=== PATIENT | female | born 1970 | race Caucasian/White ===

== ENCOUNTER 2022-07-20 11:27 | Day surgery (SDC) | payer MEDICAID, SELFPAY ==
[2022-07-14 12:39] VITALS: BMI 20.9
--- NOTE | 2022-07-17 09:08 | MHC.SHP ---
Pre-Procedural Eval Section A Date of Service: 07/17/22 The patient is an INPATIENT: No Changes since office visit: No Cold of Flu in the past 2 weeks, No New Medical Problems, No Changes in Medication and No Patient answered all questions The History & Physical has been completed within 30 days and I have reviewed it.: Yes Section B Chief Complaint: Age-related nuclear cataract, left eye Allergies: Allergies Allergy/AdvReac Type Severity Reaction Status Date / Time No Known Allergies Allergy Verified 07/14/22 12:38 Plan Diagnosis/Plan: Unchanged I have reviewed the history and physical and performed a pertinent physical examination on my patient. No changes have occurred unless specified. Time Spent With Patient Time: Total time managing care of this patient today ____ minutes.
--- NOTE | 2022-07-17 10:45 | HO.ANESPROP2 ---
Documented by User: Karen Guerrero NP 07/17/22 10:45 HPI - Anesthesia Eval Consult details Narrative: 51yo F for Left Cataract Extraction IOL Insertion PCP cleared No previous cataract on record PMFSH Past Medical History Medical History Cataract Cervical cancer Chronic renal insufficiency Depression Diabetes Diabetic retinopathy Gitelman syndrome Hepatitis C History of MRSA infection HIV (human immunodeficiency virus infection) HTN (hypertension) Uses roller walker Vision decreased Surgical History Surgical History History of ERCP Hx of cholecystectomy Hx of colonoscopy Hx of hysterectomy Social History Social History (Updated 07/14/22 @ 12:46 by Kiesha Grande, RYLEE) Are you a primary home care physical therapist to a significant other at home: No Do you presently have visiting nurse or other home services: No (supportive ex- there everyday ) Patient Tobacco Use Status: Never used Tobacco Use of substances other than those prescribed or required for medical reasons: No Are you DNR?: No Advance Directives: No Advance Directives Information Provided: Yes Advance Directives on File: No Meds Allergies Allergy/AdvReac Type Severity Reaction Status Date / Time No Known Allergies Allergy Verified 07/20/22 12:24 Home Medications Medication Instructions Recorded Confirmed Last Taken Type aspirin 81 mg tablet,delayed 81 mg PO DAILY 02/25/22 07/14/22 Unknown History release bictegravir 30 mg-emtricitabine 1 tab PO DAILY 02/25/22 07/14/22 Unknown History 120 mg-tenofovir alafenam 15 mg tablet (Biktarvy) cholecalciferol (vitamin D3) 25 25 mcg PO DAILY 02/25/22 07/14/22 Unknown History mcg (1,000 unit) capsule (Vitamin D3) dulaglutide 0.75 mg/0.5 mL 0.75 mg subcut QWEEK 02/25/22 07/14/22 Unknown History subcutaneous pen injector (Trulicity) gabapentin 300 mg capsule 300 mg PO BEDTIME 02/25/22 07/14/22 Unknown History insulin glargine 100 unit/mL 40 unit subcut QPM 02/25/22 07/14/22 Unknown History subcutaneous solution insulin lispro 100 unit/mL 5 - 15 unit subcut TIDAC 02/25/22 02/25/22 Unknown History subcutaneous pen (Humalog KwikPen (U-100) Insulin) metoprolol tartrate 25 mg tablet 25 mg PO DAILY 02/25/22 07/14/22 07/20/22 10:00 History famotidine 10 mg tablet 10 mg PO BID 07/14/22 07/14/22 Unknown History Exam Exam Date and Time: July 17, 2022 1045 Height,Weight and Vital Signs: Height 5 ft Weight 48.534 kg Assessment and Plan Assessment Anesthesia Assessment: Chart Reviewed Documented by User: Tristan Kc MD 07/20/22 13:52 HPI - Anesthesia Eval Consult details Narrative: 51yo F for Left Cataract Extraction IOL Insertion h/o Hep C s/p treatment as per patient . HIV, patient is on antiretroviral , stable as per patient , saw the physician couple of months ago . PCP cleared No previous cataract on record PMFSH Past Medical History Medical History Cataract Cervical cancer Chronic renal insufficiency Depression Diabetes Diabetic retinopathy Gitelman syndrome Hepatitis C History of MRSA infection HIV (human immunodeficiency virus infection) HTN (hypertension) Uses roller walker Vision decreased Functional capacity: uses cane/walker Family History Family history of problems with anesthesia: No Surgical History Surgical History History of ERCP Hx of cholecystectomy Hx of colonoscopy Hx of hysterectomy History of Problems with Anesthesia: No Social History Social History (Updated 07/14/22 @ 12:46 by Kiesha Grande RN) Are you a primary home care physical therapist to a significant other at home: No Do you presently have visiting nurse or other home services: No (supportive ex- there everyday ) Patient Tobacco Use Status: Never used Tobacco Use of substances other than those prescribed or required for medical reasons: No Are you DNR?: No Advance Directives: No Advance Directives Information Provided: Yes Advance Directives on File: No Meds Allergies Allergy/AdvReac Type Severity Reaction Status Date / Time No Known Allergies Allergy Verified 07/20/22 12:24 Home Medications Medication Instructions Recorded Confirmed Last Taken Type aspirin 81 mg tablet,delayed 81 mg PO DAILY 02/25/22 07/14/22 Unknown History release bictegravir 30 mg-emtricitabine 1 tab PO DAILY 02/25/22 07/14/22 Unknown History 120 mg-tenofovir alafenam 15 mg tablet (Biktarvy) cholecalciferol (vitamin D3) 25 25 mcg PO DAILY 02/25/22 07/14/22 Unknown History mcg (1,000 unit) capsule (Vitamin D3) dulaglutide 0.75 mg/0.5 mL 0.75 mg subcut QWEEK 02/25/22 07/14/22 Unknown History subcutaneous pen injector (Trulicity) gabapentin 300 mg capsule 300 mg PO BEDTIME 02/25/22 07/14/22 Unknown History insulin glargine 100 unit/mL 40 unit subcut QPM 02/25/22 07/14/22 Unknown History subcutaneous solution insulin lispro 100 unit/mL 5 - 15 unit subcut TIDAC 02/25/22 02/25/22 Unknown History subcutaneous pen (Humalog KwikPen (U-100) Insulin) metoprolol tartrate 25 mg tablet 25 mg PO DAILY 02/25/22 07/14/22 07/20/22 10:00 History famotidine 10 mg tablet 10 mg PO BID 07/14/22 07/14/22 Unknown History Exam Airway Mallampati Class: III TM Dist: >3cm Neck ROM: Full Loose/Missing/Broken Teeth: Yes (Poor dentition ) Heart: S1,S2 Lungs: b/l breath sounds Assessment and Plan Assessment Anesthesia Assessment: Anesthesia Plan Discussed Final Anesthetic Review Family History of Problems with Anesthesia: No History of Problems with Anesthesia: No NPO: Yes ASA Class: III Final Preanesthetic Review: Meds/Allgs Chart Reviewed, Consent Obtained/Reviewed and Anes Risks/Benef Reviewed Patient Risk: Intermediate Procedure Risk: Intermediate Anesthetic Plan Anesthetic Plan: MAC: Disposition: Standard PACU
[2022-07-20 11:56] LABS: Glucose, Whole Blood 279 mg/dL (60-115)
[2022-07-20] MEDS: Tetracaine HCl/PF 0.5% Oph Sol 4 ML DROPS 1 DROP EYE-LEFT (11:59)
[2022-07-20] MEDS: Cyclopentolate 1 % Ophth Sol 2 ML DRPBTL 1 DROP EYE-LEFT ×3 (12:02→12:16)
[2022-07-20] MEDS: Tropicamide 1 % Ophth Sol 3 ML BTL 1 DROP EYE-LEFT ×3 (12:05→12:17)
[2022-07-20] MEDS: Ketorolac Tromethamine 0.5% Op 5 ML DROPS 1 DROP EYE-LEFT ×3 (12:07→12:19)
[2022-07-20] MEDS: Phenylephrine HCL 2.5% Oph SoL 2 ML BOTTLE 1 DROP EYE-LEFT ×3 (12:09→12:21)
[2022-07-20 12:11] VITALS: BP 113/68; PULSE 96; RESP 16; TEMP 36.3; O2SAT 99
[2022-07-20] MEDS: Lactated Ringers 500 ML 50 ML IV (12:22)
--- NOTE | 2022-07-20 12:56 | HO.PNOPHT ---
Ophthalmology Procedure Procedure Date of Service: 07/20/22 Ophthalmology Viscoelastic: Healon Duet Dual Pack Pro Ophthalmology Lenses: TECKATHY [id number] (23.5) Procedure Notes: PREOPERATIVE DIAGNOSIS: Decreased visual acuity left eye secondary to cataract POSTOPERATIVE DIAGNOSIS: Same PROCEDURE: Left cataract extraction with intraocular lens insertion; Visionblue SURGEON: Bartolome Bliss M.D. ANESTHESIA: Topical/MAC ESTIMATED BLOOD LOSS: None COMPLICATIONS: None After obtaining informed consent, the patient was brought to the operation room suite and placed in the supine position. After adequate sedation per anesthesia, topical drops of Tetracaine were given to the left eye. The eye was then prepped and draped in the usual sterile fashion. The operating room microscope was then positioned over the operative eye and a lid speculum placed. A paracentesis was created.An air bubble was placed in the anterior chamber followed by Visionblue. Viscoelastic was then instilled into the anterior chamber. A three plane incision was then created temporally, utilizing a 2.85 mm keratome. Capsulotomy forceps were then utilized to create a circular tear capsulotomy. Hydrodissection and hydrodelineation were carried out until adequate mobilization of the nucleus occurred. Phacoemulsification was then utilized to remove the dense central nucleus followed by removal of the cortical material utilizing the automated aspiration irrigation unit. Viscoat elastic was instilled into the posterior capsular bag followed by placement of a posterior chamber intraocular lens without difficulty. The residual Viscoat elastic was then removed utilizing the automated IA machine. The wound was check and found to be watertight. The patient tolerated the procedure well and the lid speculum was removed. Intracameral injection of Vigamox 0.1 mL followed by a subtenon injection of Kenalog-40 0.2 mL were administered. The patient will be seen in the a.m.
[2022-07-20 13:24] VITALS: BP 136/84; PULSE 96; RESP 20; TEMP 36.6; O2SAT 99
== END 2022-07-20 13:48 | disposition home or self-care (01) ==
PROVIDERS: PCP Internal Medicine; Visit Provider Ophthalmology
PROC: (CPT 66985; principal; 2022-07-20 13:20)
DX: H25.12 Age-related nuclear cataract, left eye (principal); H54.7 Unspecified visual loss; E11.319 Type 2 diabetes mellitus with unspecified diabetic retinopathy without macular edema; E11.22 Type 2 diabetes mellitus with diabetic chronic kidney disease; I12.9 Hypertensive chronic kidney disease with stage 1 through stage 4 chronic kidney disease, or unspecified chronic kidney disease; N18.9 Chronic kidney disease, unspecified; B20 Human immunodeficiency virus [HIV] disease; B19.21 Unspecified viral hepatitis C with hepatic coma; Z79.4 Long term (current) use of insulin; Z79.899 Other long term (current) drug therapy; Z79.82 Long term (current) use of aspirin; Z86.14 Personal history of Methicillin resistant Staphylococcus aureus infection
CPT/HCPCS: 66984; 82947; J2250; J3010; J3301; V2632

== ENCOUNTER 2022-08-10 10:21 | Day surgery (SDC) | payer OTHER, SELFPAY ==
[2022-07-14 12:43] VITALS: BMI 20.9
--- NOTE | 2022-08-07 10:27 | MHC.SHP ---
Pre-Procedural Eval Section A Date of Service: 08/07/22 The patient is an INPATIENT: No Changes since office visit: No Cold of Flu in the past 2 weeks, No New Medical Problems, No Changes in Medication and No Patient answered all questions The History & Physical has been completed within 30 days and I have reviewed it.: Yes Section B Chief Complaint: Age-related nuclear cataract, right eye Allergies: Allergies Allergy/AdvReac Type Severity Reaction Status Date / Time No Known Allergies Allergy Verified 07/20/22 12:24 Plan Diagnosis/Plan: Unchanged I have reviewed the history and physical and performed a pertinent physical examination on my patient. No changes have occurred unless specified. Time Spent With Patient Time: Total time managing care of this patient today ____ minutes.
--- OUTSIDE RECORDS SUMMARY | 2022-08-10 10:22 | XMS_ITS | Continuity of Care Document ---
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 Name Role Phone Isra ELIZABETH, Toyin Primary Care Physician Encounter [facility] Date(s): 02/07/21 - 06/07/21 [facility] [address] [place] [id number] Attending Physician: Abdoul Solitario MD Admitting Physician: Abdoul Solitario MD Referring Physician: Toyin Dhaliwal MD Allergies, Adverse Reactions, Alerts No Known Allergies Immunizations Given and Recorded Vaccine Date Status Refusal Reason influenza virus vaccine, inactivated 03/05/21 Give n influenza virus vaccine, inactivated 1 02/12/20 Gi damien influenza virus vaccine, inactivated 2 03/23/19 Gi damien influenza virus vaccine, inactivated 3 03/10/16 Gi damien influenza virus vaccine, inactivated 4 02/13/15 Gi damien influenza virus vaccine, inactivated 5 03/02/14 Gi damien influenza virus vaccine, inactivated 03/15/13 Give n influenza virus vaccine, inactivated 6 02/14/08 Gi damien SARS-CoV-2 (COVID-19) mRNA BNT-162b2 vac 7 11/08/20 Given SARS-CoV-2 (COVID-19) mRNA BNT-162b2 vac 10/16/20 Recorded tetanus/diphtheria/pertussis, acel(Tdap) 8 07/06/19 Given Hepatitis A-Hepatitis B Vaccine 9 09/24/16 Given pneumococcal 23-valent vaccine 09/24/16 Given Twinrix (oldterm) 10 10/17/15 Given pneumococcal 13-valent vaccine 04/06/13 Given Tet/Diphth/Acel, Pertussis (oldterm) 11 02/14/08 G iven Pneumococcal Vaccine (oldterm) 12 6/30/08 Given Not Given Vaccine Date Status Refusal Reason influenza virus vaccine, inactivated 06/25/19 Not Given Patient Refuses influenza virus vaccine, inactivated 04/09/17 Not Given Patient Refuses pneumococcal 23-valent vaccine 06/25/19 Not Given Patient Refuses 1Early/Late Reason: Med Not Available 2Result Comment: FORMER[facility] NAMED [facility]#[id number] 3Admin Note: Influenza vaccine 4Admin Note: Influenza vaccine 5Admin Note: Influenza vaccine 6Admin Note: VIS GIVEN 7Result Comment: SEE COVID TEAM PROGRESS NOTE 8Result Comment: FORMERLY NAMED [facility]# [id number] 9Admin Note: Twinrix # 2 10Admin Note: Twinrix # 1 11Admin Note: VIS GIVEN 12Result Comment: Lot: [id number] Exp: Nov 08 Pt given vaccine info sheet before vaccine administered Medications Biktarvy oral tablet 1 tablet, By Mouth, Daily, # 30 tablet, 0 Refills, Maintenance, 11/26/20 16:19:00 EDT, Tablet, [facility], Partial fill upon patient request if the prescription is for a schedule II opioid drug., 1 tablet By Mouth Daily, 153, cm, 2... Start Date: 11/26/20 Status: Ordered Blood Pressure Monitor See Instructions, # 1 each, Maintenance, measure bp daily, 03/06/21 10:41:00 EDT, Supply, 150, cm, 03/06/21 7:45:00 EDT, Height, 45.4, kg, 03/04/21 20:30:00 EDT, Dry Weight Start Date: 03/06/21 Status: Ordered Freestyle Lite Lancets See Instructions, # 100 each, Maintenance, Use to check blood sugars BID Type 2 DM ICD 10: E11.9, 03/17/21 13:23:00 EST, Supply, 150, cm, 03/17/21 13:11:00 EST, Height, 45.4, kg, 03/04/21 20:30:00 EDT, Dry Weight Start Date: 03/17/21 Status: Ordered Freestyle Lite Monitor See Instructions, # 1 each, Maintenance, Use to check blood sugars BID Type 2 DM ICD 10: E11.9, 03/17/21 13:23:00 EST, Supply, 150, cm, 03/17/21 13:11:00 EST, Height, 45.4, kg, 03/04/21 20:30:00 EDT,Dry Weight Start Date: 03/17/21 Status: Ordered Freestyle Lite Monitor See Instructions, # 1 each, Refills 0, Tot. Refills 0, Maintenance, use as directed for Type 2 Diabetes Mellitus, 03/06/21 10:42:00 EDT, Supply, 150, cm, 03/06/21 7:45:00 EDT, Height, 45.4, kg, 03/04/21 20:30:00 EDT, Dry Weight Start Date: 03/06/21 Stop Date: 04/05/21 Status: Ordered Freestyle Lite Test Strips See Instructions, # 100 each, Maintenance, Use to check blood sugars BID Type 2 DM ICD 10: E11.9, 03/17/21 13:23:00 EST, Supply, 150, cm, 03/17/21 13:11:00 EST, Height, 45.4, kg, 03/04/21 20:30:00 EDT, Dry Weight Start Date: 03/17/21 Status: Ordered gabapentin 300 mg oral capsule 1, capsule, By Mouth, Daily at bedtime, # 90 capsule, Refills 3, Tot. Refills 3, Maintenance, 11/29/20 12:03:00 EDT, Route to Pharmacy Electronically, [facility] #[id number], 153, cm, 11/26/20 13:06:00 EDT, Height, 46, kg, 11/24/20 3:02:00 EDT, D... Start Date: 11/29/20 Status: Ordered Glucose Gel, Insta Glucose 40% See Instructions, # 2 each, Refills 5, Tot. Refills 5, Maintenance, use as directed for Type 1 Diabetes Mellitus, 03/27/21 12:30:00 EST, Supply, 153, cm, 03/27/21 7:40:00 EST, Height, 45.5, kg, 03/22/21 16:06:00 EST, Dry Weight Start Date: 03/27/21 Stop Date: 09/23/21 Status: Ordered Humalog Kwik Pen 100 units/mL subcutaneous injection 2 - 10 units, Subcutaneous Injection, 3 times a day before meals, # 15 mL, 11 Refills, Maintenance,05/26/21 12:48:00 EST, Injection, [facility] #[id number], Partial fill upon patient request ifthe prescription is for a schedule II opioid drug.,... Start Date: 05/26/21 Stop Date: 05/21/22 Status: Ordered insulin glargine 100 u/ml subcutaneous solution = 32 units, Subcutaneous Injection, Daily at bedtime, # 12 mL, 0 Refills, Maintenance, 03/27/21 12:27:00 EST, Injection, [facility] #[id number], Partial fill upon patient request if the prescription is for a schedule II opioid drug., 153, cm, ... Start Date: 03/27/21 Status: Ordered Magnesium Oxide By Mouth, 2 times a day, 0 Refills, Maintenance, 03/04/21 19:51:00 EDT, Partial fill upon patient request if the prescription is for a schedule II opioid drug. Start Date: 03/04/21 Status: Ordered Trulicity Pen 0.75 mg/0.5 mL subcutaneous solution 0.5 mL = 0.75 mg, Subcutaneous Injection, Every week, call office in one month so i can increase your dose. rotate injection sites, # 2 mL, 3 Refills, Maintenance, 11/14/20 10:44:00 EDT, Solution, [facility] #[id number], Partial fill upon patient... 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) 1 Active Depression(Confirmed) Active Diabetes mellitus type 2(Confirmed) Active DKA (diabetic ketoacidoses)(Confirmed) Active DKA (diabetic ketoacidoses)(Confirmed) Active Diabetic retinopathy, [place], 03/23/19(Confirmed) Active Rash(Confirmed) Active 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 History of cervical cancer(Confirmed) Active HIV (human immunodeficiency virus infection)(Confirmed) Active Hypermetropia of both eyes(Confirmed) Active Hypomagnesemia(Confirmed) Active Hyponatremia(Confirmed) Active Hypophosphatemia(Confirmed) Active Hysterectomy(Confirmed) Active KEVIN (acute kidney injury)(Confirmed) Active Hypotension(Confirmed) Active Metabolic acidosis, increase d anion gap(Confirmed) Active Pinguecula of both eyes(Confirmed) Active Sepsis(Confirmed) Active Sepsis(Confirmed) Active Sick euthyroidism(Confirmed) Active Tachycardia(Confirmed) Active Presence of indwelling Mcdonald catheter(Confirmed) Active UTI (urinary tract infection)(Confirmed) Active UTI (urinary tract infection)(Confirmed) Active HCV (hepatitis C virus)(Confirmed) Active 1primary tumor PT1b, regional nodes pN0 Social History Social History Type Response Smoking Status Never (less than 100 in lifetime) entered on: 06/06/21 Sex
--- OUTSIDE RECORDS SUMMARY | 2022-08-10 10:22 | XMS_ITS | Continuity of Care Document ---
Author Name Unknown Organization [facility] ter Address [address] [place] [id number]- Care Team Providers Care Healthcare Consultant Name Role Phone Bala Cortez MD Primary Care Physician [phone] Encounter [facility] Date(s): 10/28/19 - 11/03/[address] [address]- [facility] Encounter Diagnosis Fever(Final) - 10/29/19 Discharge Disposition: A-D/C Home [facility] Admitting Physician: Bassam Ellis DO Referring Physician: Not on Staff, Referring MD Allergies, Adverse Reactions, Alerts No Known Medication Allergies Substance Reaction Severity Status NKA Active Immunizations Given and Recorded Vaccine Date Status Refusal Reason tetanus/diphtheria/pertussis, acel(Tdap) 1 07/06/19 Given influenza virus vaccine, inactivated 2 03/23/19 Gi damien influenza virus vaccine, inactivated 3 03/10/16 Gi damien influenza virus vaccine, inactivated 4 02/13/15 Gi damien influenza virus vaccine, inactivated 5 03/02/14 Gi damien influenza virus vaccine, inactivated 03/15/13 Give n influenza virus vaccine, inactivated 6 02/14/08 Gi damien Hepatitis A-Hepatitis B Vaccine 7 09/24/16 Given pneumococcal 23-valent vaccine 09/24/16 Given Twinrix (oldterm) 8 10/17/15 Given pneumococcal 13-valent vaccine 04/06/13 Given Tet/Diphth/Acel, Pertussis (oldterm) 9 02/14/08 Gi damien Pneumococcal Vaccine (oldterm) 10 10/31/07 Given Not Given Vaccine Date Status Refusal Reason influenza virus vaccine, inactivated 06/25/19 Not Given Patient Refuses influenza virus vaccine, inactivated 12/8/17 Not Given Patient Refuses pneumococcal 23-valent vaccine 06/25/19 Not Given Patient Refuses 1Result Comment: [facility]# [id number] 2Result Comment: [facility]#[id number] 3Admin Note: Influenza vaccine 4Admin Note: Influenza vaccine 5Admin Note: Influenza vaccine 6Admin Note: VIS GIVEN 7Admin Note: Twinrix # 2 8Admin Note: Twinrix # 1 9Admin Note: VIS GIVEN 10Result Comment: Lot: [id number] Exp: Nov 08 Pt given vaccine info sheet before vaccine administered Medications Alcohol Pads See Instructions, # 200 each, Refills 5, Tot. Refills 5, Maintenance, use as directed for Type 2 Diabetes Mellitus 7 times daily, 07/07/19 10:28:00 EST, Compound, 152, cm, 07/06/19 11:06:00 EST, Height, 43.1, kg, 07/06/19 11:06:00 EST, Dry Weight Start Date: 07/07/19 Stop Date: 01/03/20 Status: Ordered aMILoride 5 mg oral tablet 1 tablet = 5 mg, By Mouth, Daily, # 30 tablet, 0 Refills, Maintenance, 07/06/19 11:28:00 EST, Tablet, [facility] #[id number], 152, cm, 07/06/19 11:06:00 EST, Height, 43.1, kg, 07/06/19 11:06:00 EST, Dry Weight Start Date: 07/06/19 Status: Ordered Biktarvy oral tablet 1 tablet, By Mouth, Daily, # 30 tablet, 0 Refills, Maintenance, 06/15/19 12:30:00 EST, Tablet Start Date: 06/15/19 Status: Ordered Excedrin 1 tablet, By Mouth, 2 times a day, 0 Refills, Maintenance, 01/24/19 12:47:48 EDT Start Date: 01/24/19 Status: Ordered Freestyle Lite Lancets See Instructions, # 200 each, Refills 5, Tot. Refills 5, Maintenance, use TID before meals for Type2 Diabetes Mellitus, 07/06/19 11:31:00 EST, Compound, 152, cm, 07/06/19 11:06:00 EST, Height, 43.1,kg, 07/06/19 11:06:00 EST, Dry Weight Start Date: 07/06/19 Stop Date: 01/02/20 Status: Ordered Freestyle Lite Test Strips See Instructions, # 200 each, Refills 5, Tot. Refills 5, Maintenance, use TID before meals for Type2 Diabetes Mellitus, 07/06/19 11:31:00 EST, Compound, 152, cm, 07/06/19 11:06:00 EST, Height, 43.1,kg, 07/06/19 11:06:00 EST, Dry Weight Start Date: 07/06/19 Stop Date: 01/02/20 Status: Ordered gabapentin 300 mg oral capsule 300 mg, 1, capsule, By Mouth, Daily at bedtime, # 30 capsule, Refills 0, Tot. Refills 0, Maintenance, 10/19/19 15:33:00 EDT, Route to Pharmacy Electronically, [facility] #[id number], 152, cm, 07/06/19 11:06:00 EST, Height, 43.1, kg, 07/06/19 11:0... Start Date: 10/19/19 Status: Ordered Humalog Kwik Pen 100 units/mL subcutaneous injection See Instructions, 100-149 4 units 150 199 6 units 200 249 8 units 250 -299 10 units 300-349 12 units 350-399 14 units with meals as needed, # 1 each, 1 Refills, Maintenance, 06/26/19 13:52:00 EST, Solution, [facility] #[id number], 153,... Start Date: 06/26/19 Status: Ordered Lantus Solostar Pen 100 units/mL subcutaneous solution = 45 units, Subcutaneous Injection, Daily at bedtime, # 1 each, 0 Refills, Maintenance, 06/26/19 13:40:00 EST, Solution, [facility] #[id number], 153, cm, 06/26/19 7:18:00 EST, Height, 41.1, kg, 01/24/19 18:27:00 EDT, Dry Weight Start Date: 06/26/19 Status: Ordered Levaquin 750 mg oral tablet 1 tablet = 750 mg, By Mouth, Every 24 hours, for 7 days, # 7 tablet, 0 Refills, Acute 11/10/19 14:26:00 EDT, 11/03/19 14:26:00 EDT, Tablet, [facility], 152.4, cm, 11/03/19 11:28:00 EDT,Height, 45.5, kg, 10/29/19 6:43:00 EDT, Dry Weight Start Date: 11/03/19 Stop Date: 11/10/19 Status: Ordered magnesium oxide 400 mg oral tablet 1 tablet = 400 mg, By Mouth, 3 times a day, # 100 tablet, 3 Refills, Acute 07/05/20 11:27:00 EST, 07/06/19 11:26:00 EST, Tablet, [facility] #[id number], 152, cm, 07/06/19 11:06:00 EST, Height, 43.1, kg, 07/06/19 11:06:00 EST, Dry Weight Start Date: 07/06/19 Stop Date: 07/05/20 Status: Ordered multivitamin Therapeutic Multiple Vitamins oral tablet 1 tablet, By Mouth, Daily, # 30 tablet, 0 Refills, Maintenance, 06/26/19 13:45:00 EST, Tablet, [facility] #[id number], 1 tablet By Mouth Daily,x30 days, 153, cm, 06/26/19 7:18:00 EST, Height, 41.1, kg, 01/24/19 18:27:00 EDT, Dry Weight Start Date: 06/26/19 Stop Date: 07/26/19 Status: Ordered Pen [place], 29 G x 12.7 mm BD Ultra Fine See Instructions, # 100 each, Refills 5, Tot. Refills 5, Maintenance, use as directed for Type 1 Diabetes Mellitus, 06/26/19 13:47:00 EST, Compound, 153, cm, 06/26/19 7:18:00 EST, Height, 41.1, kg, 01/24/19 18:27:00 EDT, Dry Weight Start Date: 06/26/19 Stop Date: 12/23/19 Status: Ordered Pen [place], 31 G x 5 mm BD Ultra Fine III See Instructions, # 100 each, Refills 5, Tot. Refills 5, Maintenance, use as directed for Type 2 Diabetes Mellitus 4 times daily, 07/07/19 10:26:00 EST, Compound, 152, cm, 07/06/19 11:06:00 EST, Height, 43.1, kg, 07/06/19 11:06:00 EST, Dry Weight Start Date: 07/07/19 Stop Date: 01/03/20 Status: Ordered Pen [place], 31 G x 5 mm BD Ultra Fine III See Instructions, # 100 each, Refills 5, Tot. Refills 5, Maintenance, use as directed for Type 2 4 times a day Diabetes Mellitus, 06/17/19 10:52:00 EST, Compound, 152, cm, 06/17/19 7:41:00 EST, Height, 41.3, kg, 06/15/19 17:42:00 EST, Dry Weight Start Date: 06/17/19 Stop Date: 12/14/19 Status: Ordered potassium chloride 10 mEq oral tablet, extended release 1 tablet = 10 mEq, By Mouth, 2 times a day, # 28 tablet, 0 Refills, Maintenance, 01/27/19 11:49:34 EDT, ER Tablet Start Date: 01/27/19 Stop Date: 02/10/19 Status: Ordered Problem List Condition Effective Dates Status Health Status Inform ant Pyelonephritis, acute(Confirmed) Active Astigmatism, bilateral(Confirmed) Active MRSA bacteremia(Confirmed) Active Cholelithiasis(Confirmed) Active ALEE III - Cervical intraepit helial neoplasia grade III with severe dysplasia(Confirmed) 1 Active Depression(Confirmed) Active Diabetes mellitus type 2(Confirmed) Active DKA (diabetic ketoacidoses)(Confirmed) Active Diabetic retinopathy, [place], 03/23/19(Confirmed) Active 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 History of cervical cancer(Confirmed) Active HIV (human immunodeficiency virus infection)(Confirmed) Active Hypermetropia of both eyes(Confirmed) Active Hypomagnesemia(Confirmed) Active Hyponatremia(Confirmed) Active Hypophosphatemia(Confirmed) Active Hysterectomy(Confirmed) Active KEVIN (acute kidney injury)(Confirmed) Active Hypotension(Confirmed) Active Pinguecula of both eyes(Confirmed) Active Sepsis(Confirmed) Active Sick euthyroidism(Confirmed) Active Tachycardia(Confirmed) Active Presence of indwelling [place] catheter(Confirmed) Active HCV (hepatitis C virus)(Confirmed) Active 1primary tumor PT1b, regional nodes pN0 Results Orders for Microbiology Reports Name Date Blood Culture 10/28/19 Blood Culture #2 10/28/19 Microbiology Reports TEST:Blood Culture, Second Order STATUS:Auth (Verified) BODY SITE: SOURCE:Blood COLLECTED DATE/TIME:10/28/19 6:40 PM Blood Culture, Second Order SPECIMEN DESCRIPTION : BLOOD NONE GIVEN SPECIAL REQUESTS : CRITICAL VALUE CALLED AND VERIFIED BY READBACK FOR: [place] [address] ON 10/29/19 AT 093 TECH 152. CULTURE : ENTEROBACTER CLOACAE REPORT STATUS : FINAL 10/31/2019 ORGANISM ENTEROBACTER CLOACAE METHOD MIN. INHIB. CONC. (MCG/ML) AMPICILLIN RESISTANT AMPICILLIN/SULBACTAM INTERMEDIATE AMOXICILLIN/CLAVULAN RESISTANT CEFAZOLIN RESISTANT CEFEPIME SUSCEPTIBLE CEFTRIAXONE SUSCEPTIBLE CIPROFLOXACIN SUSCEPTIBLE ERTAPENEM SUSCEPTIBLE GENTAMICIN SUSCEPTIBLE LEVOFLOXACIN SUSCEPTIBLE MEROPENEM SUSCEPTIBLE PIPERACILLIN/TAZOBAC SUSCEPTIBLE TRIMETH/SULFAMETHOX SUSCEPTIBLE TETRACYCLINE SUSCEPTIBLE TEST:Blood Culture STATUS:Auth (Verified) BODY SITE: SOURCE:Blood COLLECTED DATE/TIME:10/28/19 6:18 PM Blood Culture SPECIMEN DESCRIPTION : BLOOD RT HND SPECIAL REQUESTS : CRITICAL VALUE CALLED AND VERIFIED BY READBACK FOR: [place] [address] ON D3 AT 0935 ON 10/29/19 TECH 152. CULTURE : ENTEROBACTER CLOACAE FOR SUSCEPTIBILITY RESULT REFER TO BLOOD CULTURE Enterobacter cloacae complex was identified by multi-plex PCR REPORT STATUS : FINAL 10/31/2019 Radiology Reports * Exam Date Time Procedure Performing Provider Status 10/28/19 7:01 PM Chest Portable Stephanie Sharpe; Auth (Verified) Notes: (Chest Portable) Reason For Exam: Shortness of Breath RESULT: Chest Portable Chest Portable Reason: Shortness of Breath; Clinical Question(s): Pneumonia COMPARISON: 05/16/2019. FINDINGS: LINES AND TUBES: None. LUNGS AND PLEURA: Clear lungs. Normal pulmonary vascularity. No pleural effusion. No pneumothorax. HEART, MEDIASTINUM AND ZBIGNIEW: Heart is normal in size. Normal mediastinal and hilar contour. BONES AND SOFT TISSUES: No acute abnormality. IMPRESSION: No acute abnormality. WSN: [id number] Ordering Physician: Liang Ledezma Dictated By: Noah Ayala MD Dictated Date/Time: 10/28/19 7:38 pm Reviewed By: Noah Ayala MD Signed By: Noah Ayala MD Signed Date/Time: 10/28/19 7:38 pm Transcribed By: TANYA Transcribed Date/Time: 10/28/19 7:34 pm Vital Signs Most recent to oldest [Reference Range]: 1 2 3 Height 152.4 cm (11/03/19 11:28 AM) 152.4 cm (11/03/19 8:51 AM) 152.4 cm (11/03/19 3:48 AM) Weight 45.5 kg (10/28/19 10:19 PM) Oxygen Saturation [94-100 %] 100 % (11/03/19 11:28 AM) 99 % (11/03/19 8:51 AM) 100 % (11/03/19 3:48 AM) Pulse Rate [55-90 bpm] 98 bpm *H* (11/03/19 11:28 AM) 92 bpm *H* (11/03/19 8:51 AM) 84 bpm (11/03/19 3:48 AM) Body Mass Index [18.5-24.99] 19.59 (10/28/19 10:19 PM) Blood Pressure [90-138/55-84 mm Hg] 111/58mm Hg (11/03/19 11:28 AM) 95/68mm Hg (11/03/19 8:51 AM) 105/68mm Hg (11/03/19 3:48 AM) Respiratory Rate [16-30 br/min] 16 br/min (11/03/19 11:28 AM) 16 br/min (11/03/19 8:51 AM) 16 br/min (11/03/19 3:48 AM) Temperature [96.8-100.4 DegF] 98.3 DegF (11/03/19 11:28 AM) 98.0 DegF (11/03/19 8:51 AM) 98.0 DegF (11/03/19 3:48 AM) Mode of Delivery (Oxygen) Room air (11/03/19 11:28 AM) Room air (11/03/19 8:51 AM) Room air (11/03/19 3:48 AM) Blood pressure sites Arm, left (11/03/19 11:28 AM) Arm, left (11/03/19 8:51 AM) Arm, left (11/03/19 3:48 AM) Temperature Route Oral (11/03/19 11:28 AM) Oral (11/03/19 8:51 AM) Oral (11/03/19 3:48 AM) Dry Weight 45.5 kg (10/28/19 10:19 PM) Weight Obtained Via Patient/family state d (10/28/19 10:19 PM) Dry Weight Obtained Via Patient/family s tated (10/28/19 10:19 PM) Social History Social History Type Response Smoking Status Never smoker entered on: 01/26/14 Sex
--- OUTSIDE RECORDS SUMMARY | 2022-08-10 10:22 | XMS_ITS | Continuity of Care Document ---
Author Name Unknown Organization [facility] ter Address [address] [place] [address]- Care Team Providers Care Electrician Maintenance Name Role Phone Isra ELIZABETH, [facility] Primary Care Physician [phone] Encounter [facility] Date(s): 03/03/21 - 03/06/[address] [id number] Discharge Disposition: A-D/C Home Attending Physician: Rekha White DO Admitting Physician: Sabino Marquez MD Referring Physician: Not on Staff, Referring MD [...] 02/14/08 G iven Pneumococcal Vaccine (oldterm) 12 10/31/07 Given Not Given Vaccine Date Status Refusal Reason influenza virus vaccine, inactivated 06/25/19 Not Given Patient Refuses influenza virus vaccine, inactivated 04/09/17 Not Given Patient Refuses pneumococcal 23-valent vaccine 06/25/19 Not Given Patient Refuses 1Early/Late Reason: Med Not Available 2Result Comment: [facility]#[id number] 3Admin Note: Influenza vaccine 4Admin Note: Influenza vaccine 5Admin Note: Influenza vaccine 6Admin Note: VIS GIVEN 7Result Comment: SEE COVID TEAM PROGRESS NOTE 8Result Comment: [facility]# [id number] 9Admin Note: Twinrix # 2 10Admin Note: Twinrix # 1 11Admin Note: VIS GIVEN 12Result Comment: Lot: [id number] Exp: Nov 08 Pt given vaccine info sheet before vaccine administered Medications Biktarvy oral tablet 1 tablet, By Mouth, Daily, # 30 tablet, 0 Refills, Maintenance, 11/26/20 16:19:00 EDT, Tablet, [facility], Partial fill upon patient [...] Start Date: 03/06/21 Status: Ordered Freestyle Lite Monitor See Instructions, # 1 each, Refills 0, Tot. Refills 0, Maintenance, use as directed for Type 2 Diabetes Mellitus, 03/06/21 10:42:00 EDT, Supply, 150, cm, 03/06/21 7:45:00 EDT, Height, 45.4, kg, 03/04/21 20:30:00 EDT, Dry Weight Start Date: 03/06/21 Stop Date: 04/05/21 Status: Ordered gabapentin 300 mg oral capsule 1, capsule, By Mouth, Daily at bedtime, # 90 capsule, Refills 3, Tot. Refills 3, Maintenance, 11/29/20 12:03:00 EDT, Route to Pharmacy Electronically, [facility] #[id number], 153, cm, 11/26/20 13:06:00 EDT, Height, 46, kg, 11/24/20 3:02:00 EDT, DPriya.. Start Date: 11/29/20 Status: Ordered Humalog Kwik Pen 100 units/mL subcutaneous injection 2 - 10 units, Subcutaneous Injection, 3 times a day before meals, # 15 mL, 0 Refills, Maintenance, 01/20/21 15:21:00 EDT, Injection, [facility] #[id number], Partial fill upon patient request if the prescription is for a schedule II opioid drug.,... Start Date: 01/20/21 Stop Date: 02/19/21 Status: Ordered HydroCORTisone 1% Topical 1 applicator, Topically, 3 times a day, 0 Refills, Maintenance, Cream Start Date: 03/06/21 Status: Ordered Lantus Solostar Pen 100 units/mL subcutaneous solution = 35 units, Subcutaneous Injection, Daily in AM, for 30 days, # 10 mL, 3 Refills, Physician Stop 03/26/21 16:19:00 EST, 11/26/20 16:19:00 EDT, [facility], 153, cm, 11/26/20 13:06:00 EDT, Height, 46, kg, 11/24/20 3:02:00 EDT, Dry Weight Start Date: 11/26/20 Stop Date: 03/26/21 Status: Ordered Magnesium Oxide By Mouth, 2 [...] 3 Refills, Maintenance, 11/14/20 10:44:00 EDT, Solution, [facility] #[id number], Partial fill upon patient... Start Date: 11/14/20 [...] Active DKA (diabetic ketoacidoses)(Confirmed) Active Diabetic retinopathy, [place], 03/23/19(Confirmed) Active Rash(Confirmed) Active Gitelman syndrome(Confirmed) Active [...] Results Orders for Microbiology Reports Name Date Urine Culture (URINE CULTURE) 03/04/21 Microbiology Reports TEST:Urine Culture STATUS:Auth (Verified) BODY SITE: SOURCE:URINE COLLECTED DATE/TIME:03/04/21 11:37 AM Urine Culture SPECIMEN DESCRIPTION : URINE CLEAN CATCH/MIDSTREAM SPECIAL REQUESTS : NONE Reflexed from [id number] CULTURE : Mixed bacterial alma, indicative of urogenital contamination. REPORT STATUS : FINAL 03/05/2021 Radiology Reports * Exam Date Time Procedure Performing Provider Status 03/04/21 4:01 PM Chest 2 Views Frontal and Lat Kali Cardenas; Auth (Verified) Notes: (Chest 2 Views Frontal and Lat) Reason For Exam: Cough RESULT: Chest 2 Views Frontal and Lat Chest 2 Views Frontal and Lat Hx of Present Illness: Dizziness, lightheadedness. I feel like I'm going to faint. ; Reason: Cough; Clinical Question(s): CHF COMPARISON: 11/21/2020 FINDINGS: LINES AND TUBES: None. LUNGS AND PLEURA: Clear lungs. Normal pulmonary vascularity. No pleural effusion. No pneumothorax. HEART, MEDIASTINUM AND ZBIGNIEW: Heart is normal in size. Normal upper mediastinal and hilar contour. BONES AND SOFT TISSUES: No acute abnormality. IMPRESSION: Negative. Stable exam. WSN: [id number] Ordering Physician: Anamaria Cloud Dictated By: Noah Murrieta MD Dictated Date/Time: 03/04/21 4:06 pm Reviewed By: Noah Murrieta MD Signed By: Noah Murrieta MD Signed Date/Time: 03/04/21 4:06 pm Transcribed By: TANYA Transcribed Date/Time: 03/04/21 4:05 pm Vital Signs Most recent to oldest [Reference Range]: 1 2 3 Height 150 cm (03/06/21 12:05 PM) 150 cm (03/06/21 7:45 AM) 150 cm (03/06/21 4:53 AM) Weight 45.4 kg (03/04/21 7:52 PM) 45.4 kg (03/04/21 2:08 PM) 45.4 kg (03/04/21 11:45 AM) Oxygen Saturation [94-100 %] 100 % (03/06/21 12:05 PM) 100 % (03/06/21 7:45 AM) 100 % (03/06/21 4:53 AM) Pulse Rate [55-90 bpm] 85 bpm (03/06/21 12:05 PM) 92 bpm *H* (03/06/21 7:45 AM) 93 bpm *H* (03/06/21 4:53 AM) Body Mass Index [18.5-24.99] 20.18 (03/04/21 7:52 PM) 20.18 (03/04/21 2:08 PM) Blood Pressure [90-138/55-84 mm Hg] 149/80mm Hg *H* (03/06/21 12:05 PM) 135/77mm Hg (03/06/21 7:45 AM) 124/73mm Hg (03/06/21 4:53 AM) Respiratory Rate [16-30 br/min] 18 br/min (03/06/21 12:05 PM) 16 br/min (03/06/21 7:51 AM) 18 br/min (03/06/21 7:45 AM) Temperature [96.8-100.4 DegF] 98.3 DegF (03/06/21 12:05 PM) 98.4 DegF (03/06/21 7:45 AM) 98.6 DegF (03/06/21 4:53 AM) Mode of Delivery (Oxygen) Room air (03/06/21 12:05 PM) Room air (03/06/21 7:45 AM) Room air (03/06/21 4:53 AM) Blood pressure sites Arm, left (03/06/21 12:05 PM) Arm, left (03/06/21 7:45 AM) Arm, left (03/06/21 4:53 AM) Temperature Route Oral (03/06/21 12:05 PM) Oral (03/06/21 7:45 AM) Oral (03/06/21 4:53 AM) Dry Weight 45.4 kg (03/04/21 7:52 PM) 45.4 kg (03/04/21 2:08 PM) 45.4 kg (03/04/21 11:45 AM) Social History Social History Type Response Smoking Status Never smoker entered on: 01/26/14 Sex
--- OUTSIDE RECORDS SUMMARY | 2022-08-10 10:23 | XMS_ITS | Continuity of Care Document ---
Author Name Unknown Organization [facility] Address [address] [place] [address]- Care Team Providers Care Corporate Analyst Name Role Phone Isra ELIZABETH, Toyin Primary Care Physician [phone] Encounter [facility] Date(s): 05/05/22 - 06/04/22 [facility] [address] [place], [place] [address] Allergies, Adverse Reactions, Alerts No Known Allergies [...] 1Early/Late Reason: Med Not Available 2Result Comment: [facility]#[id number] 3Admin Note: Influenza vaccine 4Admin Note: Influenza vaccine 5Admin Note: Influenza vaccine 6Admin Note: VIS GIVEN 7Result Comment: SEE COVID TEAM PROGRESS NOTE 8Result Comment: [facility]# [id number] 9Admin Note: Twinrix # 2 10Admin Note: Twinrix # 1 11Admin Note: VIS GIVEN 12Result Comment: Lot: [id number] Exp: Nov 08 Pt given vaccine info sheet before vaccine administered Medications aspirin 81 mg oral tablet, chewable 81 mg, 1, tablet, By Mouth, Daily, # 30 tablet, Refills 11, Tot. Refills 11, Maintenance, 06/13/21 15:29:00 EST, Route to Pharmacy Electronically, [facility] #[id number], Partial fill upon patient request if the prescription is for a schedule II... Start Date: 06/13/21 Status: Ordered Biktarvy oral tablet 1 tablet, By Mouth, Daily, # 30 tablet, 0 Refills, Maintenance, 11/26/20 16:19:00 EDT, Tablet, [facility], Partial fill upon patient request if the prescription is for a schedule II opioid drug., 1 tablet By Mouth Daily, 153, cm, ... Start Date: 11/26/20 Status: Ordered Blood Pressure Monitor See Instructions, # 1 each, Maintenance, measure bp daily, 03/06/21 10:41:00 EDT, Supply, 150, cm, 03/06/21 7:45:00 EDT, Height, 45.4, kg, 03/04/21 20:30:00 EDT, Dry Weight Start Date: 03/06/21 Status: Ordered Freestyle Lite Lancets See Instructions, # 100 each, Maintenance, Use to check blood sugars BID Type 2 DM ICD 10: E11.9, 06/13/21 15:27:00 EST, Supply, 152, cm, 06/09/21 14:52:00 EST, Height, 42.8, kg, 06/07/21 16:40:00 EST, Dry Weight Start Date: 06/13/21 Status: Ordered Freestyle Lite Monitor See Instructions, # 1 each, Maintenance, Use to check blood sugars BID Type 2 DM ICD 10: E11.9, 06/13/21 15:26:00 EST, Supply, 152, cm, 06/09/21 14:52:00 EST, Height, 42.8, kg, 06/07/21 16:40:00 EST,Dry Weight Start Date: 06/13/21 Status: Ordered Freestyle Lite Monitor See Instructions, [...] BID Type 2 DM ICD 10: E11.9, 06/13/21 15:27:00 EST, Supply, 152, cm, 06/09/21 14:52:00 EST, Height, 42.8, kg, 06/07/21 16:40:00 EST, Dry Weight Start Date: 06/13/21 Status: Ordered gabapentin 300 mg oral capsule 1, capsule, By Mouth, Daily at bedtime, # 90 capsule, Refills 3, Tot. Refills 3, Maintenance, 11/29/20 12:03:00 EDT, Route to Pharmacy Electronically, [facility] #[id number], 153, cm, 11/26/20 13:06:00 EDT, Height, 46, kg, 11/24/20 3:02:00 EDT, D... Start Date: 11/29/20 Status: Ordered Glucose Gel, Insta Glucose 40% See Instructions, # 2 each, Refills 5, Tot. Refills 5, Maintenance, use as directed for Type 1 Diabetes Mellitus, 06/13/21 15:27:00 EST, Supply, 152, cm, 06/09/21 14:52:00 EST, Height, 42.8, kg, 06/07/21 16:40:00 EST, Dry Weight Start Date: 06/13/21 Stop Date: 12/10/21 Status: Ordered Humalog Kwik Pen 100 units/mL subcutaneous injection 5-15units, Subcutaneous Injection, 3 times a day before meals, # 15 mL, 1 Refills, Maintenance, 06/09/21 10:48:00 EST, Injection, [facility] #[id number], Partial fill upon patient request if theprescription is for a schedule II opioid drug., 152... Start Date: 06/09/21 Stop Date: 08/08/21 Status: Ordered hydrOXYzine hydrochloride 10 mg oral tablet 2 tablet = 20 mg, By Mouth, 4 times a day, PRN for anxiety, # 80 tablet, 0 Refills, Maintenance, 10/17/21 12:42:00 EDT, Tablet, [facility] #[id number], Partial fill upon patient request if the prescription is for a schedule II opioid drug., 153,... Start Date: 10/17/21 Status: Ordered insulin glargine 100 u/ml subcutaneous solution 40, Subcutaneous Injection, Daily at bedtime, # 10 mL, 1 Refills, Maintenance, 08/07/21 13:44:00 EDT, Injection, [facility] #[id number], Partial fill upon patient request if the prescription is for a schedule II opioid drug., 152, shantell, 06/20/21 10... Start Date: 08/07/21 Status: Ordered Magnesium Oxide By Mouth, 2 times a day, 0 Refills, Maintenance, 03/04/21 19:51:00 EDT, Partial fill upon patient request if the prescription is for a schedule II opioid drug. Start Date: 03/04/21 Status: Ordered magnesium oxide 400 mg oral tablet 1 tablet = 400 mg, By Mouth, Daily, # 30 tablet, 0 Refills, Acute 10/17/22 12:44:00 EDT, 10/17/21 12:44:00 EDT, [facility] #[id number], Partial fill upon patient request if the prescription is for a schedule II opioid drug., 153, cm, 10/08/21 9:2... Start Date: 10/17/21 Stop Date: 10/17/22 Status: Ordered metoprolol 25 mg oral tablet 25 mg, 1, tablet, By Mouth, Daily, # 90 tablet, Refills 1, Tot. Refills 1, Maintenance, 06/04/22 13:12:00 EST, Route to Pharmacy Electronically, [facility] #[id number], Partial fill upon patientrequest if the prescription is for a schedule II op... Start Date: 06/04/22 Status: Ordered Pen [place], 31 G x 5 mm BD Ultra Fine III See Instructions, # 100 each, Maintenance, Use to administer trulicity and insulin, 10/17/21 12:51:00 EDT, Supply, 153, cm, 10/08/21 9:25:00 EDT, Height, 45, kg, 10/06/21 14:00:00 EDT, Dry Weight Start Date: 10/17/21 Status: Ordered Rollator Walker Rollator Walker, See Instructions, # 1 each, Refills 0, Tot. Refills 0, Maintenance, to be used while ambulating HT:152cm WT:44.0kg DX:R26.81, 07/01/21 14:16:00 EST, Supply Start Date: 07/01/21 Status: Ordered Trulicity Pen 0.75 mg/0.5 mL subcutaneous solution 0.5 mL = 0.75 mg, Subcutaneous Injection, Every week, call office in one month so i can increase your dose. rotate injection sites, # 2 mL, 3 Refills, Maintenance, 10/17/21 12:48:00 EDT, Solution, [facility] #[id number], Partial fill upon patient... Start Date: 10/17/21 Status: Ordered Vitamin D3 1000 intl units oral capsule 1 capsule = 25 mcg, By Mouth, Daily, # 100 capsule, 3 Refills, Maintenance, 06/20/21 11:15:00 EST, Capsule, [facility] #[id number], Partial fill upon patient request if the prescription is for aschedule II opioid drug., 152, cm, 06/20/21 10:38:0... Start Date: 06/20/21 Status: Ordered Problem List Condition Confirmation Course Effective Dates Status H ealth Status Informant Pyelonephritis, acute Confirmed Active Astigmatism, bilateral Confirmed Active MRSA bacteremia Confirmed Active Bladder outlet obstruction Confirmed Active Cholelithiasis Confirmed Active CKD (chronic kidney disease) Confirmed Active ALEE III - Cervical intraepithelial neoplasia grade III with severe dysplasia 1 Confirmed Active Depression Confirmed Active Diabetes mellitus type 2 Confirmed Active DKA (diabetic ketoacidoses) Confirmed Active DKA (diabetic ketoacidoses) Confirmed Active Diabetic retinopathy, Twain, 03/23/19 Confirmed Active Rash Confirmed Active Gitelman syndrome Confirmed Active Hepatitis Confirmed Active History of cervical cancer Confirmed Active HIV (human immunodeficiency virus infection) Confirmed Active Hypermetropia of both eyes Confirmed Active Hypertension Confirmed Active Hypomagnesemia Confirmed Active Hyponatremia Confirmed Active Hypophosphatemia Confirmed Active Hysterectomy Confirmed Active KEVIN (acute kidney injury) Confirmed Active Hypotension Confirmed Active Metabolic acidosis, increased anion gap Confirmed Active Pinguecula of both eyes Confirmed Active Sepsis Confirmed Active Sepsis Confirmed Active Sick euthyroidism Confirmed Active Tachycardia Confirmed Active Underweight Confirmed Active Presence of indwelling Mcdonald catheter Confirmed Active UTI (urinary tract infection) Confirmed Active UTI (urinary tract infection) Confirmed Active HCV (hepatitis C virus) Confirmed Active 1primary tumor PT1b, regional nodes pN0 Social History Social History Type Response Smoking Status Never (less than 100 in lifetime) entered on: 06/06/21 Sex Patient Care team information Care Team Personnel Name: Elsi Dumont RN Position: [facility] RN Member Role: Primary Care Nurse Name: Yusuf Bhardwaj RN Position: [facility] RN Member Role: Primary Care Nurse Name: Nora Mercado RN Position: [facility] SN RN Member Role: Primary Care Nurse Name: Mitch Mena MD Position: [facility] Renal MD Member Role: Lifetime Consulting Physician Address: Address: [address] [place] [address]- Name: Lacho Chaves RN Position: [facility] ED RN W/OE and Tasks Member Role: Primary Care Nurse Name: Lily Tyler RN Position: [facility] RN Member Role: Primary Care Nurse Name: Ashley Sosa RN Position: [facility] PCO RN Member Role: Primary Care Nurse Name: Elba Enrique RN Position: [facility] PCO RN Member Role: Primary Care Nurse Name: Jacinta Huitron RN Position: [facility] RN Member Role: Primary Care Nurse Name: Linda Christianson NP Position: [facility] Associate Professional Member Role: Primary Care Nurse Address: Address: [address] [place] [address]- Name: Eleni Stewart Position: [facility] Outreach Member Role: Lifetime Consulting Physician Name: Nesha Major RN Position: [facility] RN Member Role: Primary Care Nurse Name: Christiano Costa RN Position: [facility] RN Member Role: Primary Care Nurse Name: Sakina Ward RN Position: [facility] RN Member Role: Primary Care Nurse Name: Carisa Keyes RN Position: [facility] RN Member Role: Primary Care Nurse Name: Yanet Grimaldo RN Position: [facility] OB RN Member Role: Primary Care Nurse Name: Arielle Rhodes RN Position: [facility] RN Member Role: Primary Care Nurse Name: Iris Muniz RN Position: [facility] RN Member Role: Primary Care Nurse Name: Anna Yang RN Position: [facility] RN Member Role: Primary Care Nurse Name: Carlene Najera Position: [facility] RN Member Role: Primary Care Nurse Name: Nora Alcantar RN Position: [facility] RN Member Role: Primary Care Nurse Name: Yasemin Ordoñez NP Position: [facility] PCO Associate Professional Member Role: Primary Care Nurse Address: Address: [address] [place] [address]- Name: Cher Maxwell RN Position: [facility] HBO Wound Member Role: Primary Care Nurse Name: Noemi Corbett RN Position: [facility] RN Member Role: Primary Care Nurse Name: Nora Silva RN Position: [facility] RN Member Role: Primary Care Nurse Name: Tracy Sharp RN Position: [facility] RN Member Role: Primary Care Nurse Name: Anamaria Andrade RN Position: [facility] SN RN Member Role: Primary Care Nurse Name: Scottie Shook RN Position: [facility] ED RN W/OE and Tasks Member Role: Primary Care Nurse Name: Stew Calvillo RN Position: [facility] RN Member Role: Primary Care Nurse Name: Kehinde Kern DO Position: [facility] Renal MD Member Role: Lifetime Consulting Physician Address: Address: [address] [place], [place] [address] [place] [address]- Name: Lily Leyva RN Position: [facility] RN Member Role: Primary Care Nurse Name: Carson New III, RN Position: [facility] RN Member Role: Primary Care Nurse Name: Carlie Arzate RN Position: [facility] Hospital Soda Dry House Operator Member Role: Primary Care Nurse Name: Margaret Snyder RN Position: [facility] Hospital [employer] Operator Member Role: Primary Care Nurse Name: Noah Schuster RN Position: [facility] SN RN Member Role: Primary Care Nurse Name: Tracie Haney RN Position: [facility] RN Member Role: Primary Care Nurse Name: Mayra Covarrubias RN Position: [facility] RN Member Role: Primary Care Nurse Name: Steph Pagan RN Position: [facility] RN Member Role: Primary Care Nurse Name: Manohar Wallace RN Position: [facility] RN Member Role: Primary Care Nurse Name: Karen Dewey RN Position: [facility] RN Member Role: Primary Care Nurse Name: Lisset Díaz RN Position: [facility] RN Member Role: Primary Care Nurse Name: Phyllis Jones RN Position: [facility] PCO RN Member Role: Primary Care Nurse Name: Manuel Kirkpatrick MD Position: [facility] Renal MD Member Role: Lifetime Consulting Physician Address: Address: [address] [place] [address] [facility] Name: Vidhya Quan RN Position: [facility] RN Member Role: Primary Care Nurse Name: Jessi Giraldo RN Position: [facility] RN Member Role: Primary Care Nurse Name: Aaliyah Prakash RN Position: [facility] Soda Dry House Operator Member Role: Primary Care Nurse Name: Toyin Dhaliwal MD Position: [facility] Primary Care Physician Member Role: PCP Address: Address: [address] [place] [address] [facility] [address] Name: Sushma Martinez RN Position: [facility] RN Member Role: Primary Care Nurse Name: Bonny Iniguez RN Position: [facility] RN Member Role: Primary Care Nurse Name: Mercedes Borjas RN Position: [facility] RN Member Role: Primary Care Nurse Name: Lamont Mantilla RN Position: [facility] RN Member Role: Primary Care Nurse Name: Aries Orozco MD Position: [facility] Renal MD Member Role: Lifetime Consulting Physician Address: Address: [address] [place] [address] [facility] [place] [address]- Name: Dedrick Brown RN Position: [facility] ED RN W/OE and Tasks Member Role: Primary Care Nurse Name: Marzena Razo RN Position: [facility] RN Member Role: Primary Care Nurse Name: Fariba Mancilla RN Position: [facility] RN Member Role: Primary Care Nurse Name: Mia Jones RN Position: [facility] SN RN Member Role: Primary Care Nurse Name: David Jean RN Position: [facility] SN RN Member Role: Primary Care Nurse Care Team Related Persons Name: DAKOTAH BAKER Address: home [address] [place] [id number] Name: DAKOTAH MARTINEZ Address: [address] [address] Name: LANDEN TRAN Address: home [address] [place] [address] Name: SHRUTI BHAGAT Address: [place] [address]
--- OUTSIDE RECORDS SUMMARY | 2022-08-10 10:23 | XMS_ITS | Continuity of Care Document ---
Author Name Unknown Organization [facility] ter Address [address] [place] [address]- Care Team Providers Care Sammying Machine Operator Name Role Phone Toyin Dhaliwal MD Primary Care Physician [phone] Encounter [facility] [place](s): 03/22/21 - 03/27/[address] [address]- Encounter Diagnosis Urinary tract infection(Final) - 03/22/21 Near syncope(Final) - 03/22/21 Tachycardia(Final) - 03/22/21 Discharge Disposition: A-D/C Home Attending Physician: Lizett Mendez MD Admitting Physician: Adelia Cantu MD Referring Physician: Adelia Cantu MD Allergies, Adverse Reactions, Alerts No Known [...] 23-valent vaccine 09/24/16 Given Twinrix (oldterm) 10 6/16/16 Given pneumococcal 13-valent vaccine 04/06/13 Given Tet/Diphth/Acel, Pertussis (oldterm) 11 02/14/08 G iven Pneumococcal Vaccine (oldterm) 12 10/31/07 Given Not Given Vaccine Date Status Refusal Reason influenza virus vaccine, inactivated 06/25/19 Not Given Patient Refuses influenza virus vaccine, inactivated 04/09/17 Not Given Patient Refuses pneumococcal 23-valent vaccine 06/25/19 Not Given Patient Refuses 1Early/Late Reason: Med Not Available 2Result Comment: [facility]#[id number] 3Admin Note: Influenza vaccine 4Admin Note: Influenza vaccine 5Admin Note: Influenza vaccine 6Admin Note: VIS GIVEN 7Result Comment: SEE COVID TEAM PROGRESS NOTE 8Result Comment: [facility]# [id number] 9Admin Note: Twinrix # 2 10Admin Note: Twinrix # 1 11Admin Note: VIS GIVEN 12Result Comment: Lot: [id number] Exp: Nov 08 Pt given vaccine info sheet before vaccine administered Medications acetaminophen/butalbital/caffeine 325 mg-50 mg-40 mg oral tablet 1 tablet, By Mouth, Every 6 hours, PRN Headache, for 3 days, # 5 tablet, 0 Refills, Acute 03/30/21 12:27:00 EST, 03/27/21 12:27:00 EST, Tablet, [facility] #[id number], Partial fill upon patient request if the prescription is for a schedule II opi... Start Date: 03/27/21 Stop Date: 03/30/21 Status: Ordered Biktarvy oral tablet 1 tablet, By Mouth, Daily, # 30 tablet, 0 Refills, Maintenance, 11/26/20 16:19:00 EDT, Tablet, [facility], Partial fill upon patient request if the prescription is for a schedule II opioid drug., 1 tablet By Mouth Daily, 153, cm, 2... Start Date: 11/26/20 Status: Ordered Blood Pressure Monitor See Instructions, # 1 each, Maintenance, measure bp daily, 03/06/21 10:41:00 EDT, Supply, 150, cm, 03/06/21 7:45:00 EDT, Height, 45.4, kg, 03/04/21 20:30:00 EDT, Dry Weight Start Date: 03/06/21 Status: Ordered Fioricet Tablet 1 tablet, Tablet, By Mouth, Every 6 hours, PRN for Headache, Routine, 03/25/21 16:34:00 EST Notes: Butalbital 50mg, Not to exceed 4000mg of Acetaminophen per 24 hours. 325mg, Caffeine 40mg per tablet Start Date: 03/25/21 Stop Date: 03/28/21 Status: Discontinued Freestyle Lite Lancets See Instructions, # 100 [...] 11/29/20 12:03:00 EDT, Route to Pharmacy Electronically, [email or web address] #[id number], 153, cm, 11/26/20 13:06:00 EDT, Height, 46, [...] 0 Refills, Maintenance, 01/20/21 15:21:00 EDT, Injection, [email or web address] #[id number], Partial fill upon patient request if the prescription is for a schedule II opioid drug.,... Start Date: 01/20/21 Stop Date: 02/19/21 Status: Ordered insulin glargine 100 u/ml subcutaneous solution = 32 units, Subcutaneous Injection, Daily at bedtime, # 12 mL, 0 Refills, Maintenance, 03/27/21 12:27:00 EST, Injection, [email or web address] #[id number], Partial fill upon patient request if the prescription is for a schedule II opioid drug., 153, cm, ... Start Date: 03/27/21 Status: Ordered Magnesium Oxide By Mouth, 2 times a day, 0 Refills, Maintenance, 03/04/21 19:51:00 EDT, Partial fill upon patient request if the prescription is for a schedule II opioid drug. Start Date: 03/04/21 Status: Ordered sulfamethoxazole-trimethoprim 800 mg-160 mg oral tablet 1 tablet, By Mouth, 2 times a day, for 2 days, # 4 tablet, 0 Refills, Acute 03/29/21 12:27:00 EST, 03/27/21 12:27:00 EST, Tablet, [facility] #[id number], Partial fill upon patient request if theprescription is for a schedule II opioid drug., 1 t... Start Date: 03/27/21 Stop Date: 03/29/21 Status: Ordered Trulicity Pen 0.75 mg/0.5 mL subcutaneous solution 0.5 mL = 0.75 mg, Subcutaneous Injection, Every week, call office in one month so i can increase your dose. rotate injection sites, # 2 mL, 3 Refills, Maintenance, 11/14/20 10:44:00 EDT, Solution, [facility] #[id number], Partial fill upon patient... Start Date: 11/14/20 [...] Active DKA (diabetic ketoacidoses)(Confirmed) Active Diabetic retinopathy, [place], 03/23/19(Confirmed) Active Rash(Confirmed) Active Gitelman syndrome(Confirmed) Active [...] 1primary tumor PT1b, regional nodes pN0 Results Radiology Reports * Exam Date Time Procedure Performing Provider Status 03/23/21 8:51 AM Chest 2 Views Frontal and Lat Eron Kohler; Raghav (Verified) Notes: (Chest 2 Views Frontal and Lat) Reason For Exam: sepsis;Other: RESULT: Chest 2 Views Frontal and Lat Chest 2 Views Frontal and Lat INDICATION: sepsis; Clinical Question(s): Pneumonia / Pneumonia COMPARISON: 03/04/2021 FINDINGS: LINES AND TUBES: None. LUNGS AND PLEURA: Clear lungs. Normal pulmonary vascularity. No pleural effusion. No pneumothorax. HEART, MEDIASTINUM AND ZBIGNIEW: Heart is normal in size. Normal mediastinal and hilar contour. BONES AND SOFT TISSUES: No acute abnormality. IMPRESSION: No evidence of acute abnormality. WSN: [id number] Ordering Physician: Becky Gagnon Dictated By: Noah Murillo MD Dictated Date/Time: 03/23/21 9:49 am Reviewed By: Noah Murillo MD Signed By: Noah Murillo MD Signed Date/Time: 03/23/21 9:49 am Transcribed By: TANYA Transcribed Date/Time: 03/23/21 9:49 am Vital Signs Most recent to oldest [Reference Range]: 1 2 3 Height 153 cm (03/27/21 7:40 AM) 153 cm (03/27/21 3:59 AM) 153 cm (03/26/21 11:35 PM) Weight 43.7 kg (03/22/21 4:11 PM) 43.7 kg (03/22/21 4:06 PM) Oxygen Saturation [94-100 %] 99 % (03/27/21 7:40 AM) 100 % (03/27/21 3:59 AM) 99 % (03/26/21 11:35 PM) Pulse Rate [55-90 bpm] 95 bpm *H* (03/27/21 7:40 AM) 84 bpm (03/27/21 3:59 AM) 86 bpm (03/26/21 11:35 PM) Body Mass Index [18.5-24.99] 18.67 (03/22/21 4:11 PM) 18.67 (03/22/21 4:06 PM) Blood Pressure [90-138/55-84 mm Hg] 102/60mm Hg (03/27/21 7:40 AM) 104/58mm Hg (03/27/21 3:59 AM) 125/68mm Hg (03/26/21 11:35 PM) Respiratory Rate [16-30 br/min] 20 br/min (03/27/21 9:30 AM) 20 br/min (03/27/21 8:13 AM) 17 br/min (03/27/21 7:40 AM) Temperature [96.8-100.4 DegF] 98.4 DegF (03/27/21 7:40 AM) 97.7 DegF (03/27/21 3:59 AM) 97.8 DegF (03/26/21 11:35 PM) Mode of Delivery (Oxygen) Room air (03/27/21 7:40 AM) Room air (03/27/21 3:59 AM) Room air (03/26/21 11:35 PM) Blood pressure sites Arm, left (03/27/21 3:59 AM) Arm, left (03/26/21 11:35 PM) Arm, left (03/26/21 7:25 PM) Temperature Route Oral (03/27/21 7:40 AM) Oral (03/27/21 3:59 AM) Oral (03/26/21 11:35 PM) Dry Weight 45.5 kg (03/22/21 4:06 PM) Weight Obtained Via Bed scale (03/22/21 4:06 PM) Dry Weight Obtained Via Patient/family s tated (03/22/21 4:06 PM) Social History Social History Type Response Smoking Status Never smoker entered on: 01/26/14 Sex
--- OUTSIDE RECORDS SUMMARY | 2022-08-10 10:23 | XMS_ITS | Continuity of Care Document ---
Author Name Unknown Organization [facility] Address [address] [place] [address]- Care Team Providers Care Brim Stretching Machine Operator Name Role Phone Bala Cortez MD Primary Care Physician [facility]counter [facility] Date(s): 06/02/19 - 08/25/19 [facility] [address] [place] [address]- [facility] Attending Physician: Bala Cortez MD Allergies, Adverse Reactions, Alerts No Known [...] 06/25/19 Not Given Patient Refuses 1Result Comment: [facility]# [id number] 2Result Comment: [facility]#[id number] 3Admin Note: Influenza vaccine 4Admin Note: Influenza [...] 0 Refills, Maintenance, 07/06/19 11:28:00 EST, Tablet, [facility] #[id number], 152, cm, 07/06/19 11:06:00 EST, Height, 43.1, kg, 07/06/19 11:06:00 EST, Dry Weight Start Date: 07/06/19 Status: Ordered Biktarvy oral tablet 1 tablet, By Mouth, Daily, 0 Refills, Maintenance, 11/30/18 19:01:37 EDT, Tablet Start Date: 11/30/18 Status: Ordered Biktarvy oral tablet 1 tablet, [...] Date: 07/06/19 Stop Date: 01/02/20 Status: Ordered Humalog Kwik Pen 100 units/mL subcutaneous injection See Instructions, 100-149 4 units 150 199 6 units 200 249 8 units 250 -299 10 units 300-349 12 units 350-399 14 units with meals as needed, # 1 each, 1 Refills, Maintenance, 06/26/19 13:52:00 EST, Solution, [facility] #[id number], 153,... Start Date: 06/26/19 Status: Ordered Humalog Kwik Pen 100 units/mL subcutaneous injection See Instructions, Sliding Scale Comments >>100 - 149 6 units Call if less than 16239 - 199 8 units 200 - 249 10 units 250 - 299 12 units 300 - 349 14 units 350 - 399 16 units Call if greater than 400, # 10 mL, 2 Refills, Maintenance, 07/06... Start Date: 07/07/19 Status: Ordered Insulin Lispro 6-16 units, Subcutaneous Injection, 3 times a day before meals, << Sliding Scale Comments >> 100 - 149 6 units Call if less than 70 150 - 199 8 units 200 - 249 10 units 250 - 299 12 [id number] - 349 14 units 350 - 399 16 units Robel... Start Date: 07/01/19 Status: Ordered Lantus Solostar Pen 100 units/mL subcutaneous solution = 45 units, Subcutaneous Injection, Daily at bedtime, # 1 each, 0 Refills, Maintenance, 06/26/19 13:40:00 EST, Solution, [facility] #[id number], 153, cm, 06/26/19 7:18:00 EST, Height, 41.1, kg, 01/24/19 18:27:00 EDT, Dry Weight Start Date: 06/26/19 Status: Ordered Lantus Solostar Pen 100 units/mL subcutaneous solution = 55 units, Subcutaneous Injection, Daily at bedtime, # 10 mL, 2 Refills, Maintenance, 07/06/19 11:26:00 EST, Solution, [facility] #[id number], 152, cm, 07/06/19 11:06:00 EST, Height, 43.1, kg, 07/06/19 11:06:00 EST, Dry Weight Start Date: 07/06/19 Status: Ordered magnesium oxide 400 mg oral tablet 1 tablet = 400 mg, By Mouth, 3 times a day, # 100 tablet, 3 Refills, Acute 07/05/20 11:27:00 EST, 07/06/19 11:26:00 EST, Tablet, [facility] #[id number], 152, cm, 07/06/19 11:06:00 EST, Height, 43.1, kg, 07/06/19 11:06:00 EST, Dry Weight Start Date: 07/06/19 Stop Date: 07/05/20 Status: Ordered multivitamin Therapeutic Multiple Vitamins oral tablet 1 tablet, By Mouth, Daily, # 30 tablet, 0 Refills, Maintenance, 06/26/19 13:45:00 EST, Tablet, [facility] #[id number], 1 tablet By Mouth Daily,x30 days, 153, cm, 06/26/19 7:18:00 EST, Height, 41.1, kg, 01/24/19 18:27:00 EDT, Dry Weight Start Date: 06/26/19 Stop Date: 07/26/19 Status: Ordered Pen [place], 29 G x 12.7 mm BD Ultra Fine See Instructions, # 100 each, Refills 5, Tot. Refills 5, Maintenance, use as directed for Type 1 Diabetes Mellitus, 06/26/19 13:47:00 EST, Compound, 153, cm, 06/26/19 7:18:00 EST, Height, 41.1, kg, 01/24/19 18:27:00 EDT, Dry Weight Start Date: 06/26/19 Stop Date: 12/23/19 Status: Ordered Pen [place], 31 G x 5 mm BD Ultra Fine III See Instructions, # 100 each, Refills 5, Tot. Refills 5, Maintenance, use as directed for Type 2 Diabetes Mellitus 4 times daily, 07/07/19 10:26:00 EST, Compound, 152, cm, 07/06/19 11:06:00 EST, Height, 43.1, kg, 07/06/19 11:06:00 EST, Dry Weight Start Date: 07/07/19 Stop Date: 01/03/20 Status: Ordered Pen [place], 31 G x 5 mm BD Ultra [...] By Mouth, 2 times a day, # 60 tablet, 0 Refills, Maintenance, 07/06/19 11:27:00 EST, ER Tablet, [id number], 152, cm, 07/06/19 11:06:00 EST, Height, 43.1, kg, 07/06/19 11:06:00 EST, Dry Weight Start Date: 07/06/19 Status: Ordered potassium chloride 10 mEq oral [...] Active DKA (diabetic ketoacidoses)(Confirmed) Active Diabetic retinopathy, [place], 03/23/19(Confirmed) Active 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 History of cervical cancer(Confirmed) Active HIV (human immunodeficiency virus infection)(Confirmed) Active Hypermetropia of both eyes(Confirmed) Active Hypomagnesemia(Confirmed) Active Hyponatremia(Confirmed) Active Hypophosphatemia(Confirmed) Active Hysterectomy(Confirmed) Active KEVIN (acute kidney injury)(Confirmed) Active Hypotension(Confirmed) Active Pinguecula of both eyes(Confirmed) Active Sepsis(Confirmed) Active Sick euthyroidism(Confirmed) Active Tachycardia(Confirmed) Active Presence of indwelling Mcdonald catheter(Confirmed) Active HCV (hepatitis C virus)(Confirmed) Active 1primary tumor PT1b, regional nodes pN0 Social History Social History Type Response Smoking Status Never smoker entered on: 01/26/14 Sex
--- OUTSIDE RECORDS SUMMARY | 2022-08-10 10:23 | XMS_ITS | Continuity of Care Document ---
Author Name Unknown Organization [facility] Address [address] [place] [address]- Care Team Providers Care Wastewater Analyst Lab Analyst Name Role Phone Toyin Dhaliwal MD Primary Care Physician [phone] Encounter [facility] Date(s): 07/11/21 - 08/10/21 [facility] [address] [place] [address]- Allergies, Adverse Reactions, Alerts No Known Allergies [...] Available 2Result Comment: [facility]#[id number] 3Admin Note: Influenza vaccine 4Admin Note: Influenza vaccine 5Admin Note: Influenza vaccine 6Admin Note: VIS GIVEN 7Result Comment: SEE COVID TEAM PROGRESS NOTE 8Result Comment: [facility]# [id number] 9Admin Note: Twinrix # 2 10Admin Note: Twinrix # 1 11Admin Note: VIS GIVEN 12Result Comment: Lot: [id number] Exp: Nov 08 Pt given vaccine info sheet before vaccine administered Medications aspirin 81 mg oral tablet, chewable 81 mg, 1, tablet, By Mouth, Daily, # 30 tablet, Refills 11, Tot. Refills 11, Maintenance, 06/13/21 15:29:00 EST, Route to Pharmacy Electronically, [facility] #[id number], Partial fill upon patient request if the prescription is for a schedule II... Start Date: 06/13/21 Status: Ordered Biktarvy oral tablet 1 tablet, By Mouth, Daily, # 30 tablet, 0 Refills, Maintenance, 11/26/20 16:19:00 EDT, Tablet, [facility], Partial fill upon patient request if [...] 11/29/20 12:03:00 EDT, Route to Pharmacy Electronically, [facility] #[id number], 153, cm, 11/26/20 13:06:00 EDT, Height, 46, [...] 1 Refills, Maintenance, 06/09/21 10:48:00 EST, Injection, [facility] #[id number], Partial fill upon patient request if theprescription is for a schedule II opioid drug., 152... Start Date: 06/09/21 Stop Date: 08/08/21 Status: Ordered hydrOXYzine hydrochloride 10 mg oral tablet 2 tablet = 20 mg, By Mouth, 4 times a day, PRN for anxiety, # 80 tablet, 0 Refills, Maintenance, 06/20/21 11:13:00 EST, Tablet, [facility] #[id number], Partial fill upon patient request if the prescription is for a schedule II opioid drug., 152,... Start Date: 06/20/21 Status: Ordered insulin glargine 100 u/ml subcutaneous solution = 44 units, Subcutaneous Injection, Daily at bedtime, # 15 mL, 1 Refills, Maintenance, 08/07/21 13:44:00 EDT, Injection, [facility] #[id number], Partial fill upon patient request if the prescription is for a schedule II opioid drug., 152, cm, 02/... Start Date: 08/07/21 Status: Ordered Magnesium Oxide By Mouth, 2 times a day, 0 Refills, Maintenance, 03/04/21 19:51:00 EDT, Partial fill upon patient request if the prescription is for a schedule II opioid drug. Start Date: 03/04/21 Status: Ordered metoprolol 25 mg oral tablet 25 mg, 1, tablet, By Mouth, Daily, # 90 tablet, Refills 3, Tot. Refills 3, Maintenance, 06/13/21 15:29:00 EST, Route to Pharmacy Electronically, [facility] #[id number], Partial fill upon patientrequest if the prescription is for a schedule II op... Start Date: 06/13/21 Status: Ordered Rollator Walker Rollator Walker, See [...] sites, # 2 mL, 3 Refills, Maintenance, 06/13/21 15:25:00 EST, Solution, [facility] #[id number], Partial fill upon patient... Start Date: 06/13/21 Status: Ordered Vitamin D3 1000 intl units oral capsule 1 capsule = 25 mcg, By Mouth, Daily, # 100 capsule, 3 Refills, Maintenance, 06/20/21 11:15:00 EST, Capsule, [facility] #[id number], Partial fill upon patient request if the prescription is for aschedule II opioid drug., 152, cm, 06/20/21 10:38:0... 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) 1 Active Depression(Confirmed) Active Diabetes mellitus type 2(Confirmed) Active DKA (diabetic ketoacidoses)(Confirmed) Active DKA (diabetic ketoacidoses)(Confirmed) Active Diabetic retinopathy, [place], 03/23/19(Confirmed) Active Rash(Confirmed) Active 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 History of cervical cancer(Confirmed) Active HIV (human immunodeficiency virus infection)(Confirmed) Active Hypermetropia of both eyes(Confirmed) Active Hypertension(Confirmed) Active Hypomagnesemia(Confirmed) Active Hyponatremia(Confirmed) Active Hypophosphatemia(Confirmed) Active [...]
--- OUTSIDE RECORDS SUMMARY | 2022-08-10 10:23 | XMS_ITS | Continuity of Care Document ---
Author Name Unknown Organization [facility] Address [address] [place] [address]- Care Team Providers Care Anthropometrist Name Role Phone Diego ELIZABETH, Bala Primary Care Physician [place] [facility] [place]23[place] 06/26/[address] [address]- [facility] Encounter Diagnosis Hyperglycemia(Final) - 06/23/19 Discharge Disposition: A-Transfer VNA/Home Health Attending Physician: Julian Chau MD Admitting Physician: Vicente ELIZABETH, Rivka Salinas Referring Physician: Not on Staff, Referring MD Allergies, Adverse Reactions, Alerts No Known Medication Allergies Immunizations Not Given Vaccine Date Status Refusal Reason influenza virus vaccine, inactivated 06/25/19 Not Given Patient Refuses pneumococcal 23-valent vaccine 06/25/19 Not Given Patient Refuses Medications Biktarvy oral tablet 1 tablet, By Mouth, Daily, 0 Refills, Maintenance, 11/30/18 19:01:37 EDT, Tablet Start Date: 11/30/18 Status: Ordered Excedrin 1 tablet, By Mouth, 2 times a day, 0 Refills, Maintenance, 01/24/19 12:47:48 EDT Start Date: 01/24/19 Status: Ordered Humalog Kwik Pen 100 units/mL subcutaneous injection See Instructions, 100-149 4 units 150 199 6 units 200 249 8 units 250 -299 10 units 300-349 12 units 350-399 14 units with meals as needed, # 1 each, 1 Refills, Maintenance, 06/26/19 13:52:00 EST, Solution, [facility] #[id number], 153,... Start Date: 06/26/19 Status: Ordered Lantus Solostar Pen 100 units/mL subcutaneous solution = 45 units, Subcutaneous Injection, Daily at bedtime, # 1 each, 0 Refills, Maintenance, 06/26/19 13:40:00 EST, Solution, [facility] #[id number], 153, cm, 06/26/19 7:18:00 EST, Height, 41.1, kg, 01/24/19 18:27:00 EDT, Dry Weight Start Date: 06/26/19 Status: Ordered magnesium oxide 400 mg oral tablet 1 tablet = 400 mg, By Mouth, 3 times a day, for 30 days, # 90 tablet, 0 Refills, Acute 07/26/19 13:45:00 EDT, 06/26/19 13:45:00 EST, Tablet, [facility] #[id number], 153, cm, 06/26/19 7:18:00 EST, Height, 41.1, kg, 01/24/19 18:27:00 EDT, Dry Weight Start Date: 06/26/19 Stop Date: 07/26/19 Status: Ordered multivitamin Therapeutic Multiple Vitamins oral tablet 1 tablet, By Mouth, Daily, # 30 tablet, 0 Refills, Maintenance, 06/26/19 13:45:00 EST, Tablet, [facility] #[id number], 1 tablet By Mouth Daily,x30 days, 153, cm, 06/26/19 7:18:00 EST, Height, 41.1, kg, 01/24/19 18:27:00 EDT, Dry Weight Start Date: 06/26/19 Stop Date: 07/26/19 Status: Ordered Pen [place], 29 G x 12.7 mm BD Ultra Fine See Instructions, # 100 each, Refills 5, Tot. Refills 5, Maintenance, use as directed for Type 1 Diabetes Mellitus, 06/26/19 13:47:00 EST, Compound, 153, cm, 06/26/19 7:18:00 EST, Height, 41.1, kg, 01/24/19 18:27:00 EDT, Dry Weight Start Date: 06/26/19 Stop Date: 12/23/19 Status: Ordered potassium chloride 10 mEq oral tablet, extended release 1 tablet = 10 mEq, By Mouth, 2 times a day, # 28 tablet, 0 Refills, Maintenance, 01/27/19 11:49:34 EDT, ER Tablet Start Date: 01/27/19 Stop Date: 02/10/19 Status: Ordered thiamine 100 mg oral tablet 100 mg, 1, tablet, By Mouth, Daily, for 14 days, # 14 tablet, Refills 0, Tot. Refills 0, Acute 07/10/19 13:46:00 EDT, 06/26/19 13:46:00 EST, Route to Pharmacy Electronically, [facility] #[id number], 153, cm, 06/26/19 7:18:00 EST, Height, 41.1, kg... Start Date: 06/26/19 Stop Date: 07/10/19 Status: Ordered Results Orders for Microbiology Reports Name Date Urine Culture (URINE CULTURE) 06/23/19 Microbiology Reports TEST:Urine Culture STATUS:Auth (Verified) BODY SITE: SOURCE:URINE COLLECTED DATE/TIME:06/23/19 6:31 PM Urine Culture SPECIMEN DESCRIPTION : URINE SPECIAL REQUESTS : NONE CULTURE : Mixed bacterial alma, indicative of urogenital contamination. REPORT STATUS : FINAL 06/25/2019 Radiology Reports * Exam Date Time Procedure Performing Provider Status 06/23/19 4:54 PM Chest 2 Views Frontal and Lat Soco Paredes; Auth (Verified) Notes: (Chest 2 Views Frontal and Lat) Reason For Exam: DKA;Other: RESULT: Chest 2 Views Frontal and Lat Chest 2 Views Frontal and Lat Refer to EMR; Reason: Other:; DKA; Clinical Question(s): Other:; Infiltrate; Hx of Present Illness:d c on wednesday w weakness, dizziness and elevated glucose, states was told to return if sugar >300, states sugars have been elevated for 2- 3 days with worsening dizziness but could not come back due to childcare. COMPARISON: 11/30/2018. FINDINGS: LINES AND TUBES: None. LUNGS AND PLEURA: Clear lungs. Normal pulmonary vascularity. No pleural effusion. No pneumothorax. HEART, MEDIASTINUM AND ZBIGNIEW: Heart is normal in size. Normal mediastinal and hilar contour. BONES AND SOFT TISSUES: No acute abnormality. IMPRESSION: No acute abnormality. WSN: [id number] Dictated By: Matthew Boyle MD Dictated Date/Time: 06/23/19 4:56 pm Reviewed By: Matthew Boyle MD Signed By: Matthew Boyle MD Signed Date/Time: 06/23/19 4:56 pm Transcribed By: TANYA Transcribed Date/Time: 06/23/19 4:54 pm Vital Signs Most recent to oldest [Reference Range]: 1 2 3 Height 153 cm (06/26/19 7:18 AM) 153 cm (06/26/19 12:10 AM) 153 cm (06/25/19 7:35 PM) Oxygen Saturation [94-100 %] 98 % (06/26/19 7:18 AM) 99 % (06/26/19 12:10 AM) 97 % (06/25/19 7:35 PM) Pulse Rate [55-90 bpm] 85 bpm (06/26/19 7:18 AM) 92 bpm *H* (06/26/19 12:10 AM) 91 bpm *H* (06/25/19 7:35 PM) Blood Pressure [90-138/55-84 mm Hg] 110/66mm Hg (06/26/19 7:18 AM) 109/73mm Hg (06/26/19 12:10 AM) 107/74mm Hg (06/25/19 7:35 PM) Respiratory Rate [16-30 br/min] 17 br/min (06/26/19 7:18 AM) 18 br/min (06/26/19 12:10 AM) 18 br/min (06/25/19 7:35 PM) Temperature [96.8-100.4 DegF] 97.9 DegF (06/26/19 7:18 AM) 97.9 DegF (06/26/19 12:10 AM) 97.6 DegF (06/25/19 7:35 PM) Mode of Delivery (Oxygen) Room air (06/26/19 7:18 AM) Room air (06/26/19 12:10 AM) Room air (06/25/19 7:35 PM) Blood pressure sites Arm, right (06/26/19 12:10 AM) Arm, left (06/25/19 7:35 PM) Arm, left (06/25/19 4:00 PM) Temperature Route Oral (06/26/19 7:18 AM) Oral (06/26/19 12:10 AM) Oral (06/25/19 7:35 PM) Sensory deficits None (06/23/19 10:25 PM) Mobility assistance Independent (06/24/19 5:00 AM) Independent (06/23/19 10:25 PM)
--- OUTSIDE RECORDS SUMMARY | 2022-08-10 10:23 | XMS_ITS | Continuity of Care Document ---
Author Name Unknown Organization [facility] Address [address] [place] [address]- Care Team Providers Care Computer Systems Engineer Name Role Phone Isra ELIZABETH, Toyin Primary Care Physician [facility] Date[facility]): 05/[facility]/22 - 06/04/22 [facility] [address] [place], [place] [address] Allergies, Adverse Reactions, Alerts No Known Allergies [...] 1Early/Late Reason: Med Not Available 2Result Comment: [facility]#[id number] 3Admin Note: Influenza vaccine 4Admin Note: Influenza vaccine 5Admin Note: Influenza vaccine 6Admin Note: VIS GIVEN 7Result Comment: SEE COVID TEAM PROGRESS NOTE 8Result Comment: [facility]# [id number] 9Admin Note: Twinrix # 2 10Admin Note: Twinrix # 1 11Admin Note: VIS GIVEN 12Result Comment: Lot: [id number] Exp: Nov 08 Pt given vaccine info sheet before vaccine administered Medications aspirin 81 mg oral tablet, chewable 81 mg, 1, tablet, By Mouth, Daily, # 30 tablet, Refills 11, Tot. Refills 11, Maintenance, 06/13/21 15:29:00 EST, Route to Pharmacy Electronically, [facility] #[id number], Partial fill upon patient request if the prescription is for a schedule II... Start Date: 06/13/21 Status: Ordered Biktarvy oral tablet 1 tablet, By Mouth, Daily, # 30 tablet, 0 Refills, Maintenance, 11/26/20 16:19:00 EDT, Tablet, [facility], Partial fill upon patient request if [...] 11/29/20 12:03:00 EDT, Route to Pharmacy Electronically, [facility] #[id number], 153, cm, 11/26/20 13:06:00 EDT, Height, 46, [...] 1 Refills, Maintenance, 06/09/21 10:48:00 EST, Injection, [facility] #[id number], Partial fill upon patient request if theprescription is for a schedule II opioid drug., 152... Start Date: 06/09/21 Stop Date: 08/08/21 Status: Ordered hydrOXYzine hydrochloride 10 mg oral tablet 2 tablet = 20 mg, By Mouth, 4 times a day, PRN for anxiety, # 80 tablet, 0 Refills, Maintenance, 10/17/21 12:42:00 EDT, Tablet, [facility] #[id number], Partial fill upon patient request if the prescription is for a schedule II opioid drug., 153,... Start Date: 10/17/21 Status: Ordered insulin glargine 100 u/ml subcutaneous solution 40, Subcutaneous Injection, Daily at bedtime, # 10 mL, 1 Refills, Maintenance, 08/07/21 13:44:00 EDT, Injection, [facility] #[id number], Partial fill upon patient request if the [...] Acute 10/17/22 12:44:00 EDT, 10/17/21 12:44:00 EDT, [facility] #[id number], Partial fill upon patient request if the prescription is for a schedule II opioid drug., 153, cm, 10/08/21 9:2... Start Date: 10/17/21 Stop Date: 10/17/22 Status: Ordered metoprolol 25 mg oral tablet 25 mg, 1, tablet, By Mouth, Daily, # 90 tablet, Refills 1, Tot. Refills 1, Maintenance, 06/04/22 13:12:00 EST, Route to Pharmacy Electronically, [facility] #[id number], Partial fill upon patientrequest if the prescription is for a schedule II op... Start Date: 06/04/22 Status: Ordered Pen [place], 31 G x 5 mm BD Ultra [...] 3 Refills, Maintenance, 10/17/21 12:48:00 EDT, Solution, [facility] #[id number], Partial fill upon patient... Start Date: 10/17/21 Status: Ordered Vitamin D3 1000 intl units oral capsule 1 capsule = 25 mcg, By Mouth, Daily, # 100 capsule, 3 Refills, Maintenance, 06/20/21 11:15:00 EST, Capsule, [facility] #[id number], Partial fill upon patient request if the [...] DKA (diabetic ketoacidoses) Confirmed Active Diabetic retinopathy, [place], 03/23/19 Confirmed Active Rash Confirmed Active Gitelman [...] Team Personnel Name: Elsi Dumont RN Position: [facility] RN Member Role: Primary Care Nurse Name: Yusuf Bhardwaj RN Position: [facility] RN Member Role: Primary Care Nurse Name: Nora Mercado RN Position: [facility] SN RN Member Role: Primary Care Nurse Name: Mitch Mena MD Position: [facility] Renal MD Member Role: Lifetime Consulting Physician Address: Address: [address] [place] [address]- Name: Lacho Chaves RN Position: [facility] ED RN W/OE and Tasks Member Role: Primary Care Nurse Name: Lily Tyler RN Position: [facility] RN Member Role: Primary Care Nurse Name: Ashley Sosa RN Position: [facility] PCO RN Member Role: Primary Care Nurse Name: Elba Enrique RN Position: [facility] PCO RN Member Role: Primary Care Nurse Name: Jacinta Huitron RN Position: [facility] RN Member Role: Primary Care Nurse Name: Linda Christianson NP Position: [facility] Associate Professional Member Role: Primary Care Nurse Address: Address: [address] [place] [address]- Name: Eleni Stewart Position: [facility] Outreach Member Role: Lifetime Consulting Physician Name: Nesha Major RN Position: [facility] RN Member Role: Primary Care Nurse Name: Christiano Costa RN Position: [facility] RN Member Role: Primary Care Nurse Name: Sakina Ward RN Position: [facility] RN Member Role: Primary Care Nurse Name: Carisa Keyes RN Position: [facility] RN Member Role: Primary Care Nurse Name: Yanet Grimaldo RN Position: [facility] OB RN Member Role: Primary Care Nurse Name: Arielle Rhodes RN Position: [facility] RN Member Role: Primary Care Nurse Name: Iris Muniz RN Position: [facility] RN Member Role: Primary Care Nurse Name: Anna Yang RN Position: [facility] RN Member Role: Primary Care Nurse Name: Carlene Najera Position: [facility] RN Member Role: Primary Care Nurse Name: Nora Alcantar RN Position: [facility] RN Member Role: Primary Care Nurse Name: Yasemin Ordoñez NP Position: [facility] PCO Associate Professional Member Role: Primary Care Nurse Address: Address: [address] [place] [address]- Name: Cher Maxwell RN Position: [facility] HBO Wound Member Role: Primary Care Nurse Name: Noemi Corbett RN Position: [facility] RN Member Role: Primary Care Nurse Name: Nora Silva RN Position: [facility] RN Member Role: Primary Care Nurse Name: [place] Sharp RN Position: [facility] RN Member Role: Primary Care Nurse Name: Anamaria Andrade RN Position: [facility] SN RN Member Role: Primary Care Nurse Name: Scottie Shook RN Position: [facility] ED RN W/OE and Tasks Member Role: Primary Care Nurse Name: Stew Calvillo RN Position: [facility] RN Member Role: Primary Care Nurse Name: Kehinde Kern DO Position: [facility] Renal MD Member Role: Lifetime Consulting Physician Address: Address: [address] [place], [place] [address] [place] [address]- Name: Lily Leyva RN Position: [facility] RN Member Role: Primary Care Nurse Name: Carson New III, RN Position: [facility] RN Member Role: Primary Care Nurse Name: Carlie Arzate RN Position: [facility] Hospital Filler Block Inserter Remover Member Role: Primary Care Nurse Name: Margaret Snyder RN Position: [facility] Hospital Filler Block Inserter Remover Member Role: Primary Care Nurse Name: Noah Schuster RN Position: [facility] SN RN Member Role: Primary Care Nurse Name: Tracie Haney RN Position: [facility] RN Member Role: Primary Care Nurse Name: Mayra Covarrubias RN Position: [facility] RN Member Role: Primary Care Nurse Name: Steph Pagan RN Position: [facility] RN Member Role: Primary Care Nurse Name: Manohar Wallace RN Position: [facility] RN Member Role: Primary Care Nurse Name: Karen Dewey RN Position: [facility] RN Member Role: Primary Care Nurse Name: Lisset Díaz RN Position: [facility] RN Member Role: Primary Care Nurse Name: Phyllis Jones RN Position: [facility] PCO RN Member Role: Primary Care Nurse Name: Manuel Kirkpatrick MD Position: [facility] Renal MD Member Role: Lifetime Consulting Physician Address: Address: [address] [place] [address] [facility] [address] Name: Vidhya Quan RN Position: [facility] RN Member Role: Primary Care Nurse Name: Jessi Giraldo RN Position: [facility] RN Member Role: Primary Care Nurse Name: Aaliyah Prakash RN Position: [facility] Filler Block Inserter Remover Member Role: Primary Care Nurse Name: Toyin Dhaliwal MD Position: [facility] Primary Care Physician Member Role: PCP Address: Address: [address] [place] [address] [facility] [address] Name: Sushma Martinez RN Position: [facility] RN Member Role: Primary Care Nurse Name: Bonny Iniguez RN Position: [facility] RN Member Role: Primary Care Nurse Name: Mercedes Borjas RN Position: [facility] RN Member Role: Primary Care Nurse Name: Lamont Mantilla RN Position: [facility] RN Member Role: Primary Care Nurse Name: Aries Orozco MD Position: [facility] Renal MD Member Role: Lifetime Consulting Physician Address: Address: [address] [place] [address] [facility] [place] [address]- Name: Dedrick Brown RN Position: [facility] ED RN W/OE and Tasks Member Role: Primary Care Nurse Name: Marzena Razo RN Position: [facility] RN Member Role: Primary Care Nurse Name: Fariba Mancilla RN Position: [facility] RN Member Role: Primary Care Nurse Name: Mia Jones RN Position: [facility] SN RN Member Role: Primary Care Nurse Name: David Jean RN Position: [facility] SN RN Member Role: Primary Care Nurse Care Team Related Persons Name: DAKOTAH BAKER Address: home [address] [place] [address] Name: DAKOTAH MARTINEZ Address: [address] [address] Name: LANDEN TRAN Address: home [address] [place] [address] Name: SHRUTI BHAGAT Address: [place] [address]
--- OUTSIDE RECORDS SUMMARY | 2022-08-10 10:23 | XMS_ITS | Continuity of Care Document ---
Author Name Unknown Organization [facility] Address [address] [place] [address]- Care Team Providers Care Juvenile Justice Officer Name Role Phone Bala Cortez MD Primary Care Physician Encounter [facility] R [id number] Date(s): 11/30/19 - 12/07/19 [facility] [address] [place] [address]- [facility] Encounter Diagnosis Diabetes mellitus type 2(Discharge Diagnosis) - 11/30/19 DKA (diabetic ketoacidoses)(Discharge Diagnosis) - 11/30/19 Attending Physician: Bala Cortez MD Allergies, Adverse [...] 06/25/19 Not Given Patient Refuses 1Result Comment: [facility]# [id number] 2Result Comment: [facility]#[id number] 3Admin Note: Influenza vaccine 4Admin Note: Influenza [...] 0 Refills, Maintenance, 07/06/19 11:28:00 EST, Tablet, [facility] #[id number], 152, cm, 07/06/19 11:06:00 EST, Height, 43.1, [...] 10/19/19 15:33:00 EDT, Route to Pharmacy Electronically, [facility] #[id number], 152, cm, 07/06/19 11:06:00 EST, Height, 43.1, kg, 07/06/19 11:0... Start Date: 10/19/19 Status: Ordered Humalog Kwik Pen 100 units/mL subcutaneous injection See Instructions, 100-149 4 units 150 199 6 units 200 249 8 units 250 -299 10 units 300-349 12 units 350-399 14 units with meals as needed, # 1 each, 1 Refills, Maintenance, 11/29/19 8:00:00 EDT, Solution, [facility], 152, cm,... Start Date: 11/29/19 Status: Ordered Lantus Solostar Pen 100 units/mL subcutaneous solution = 45 units, Subcutaneous Injection, Daily at bedtime, # 1 each, 0 Refills, Maintenance, 11/29/19 8:00:00 EDT, Solution, [facility], 152, cm, 11/26/19 23:30:00 EDT, Height, 45.5, kg, 10/29/19 6:43:00 EDT, Dry Weight Start Date: 11/29/19 Status: Ordered magnesium oxide 400 mg oral tablet 1 tablet = 400 mg, By Mouth, 3 times a day, # 100 tablet, 3 Refills, Acute 07/05/20 11:27:00 EST, 07/06/19 11:26:00 EST, Tablet, [facility] #[id number], 152, cm, 07/06/19 11:06:00 EST, Height, 43.1, kg, 07/06/19 11:06:00 EST, Dry Weight Start Date: 07/06/19 Stop Date: 07/05/20 Status: Ordered multivitamin Therapeutic Multiple Vitamins oral tablet 1 tablet, By Mouth, Daily, # 30 tablet, 0 Refills, Maintenance, 06/26/19 13:45:00 EST, Tablet, [facility] #[id number], 1 tablet By Mouth Daily,x30 days, 153, cm, 06/26/19 7:18:00 EST, Height, 41.1, kg, 01/24/19 18:27:00 EDT, Dry Weight Start Date: 06/26/19 Stop Date: 07/26/19 Status: Ordered Pen [place], 29 G x 12.7 mm BD Ultra Fine See Instructions, # 100 each, Refills 5, Tot. Refills 5, Maintenance, use as directed for Type 1 Diabetes Mellitus, 06/26/19 13:47:00 EST, Compound, 153, cm, 06/26/19 7:18:00 EST, Height, 41.1, kg, 01/24/19 18:27:00 EDT, Dry Weight Start Date: 06/26/19 Stop Date: 12/23/19 Status: Ordered Pen [place], 31 G x 5 mm BD Ultra Fine III See Instructions, # 100 each, Refills 5, Tot. 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
--- OUTSIDE RECORDS SUMMARY | 2022-08-10 10:23 | XMS_ITS | Continuity of Care Document ---
Author Name Unknown Organization [facility] Address [address] [place] [address]- Care Team Providers Care Soccer Player Name Role Phone Isra ELIZABETH, Ap Primary Care Physician [phone] [facility] Date(s): 03/07/21 - 04/06/21 [facility] [address] [place], [place] [address] Referring Physician: Maida Watkins Allergies, Adverse Reactions, Alerts No Known Medication [...] 1Early/Late Reason: Med Not Available 2Result Comment: [facility]#[id number] 3Admin Note: Influenza vaccine 4Admin Note: Influenza vaccine 5Admin Note: Influenza vaccine 6Admin Note: VIS GIVEN 7Result Comment: SEE COVID TEAM PROGRESS NOTE 8Result Comment: [facility]# [id number] 9Admin Note: Twinrix # 2 10Admin Note: Twinrix # 1 11Admin Note: VIS GIVEN 12Result Comment: Lot: [id number] Exp: Nov 08 Pt given vaccine info sheet before vaccine administered Medications Biktarvy oral tablet 1 tablet, By Mouth, Daily, # 30 tablet, 0 Refills, Maintenance, 11/26/20 16:19:00 EDT, Tablet, [facility], Partial fill upon patient request if [...] 11/29/20 12:03:00 EDT, Route to Pharmacy Electronically, [facility] #[id number], 153, cm, 11/26/20 13:06:00 EDT, Height, 46, [...] 0 Refills, Maintenance, 01/20/21 15:21:00 EDT, Injection, [facility] #[id number], Partial fill upon patient request if the prescription is for a schedule II opioid drug.,... Start Date: 01/20/21 Stop Date: 02/19/21 Status: Ordered insulin glargine 100 u/ml subcutaneous solution = 32 units, Subcutaneous Injection, Daily at bedtime, # 12 mL, 0 Refills, Maintenance, 03/27/21 12:27:00 EST, Injection, [facility] #[id number], Partial fill upon patient request if the [...] 3 Refills, Maintenance, 11/14/20 10:44:00 EDT, Solution, [facility] #[id number], Partial fill upon patient... Start Date: 11/14/20 [...] Active DKA (diabetic ketoacidoses)(Confirmed) Active Diabetic retinopathy, [place], 03/23/19(Confirmed) Active Rash(Confirmed) Active Gitelman syndrome(Confirmed) Active [...]
--- OUTSIDE RECORDS SUMMARY | 2022-08-10 10:23 | XMS_ITS | Continuity of Care Document ---
Author Name Unknown Organization [facility] ter Address [address] [place] [id number]- Care Team Providers Care Email Manager Name Role Phone Diego ELIZABETH, Bala Primary Care Physician [facility]counter [facility] Date(s): 05/16/20 - 05/18/[address] [address]- Encounter Diagnosis Pyelonephritis(Final) - 05/16/20 Discharge Disposition: A-D/C Home Attending Physician: Shira Orta MD Admitting Physician: Preet Olmedo MD Referring Physician: Not on Staff, Referring MD Allergies, Adverse Reactions, Alerts No Known Medication Allergies Substance Reaction Severity Status NKA Active Immunizations Given and Recorded Vaccine Date Status Refusal Reason influenza virus vaccine, inactivated 1 02/12/20 Gi damien influenza virus vaccine, inactivated 2 03/23/19 Gi damien influenza virus vaccine, inactivated 3 03/10/16 Gi damien influenza virus vaccine, inactivated 4 02/13/15 Gi damien influenza virus vaccine, inactivated 5 03/02/14 Gi damien influenza virus vaccine, inactivated 03/15/13 Give n influenza virus vaccine, inactivated 6 02/14/08 Gi damien tetanus/diphtheria/pertussis, acel(Tdap) 7 07/06/19 Given Hepatitis A-Hepatitis B Vaccine 8 09/24/16 Given pneumococcal 23-valent vaccine 09/24/16 Given Twinrix (oldterm) 9 10/17/15 Given pneumococcal 13-valent vaccine 04/06/13 Given Tet/Diphth/Acel, Pertussis (oldterm) 10 02/14/08 G iven Pneumococcal Vaccine (oldterm) 11 10/31/07 Given Not Given Vaccine Date Status Refusal Reason influenza virus vaccine, inactivated 06/25/19 Not Given Patient Refuses influenza virus vaccine, inactivated 04/09/17 Not Given Patient Refuses pneumococcal 23-valent vaccine 06/25/19 Not Given Patient Refuses 1Early/Late Reason: Med Not Available 2Result Comment: [facility]#[id number] 3Admin Note: Influenza vaccine 4Admin Note: Influenza vaccine 5Admin Note: Influenza vaccine 6Admin Note: VIS GIVEN 7Result Comment: [facility]# [id number] 8Admin Note: Twinrix # 2 9Admin Note: Twinrix # 1 10Admin Note: VIS GIVEN 11Result Comment: Lot: [id number] Exp: Nov 08 Pt given vaccine info sheet before vaccine administered Medications aMILoride 5 mg oral tablet 1 tablet = 5 mg, By Mouth, Daily, # 30 tablet, 0 Refills, Maintenance, 04/17/20 9:46:00 EST, Tablet, Partial fill upon patient request if the prescription is for a schedule II opioid drug. Start Date: 04/17/20 Status: Ordered Biktarvy oral tablet 1 tablet, By Mouth, Daily, # 30 tablet, 0 Refills, Maintenance, 06/15/19 12:30:00 EST, Tablet Start Date: 06/15/19 Status: Ordered cefixime 400 mg oral capsule 1 capsule = 400 mg, By Mouth, Daily, for 3 days, # 3 capsule, 0 Refills, Acute 05/21/20 11:02:00 EST, 05/18/20 11:02:00 EST, Capsule, [facility] #[id number], Partial fill upon patient request ifthe prescription is for a schedule II opioid drug.,... Start Date: 05/18/20 Stop Date: 05/21/20 Status: Ordered Excedrin 1 tablet, By Mouth, 2 times a day, 0 Refills, Maintenance, 01/24/19 12:47:48 EDT Start Date: 01/24/19 Status: Ordered gabapentin 300 mg oral capsule 300 mg, 1, capsule, By Mouth, Daily at bedtime, # 30 capsule, Refills 2, Tot. Refills 2, Maintenance, 03/05/20 17:29:00 EST, Route to Pharmacy Electronically, [facility] #[id number], 155, cm, 02/13/20 9:01:00 EDT, Height, 43.9, kg, 02/11/20 10:34... Start Date: 03/05/20 Status: Ordered Humalog Kwik Pen 100 units/mL subcutaneous injection See Instructions, 100-149 6 units 150 199 8 units 200 249 10 units 250 -299 12 units 300-349 14 units 350-399 16 units with meals as needed, # 10 mL, 2 Refills, Maintenance, 03/11/20 12:38:00 EST, Solution, [email or web address] #[id number], 155,... Start Date: 03/11/20 Status: Ordered ibuprofen 600 mg oral tablet 600 mg, 1, tablet, By Mouth, Every 8 hours, Use very sparingly, # 20 tablet, Refills 0, Tot. Refills 0, Acute 04/18/21 12:03:00 EST, 04/18/20 12:03:00 EST, Route to Pharmacy Electronically, [facility] #[id number], Partial fill upon patient reques... Start Date: 04/18/20 Stop Date: 04/18/21 Status: Ordered Lantus Solostar Pen 100 units/mL subcutaneous solution = 35 units, Subcutaneous Injection, Daily at bedtime, # 12 mL, 2 Refills, Maintenance, 03/05/20 17:29:00 EST, Solution, [email or web address] #[id number], 155, cm, 02/13/20 9:01:00 EDT, Height, 43.9, kg, 02/11/20 10:34:00 EDT, Dry Weight Start Date: 03/05/20 Status: Ordered magnesium oxide 400 mg oral tablet 1 tablet = 400 mg, By Mouth, 3 times a day, # 100 tablet, 3 Refills, Acute 07/05/20 11:27:00 EST, 07/06/19 11:26:00 EST, Tablet, [email or web address] #[id number], 152, cm, 07/06/19 11:06:00 EST, Height, 43.1, kg, 07/06/19 11:06:00 EST, Dry Weight Start Date: 07/06/19 Stop Date: 07/05/20 Status: Ordered metoprolol 25 mg oral tablet, extended release 25 mg, 1, tablet, By Mouth, Daily, # 30 tablet, Refills 5, Tot. Refills 5, Maintenance, 04/10/20 14:03:00 EST, Route to Pharmacy Electronically, [facility] #[id number], 155, cm, 02/13/20 9:01:00EDT, Height, 43.9, kg, 02/11/20 10:34:00 EDT, Dry W... Start Date: 04/10/20 Stop Date: 10/07/20 Status: Ordered multivitamin Therapeutic Multiple Vitamins oral tablet 1 tablet, By Mouth, Daily, # 30 tablet, 0 Refills, Maintenance, 06/26/19 13:45:00 EST, Tablet, [facility] #[id number], 1 tablet By Mouth Daily,x30 days, 153, cm, 06/26/19 7:18:00 EST, Height, 41.1, kg, 01/24/19 18:27:00 EDT, Dry Weight Start Date: 06/26/19 Stop Date: 07/26/19 Status: Ordered Pen [place], 31 G x 5 mm BD Ultra Fine III See Instructions, # 100 each, Refills 2, Tot. Refills 2, Maintenance, Dx: Type 2 Diabetes Mellitus ICD 10 E11.9 (use with Humalog TID, Lantus daily), 03/05/20 17:32:00 EST, Supply, 155, cm, 02/13/20 9:01:00 EDT, Height, 43.9, kg, 02/11/20 10:34:00 EDT... 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 Active Depression(Confirmed) Active Diabetes mellitus type 2(Confirmed) Active DKA (diabetic ketoacidoses)(Confirmed) Active Diabetic retinopathy, [place], 03/23/19(Confirmed) Active 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 for Microbiology Reports Name Date Blood Culture 05/16/20 Blood Culture #2 05/16/20 Urine Culture (URINE CULTURE) 05/16/20 Microbiology Reports TEST:Blood Culture, Second Order STATUS:Unauthenticated BODY SITE: SOURCE:Blood COLLECTED DATE/TIME:05/16/20 9:50 PM Blood Culture, Second Order SPECIMEN DESCRIPTION : BLOOD NO SITE SPECIAL REQUESTS : NONE CULTURE : NO GROWTH AFTER 48 HOURS REPORT STATUS : PRELIMINARY REPORT TEST:Blood Culture STATUS:Unauthenticated BODY SITE: SOURCE:Blood COLLECTED DATE/TIME:05/16/20 8:08 PM Blood Culture SPECIMEN DESCRIPTION : BLOOD RA SPECIAL REQUESTS : NONE CULTURE : NO GROWTH AFTER 48 HOURS REPORT STATUS : PRELIMINARY REPORT TEST:Urine Culture STATUS:Unauthenticated BODY SITE: SOURCE:URINE COLLECTED DATE/TIME:05/16/20 6:57 PM Urine Culture SPECIMEN DESCRIPTION : URINE SPECIAL REQUESTS : NONE Reflexed from [id number] CULTURE : >100,000 COL/ML GRAM NEGATIVE RODS REPORT STATUS : PRELIMINARY REPORT Vital Signs Most recent to oldest [Reference Range]: 1 2 3 Height 153 cm (05/18/20 11:13 AM) 153 cm (05/18/20 8:07 AM) 153 cm (05/18/20 3:53 AM) Weight 48 kg (05/17/20 5:46 PM) Oxygen Saturation [94-100 %] 100 % (05/18/20 11:13 AM) 97 % (05/18/20 8:07 AM) 100 % (05/18/20 3:53 AM) Pulse Rate [55-90 bpm] 98 bpm *H* (05/18/20 11:13 AM) 84 bpm (05/18/20 8:07 AM) 86 bpm (05/18/20 3:53 AM) Body Mass Index [18.5-24.99] 20.5 (05/17/20 5:46 PM) Blood Pressure [90-138/55-84 mm Hg] 107/63mm Hg (05/18/20 11:13 AM) 116/74mm Hg (05/18/20 8:07 AM) 122/74mm Hg (05/18/20 3:53 AM) Respiratory Rate [16-30 br/min] 20 br/min (05/18/20 11:13 AM) 18 br/min (05/18/20 9:00 AM) 18 br/min (05/18/20 8:07 AM) Temperature [96.8-100.4 DegF] 97.8 DegF (05/18/20 11:13 AM) 98.1 DegF (05/18/20 8:07 AM) 97.6 DegF (05/18/20 3:53 AM) Mode of Delivery (Oxygen) Room air (05/18/20 11:13 AM) Room air (05/18/20 8:07 AM) Room air (05/18/20 3:53 AM) Blood pressure sites Arm, left (05/18/20 11:13 AM) Arm, left (05/18/20 8:07 AM) Arm, right (05/18/20 3:53 AM) Temperature Route Oral (05/18/20 11:13 AM) Oral (05/18/20 8:07 AM) Oral (05/18/20 3:53 AM) Dry Weight 48 kg (05/17/20 5:46 PM) Social History Social History Type Response Smoking Status Never smoker entered on: 01/26/14 Sex
--- OUTSIDE RECORDS SUMMARY | 2022-08-10 10:23 | XMS_ITS | Continuity of Care Document ---
Author Name Unknown Organization [facility] Address [address] [place] [address]- Care Team Providers Care Timber Rider Name Role Phone Bala Cortez MD Primary Care Physician [phone] [facility] Date[facility] 03[facility]11[facility]20 - 04/10/20 [facility] [address] [place], [place] [address] Allergies, Adverse Reactions, Alerts No Known Medication [...] Reason: Med Not Available 2Result Comment: [facility]#[id number] 3Admin Note: Influenza vaccine 4Admin Note: Influenza vaccine 5Admin Note: Influenza vaccine 6Admin Note: VIS GIVEN 7Result Comment: [facility]# [id number] 8Admin Note: Twinrix # 2 9Admin Note: [...] 03/05/20 17:29:00 EST, Route to Pharmacy Electronically, [facility] #[id number], 155, cm, 02/13/20 9:01:00 EDT, Height, 43.9, kg, 02/11/20 10:34... Start Date: 03/05/20 Status: Ordered Humalog Kwik Pen 100 units/mL subcutaneous injection See Instructions, 100-149 6 units 150 199 8 units 200 249 10 units 250 -299 12 units 300-349 14 units 350-399 16 units with meals as needed, # 10 mL, 2 Refills, Maintenance, 03/11/20 12:38:00 EST, [facility] #[id number], 155,... Start Date: 03/11/20 Status: Ordered Lantus Solostar Pen 100 units/mL subcutaneous solution = 35 units, Subcutaneous Injection, Daily at bedtime, # 12 mL, 2 Refills, Maintenance, 03/05/20 17:29:00 EST, Solution, [facility] #[id number], 155, cm, 02/13/20 9:01:00 EDT, Height, 43.9, kg, 02/11/20 10:34:00 EDT, Dry Weight Start Date: 03/05/20 Status: Ordered magnesium oxide 400 mg oral tablet 1 tablet = 400 mg, By Mouth, 3 times a day, # 100 tablet, 3 Refills, Acute 07/05/20 11:27:00 EST, 07/06/19 11:26:00 EST, Tablet, [facility] #[id number], 152, cm, 07/06/19 11:06:00 EST, Height, 43.1, kg, 07/06/19 11:06:00 EST, Dry Weight Start Date: 07/06/19 Stop Date: 07/05/20 Status: Ordered metoprolol 25 mg oral tablet, extended release 25 mg, 1, tablet, By Mouth, Daily, # 30 tablet, Refills 5, Tot. Refills 5, Maintenance, 04/10/20 14:03:00 EST, Route to Pharmacy Electronically, [facility] #[id number], 155, cm, 02/13/20 9:01:00EDT, Height, 43.9, kg, 02/11/20 10:34:00 EDT, Dry W... Start Date: 04/10/20 Stop Date: 10/07/20 Status: Ordered multivitamin Therapeutic Multiple Vitamins oral tablet 1 tablet, By Mouth, Daily, # 30 tablet, 0 Refills, Maintenance, 06/26/19 13:45:00 EST, Tablet, [facility] #[id number], 1 tablet By Mouth Daily,x30 days, 153, cm, 06/26/19 7:18:00 EST, Height, 41.1, kg, 01/24/19 18:27:00 EDT, Dry Weight Start Date: 06/26/19 Stop Date: 07/26/19 Status: Ordered Pen [place], 31 G x 5 mm BD Ultra [...] Active DKA (diabetic ketoacidoses)(Confirmed) Active Diabetic retinopathy, [place], 03/23/19(Confirmed) Active 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
--- OUTSIDE RECORDS SUMMARY | 2022-08-10 10:23 | XMS_ITS | Continuity of Care Document ---
Author Name Unknown Organization [facility] ter Address [address] [place] [id number]- Care Team Providers Care Electrician Technician Name Role Phone Isra ELIZABETH, Toyin Primary Care Physician Encounter [facility] Date(s): 05/13/22 - 05/14/[address] [address]- Encounter Diagnosis Atypical chest pain(Final) - 05/14/22 Discharge Disposition: A-D/C Home Attending Physician: Kehinde Conner MD Admitting Physician: Kehinde Conner MD Referring Physician: Not on Staff, Referring [...] 1Early/Late Reason: Med Not Available 2Result Comment: [facility]#[id number] 3Admin Note: Influenza vaccine 4Admin Note: Influenza vaccine 5Admin Note: Influenza vaccine 6Admin Note: VIS GIVEN 7Result Comment: SEE COVID TEAM PROGRESS NOTE 8Result Comment: [facility]# [id number] 9Admin Note: Twinrix # 2 10Admin Note: Twinrix # 1 11Admin Note: VIS GIVEN 12Result Comment: Lot: [id number] Exp: Nov 08 Pt given vaccine info sheet before vaccine administered Medications aspirin 81 mg oral tablet, chewable 81 mg, 1, tablet, By Mouth, Daily, # 30 tablet, Refills 11, Tot. Refills 11, Maintenance, 06/13/21 15:29:00 EST, Route to Pharmacy Electronically, [facility] #[id number], Partial fill upon patient request if the prescription is for a schedule II... Start Date: 06/13/21 Status: Ordered Biktarvy oral tablet 1 tablet, By Mouth, Daily, # 30 tablet, 0 Refills, Maintenance, 11/26/20 16:19:00 EDT, Tablet, [facility], Partial fill upon patient request if [...] 11/29/20 12:03:00 EDT, Route to Pharmacy Electronically, [facility] #[id number], 153, cm, 11/26/20 13:06:00 EDT, Height, 46, [...] 1 Refills, Maintenance, 06/09/21 10:48:00 EST, Injection, [facility] #[id number], Partial fill upon patient request if theprescription is for a schedule II opioid drug., 152... Start Date: 06/09/21 Stop Date: 08/08/21 Status: Ordered hydrOXYzine hydrochloride 10 mg oral tablet 2 tablet = 20 mg, By Mouth, 4 times a day, PRN for anxiety, # 80 tablet, 0 Refills, Maintenance, 10/17/21 12:42:00 EDT, Tablet, [facility] #[id number], Partial fill upon patient request if the prescription is for a schedule II opioid drug., 153,... Start Date: 10/17/21 Status: Ordered insulin glargine 100 u/ml subcutaneous solution 40, Subcutaneous Injection, Daily at bedtime, # 10 mL, 1 Refills, Maintenance, 08/07/21 13:44:00 EDT, Injection, [facility] #[id number], Partial fill upon patient request if the prescription is for a schedule II opioid drug., 152, cm, 06/20/21 10... Start Date: 08/07/21 Status: Ordered [...] Acute 10/17/22 12:44:00 EDT, 10/17/21 12:44:00 EDT, [facility] #[id number], Partial fill upon patient request if the prescription is for a schedule II opioid drug., 153, cm, 10/08/21 9:2... Start Date: 10/17/21 Stop Date: 10/17/22 Status: Ordered metoprolol 25 mg oral tablet 25 mg, 1, tablet, By Mouth, Daily, # 90 tablet, Refills 3, Tot. Refills 3, Maintenance, 06/13/21 15:29:00 EST, Route to Pharmacy Electronically, [facility] #[id number], Partial fill upon patientrequest if the prescription is for a schedule II op... Start Date: 06/13/21 Status: Ordered Pen [place], 31 G x 5 mm BD Ultra [...] 3 Refills, Maintenance, 10/17/21 12:48:00 EDT, Solution, [facility] #[id number], Partial fill upon patient... Start Date: 10/17/21 Status: Ordered Vitamin D3 1000 intl units oral capsule 1 capsule = 25 mcg, By Mouth, Daily, # 100 capsule, 3 Refills, Maintenance, 06/20/21 11:15:00 EST, Capsule, [facility] #[id number], Partial fill upon patient request if the [...] DKA (diabetic ketoacidoses) Confirmed Active Diabetic retinopathy, [place], 03/23/19 Confirmed Active Rash Confirmed Active [place] [...] Exam Date Time Procedure Performing Provider Status 05/13/22 4:16 PM Chest 2 Views Frontal and Lat Alexander rShoshana; Auth (Verified) Notes: (Chest 2 Views Frontal and Lat) Reason For Exam: Chest Pain;Other: RESULT: Chest 2 Views Frontal and Lat Chest 2 Views Frontal and Lat Hx of Present Illness: pt c o R anterior chest pain started with waking up this morning. pt reportspain is worse with breathing, palpations, and movement. +SOB.; Reason: Other:; Chest Pain; ClinicalQuestion(s): Other: COMPARISON: 11/28/2021 FINDINGS: No acute cardiopulmonary process IMPRESSION: No acute abnormality. Normal exam WSN: [id number] Ordering Physician: Deep Rosenthal Dictated By: Lamont Abarca MD Dictated Date/Time: 05/13/22 4:19 pm Reviewed By: Lamont Abarca MD Signed By: Lamont bAarca MD Signed Date/Time: 05/13/22 4:19 pm Transcribed By: TANYA Transcribed Date/Time: 05/13/22 4:18 pm Vital Signs Most recent to oldest [Reference Range]: 1 2 3 Oxygen Saturation [94-100 %] 96 % (05/14/22 10:16 AM) 100 % (05/14/22 7:00 AM) 100 % (05/14/22 4:36 AM) Pulse Rate [55-90 bpm] 87 bpm (05/14/22 10:16 AM) 87 bpm (05/14/22 7:00 AM) 88 bpm (05/14/22 4:36 AM) Blood Pressure [90-138/55-84 mm Hg] 125/79mm Hg (05/14/22 10:16 AM) 124/80mm Hg (05/14/22 7:00 AM) 131/75mm Hg (05/14/22 4:36 AM) Respiratory Rate [16-30 br/min] 16 br/min (05/14/22 10:16 AM) 16 br/min (05/13/22 2:18 PM) Temperature [96.8-100.4 DegF] 98.2 DegF (05/14/22 10:16 AM) 98.2 DegF (05/14/22 7:00 AM) 98.2 DegF (05/14/22 4:36 AM) Mode of Delivery (Oxygen) Room air (05/14/22 10:16 AM) Room air (05/14/22 7:00 AM) Room air (05/14/22 4:36 AM) Blood pressure sites Arm, left (05/14/22 10:16 AM) Arm, left (05/14/22 7:00 AM) Arm, left (05/14/22 4:36 AM) Temperature Route Oral (05/14/22 10:16 AM) Oral (05/14/22 7:00 AM) Oral (05/14/22 4:36 AM) Social History Social History Type Response Smoking Status Never (less than 100 in lifetime) entered on: 06/06/21 Sex EKG study * Event Display: ECG 12-Lead Authored Date: Please click on pdf link to open report * Event Display: ECG 12-Lead Authored Date: Ventricular Rate: 88 BPM Atrial Rate: 88 BPM P-R Interval: 148 ms QRS Duration: 84 ms Q-T Interval: 380 ms QTC Calculation(Bazett): 459 ms P [place]: 45 degrees R [place]: 66 degrees T [place]: 72 degrees Normal sinus rhythm Minimal voltage criteria for LVH, may be normal variant ( Sokolow-Loyola ) Borderline ECG When compared with ECG of 27-MAR-2022 19:30, No significant change was found Confirmed by JUAN ANTONIO MD ([id number]) on 05/13/2022 4:39:40 PM [place]: JUAN ANTONIO MD Note * BHSPowerscribe , CIS S: TRANSCRIBE Lamont Abarca MD: VERIFY Event Display: Result: Authored Date: [id number] Chest 2 Views Frontal and Lat Hx of Present Illness: pt c o R anterior chest pain started with waking up this morning. pt reportspain is worse with breathing, palpations, and movement. +SOB.; Reason: Other:; Chest Pain; ClinicalQuestion(s): Other: COMPARISON: 11/28/2021 FINDINGS: No acute cardiopulmonary process IMPRESSION: No acute abnormality. Normal exam WSN: [id number] Ordering Physician: eDep Rosenthal Dictated By: Lamont Abarca MD Dictated Date/Time: 05/13/22 4:19 pm Reviewed By: Lamont Abarca MD Signed By: Lamont Abarca MD Signed Date/Time: 05/13/22 4:19 pm Transcribed By: TANYA Transcribed Date/Time: 05/13/22 4:18 pm Patient Care team information Care Team Personnel Name: Elsi Dumont RN Position: [facility] RN Member Role: Primary Care Nurse Name: Yusuf Bhardwaj RN Position: [facility] RN Member Role: Primary Care Nurse Name: Nora Mercado RN Position: [facility] SN RN Member Role: Primary Care Nurse Name: Mitch Mena MD Position: [facility] Renal MD Member Role: Lifetime Consulting Physician Address: Address: [address] [place] [address], [address] [place] [address]- Name: Lacho Chaves RN Position: [facility] ED RN W/OE and Tasks Member Role: Primary Care Nurse Name: Lily Tyler RN Position: [facility] RN Member Role: Primary Care Nurse Name: Ashley Sosa RN Position: [facility] PCO RN Member Role: Primary Care Nurse Name: Elba Enrique RN Position: [facility] PCO RN Member Role: Primary Care Nurse Name: Jacinta Huitron RN Position: [facility] RN Member Role: Primary Care Nurse Name: Linda Christianson NP Position: [facility] Associate Professional Member Role: Primary Care Nurse Address: Address: [address] [place] [address]- [place] Name: Eleni Stewart Position: [facility] Outreach Member Role: Lifetime Consulting Physician Name: Nesha Major RN Position: [facility] RN Member Role: Primary Care Nurse Name: Christiano Costa RN Position: [facility] RN Member Role: Primary Care Nurse Name: Sakina Ward RN Position: [facility] RN Member Role: Primary Care Nurse Name: Carisa Keyes RN Position: [facility] RN Member Role: Primary Care Nurse Name: Yanet Grimaldo RN Position: [facility] OB RN Member Role: Primary Care Nurse Name: Arielle Rhodes RN Position: [facility] RN Member Role: Primary Care Nurse Name: Iris Muniz RN Position: [facility] RN Member Role: Primary Care Nurse Name: Anna Yang RN Position: [facility] RN Member Role: Primary Care Nurse Name: Carlene Najera Position: [facility] RN Member Role: Primary Care Nurse Name: Nora Alcantar RN Position: [facility] RN Member Role: Primary Care Nurse Name: Yasemin Ordoñez NP Position: [facility] PCO Associate Professional Member Role: Primary Care Nurse Address: Address: [address] [place] [address]- [place] Name: Cher Maxwell RN Position: [facility] HBO Wound Member Role: Primary Care Nurse Name: Noemi Corbett RN Position: [facility] RN Member Role: Primary Care Nurse Name: Nora Silva RN Position: [facility] RN Member Role: Primary Care Nurse Name: Tracy Sharp RN Position: [facility] RN Member Role: Primary Care Nurse Name: Anamaria Andrade RN Position: [facility] SN RN Member Role: Primary Care Nurse Name: Scottie Shook RN Position: [facility] ED RN W/OE and Tasks Member Role: Primary Care Nurse Name: Stew Calvillo RN Position: [facility] RN Member Role: Primary Care Nurse Name: Kehinde Kern DO Position: [facility] Renal MD Member Role: Lifetime Consulting Physician Address: Address: [address] [place] [address] [address] [facility] [place] [address]- [place] Name: Lily Leyva RN Position: [facility] RN Member Role: Primary Care Nurse Name: Carson New III, RN Position: [facility] RN Member Role: Primary Care Nurse Name: Carlie Arzate RN Position: [facility] Production Supervisor Trainee Member Role: Primary Care Nurse Name: Margaret Snyder RN Position: [facility] Production Supervisor Trainee Member Role: Primary Care Nurse Name: Noah Schuster RN Position: [facility] RN Member Role: Primary Care Nurse Name: Tracie Haney RN Position: [facility] RN Member Role: Primary Care Nurse Name: Mayra Covarrubias RN Position: [facility] RN Member Role: Primary Care Nurse Name: Steph Pagan RN Position: [facility] RN Member Role: Primary Care Nurse Name: Manohar Wallace RN Position: [facility] RN Member Role: Primary Care Nurse Name: Karen Dewey RN Position: [facility] RN Member Role: Primary Care Nurse Name: Lisset Díaz RN Position: [facility] RN Member Role: Primary Care Nurse Name: Phyllis Jones RN Position: [facility] PCO RN Member Role: Primary Care Nurse Name: Manuel Kirkpatrick MD Position: [facility] Renal MD Member Role: Lifetime Consulting Physician Address: Address: [address] [place] [address] [address] [facility] [place] [address]- Name: Vidhya Quan RN Position: [facility] RN Member Role: Primary Care Nurse Name: Jessi Giraldo RN Position: [facility] RN Member Role: Primary Care Nurse Name: Aaliyah Prakash RN Position: [facility] Production Supervisor Trainee Member Role: Primary Care Nurse Name: Toyin Dhaliwal MD Position: [facility] Primary Care Physician Member Role: PCP Address: Address: [address] [place] [address] [facility] [place] [address]- [place] Name: Sushma Martinez RN Position: [facility] RN Member Role: Primary Care Nurse Name: Bonny Iniguez RN Position: [facility] RN Member Role: Primary Care Nurse Name: Mercedes Borjas RN Position: [facility] RN Member Role: Primary Care Nurse Name: Lamont Mantilla RN Position: [facility] RN Member Role: Primary Care Nurse Name: Aries Orozco MD Position: [facility] Renal MD Member Role: Lifetime Consulting Physician Address: Address: [address] [place] [address] [facility] [place] [address]- Name: Dedrick Brown RN Position: [facility] ED RN W/OE and Tasks Member Role: Primary Care Nurse Name: Marzena Razo RN Position: [facility] RN Member Role: Primary Care Nurse Name: Fariba Mancilla RN Position: [facility] RN Member Role: Primary Care Nurse Name: Mia Jones RN Position: [facility] SN RN Member Role: Primary Care Nurse Name: David Jean RN Position: [facility] SN RN Member Role: Primary Care Nurse Name: Eleni Thompson RN Position: [facility] ED RN W/OE and Tasks Member Role: Patient Care Provider Name: Bob Rader RN Position: [facility] ED RN W/OE and Tasks Member Role: Patient Care Provider Name: Kehinde Conner MD Position: [facility] Resident Member Role: Admitting Physician Address: Address: [address] [place] [address]- Name: Jose E Lewis Position: [facility] Associate Professional Member Role: ED Physician Truck Repair Service Estimator Address: Address: [address] [place] [address]- Care Team Related Persons Name: DAKOTAH BAKER Address: home [address] [place] [id number] Name: EDWARDO DAKOTAH Address: home [address] [place] [address] Name: LANDEN TRAN Address: [address] [place] [address] Name: SHRUTI BHAGAT Address: [place] [address]
--- OUTSIDE RECORDS SUMMARY | 2022-08-10 10:23 | XMS_ITS | Continuity of Care Document ---
Author Name Unknown Organization [facility] ter Address [address] [place] [phone]- Care Team Providers Care Pit Clerk Name Role Phone Isra ELIZABETH, Toyin Primary Care Physician [place] [facility] [place] 11/22/20 - 11/26/[address] [address] Discharge Disposition: A-D/C Home Attending Physician: Alma Rosa Vargas MD Admitting Physician: Natalie Jones MD Referring Physician: Not on Staff, Referring MD Allergies, Adverse Reactions, Alerts No Known Medication Allergies Substance Reaction Severity Status NKA Active Immunizations Given and Recorded Vaccine Date Status Refusal Reason SARS-CoV-2 (COVID-19) mRNA BNT-162b2 vac 1 11/08/20 Given SARS-CoV-2 (COVID-19) mRNA BNT-162b2 vac 10/16/20 Recorded influenza virus vaccine, inactivated 2 02/12/20 Gi damien influenza virus vaccine, inactivated 3 03/23/19 Gi damien influenza virus vaccine, inactivated 4 03/10/16 Gi damien influenza virus vaccine, inactivated 5 02/13/15 Gi damien influenza virus vaccine, inactivated 6 03/02/14 Gi damien influenza virus vaccine, inactivated 03/15/13 Give n influenza virus vaccine, inactivated 7 02/14/08 Gi damien tetanus/diphtheria/pertussis, acel(Tdap) 8 07/06/19 Given Hepatitis A-Hepatitis [...] 06/25/19 Not Given Patient Refuses 1Result Comment: SEE COVID TEAM PROGRESS NOTE 2Early/Late Reason: Med Not Available 3Result Comment: [facility]#[id number] 4Admin Note: Influenza vaccine 5Admin Note: Influenza vaccine 6Admin Note: Influenza vaccine 7Admin Note: VIS GIVEN 8Result Comment: [facility]# [id number] 9Admin Note: Twinrix # 2 10Admin Note: Twinrix # 1 11Admin Note: VIS GIVEN 12Result Comment: Lot: [id number] Exp: Nov 08 Pt given vaccine info sheet before vaccine administered Medications Biktarvy oral tablet 1 tablet, By Mouth, Daily, # 30 tablet, 0 Refills, Maintenance, 11/26/20 16:19:00 EDT, Tablet, [facility], Partial fill upon patient request if the prescription is for a schedule II opioid drug., 1 tablet By Mouth Daily, 153, cm, ... Start Date: 11/26/20 Status: Ordered Freestyle Lancets See Instructions, # 200 each, Refills 5, Tot. Refills 5, Maintenance, use as directed for Type 2 Diabetes Mellitus, 11/26/20 16:24:00 EDT, Supply, 153, cm, 11/26/20 13:06:00 EDT, Height, 46, kg, 11/24/20 3:02:00 EDT, Dry Weight Start Date: 11/26/20 Stop Date: 05/25/21 Status: Ordered Freestyle Lite Test Strips See Instructions, # 200 each, Tot. Refills 5, Maintenance, use as directed for Type 2 Diabetes Mellitus, 11/26/20 16:25:00 EDT, Supply, 153, cm, 11/26/20 13:06:00 EDT, Height, 46, kg, 11/24/20 3:02:00 EDT, Dry Weight Start Date: 11/26/20 Stop Date: 12/26/20 Status: Ordered gabapentin 300 mg oral capsule 1, capsule, By Mouth, Daily at bedtime, # 30 capsule, Refills 0, Tot. Refills 0, Maintenance, 11/26/20 16:19:00 EDT, Route to Pharmacy Electronically, [facility], 153, cm, 11/26/20 13:06:00 EDT, Height, 46, kg, 11/24/20 3:02:00 EDT, Dry... Start Date: 11/26/20 Status: Ordered Humalog Kwik Pen 100 units/mL subcutaneous injection 2 - 10 units, Subcutaneous Injection, 3 times a day before meals, # 15 mL, 0 Refills, Maintenance, 11/26/20 16:19:00 EDT, Injection, [facility], Partial fill upon patient request if theprescription is for a schedule II opioid drug., 153... Start Date: 11/26/20 Stop Date: 12/26/20 Status: Ordered Lantus Solostar Pen 100 units/mL subcutaneous solution = 35 units, Subcutaneous Injection, Daily in AM, for 30 days, # 10 mL, 3 Refills, Physician Stop 03/26/21 16:19:00 EST, 11/26/20 16:19:00 EDT, [facility], 153, cm, 11/26/20 13:06:00 EDT, Height, 46, kg, 11/24/20 3:02:00 EDT, Dry Weight Start Date: 11/26/20 Stop Date: 03/26/21 Status: Ordered magnesium oxide 400 mg oral tablet 1 tablet = 400 mg, By Mouth, Daily, for 7 days, # 7 tablet, 0 Refills, Acute 12/03/20 16:18:00 EDT,11/26/20 16:18:00 EDT, Tablet, [facility] 3, Partial fill upon patient request if the prescription is for a schedule II opioid drug., 153,... Start Date: 11/26/20 Stop Date: 12/03/20 Status: Ordered please dispense a BP monitor please dispense a BP monitor, See Instructions, # 1 each, Refills 0, Tot. Refills 0, Maintenance, please dispense a BP monitor, 11/26/20 16:26:00 EDT, Supply, 153, cm, 11/26/20 13:06:00 EDT, Height, 46, kg, 11/24/20 3:02:00 EDT, Dry Weight Start Date: 11/26/20 Status: Ordered Trulicity Pen 0.75 mg/0.5 mL subcutaneous solution 0.5 mL = 0.75 mg, Subcutaneous Injection, Every week, call office in one month so i can increase your dose. rotate injection sites, # 2 mL, 3 Refills, Maintenance, 11/14/20 10:44:00 EDT, Solution, [facility] #[id number], Partial fill upon patient... Start Date: 11/14/20 Status: Ordered vancomycin 125 mg oral capsule 1 capsule = 125 mg, By Mouth, Every 6 hours, for 7 days, # 28 capsule, 0 Refills, Acute 12/03/20 14:14:00 EDT, 11/26/20 14:14:00 EDT, Capsule, [facility], Partial fill upon patient request if the prescription is for a schedule II opioid... Start Date: 11/26/20 Stop Date: 12/03/20 Status: Ordered Problem List Condition Effective Dates Status Health Status Inform ant Pyelonephritis, acute(Confirmed) Active Astigmatism, bilateral(Confirmed) Active MRSA bacteremia(Confirmed) Active Bladder outlet obstruction(Confirmed) Active Cholelithiasis(Confirmed) Active CKD (chronic kidney disease)(Confirmed) Active ALEE III - Cervical intraepit helial neoplasia grade III with severe dysplasia(Confirmed) 1 Active Depression(Confirmed) Active Diabetes mellitus type 2(Confirmed) Active DKA (diabetic ketoacidoses)(Confirmed) Active DKA (diabetic ketoacidoses)(Confirmed) Active Diabetic retinopathy, [place], 03/23/19(Confirmed) Active 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 History of cervical cancer(Confirmed) Active HIV (human immunodeficiency virus infection)(Confirmed) Active Hypermetropia of both eyes(Confirmed) Active Hypomagnesemia(Confirmed) Active Hyponatremia(Confirmed) Active Hypophosphatemia(Confirmed) Active Hysterectomy(Confirmed) Active KEVIN (acute kidney injury)(Confirmed) Active Hypotension(Confirmed) Active Pinguecula of both eyes(Confirmed) Active Sepsis(Confirmed) Active Sick euthyroidism(Confirmed) Active Tachycardia(Confirmed) Active Presence of indwelling Mcdonald catheter(Confirmed) Active UTI (urinary tract infection)(Confirmed) Active HCV (hepatitis C virus)(Confirmed) Active 1primary tumor PT1b, regional nodes pN0 Results Orders for Microbiology Reports Name Date Blood Culture 11/22/20 Blood Culture #2 11/22/20 Urine Culture (URINE CULTURE) 11/22/20 Microbiology Reports TEST:Blood Culture, Second Order STATUS:Unauthenticated BODY SITE: SOURCE:Blood COLLECTED DATE/TIME:11/22/20 11:55 AM Blood Culture, Second Order SPECIMEN DESCRIPTION : BLOOD NONE SPECIAL REQUESTS : NONE CULTURE : NO GROWTH 4 DAYS REPORT STATUS : PRELIMINARY REPORT TEST:Blood Culture STATUS:Unauthenticated BODY SITE: SOURCE:Blood COLLECTED DATE/TIME:11/22/20 10:46 AM Blood Culture SPECIMEN DESCRIPTION : BLOOD L FINGER SPECIAL REQUESTS : NONE CULTURE : NO GROWTH 4 DAYS REPORT STATUS : PRELIMINARY REPORT TEST:Urine Culture STATUS:Auth (Verified) BODY SITE: SOURCE:URINE COLLECTED DATE/TIME:11/22/20 12:41 AM Urine Culture SPECIMEN DESCRIPTION : URINE SPECIAL REQUESTS : NONE CULTURE : Mixed bacterial alma, indicative of urogenital contamination. REPORT STATUS : FINAL 11/23/2020 Radiology Reports * Exam Date Time Procedure Performing Provider Status 11/22/20 10:23 AM Chest 2 Views Frontal and Lat Alyx Murrieta; Auth (Verified) Notes: (Chest 2 Views Frontal and Lat) Reason For Exam: Shortness of Breath RESULT: Chest 2 Views Frontal and Lat Chest 2 Views Frontal and Lat Hx of Present Illness: Dizzyness and diarrhea started yesterday; Reason: Shortness of Breath; Clinical Question(s): CHF COMPARISON: 08/18/2020 FINDINGS: LINES AND TUBES: None. LUNGS AND PLEURA: Clear lungs. Normal pulmonary vascularity. No pleural effusion. No pneumothorax. HEART, MEDIASTINUM AND ZBIGNIEW: Heart is normal in size. Normal upper mediastinal and hilar contour. BONES AND SOFT TISSUES: No acute abnormality. IMPRESSION: No acute abnormality. WSN: [id number] Ordering Physician: Anamaria Tolentino Dictated By: Fariba Delacruz MD Dictated Date/Time: 11/22/20 10:25 a Reviewed By: Fariba Delacruz MD Signed By: Fariba Delacruz MD Signed Date/Time: 11/22/20 10:25 am Transcribed By: TANYA Transcribed Date/Time: 11/22/20 10:25 am Vital Signs Most recent to oldest [Reference Range]: 1 2 3 Height 153 cm (11/26/20 1:06 PM) 153 cm (11/26/20 8:44 AM) 153 cm (11/25/20 6:05 PM) Weight 45.5 kg (11/24/20 3:02 AM) Oxygen Saturation [94-100 %] 100 % (11/26/20 1:06 PM) 99 % (11/26/20 8:44 AM) 99 % (11/26/20 3:00 AM) Pulse Rate [55-90 bpm] 91 bpm *H* (11/26/20 1:06 PM) 91 bpm *H* (11/26/20 8:44 AM) 101 bpm *H* (11/26/20 3:00 AM) Body Mass Index [18.5-24.99] 19.44 (11/24/20 3:02 AM) Blood Pressure [90-138/55-84 mm Hg] 110/74mm Hg (11/26/20 1:06 PM) 112/69mm Hg (11/26/20 8:44 AM) 99/65mm Hg (11/26/20 3:00 AM) Respiratory Rate [16-30 br/min] 18 br/min (11/26/20 1:06 PM) 18 br/min (11/26/20 8:44 AM) 18 br/min (11/26/20 3:00 AM) Temperature [96.8-100.4 DegF] 97.5 DegF (11/26/20 1:06 PM) 97.6 DegF (11/26/20 8:44 AM) 97.8 DegF (11/26/20 3:00 AM) Mode of Delivery (Oxygen) Room air (11/26/20 1:06 PM) Room air (11/26/20 8:44 AM) Room air (11/26/20 3:00 AM) Blood pressure sites Arm, right (11/26/20 1:06 PM) Arm, right (11/26/20 8:44 AM) Arm, right (11/26/20 3:00 AM) Temperature Route Oral (11/26/20 1:06 PM) Oral (11/26/20 8:44 AM) Oral (11/26/20 3:00 AM) Dry Weight 46 kg (11/24/20 3:02 AM) Weight Obtained Via Bed scale (11/24/20 3:02 AM) Dry Weight Obtained Via Patient/family s tated (11/24/20 3:02 AM) Social History Social History Type Response Smoking Status Never smoker entered on: 01/26/14 Sex
--- OUTSIDE RECORDS SUMMARY | 2022-08-10 10:23 | XMS_ITS | Continuity of Care Document ---
Author Name Unknown Organization [facility] ter Address [address] [place] [id number]- Care Team Providers Care Dredge Pumper Name Role Phone Bala Cortez MD Primary Care Physician Encounter [facility] Date(s): 05/16/19 - 05/18/[address] [address] Discharge Disposition: A-D/C Home Attending Physician: Cristóbal Moncada MD Admitting Physician: Billy Dumont MD Referring Physician: Not on Staff, Referring MD Allergies, Adverse Reactions, Alerts No Known Medication Allergies Substance Reaction Severity Status NKA Active Immunizations Given and Recorded Vaccine Date Status Refusal Reason influenza virus vaccine, inactivated 1 03/23/19 Gi damien influenza virus vaccine, inactivated 2 03/10/16 Gi damien influenza virus vaccine, inactivated 3 02/13/15 Gi damien influenza virus vaccine, inactivated 4 03/02/14 Gi damien influenza virus vaccine, inactivated 03/15/13 Give n influenza virus vaccine, inactivated 5 02/14/08 Gi damien Hepatitis A-Hepatitis B Vaccine 6 09/24/16 Given pneumococcal 23-valent vaccine 09/24/16 Given Twinrix (oldterm) 7 10/17/15 Given pneumococcal 13-valent vaccine 04/06/13 Given Tet/Diphth/Acel, Pertussis (oldterm) 8 02/14/08 Gi damien Pneumococcal Vaccine (oldterm) 9 10/31/07 Given Not Given Vaccine Date Status Refusal Reason influenza virus vaccine, inactivated 04/09/17 Not Given Patient Refuses 1Result Comment: [facility]#[id number] 2Admin Note: Influenza vaccine 3Admin Note: Influenza vaccine 4Admin Note: Influenza vaccine 5Admin Note: VIS GIVEN 6Admin Note: Twinrix # 2 7Admin Note: Twinrix # 1 8Admin Note: VIS GIVEN 9Result Comment: Lot: [id number] Exp: Nov 08 Pt given vaccine info sheet before vaccine administered Medications aMILoride 5 mg oral tablet 1 tablet = 5 mg, By Mouth, Daily, 0 Refills, Maintenance, 03/23/19 9:54:45 EST Start Date: 03/23/19 Status: Ordered ciclopirox 8% topical solution 1 application, Topically, Daily, Apply to affected nails daily, # 3.3 mL, 0 Refills, Acute 04/19/2013:09:00 EST, 04/19/19 13:09:00 EST, Solution, [facility] #[id number], 1 application TopicallyDaily,Instr:Apply to affected nails daily, 153, cm,... Start Date: 04/19/19 Stop Date: 04/19/20 Status: Ordered Humalog Kwik Pen 100 units/mL subcutaneous injection See Instructions, If BG <150 use 6u Increase by 2u per BG increase of 50 See order comments for specifics, # 10 mL, 0 Refills, Maintenance, 05/18/19 16:22:00 EST, [facility], 152, cm, 05/18/19 7:48:00 EST, Height, 44.1, kg, 05/16/19 19... Start Date: 05/18/19 Status: Ordered insulin glargine 100 units/mL subcutaneous solution 0.6 mL = 60 units, Subcutaneous Injection, Daily, # 20 mL, 0 Refills, Maintenance, 02/23/19 12:06:52 EDT, Injection Start Date: 02/23/19 Stop Date: 06/17/19 Status: Ordered levoFLOXacin 750 mg oral tablet 1 tablet = 750 mg, By Mouth, Every 48 hours, # 3 tablet, 0 Refills, Acute 05/22/19 21:00:00 EST, 05/18/19 16:20:00 EST, Tablet, [facility], 152, cm, 05/18/19 7:48:00 EST, Height, 44.1, kg, 05/16/19 19:12:00 EST, Dry Weight Start Date: 05/18/19 Stop Date: 05/22/19 Status: Ordered magnesium oxide 400 mg oral tablet 1 tablet = 400 mg, By Mouth, 3 times a day, 0 Refills, Maintenance, 02/19/19 22:57:28 EDT Start Date: 02/19/19 Status: Ordered potassium chloride 10 mEq oral tablet, extended release 1 tablet = 10 mEq, By Mouth, 2 times a day, # 180 tablet, 0 Refills, Maintenance, 02/19/19 22:57:11EDT, ER Tablet Start Date: 02/19/19 Status: Ordered Problem List Condition Effective Dates Status Health Status Inform ant Pyelonephritis, acute(Confirmed) Active Astigmatism, bilateral(Confirmed) Active MRSA bacteremia(Confirmed) Active Cholelithiasis(Confirmed) Active ALEE III - Cervical intraepit helial neoplasia grade III with severe dysplasia(Confirmed) 1 Active Depression(Confirmed) Active Diabetes mellitus type 2(Confirmed) Active DKA (diabetic ketoacidoses)(Confirmed) Active Diabetic retinopathy, [place], 03/23/19(Confirmed) Active 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 for Microbiology Reports Name Date Blood Culture 05/16/19 Blood Culture #2 05/16/19 Urine Culture (URINE CULTURE) 05/05/19 Microbiology Reports TEST:Blood Culture, Second Order STATUS:Unauthenticated BODY SITE: SOURCE:Blood COLLECTED DATE/TIME:05/16/19 7:30 PM Blood Culture, Second Order SPECIMEN DESCRIPTION : BLOOD LT AC SPECIAL REQUESTS : NONE CULTURE : NO GROWTH AFTER 48 HOURS REPORT STATUS : PRELIMINARY REPORT TEST:Blood Culture STATUS:Unauthenticated BODY SITE: SOURCE:Blood COLLECTED DATE/TIME:05/16/19 7:19 PM Blood Culture SPECIMEN DESCRIPTION : BLOOD RT HAND SPECIAL REQUESTS : NONE CULTURE : NO GROWTH AFTER 48 HOURS REPORT STATUS : PRELIMINARY REPORT TEST:Urine Culture STATUS:Auth (Verified) BODY SITE: SOURCE:URINE COLLECTED DATE/TIME:05/05/19 4:20 PM Urine Culture SPECIMEN DESCRIPTION : URINE SPECIAL REQUESTS : NONE CULTURE : >100,000 COL/ML SERRATIA MARCESCENS REPORT STATUS : FINAL 05/18/2019 ORGANISM >100,000 COL/ML SERRATIA MARCESCENS METHOD MIN. INHIB. CONC. (MCG/ML) AMPICILLIN INTERMEDIATE AMPICILLIN/SULBACTAM INTERMEDIATE AMOXICILLIN/CLAVULAN RESISTANT CEFAZOLIN RESISTANT CEFEPIME SUSCEPTIBLE CEFTRIAXONE SUSCEPTIBLE CIPROFLOXACIN SUSCEPTIBLE GENTAMICIN SUSCEPTIBLE LEVOFLOXACIN SUSCEPTIBLE MEROPENEM SUSCEPTIBLE NITROFURANTOIN RESISTANT PIPERACILLIN/TAZOBAC SUSCEPTIBLE TRIMETH/SULFAMETHOX SUSCEPTIBLE TETRACYCLINE RESISTANT Radiology Reports * Exam Date Time Procedure Performing Provider Status 05/18/19 5:41 PM Hand Min 3 Views Left Ban Brown en; Auth (Verified) Notes: (Hand Min 3 Views Left) Reason For Exam: Pain RESULT: Hand Min 3 Views Left Hand Min 3 Views Left, 3 views Refer to EMR; Reason: Pain; Clinical Question(s): Arthritis; COMPARISON: None. FINDINGS: Chondrocalcinosis at the ulnar aspect of the wrist. Dorsal soft tissue swelling. No evidence of fracture. No evidence of dislocation. IMPRESSION: No evidence of fracture or dislocation. Chondrocalcinosis at the ulnar aspect of the wrist. Finding is nonspecific. It could be secondary to CPPD arthropathy. No abnormality within the second and third MCP joints. It could also be a manifestation of hypercalcemia WSN: [id number] Dictated By: Lamont Abarca MD Dictated Date/Time: 05/18/19 5:46 pm Reviewed By: Lamont Abarca MD Signed By: Lamont Abarca MD Signed Date/Time: 05/18/19 5:46 pm Transcribed By: TANYA Transcribed Date/Time: 05/18/19 5:43 pm * Exam Date Time Procedure Performing Provider Status 05/16/19 11:44 AM Chest 2 Views Frontal and Lat Soco Paredes; Auth (Verified) Notes: (Chest 2 Views Frontal and Lat) Reason For Exam: Cough RESULT: Chest 2 Views Frontal and Lat Chest 2 Views Frontal and Lat Refer to EMR; Reason: Cough; Clinical Question(s): Pneumonia; Hx of Present Illness: Pt sts that she woke up this morning feeling bad , checked her sugar which was high so she took 14 units of humalog insulin at 0800- Pt went back to sleep, woke at 11 am dizzy, nauseated and sweaty- thought sugar was low because I took the insulin ; Other Objective Findings: Pt. is oriented x 4, facial fe COMPARISON: 09/03/2018 FINDINGS: LINES AND TUBES: None. LUNGS AND PLEURA: Clear lungs. Normal pulmonary vascularity. No pleural effusion. No pneumothorax. HEART, MEDIASTINUM AND ZBIGNIEW: Heart is normal in size. Normal mediastinal and hilar contour. BONES AND SOFT TISSUES: No acute abnormality. Mild calcific tendinitis in the right shoulder. IMPRESSION: Normal chest. Mild right shoulder calcific tendinitis. WSN: [id number] Dictated By: Lamont Alan MD Dictated Date/Time: 05/16/19 12:05 p Reviewed By: Lamont Alan MD Signed By: Lamont Alan MD Signed Date/Time: 05/16/19 12:05 pm Transcribed By: TANYA Transcribed Date/Time: 05/16/19 12:04 pm Vital Signs Most recent to oldest [Reference Range]: 1 2 3 Height 152 cm (05/18/19 4:53 PM) 152 cm (05/18/19 7:48 AM) 152 cm (05/17/19 11:34 PM) Weight 44.1 kg (05/16/19 6:57 PM) Oxygen Saturation [94-100 %] 100 % (05/18/19 4:53 PM) 98 % (05/18/19 7:48 AM) 95 % (05/17/19 11:34 PM) Pulse Rate [55-90 bpm] 92 bpm *H* (05/18/19 4:53 PM) 86 bpm (05/18/19 7:48 AM) 78 bpm (05/17/19 11:34 PM) Body Mass Index [18.5-24.99] 19.09 (05/16/19 6:57 PM) Blood Pressure [90-138/55-84 mm Hg] 113/60mm Hg (05/18/19 4:53 PM) 111/62mm Hg (05/18/19 7:48 AM) 117/71mm Hg (05/17/19 11:34 PM) Respiratory Rate [16-30 br/min] 17 br/min (05/18/19 4:53 PM) 19 br/min (05/18/19 7:48 AM) 18 br/min (05/17/19 11:34 PM) Temperature [96.8-100.4 DegF] 97.9 DegF (05/18/19 4:53 PM) 97.9 DegF (05/18/19 7:48 AM) 97.7 DegF (05/17/19 11:34 PM) Mode of Delivery (Oxygen) Room air (05/18/19 4:53 PM) Room air (05/18/19 7:48 AM) Room air (05/17/19 11:34 PM) Blood pressure sites Arm, right (05/18/19 4:53 PM) Arm, right (05/18/19 7:48 AM) Arm, right (05/17/19 11:34 PM) Temperature Route Oral (05/18/19 4:53 PM) Oral (05/18/19 7:48 AM) Oral (05/17/19 11:34 PM) Dry Weight 44.1 kg (05/16/19 6:57 PM) Sensory deficits None (05/16/19 6:57 PM) Mobility assistance Independent (05/16/19 6:57 PM) Social History Social History Type Response Smoking Status Never smoker entered on: 01/26/14 Sex
--- OUTSIDE RECORDS SUMMARY | 2022-08-10 10:23 | XMS_ITS | Continuity of Care Document ---
Author Name Unknown Organization [facility] ter Address [address] [place] [id number]- Care Team Providers Care Adjuster Piano Action Name Role Phone Bala Cortez MD Primary Care Physician Encounter [facility] Date(s): 06/29/19 - 07/01/[address] [address]- [facility] Encounter Diagnosis Hyperglycemia(Final) - 06/29/19 Diabetes(Final) - 06/29/19 Dehydration(Final) - 06/29/19 Hyperkalemia(Final) - 06/29/19 Discharge Disposition: A-D/C Home Attending Physician: Juliocesar Martines MD, Estuardo Cervantes Admitting Physician: Moe ELIZABETH, [place] Referring Physician: Not on Staff, Referring MD [...] 04/09/17 Not Given Patient Refuses 1Result Comment: [facility]#[id number] 2Admin Note: Influenza vaccine 3Admin Note: Influenza [...] 9:54:45 EST Start Date: 03/23/19 Status: Ordered Biktarvy oral tablet 1 tablet, By Mouth, Daily, # 30 tablet, 0 Refills, Maintenance, 06/15/19 12:30:00 EST, Tablet Start Date: 06/15/19 Status: Ordered Insulin Lispro 6-16 units, Subcutaneous Injection, 3 times a day before meals, << Sliding Scale Comments >> 100 - 149 6 units Call if less than 70 150 - 199 8 units 200 - 249 10 units 250 - 299 12 - 349 14 units 350 - 399 16 units Robel... Start Date: 07/01/19 Status: Ordered Lantus Solostar Pen 100 units/mL subcutaneous solution = 45 units, Subcutaneous Injection, Daily at bedtime, # 15 mL, 2 Refills, Maintenance, 06/17/19 10:53:00 EST, Solution, [facility], 152, cm, 06/17/19 7:41:00 EST, Height, 41.3, kg, 06/15/19 17:42:00 EST, Dry Weight Start Date: 06/17/19 Status: Ordered magnesium oxide 400 mg oral tablet 1 tablet = 400 mg, By Mouth, 3 times a day, 0 Refills, Maintenance, 02/19/19 22:57:28 EDT Start Date: 02/19/19 Status: Ordered Pen Austin, 31 G x 5 mm BD Ultra Fine III See Instructions, # 100 each, Refills 5, Tot. Refills 5, Maintenance, use as directed for Type 1 Diabetes Mellitus, 07/01/19 10:37:00 EST, Compound, 152, cm, 06/17/19 7:41:00 EST, Height, 40.9, kg, 06/29/19 14:42:00 EST, Dry Weight Start Date: 07/01/19 Stop Date: 12/28/19 Status: Ordered Pen Austin, 31 G x 5 mm BD Ultra [...] Active DKA (diabetic ketoacidoses)(Confirmed) Active Diabetic retinopathy, [place], 03/23/19(Confirmed) Active 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 Active 1primary tumor PT1b, regional nodes pN0 Vital Signs Most recent to oldest [Reference Range]: 1 2 3 Weight 34.7 kg (06/29/19 6:37 PM) 40.9 kg (06/29/19 2:42 PM) 40.9 kg (06/29/19 11:26 AM) Oxygen Saturation [94-100 %] 99 % (07/01/19 7:13 AM) 98 % (06/30/19 11:58 PM) 100 % (06/30/19 7:34 PM) Pulse Rate [55-90 bpm] 87 bpm (07/01/19 7:13 AM) 83 bpm (06/30/19 11:58 PM) 85 bpm (06/30/19 7:34 PM) Blood Pressure [90-138/55-84 mm Hg] 107/62mm Hg (07/01/19 7:13 AM) 104/56mm Hg (06/30/19 11:58 PM) 106/55mm Hg (06/30/19 7:34 PM) Respiratory Rate [16-30 br/min] 18 br/min (07/01/19 7:13 AM) 19 br/min (06/30/19 11:58 PM) 20 br/min (06/30/19 7:34 PM) Temperature [96.8-100.4 DegF] 97.9 DegF (07/01/19 7:13 AM) 98.2 DegF (06/30/19 11:58 PM) 98.1 DegF (06/30/19 7:34 PM) Mode of Delivery (Oxygen) Room air (07/01/19 7:13 AM) Room air (06/30/19 11:58 PM) Room air (06/30/19 7:34 PM) Blood pressure sites Arm, right (07/01/19 7:13 AM) Arm, left (06/30/19 11:58 PM) Arm, right (06/30/19 7:34 PM) Temperature Route Oral (07/01/19 7:13 AM) Oral (06/30/19 11:58 PM) Oral (06/30/19 7:34 PM) Dry Weight 40.9 kg (06/29/19 2:42 PM) 40.9 kg (06/29/19 11:26 AM) 40.9 kg (06/29/19 9:32 AM) Weight Obtained Via Bed scale (06/29/19 6:37 PM) Standing scale (06/29/19 9:32 AM) Dry Weight Obtained Via Standing scale (06/29/19 9:32 AM) Social History Social History Type Response Smoking Status Never smoker entered on: 01/26/14 Sex
--- OUTSIDE RECORDS SUMMARY | 2022-08-10 10:24 | XMS_ITS | Continuity of Care Document ---
Author Name Unknown Organization [facility] ter Address [address] [place] [id number]- Care Team Providers Care Bit Grinder Name Role Phone Toyin Dhaliwal MD Primary Care Physician Encounter [facility] Date(s): 03/27/22 - 03/28/[address] [address]- Encounter Diagnosis At risk for hypoglycemia(Final) - 03/27/22 Diabetes(Final) - 03/27/22 Acute lower UTI(Final) - 03/27/22 Discharge Disposition: A-D/C Home Attending Physician: Jarvis Uribe MD Admitting Physician: Jarvis Uribe MD Referring Physician: Not on Staff, Referring [...] 1Early/Late Reason: Med Not Available 2Result Comment: [facility]#[id number] 3Admin Note: Influenza vaccine 4Admin Note: Influenza vaccine 5Admin Note: Influenza vaccine 6Admin Note: VIS GIVEN 7Result Comment: SEE COVID TEAM PROGRESS NOTE 8Result Comment: [facility]# [id number] 9Admin Note: Twinrix # 2 10Admin Note: Twinrix # 1 11Admin Note: VIS GIVEN 12Result Comment: Lot: [id number] Exp: Nov 08 Pt given vaccine info sheet before vaccine administered Medications aspirin 81 mg oral tablet, chewable 81 mg, 1, tablet, By Mouth, Daily, # 30 tablet, Refills 11, Tot. Refills 11, Maintenance, 06/13/21 15:29:00 EST, Route to Pharmacy Electronically, [facility] #[id number], Partial fill upon patient request if the prescription is for a schedule II... Start Date: 06/13/21 Status: Ordered Bactrim DS 800 mg-160 mg oral tablet 1 tablet, By Mouth, 2 times a day, for 7 days, # 14 tablet, 0 Refills, Acute 04/03/22 22:43:00 EST,03/27/22 22:43:00 EST, Tablet, [facility] #[id number], Partial fill upon patient request if the prescription is for a schedule II opioid drug., 1... Start Date: 03/27/22 Stop Date: 04/03/22 Status: Ordered Biktarvy oral tablet 1 tablet, By Mouth, Daily, # 30 tablet, 0 Refills, Maintenance, 11/26/20 16:19:00 EDT, Tablet, [facility], Partial fill upon patient [...] 11/29/20 12:03:00 EDT, Route to Pharmacy Electronically, [facility] #[id number], 153, cm, 11/26/20 13:06:00 EDT, Height, 46, [...] 1 Refills, Maintenance, 06/09/21 10:48:00 EST, Injection, [facility] #[id number], Partial fill upon patient request if theprescription is for a schedule II opioid drug., 152... Start Date: 06/09/21 Stop Date: 08/08/21 Status: Ordered hydrOXYzine hydrochloride 10 mg oral tablet 2 tablet = 20 mg, By Mouth, 4 times a day, PRN for anxiety, # 80 tablet, 0 Refills, Maintenance, 10/17/21 12:42:00 EDT, Tablet, [facility] #[id number], Partial fill upon patient request if the prescription is for a schedule II opioid drug., 153,... Start Date: 10/17/21 Status: Ordered insulin glargine 100 u/ml subcutaneous solution 40, Subcutaneous Injection, Daily at bedtime, # 10 mL, 1 Refills, Maintenance, 08/07/21 13:44:00 EDT, Injection, [facility] #[id number], Partial fill upon patient request if the [...] Acute 10/17/22 12:44:00 EDT, 10/17/21 12:44:00 EDT, [facility] #[id number], Partial fill upon patient request if the prescription is for a schedule II opioid drug., 153, cm, 10/08/21 9:2... Start Date: 10/17/21 Stop Date: 10/17/22 Status: Ordered metoprolol 25 mg oral tablet 25 mg, 1, tablet, By Mouth, Daily, # 90 tablet, Refills 3, Tot. Refills 3, Maintenance, 06/13/21 15:29:00 EST, Route to Pharmacy Electronically, [facility] #[id number], Partial fill upon patientrequest if the prescription is for a schedule II op... Start Date: 06/13/21 Status: Ordered Pen [place], 31 G x 5 mm BD Ultra [...] 3 Refills, Maintenance, 10/17/21 12:48:00 EDT, Solution, [facility] #[id number], Partial fill upon patient... Start Date: 10/17/21 Status: Ordered Vitamin D3 1000 intl units oral capsule 1 capsule = 25 mcg, By Mouth, Daily, # 100 capsule, 3 Refills, Maintenance, 06/20/21 11:15:00 EST, Capsule, [facility] #[id number], Partial fill upon patient request if the [...] DKA (diabetic ketoacidoses) Confirmed Active Diabetic retinopathy, [place], 03/23/19 Confirmed Active Rash Confirmed Active [place] [...] Reports Name Date Urine Culture (URINE CULTURE) 03/27/22 Microbiology Reports TEST:Urine Culture STATUS:Unauthenticated BODY SITE: SOURCE:[facility] COLLECTED DATE/TIME:03/27/22 7:43 PM Urine Culture SPECIMEN DESCRIPTION : BLADDER SPECIAL REQUESTS : NONE Reflexed from [id number] REPORT STATUS : PRELIMINARY REPORT Vital Signs Most recent to oldest [Reference Range]: 1 2 3 Oxygen Saturation [94-100 %] 98 % (03/27/22 10:31 PM) 97 % (11/25/22 9:31 PM) 100 % (03/27/22 7:11 PM) Pulse Rate [55-90 bpm] 81 bpm (03/27/22 10:31 PM) 74 bpm (03/27/22 9:31 PM) 80 bpm (03/27/22 7:11 PM) Blood Pressure [90-138/55-84 mm Hg] 122/82mm Hg (03/27/22 10:31 PM) 118/79mm Hg (03/27/22 9:31 PM) 133/74mm Hg (03/27/22 7:11 PM) Respiratory Rate [16-30 br/min] 16 br/min (03/27/22 10:31 PM) 18 br/min (03/27/22 9:31 PM) 18 br/min (03/27/22 7:11 PM) Temperature [96.8-100.4 DegF] 98.0 DegF (03/27/22 9:31 PM) 98.1 DegF (03/27/22 7:11 PM) Mode of Delivery (Oxygen) Room air (03/27/22 10:31 PM) Room air (03/27/22 9:31 PM) Room air (03/27/22 7:11 PM) Blood pressure sites Arm, right (03/27/22 9:31 PM) Arm, right (03/27/22 7:11 PM) Temperature Route Oral (03/27/22 9:31 PM) Oral (03/27/22 7:11 PM) Social History Social History Type Response Smoking Status Never (less than 100 in lifetime) entered on: 06/06/21 Sex Note * Eleni Mcpherson MD: PERFORM, SIGN, VERIFY Event Display: Patient Education Handout Authored Date: [id number] * Eleni Mcpherson MD: PERFORM Event Display: Patient Education Leaflets Authored Date: [id number] Bladder Infection,??Female (Adult) ?? [id number] Bladder Infection,??Female (Adult) Urine normally doesn't have any germs (bacteria) in it. But bacteria can get into the urinary tractfrom the skin around the rectum. Or they can travel in the blood from other parts of the body. Oncethey are in your urinary tract, they can cause infection in these areas: ??? The urethra (urethritis) ??? The bladder (cystitis) ??? The kidneys (pyelonephritis) The most common place for an infection is in the bladder. This is called a bladder infection. This is one of the most common infections in women because women have a shorter urethra than men. Bacteria have a shorter distance to travel to reach the bladder.. Women who have gone through menopause also lose the protection from estrogen that lowers the chance of getting a UTI. And some women are at higher risk because of their genes. Most bladder infections are easily treated. They are not serious unless the infection spreads to the kidney. The terms bladder infection, UTI, and cystitis are often used to describe the same thing. But they are not always the same. Cystitis is an inflammation of the bladder. The??most common cause of cystitis is an infection. Symptoms The infection causes inflammation in the urethra and bladder. This causes many of the symptoms. Themost common symptoms of a bladder infection are: ??? Pain or burning when urinating ??? Having to urinate more often than normal ??? Urgent need to urinate ??? Only a small amount of urine comes out ??? Blood in urine ??? Belly (abdominal) discomfort. This is often in the lower belly above the pubic bone. ??? Lower back pain ??? Cloudy urine ??? Strong- or bad-smelling urine ??? Unable to urinate(urinary retention) ??? Unable to hold urine in (urinary incontinence) ??? Fever ??? Loss of appetite ??? Confusion (in older adults) ?? Causes Bladder infections are not contagious. You can't get one from someone else, from a toilet seat, or from sharing a bath. The most common cause of bladder infections is bacteria from the bowels. The bacteria get onto the skin around the opening of the urethra. From there, they can get into the urine. Then they travel upto the bladder, causing inflammation and infection. This often happens because of: ??? Wiping incorrectly after urinating. Always wipe from front to back. ??? Bowel incontinence ??? . Duringpregnancy urinary tract changes raise the risk for infection. ??? Procedures such as having a catheter put in ??? Older age ??? Not emptying your bladder. This can give bacteria a chance to grow in your urine. ??? Fluid loss (dehydration) ??? Constipation ??? Having sex ??? Using a diaphragm for control? Treatment Bladder infections are diagnosed by a urine test and urine culture. They are treated with antibiotics. They often??clear up quickly without problems. Treatment helps prevent a more serious kidney infection. ?? Medicines Medicines can help in the treatment of a bladder infection: ??? Take antibiotics until they are used up, even if you feel better. It's important to finish them to make sure the infection has cleared.??? You can use acetaminophen or ibuprofen for pain, fever, or discomfort, unless another medicine was prescribed. If you have long-term (chronic) liver or kidney disease, talk with your healthcare??provider before using??these medicines. Also talk with your provider if you've ever had a stomach ulcer or GI (gastrointestinal) bleeding, or are taking blood-thinner medicines. ??? If you are given??phenazopydridine to reduce burning with urination, it will make your urine a bright orange color. This can stain clothing. ?? Care and prevention These self-care steps can help prevent future infections: ??? Drink plenty of fluids. This helps toprevent dehydration and flush out your bladder. Do this??unless you must restrict fluids for other health reasons, or your healthcare provider told you not to. ??? Clean yourself correctly after going to the bathroom. Wipe from front to back after using the toilet. This helps prevent the spread of bacteria. ??? Urinate more often. Don't try to hold urine in for a long time. ??? Wear loose-fittingclothes and cotton underwear. Don't wear tight- fitting pants. ??? Improve your diet and prevent constipation. Eat more fresh fruits and vegetables, and??fiber. Eat less junk foods and fatty foods. ??? Don't have sex until your symptoms are gone. ??? Don't have caffeine, alcohol, and spicy foods. These can irritate your bladder. ??? Urinate right after you have sex to flush out your bladder. ??? If you use control pills and have frequent bladder infections, discuss it with your healthcare provider. ?? Follow-up care Call your healthcare provider if all symptoms are not gone after 3 days of treatment. This is especially important if you have repeat infections. If a culture was done, you will be told if your treatment needs to be changed. If directed, you cancall??to find out the results. If X-rays were done, you will be told if the results will affect your??treatment. ?? Call 911 Call 911 if any of the following occur: ??? Trouble breathing ??? Hard to wake up or??confusion ???Fainting (loss of consciousness) ??? Fast heart rate ?? When to get medical advice Call your healthcare provider right away if any of these occur: ??? Fever of 100.4??F (38.0??C) or higher, or as directed by your healthcare provider ??? Symptoms are not better??after 3 days of treatment ??? Symptoms get worse or you have new symptoms ??? Back or belly pain that gets worse ??? Repeated vomiting, or unable to keep medicine down ??? Weakness or dizziness ??? Vaginal discharge ??? Pain, redness, or swelling in the outer vaginal area (labia) ?? Last Reviewed Date: 2021 ?? [id number] [employer]. All rights reserved. This information is not intended as a substitute for professional medical care. Always follow your healthcare professional's instructions. ?? Patient Care team information Care Team Personnel Name: Elsi Lai RN Position: [facility] RN Member Role: Primary Care Nurse Name: Yusuf Bhardwaj RN Position: [facility] RN Member Role: Primary Care Nurse Name: Nora Mercado RN Position: [facility] SN RN Member Role: Primary Care Nurse Name: Mitch Mena MD Position: [facility] Renal MD Member Role: Lifetime Consulting Physician Address: Address: [address] [place] [address], [address] Name: Lacho Chaves RN Position: [facility] ED RN W/OE and Tasks Member Role: Primary Care Nurse Name: Lily Tyler RN Position: [facility] RN Member Role: Primary Care Nurse Name: Ashley Sosa RN Position: [facility] PCO RN Member Role: Primary Care Nurse Name: Elba Enrique RN Position: [facility] PCO RN Member Role: Primary Care Nurse Name: Jacinta Huitron RN Position: [facility] RN Member Role: Primary Care Nurse Name: Misty Esquivel RN Position: [facility] RN Member Role: Primary Care Nurse Name: Linda Christianson NP Position: [facility] Associate Professional Member Role: Primary Care Nurse Address: Address: [address] [place] [address]- Name: Eleni Stewart Position: [facility] Outreach Member Role: Lifetime Consulting Physician Name: Nesha Major RN Position: [facility] RN Member Role: Primary Care Nurse Name: Christiano Costa RN Position: [facility] RN Member Role: Primary Care Nurse Name: Sakina Ward RN Position: [facility] RN Member Role: Primary Care Nurse Name: Carisa Keyes RN Position: [facility] RN Member Role: Primary Care Nurse Name: Yanet Grimaldo RN Position: [facility] OB RN Member Role: Primary Care Nurse Name: Arielle Rhodes RN Position: [facility] RN Member Role: Primary Care Nurse Name: Iris Muniz RN Position: [facility] RN Member Role: Primary Care Nurse Name: Anna Yang RN Position: [facility] RN Member Role: Primary Care Nurse Name: Carlene Najera Position: [facility] RN Member Role: Primary Care Nurse Name: Nora Alcantar RN Position: [facility] RN Member Role: Primary Care Nurse Name: Yasemin Ordoñez NP Position: [facility] PCO Associate Professional Member Role: Primary Care Nurse Address: Address: [address] [place] [address]- Name: Cher Maxwell RN Position: [facility] HBO Wound Member Role: Primary Care Nurse Name: Noemi Corbett RN Position: [facility] RN Member Role: Primary Care Nurse Name: Nora Silva RN Position: [facility] RN Member Role: Primary Care Nurse Name: Tracy Sharp RN Position: [facility] RN Member Role: Primary Care Nurse Name: Anamaria Andrade RN Position: [facility] SN RN Member Role: Primary Care Nurse Name: Scottie Shook RN Position: [facility] ED RN W/OE and Tasks Member Role: Primary Care Nurse Name: Stew Calvillo RN Position: [facility] RN Member Role: Primary Care Nurse Name: Kehinde Kern DO Position: [facility] Renal MD Member Role: Lifetime Consulting Physician Address: Address: [address] [facility] [address] [facility] [place] [address]- Name: Lily Leyva RN Position: [facility] RN Member Role: Primary Care Nurse Name: Carson New III, RN Position: [facility] RN Member Role: Primary Care Nurse Name: Carlie Arzate RN Position: [facility] Communications Station Manager Member Role: Primary Care Nurse Name: Margaret Snyder RN Position: [facility] Communications Station Manager Member Role: Primary Care Nurse Name: Noah Schuster RN Position: [facility] SN RN Member Role: Primary Care Nurse Name: Tracie Haney RN Position: [facility] RN Member Role: Primary Care Nurse Name: Mayra Covarrubias RN Position: [facility] RN Member Role: Primary Care Nurse Name: Steph Pagan RN Position: [facility] RN Member Role: Primary Care Nurse Name: Manohar Wallace RN Position: [facility] RN Member Role: Primary Care Nurse Name: Karen Dewey RN Position: [facility] RN Member Role: Primary Care Nurse Name: Lisset Díaz RN Position: [facility] RN Member Role: Primary Care Nurse Name: Phyllis Jones [facility] RN Member Role: Primary Care Nurse Name: Manuel Kirkpatrick MD Position: [facility] Renal MD Member Role: Lifetime Consulting Physician Address: Address: [address] [facility], [place] [address]- [place] Name: Marlene Kirkpatrick RN Position: [facility] RN Member Role: Primary Care Nurse Name: Vidhya Quan RN Position: [facility] RN Member Role: Primary Care Nurse Name: Jessi Giraldo RN Position: [facility] RN Member Role: Primary Care Nurse Name: Aaliyah Prakash RN Position: [facility] Communications Station Manager Member Role: Primary Care Nurse Name: Toyin Dhaliwal MD Position: [facility] Primary Care Physician Member Role: PCP Address: Address: [address] [place] [address] [facility] [place] [address]- [place] Name: Sushma Martinez RN Position: [facility] RN Member Role: Primary Care Nurse Name: Bonny Iniguez RN Position: [facility] RN Member Role: Primary Care Nurse Name: Mercedes Borjas RN Position: [facility] RN Member Role: Primary Care Nurse Name: Lamont Mantilla RN Position: [facility] RN Member Role: Primary Care Nurse Name: Aries Orozco MD Position: [facility] Renal MD Member Role: Lifetime Consulting Physician Address: Address: [address] [place] [address] [facility] [place] [address]- [place] Name: Dedrick Brown RN Position: [facility] ED RN W/OE and Tasks Member Role: Primary Care Nurse Name: Marzena Razo RN Position: [facility] RN Member Role: Primary Care Nurse Name: Fariba Mancilla RN Position: [facility] RN Member Role: Primary Care Nurse Name: Mia Jones RN Position: [facility] SN RN Member Role: Primary Care Nurse Name: David Jean RN Position: [facility] SN RN Member Role: Primary Care Nurse Name: Kirsty Barney Position: [facility] ED TA [facility] Member Role: Certified Medical Records Coder Name: Jarvis Uribe MD Position: [facility] Resident Member Role: ED Attending Physician Address: Address: [address] [place] [address]- Name: Eleni Mcpherson MD Position: [facility] Resident Member Role: ED Resident Address: Address: [address] [place] [address]- Name: Sue Romero Position: [facility] ED RN W/OE and Tasks Member Role: Patient Care Provider Care Team Related Persons Name: DAKOTAH BAKER Address: home [address] [place] [id number] Name: EDWARDO DAKOTAH Address: home [address] [place] [address] Name: LANDEN TRAN Address: home [address] [place] [address] Name: SHRUTI BHAGAT Address: [place] [address]
--- OUTSIDE RECORDS SUMMARY | 2022-08-10 10:24 | XMS_ITS | Continuity of Care Document ---
Author Name Unknown Organization [facility] ter Address [address] [place] [address]- Care Team Providers Care Production Service Manager Name Role Phone Isra ELIZABETH, [facility] Primary [facility] Physician [place] [facility] [place](s): 10/06/21 - 10/08/[address] [address] Discharge Disposition: A-D/C Home Attending Physician: Mitch Colón MD Admitting Physician: Chloe Rapp MD Referring Physician: Not on Staff, Referring [...] Reason: Med Not Available 2Result Comment: [facility]#[id number] 3Admin Note: Influenza vaccine 4Admin Note: Influenza vaccine 5Admin Note: Influenza vaccine 6Admin Note: VIS GIVEN 7Result Comment: SEE COVID TEAM PROGRESS NOTE 8Result Comment: [facility]# [id number] 9Admin Note: Twinrix # 2 10Admin Note: Twinrix # 1 11Admin Note: VIS GIVEN 12Result Comment: Lot: [id number] Exp: Nov 08 Pt given vaccine info sheet before vaccine administered Medications aspirin 81 mg oral tablet, chewable 81 mg, 1, tablet, By Mouth, Daily, # 30 tablet, Refills 11, Tot. Refills 11, Maintenance, 06/13/21 15:29:00 EST, Route to Pharmacy Electronically, [facility] #[id number], Partial fill upon patient request if the prescription is for a schedule II... Start Date: 06/13/21 Status: Ordered Biktarvy oral tablet 1 tablet, By Mouth, Daily, # 30 tablet, 0 Refills, Maintenance, 11/26/20 16:19:00 EDT, Tablet, [facility], Partial fill upon patient request [...] Weight Start Date: 03/06/21 Status: Ordered Fioricet oral capsule 1 capsule, By Mouth, Every 4 hours, PRN as needed, for 5 days, # 10 capsule, 0 Refills, Acute 10/13/21 9:45:00 EDT, 10/08/21 9:45:00 EDT, Capsule, [facility], Partial fill upon patient request if the prescription is for a schedule II opi... Start Date: 10/08/21 Stop Date: 10/13/21 Status: Ordered Fioricet Tablet 1 tablet, Tablet, By Mouth, Every 4 hours, PRN for Headache, Routine, 10/07/21 16:08:00 EDT Notes: Butalbital 50mg, Not to exceed 4000mg of Acetaminophen per 24 hours. 325mg, Caffeine 40mg per tablet Start Date: 10/07/21 Stop Date: 10/08/21 Status: Discontinued Freestyle Lite Lancets See Instructions, [...] 11/29/20 12:03:00 EDT, Route to Pharmacy Electronically, [facility] #[id number], 153, cm, 11/26/20 13:06:00 EDT, Height, 46, kg, 11/24/20 3:02:00 EDT, D... Start Date: 11/29/20 Status: Ordered gabapentin 300 mg oral capsule 300 mg, Capsule, By Mouth, 10/07/21 21:00:00 EDT Start Date: 10/07/21 Stop Date: 10/07/21 Status: Completed Glucose Gel, Insta Glucose 40% See Instructions, [...] 1 Refills, Maintenance, 06/09/21 10:48:00 EST, Injection, [facility] #[id number], Partial fill upon patient request if theprescription is for a schedule II opioid drug., 152... Start Date: 06/09/21 Stop Date: 08/08/21 Status: Ordered hydrOXYzine hydrochloride 10 mg oral tablet 2 tablet = 20 mg, By Mouth, 4 times a day, PRN for anxiety, # 80 tablet, 0 Refills, Maintenance, 06/20/21 11:13:00 EST, Tablet, [facility] #[id number], Partial fill upon patient request if the prescription is for a schedule II opioid drug., 152,... Start Date: 06/20/21 Status: Ordered insulin glargine 100 u/ml subcutaneous solution 40, Subcutaneous Injection, Daily at bedtime, # 10 mL, 1 Refills, Maintenance, 08/07/21 13:44:00 EDT, Injection, [facility] #[id number], Partial fill upon patient request if the prescription is for a schedule II opioid drug., 152, cm, 06/20/21 10... Start Date: 08/07/21 Status: Ordered levoFLOXacin 750 mg oral tablet 1 tablet = 750 mg, By Mouth, Every 48 hours, for 5 days, # 3 tablet, 0 Refills, Acute 10/13/21 9:45:00 EDT, 10/08/21 9:45:00 EDT, Tablet, [facility], Partial fill upon patient request if the prescription is for a schedule II opioid drug.... Start Date: 10/08/21 Stop Date: 10/13/21 Status: Ordered Magnesium Oxide By Mouth, 2 [...] 06/13/21 15:29:00 EST, Route to Pharmacy Electronically, [facility] #[id number], Partial fill upon patientrequest if the prescription is for a schedule II op... Start Date: 06/13/21 Status: Ordered metoprolol 25 mg oral tablet, extended release 25 mg, XL Tablet, By Mouth, 10/08/21 9:00:00 EDT Start Date: 10/08/21 Stop Date: 10/08/21 Status: Completed Rollator Walker Rollator Walker, See Instructions, # [...] 3 Refills, Maintenance, 06/13/21 15:25:00 EST, Solution, [facility] #[id number], Partial fill upon patient... Start Date: 06/13/21 Status: Ordered Vitamin D3 1000 intl units oral capsule 1 capsule = 25 mcg, By Mouth, Daily, # 100 capsule, 3 Refills, Maintenance, 06/20/21 11:15:00 EST, Capsule, [facility] #[id number], Partial fill upon patient request if the [...] Active DKA (diabetic ketoacidoses)(Confirmed) Active Diabetic retinopathy, [place], 03/23/19(Confirmed) Active Rash(Confirmed) Active Gitelman syndrome(Confirmed) Active [...] for Microbiology Reports Name Date Blood Culture 10/06/21 Blood Culture #2 10/06/21 Urine Culture (URINE CULTURE) 10/06/21 Microbiology Reports TEST:Blood Culture, Second Order STATUS:Unauthenticated BODY SITE: SOURCE:Blood COLLECTED DATE/TIME:10/06/21 5:39 PM Blood Culture, Second Order SPECIMEN DESCRIPTION : BLOOD RIGHT HAND SPECIAL REQUESTS : NONE CULTURE : NO GROWTH AFTER 48 HOURS REPORT STATUS : PRELIMINARY REPORT TEST:Blood Culture STATUS:Unauthenticated BODY SITE: SOURCE:Blood COLLECTED DATE/TIME:10/06/21 5:30 PM Blood Culture SPECIMEN DESCRIPTION : BLOOD LEFT HAND SPECIAL REQUESTS : NONE CULTURE : NO GROWTH AFTER 48 HOURS REPORT STATUS : PRELIMINARY REPORT TEST:Urine Culture STATUS:Auth (Verified) BODY SITE: SOURCE:URINE COLLECTED DATE/TIME:10/06/21 2:40 PM Urine Culture SPECIMEN DESCRIPTION : URINE SPECIAL REQUESTS : NONE CULTURE : Mixed bacterial alma, indicative of urogenital contamination. REPORT STATUS : FINAL 10/07/2021 Vital Signs Most recent to oldest [Reference Range]: 1 2 3 Height 153 cm (10/08/21 9:25 AM) 153 cm (10/08/21 2:35 AM) 153 cm (10/07/21 7:45 PM) Weight 56.0 kg (10/08/21 2:35 AM) 45.0 kg (10/07/21 6:32 AM) 45 kg (10/06/21 2:00 PM) Oxygen Saturation [94-100 %] 100 % (10/08/21 9:25 AM) 100 % (10/08/21 2:35 AM) 100 % (10/07/21 7:45 PM) Pulse Rate [55-90 bpm] 95 bpm *H* (10/08/21 9:25 AM) 95 bpm *H* (10/08/21 9:19 AM) 89 bpm (10/08/21 2:35 AM) Body Mass Index [18.5-24.99] 23.92 (10/08/21 2:35 AM) Blood Pressure [90-138/55-84 mm Hg] 158/99mm Hg *H* (10/08/21 9:25 AM) 158/99mm Hg *H* (10/08/21 9:19 AM) 168/95mm Hg *H* (10/08/21 2:35 AM) Respiratory Rate [16-30 br/min] 18 br/min (10/08/21 7:54 AM) 20 br/min (10/08/21 2:35 AM) 16 br/min (10/07/21 9:26 PM) Temperature [96.8-100.4 DegF] 97.5 DegF (10/08/21 9:25 AM) 97.9 DegF (10/08/21 2:35 AM) 98.0 DegF (10/07/21 7:45 PM) Mode of Delivery (Oxygen) Room air (10/08/21 9:25 AM) Room air (10/08/21 2:35 AM) Room air (10/07/21 7:45 PM) Blood pressure sites Arm, right (10/07/21 7:45 PM) Arm, right (10/07/21 2:21 PM) Arm, right (10/07/21 7:45 AM) Temperature Route Oral (10/08/21 9:25 AM) Oral (10/08/21 2:35 AM) Oral (10/07/21 7:45 PM) Dry Weight 45 kg (10/06/21 2:00 PM) Weight Obtained Via Bed scale (10/08/21 2:35 AM) Bed scale (10/07/21 6:32 AM) Patient/family stated (10/06/21 2:00 PM) Dry Weight Obtained Via Patient/family stated (10/06/21 2:00 PM) Social History Social History Type Response Smoking Status Never (less than 100 in lifetime) entered on: 06/06/21 Sex
--- OUTSIDE RECORDS SUMMARY | 2022-08-10 10:24 | XMS_ITS | Continuity of Care Document ---
Author Name Unknown Organization [facility] Address [address] [place] [address]- Care Team Providers Care Health Inspector Food Name Role Phone Bala Cortez MD Primary Care Physician [phone] [place]counter [facility] [place](s): 11/27/19 - 12/30/19 [facility] [address] [place] [address]- [facility] Attending Physician: Bala Cortez MD Allergies, Adverse [...] 06/25/19 Not Given Patient Refuses 1Result Comment: [facility]# [id number] 2Result Comment: [facility]#[id number] 3Admin Note: Influenza vaccine 4Admin Note: Influenza [...] 0 Refills, Maintenance, 07/06/19 11:28:00 EST, [facility]t, [id number], 152, cm, 07/06/19 11:06:00 EST, Height, 43.1, [...] 10/19/19 15:33:00 EDT, Route to Pharmacy Electronically, [facility] #[id number], 152, cm, 07/06/19 11:06:00 EST, Height, 43.1, kg, 07/06/19 11:0... Start Date: 10/19/19 Status: Ordered Humalog Kwik Pen 100 units/mL subcutaneous injection See Instructions, 100-149 4 units 150 199 6 units 200 249 8 units 250 -299 10 units 300-349 12 units 350-399 14 units with meals as needed, # 1 each, 1 Refills, Maintenance, 11/29/19 8:00:00 EDT, Solution, [facility], 152, cm,... Start Date: 11/29/19 Status: Ordered Lantus Solostar Pen 100 units/mL subcutaneous solution = 45 units, Subcutaneous Injection, Daily at bedtime, # 1 each, 0 Refills, Maintenance, 11/29/19 8:00:00 EDT, Solution, [facility], 152, cm, 11/26/19 23:30:00 EDT, Height, 45.5, kg, 10/29/19 6:43:00 EDT, Dry Weight Start Date: 11/29/19 Status: Ordered magnesium oxide 400 mg oral tablet 1 tablet = 400 mg, By Mouth, 3 times a day, # 100 tablet, 3 Refills, Acute 07/05/20 11:27:00 EST, 07/06/19 11:26:00 EST, Tablet, [facility] #[id number], 152, cm, 07/06/19 11:06:00 EST, Height, 43.1, kg, 07/06/19 11:06:00 EST, Dry Weight Start Date: 07/06/19 Stop Date: 07/05/20 Status: Ordered multivitamin Therapeutic Multiple Vitamins oral tablet 1 tablet, By Mouth, Daily, # 30 tablet, 0 Refills, Maintenance, 06/26/19 13:45:00 EST, Tablet, [facility] #[id number], 1 tablet By Mouth Daily,x30 days, 153, cm, 06/26/19 7:18:00 EST, Height, 41.1, kg, 01/24/19 18:27:00 EDT, Dry Weight Start Date: 06/26/19 Stop Date: 07/26/19 Status: Ordered potassium chloride 10 mEq oral [...] Active DKA (diabetic ketoacidoses)(Confirmed) Active Diabetic retinopathy, [place], 03/23/19(Confirmed) Active 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
--- OUTSIDE RECORDS SUMMARY | 2022-08-10 10:24 | XMS_ITS | Continuity of Care Document ---
Author Name Unknown Organization [facility] ter Address [address] [place] [address]- Care Team Providers Care Wall Worker Name Role Phone Bala Cortez MD Primary Care Physician Encounter [facility] Date(s): 08/18/20 - 08/18/[address] [address]- Encounter Diagnosis COVID-19(Final) - 08/18/20 Tachycardia(Final) - 08/18/20 Discharge Disposition: A-D/C Home Attending Physician: Jaqueline Benjamin DO Admitting Physician: Jaqueline Benjamin DO Referring Physician: Not on Staff, Referring [...] Med Not Available 2Result Comment: [facility]#[id number] 3Admin Note: Influenza vaccine 4Admin Note: Influenza vaccine 5Admin Note: Influenza vaccine 6Admin Note: VIS GIVEN 7Result Comment: [facility]# [phone] 8Admin Note: Twinrix # 2 9Admin Note: Twinrix # 1 10Admin Note: VIS GIVEN 11Result Comment: Lot: [id number] Exp: Nov 08 Pt given vaccine info sheet before vaccine administered Medications Biktarvy oral tablet 1 tablet, By Mouth, Daily, # 30 tablet, 0 Refills, Maintenance, 06/15/19 12:30:00 EST, Tablet Start Date: 06/15/19 Status: Ordered FREESTYLE LANCETS 100 FREESTYLE LANCETS 100, See Instructions, # 200 each, 0 Refills, Maintenance, USE THREE TIMES DAILY BEFORE MEALS TO CHECK BLOOD SUGAR, 152, cm, 06/27/20 11:20:00 EST, Height, 47, kg, 06/21/20 13:49:00EST, Dry Weight Start Date: 07/25/20 Status: Ordered FREESTYLE LITE BLOOD GLUCOSE STRIPS FREESTYLE LITE BLOOD GLUCOSE STRIPS, See Instructions, # 200 Unknown, 0 Refills, Maintenance, USE TO TEST BLOOD SUGAR THREE TIMES DAILY BEFORE MEALS, 152, cm, 06/27/20 11:20:00 EST, Height, 47, kg, 06/21/20 13:49:00 EST, Dry Weight Start Date: 07/25/20 Status: Ordered gabapentin 300 mg oral capsule 1, capsule, By Mouth, Daily at bedtime, # 30 capsule, Refills 0, Tot. Refills 0, Maintenance, 07/25/20 11:26:00 EDT, Route to Pharmacy Electronically, [facility] #[id number], 152, cm, 06/27/20 11:20:00 EST, Height, 47, kg, 06/21/20 13:49:00 EST,... Start Date: 07/25/20 Status: Ordered Humalog Kwik Pen 100 units/mL subcutaneous injection See Instructions, 100-149 6 units 150 199 8 units 200 249 10 units 250 -299 12 units 300-349 14 units 350-399 16 units with meals as needed, # 10 mL, 2 Refills, Maintenance, 07/04/20 11:27:00 EST, Solution, [facility] #[id number], 152,... Start Date: 07/04/20 Status: Ordered LAB Draw LAB Draw, See Instructions, # 1 each, Refills 0, Tot. Refills 0, Maintenance, BASIC METABOLIC Panelto be checked before 07/08/[address] Bala Cortez, 06/27/20 9:36:00 EST, Supply Start Date: 06/27/20 Status: Ordered Lantus Solostar Pen 100 units/mL subcutaneous solution See Instructions, 10 Units q AM, 25 units Subcutaneous Injection Daily at bedtime, # 10 mL, 2 Refills, Maintenance, 07/04/20 11:26:00 EST, Solution, [facility] #[id number], 152, cm, 06/27/20 11:20:00 EST, Height, 47, kg, 06/21/20 13:49:00 EST, Dr... Start Date: 07/04/20 Status: Ordered metFORMIN 500 mg oral tablet 1 tablet = 500 mg, By Mouth, 2 times a day, please take tab twice a day, then increase to 2 tabs twice a day., # 180 tablet, 4 Refills, Maintenance, 07/19/20 10:07:00 EDT, Tablet, [facility] #[id number], Partial fill upon patient request if the p... Start Date: 07/19/20 Status: Ordered metoprolol 25 mg oral tablet, extended release 25 mg, 1, tablet, By Mouth, Daily, # 30 tablet, Refills 5, Tot. Refills 5, Maintenance, 04/10/20 14:03:00 EST, Route to Pharmacy Electronically, [facility] #[id number], 155, cm, 02/13/20 9:01:00EDT, Height, 43.9, kg, 02/11/20 10:34:00 EDT, Dry W... Start Date: 04/10/20 Stop Date: 10/07/20 Status: Ordered multivitamin Therapeutic Multiple Vitamins oral tablet 1 tablet, By Mouth, Daily, # 30 tablet, 0 Refills, Maintenance, 06/26/19 13:45:00 EST, Tablet, [facility] #[id number], 1 tablet By Mouth Daily,x30 days, 153, cm, 06/26/19 7:18:00 EST, Height, 41.1, kg, 01/24/19 18:27:00 EDT, Dry Weight Start Date: 06/26/19 Stop Date: 07/26/19 Status: Ordered Pen [place], 31 G x 5 mm BD Ultra Fine III See Instructions, # 100 each, Refills 2, Tot. Refills 2, Maintenance, Dx: Type 2 Diabetes Mellitus ICD 10 E11.9 (use with Humalog TID, Lantus daily), 06/27/20 10:36:00 EST, Supply, 152, cm, 06/27/20 4:46:00 EST, Height, 47, kg, 06/21/20 13:49:00 EST,... 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 Comparison films are from February 11, 2020. HISTORY: Shortness of breath and fever. FINDINGS: Today's study is limited due to overpenetration. The cardiac silhouette is within normal limits for size. Hilar and mediastinal structures are unremarkable. No airspace infiltrate or pleural effusion is identified. Visualized osseous structures are unremarkable. IMPRESSION: Limited study showing no evidence of acute pulmonary disease. Examination 39012. Thank you for allowing me to participate in the care of this patient. WSN: [id number] Ordering Physician: Roney Yu Dictated By: Kimo Salazar MD Dictated Date/Time: 08/18/20 1:34 pm Reviewed By: Kimo Salazar MD Signed By: Kimo Salazar MD Signed Date/Time: 08/18/20 1:34 pm Transcribed By: TANYA Transcribed Date/Time: 08/18/20 1:34 pm Vital Signs Most recent to oldest [Reference Range]: 1 2 3 Oxygen Saturation [94-100 %] 98 % (08/18/20 7:15 PM) 98 % (08/18/20 5:52 PM) 98 % (08/18/20 5:44 PM) Pulse Rate [55-90 bpm] 87 bpm (08/18/20 7:15 PM) 88 bpm (08/18/20 5:52 PM) 91 bpm *H* (08/18/20 5:44 PM) Blood Pressure [90-138/55-84 mm Hg] 149/86mm Hg *H* (08/18/20 5:52 PM) 149/86mm Hg *H* (08/18/20 5:44 PM) 146/70mm Hg *H* (08/18/20 3:42 PM) Respiratory Rate [16-30 br/min] 16 br/min (08/18/20 5:52 PM) 12 br/min *L* (08/18/20 5:44 PM) 20 br/min (08/18/20 3:42 PM) Temperature [96.8-100.4 DegF] 98.2 DegF (08/18/20 5:52 PM) 98.7 DegF (08/18/20 2:36 PM) 99.4 DegF (08/18/20 10:59 AM) Mode of Delivery (Oxygen) Nasal cannula (08/18/20 7:15 PM) Room air (08/18/20 5:52 PM) Room air (08/18/20 5:44 PM) Blood pressure sites Arm, right (08/18/20 5:52 PM) Arm, left (08/18/20 10:59 AM) Temperature Route Oral (08/18/20 5:52 PM) Oral (08/18/20 2:36 PM) Oral (08/18/20 10:59 AM) Social History Social History Type Response Smoking Status Never smoker entered on: 01/26/14 Sex
--- OUTSIDE RECORDS SUMMARY | 2022-08-10 10:24 | XMS_ITS | Continuity of Care Document ---
Author Name Unknown Organization [facility] Address [address] [place] [address]- Care Team Providers Care Project Manager Name Role Phone Toyin Dhaliwal MD Primary Care Physician [facility] - 03/18/22 [facility] [address] [place], [place] [address] Allergies, Adverse Reactions, Alerts No Known Allergies [...] 1Early/Late Reason: Med Not Available 2Result Comment: [facility]#[id number] 3Admin Note: Influenza vaccine 4Admin Note: Influenza vaccine 5Admin Note: Influenza vaccine 6Admin Note: VIS GIVEN 7Result Comment: SEE COVID TEAM PROGRESS NOTE 8Result Comment: [facility]# [id number] 9Admin Note: Twinrix # 2 10Admin Note: Twinrix # 1 11Admin Note: VIS GIVEN 12Result Comment: Lot: [id number] Exp: Nov 08 Pt given vaccine info sheet before vaccine administered Medications aspirin 81 mg oral tablet, chewable 81 mg, 1, tablet, By Mouth, Daily, # 30 tablet, Refills 11, Tot. Refills 11, Maintenance, 06/13/21 15:29:00 EST, Route to Pharmacy Electronically, [facility] #[id number], Partial fill upon patient request if the prescription is for a schedule II... Start Date: 06/13/21 Status: Ordered Biktarvy oral tablet 1 tablet, By Mouth, Daily, # 30 tablet, 0 Refills, Maintenance, 11/26/20 16:19:00 EDT, Tablet, [facility], Partial fill upon patient [...] 11/29/20 12:03:00 EDT, Route to Pharmacy Electronically, [facility] #[id number], 153, cm, 11/26/20 13:06:00 EDT, Height, 46, kg, 11/24/20 3:02:00 EDT, D... Start Date: 11/29/20 Status: Ordered glipiZIDE 10 mg oral tablet, extended release 1 tablet = 10 mg, By Mouth, 2 times a day, # 30 tablet, 1 Refills, Acute 03/22/22 13:32:00 EST, 02/23/22 13:31:00 EDT, ER Tablet, [facility] #[id number], Partial fill upon patient request if theprescription is for a schedule II opioid drug., 153... Start Date: 02/23/22 Stop Date: 03/22/22 Status: Ordered Glucose Gel, Insta Glucose 40% [...] 1 Refills, Maintenance, 06/09/21 10:48:00 EST, Injection, [facility] #[id number], Partial fill upon patient request if theprescription is for a schedule II opioid drug., 152... Start Date: 06/09/21 Stop Date: 08/08/21 Status: Ordered Humalog Kwik Pen 100 units/mL subcutaneous injection See Instructions, 5-15 units Subcutaneous Infusion 3 times a day before meals, # 15 mL, 1 Refills, Acute 03/22/22 13:31:00 EST, 02/23/22 13:27:00 EDT, [facility] #[id number], Partial fill upon patient request if the prescription is for a schedule... Start Date: 02/23/22 Stop Date: 03/22/22 Status: Ordered hydrOXYzine hydrochloride 10 mg oral tablet 2 tablet = 20 mg, By Mouth, 4 times a day, PRN for anxiety, # 80 tablet, 0 Refills, Maintenance, 10/17/21 12:42:00 EDT, Tablet, [facility] #[id number], Partial fill upon patient request if the prescription is for a schedule II opioid drug., 153,... Start Date: 10/17/21 Status: Ordered insulin glargine 100 u/ml subcutaneous solution 40, Subcutaneous Injection, Daily at bedtime, # 10 mL, 1 Refills, Maintenance, 08/07/21 13:44:00 EDT, Injection, [facility] #[id number], Partial fill upon patient request if the prescription is for a schedule II opioid drug., 152, cm, 06/20/21 10... Start Date: 08/07/21 Status: Ordered Lantus Solostar Pen 100 units/mL subcutaneous solution = 40 units, Subcutaneous Infusion, Daily at bedtime, # 15 mL, 1 Refills, Acute 03/22/22 13:29:00 EST, 02/23/22 13:26:00 EDT, [facility] #[id number], Partial fill upon patient request if the prescription is for a schedule II opioid drug., 153, cm,... Start Date: 02/23/22 Stop Date: 03/22/22 Status: Ordered Magnesium Oxide By Mouth, 2 times a day, 0 Refills, Maintenance, 03/04/21 19:51:00 EDT, Partial fill upon patient request if the prescription is for a schedule II opioid drug. Start Date: 03/04/21 Status: Ordered magnesium oxide 400 mg oral tablet 1 tablet = 400 mg, By Mouth, Daily, # 30 tablet, 0 Refills, Acute 10/17/22 12:44:00 EDT, 10/17/21 12:44:00 EDT, [facility] #[id number], Partial fill upon patient request if the prescription is for a schedule II opioid drug., 153, cm, 10/08/21 9:2... Start Date: 10/17/21 Stop Date: 10/17/22 Status: Ordered metoprolol 25 mg oral tablet 25 mg, 1, tablet, By Mouth, Daily, # 90 tablet, Refills 3, Tot. Refills 3, Maintenance, 06/13/21 15:29:00 EST, Route to Pharmacy Electronically, [facility] #[id number], Partial fill upon patientrequest if the prescription is for a schedule II op... Start Date: 06/13/21 Status: Ordered Pen [place], 31 G x 5 mm BD Ultra Fine III See Instructions, # 100 each, Refills 1, Tot. Refills 1, Acute 03/22/22 13:28:00 EST, Use with Lantus and Humalog pen, 02/23/22 13:27:00 EDT, Supply, 153, cm, 02/23/22 12:58:00 EDT, Height, 45, kg, 10/06/21 14:00:00 EDT, Dry Weight Start Date: 02/23/22 Stop Date: 03/22/22 Status: Ordered Pen [place], 31 G x 5 mm BD Ultra [...] = 0.75 mg, Subcutaneous Injection, Every week, rotate injection sites, # 2 mL, 1 Refills, Acute 03/22/22 13:30:00 EST, 02/23/22 13:27:00 EDT, Solution, [facility] #[id number], Partial fill upon patient request if the prescription is for a... Start Date: 02/23/22 Stop Date: 03/22/22 Status: Ordered Trulicity Pen 0.75 mg/0.5 mL subcutaneous solution 0.5 mL = 0.75 mg, Subcutaneous Injection, Every week, call office in one month so i can increase your dose. rotate injection sites, # 2 mL, 3 Refills, Maintenance, 10/17/21 12:48:00 EDT, Solution, [facility] #[id number], Partial fill upon patient... Start Date: 10/17/21 Status: Ordered Vitamin D3 1000 intl units oral capsule 1 capsule = 25 mcg, By Mouth, Daily, # 100 capsule, 3 Refills, Maintenance, 06/20/21 11:15:00 EST, Capsule, [facility] #[id number], Partial fill upon patient request if the [...] DKA (diabetic ketoacidoses) Confirmed Active Diabetic retinopathy, [place], 03/23/19 Confirmed Active Rash Confirmed Active Gitelman [...] Team Personnel Name: Elsi Lai RN Position: [facility] RN Member Role: Primary Care Nurse Name: Yusuf Bhardwaj RN Position: [facility] RN Member Role: Primary Care Nurse Name: Nora Mercado RN Position: [facility] SN RN Member Role: Primary Care Nurse Name: Mitch Mena MD Position: [facility] Renal MD Member Role: Lifetime Consulting Physician Address: Address: [address] [place] [address], [address] [place] [address]- Name: Lacho Chaves RN Position: [facility] ED RN W/OE and Tasks Member Role: Primary Care Nurse Name: Lily Tyler RN Position: [facility] RN Member Role: Primary Care Nurse Name: Ashley Sosa RN Position: [facility] PCO RN Member Role: Primary Care Nurse Name: Elba Enrique RN Position: [facility] RN Member Role: Primary Care Nurse Name: Jacinta Huitron RN Position: [facility] RN Member Role: Primary Care Nurse Name: Misty Esquivel RN Position: [facility] RN Member Role: Primary Care Nurse Name: Linda Christianson NP Position: [facility] Associate Professional Member Role: Primary Care Nurse Address: Address: [address] [place] [address]- Name: Eleni Stewart Position: [facility] Outreach Member Role: Lifetime Consulting Physician Name: Nesha Major RN Position: [facility] RN Member Role: Primary Care Nurse Name: Christiano Costa RN Position: [facility] RN Member Role: Primary Care Nurse Name: Sakina Ward RN Position: [facility] RN Member Role: Primary Care Nurse Name: Carisa Keyes RN Position: [facility] RN Member Role: Primary Care Nurse Name: Yanet Grimaldo RN Position: [facility] OB RN Member Role: Primary Care Nurse Name: Arielle Rhodes RN Position: [facility] RN Member Role: Primary Care Nurse Name: Iris Muniz RN Position: [facility] RN Member Role: Primary Care Nurse Name: Anna Yang RN Position: [facility] RN Member Role: Primary Care Nurse Name: Carlene Najera Position: [facility] RN Member Role: Primary Care Nurse Name: Nora Alcantar RN Position: [facility] RN Member Role: Primary Care Nurse Name: Yasemin Ordoñez NP Position: [facility] PCO Associate Professional Member Role: Primary Care Nurse Address: Address: [address] [place] [address]- Name: Cher Maxwell RN Position: [facility] HBO Wound Member Role: Primary Care Nurse Name: Noemi Corbett RN Position: [facility] RN Member Role: Primary Care Nurse Name: Nora Silva RN Position: [facility] RN Member Role: Primary Care Nurse Name: Tracy Sharp RN Position: [facility] RN Member Role: Primary Care Nurse Name: Anamaria Andrade RN Position: [facility] RN Member Role: Primary Care Nurse Name: Scottie Shook RN Position: [facility] ED RN W/OE and Tasks Member Role: Primary Care Nurse Name: Stew Calvillo RN Position: [facility] RN Member Role: Primary Care Nurse Name: Kehinde Kern DO Position: [facility] Renal MD Member Role: Lifetime Consulting Physician Address: Address: [address] [place] [address] [address] [facility] [place] [address]- [place] Name: Lily Leyva RN Position: [facility] RN Member Role: Primary Care Nurse Name: Carson New III, RN Position: [facility] RN Member Role: Primary Care Nurse Name: Carlie Arzate RN Position: [facility] [employer]rentice Jockey Member Role: Primary Care Nurse Name: Margaret Snyder RN Position: [facility] [employer] Member Role: Primary Care Nurse Name: Noah Schuster RN Position: [facility] RN Member Role: Primary Care Nurse Name: Tracie Haney RN Position: [facility] RN Member Role: Primary Care Nurse Name: Mayra Covarrubias RN Position: [facility] RN Member Role: Primary Care Nurse Name: Steph Pagan RN Position: [facility] RN Member Role: Primary Care Nurse Name: Manohar Wallace RN Position: [facility] RN Member Role: Primary Care Nurse Name: Karen Dewey RN Position: [facility] RN Member Role: Primary Care Nurse Name: Lisset Díaz RN Position: [facility] RN Member Role: Primary Care Nurse Name: Phyllis Jones RN Position: [facility] PCO RN Member Role: Primary Care Nurse Name: Manuel Kirkpatrick MD Position: [facility] Renal MD Member Role: Lifetime Consulting Physician Address: Address: [address] [place] [address] [address] [facility] [place] [address]- [place] Name: Marlene Kirkpatrick RN Position: [facility] RN Member Role: Primary Care Nurse Name: Vidhya Quan RN Position: [facility] RN Member Role: Primary Care Nurse Name: Jessi Giraldo RN Position: [facility] RN Member Role: Primary Care Nurse Name: Aaliyah Prakash RN Position: [facility] [employer] Member Role: Primary Care Nurse Name: Toyin Dhaliwal MD Position: [facility] Primary Care Physician Member Role: PCP Address: Address: [address] [place] [address] [facility] [place] [address]- [place] Name: Sushma Martinez RN Position: [facility] RN Member Role: Primary Care Nurse Name: Bonny Iniguez RN Position: [facility] RN Member Role: Primary Care Nurse Name: Mercedes Borjas RN Position: [facility] RN Member Role: Primary Care Nurse Name: Lamont Mantilla RN Position: [facility] RN Member Role: Primary Care Nurse Name: Aries Orozco MD Position: [facility] Renal MD Member Role: Lifetime Consulting Physician Address: Address: [address] [place] [address] [facility] [address] Name: Dedrick Brown RN Position: [facility] ED RN W/OE and Tasks Member Role: Primary Care Nurse Name: Marzena Razo RN Position: [facility] RN Member Role: Primary Care Nurse Name: Fariba Mancilla RN Position: [facility] RN Member Role: Primary Care Nurse Name: Mia Jones RN Position: [facility] SN RN Member Role: Primary Care Nurse Name: David Jean RN Position: [facility] SN RN Member Role: Primary Care Nurse Care Team Related Persons Name: DAKOTAH BAKER Address: home [address] [place] [address] Name: EDWARDO DAKOTAH Address: home [address] [place] [address] Name: LANDEN TRAN Address: home [address] [place] [address] Name: SHRUTI BHAGAT Address: [place] [address]
--- OUTSIDE RECORDS SUMMARY | 2022-08-10 10:24 | XMS_ITS | Continuity of Care Document ---
Author Name Unknown Organization [facility] Address [address] [place] [address]- Care Team Providers Care Control Panel Operator Name Role Phone Bala Cortez MD Primary Care Physician [facility]): [facility]20 - 05/10/20 [facility] [address] [place] [address] Attending Physician: Loly Sow Admitting Physician: AdmLoly du Referring Physician: AdmtrLoly Allergies, Adverse Reactions, Alerts No Known Medication [...] 1Early/Late Reason: Med Not Available 2Result Comment: [facility]#[id number] 3Admin Note: Influenza vaccine 4Admin Note: Influenza vaccine 5Admin Note: Influenza vaccine 6Admin Note: VIS GIVEN 7Result Comment: [facility]# [id number] 8Admin Note: Twinrix # 2 9Admin Note: [...] 03/05/20 17:29:00 EST, Route to Pharmacy Electronically, [facility] #[id number], 155, cm, 02/13/20 9:01:00 EDT, Height, 43.9, kg, 02/11/20 10:34... Start Date: 03/05/20 Status: Ordered Humalog Kwik Pen 100 units/mL subcutaneous injection See Instructions, 100-149 6 units 150 199 8 units 200 249 10 units 250 -299 12 units 300-349 14 units 350-399 16 units with meals as needed, # 10 mL, 2 Refills, Maintenance, 03/11/20 12:38:00 EST, Solution, [facility] #[id number], 155,... Start Date: 03/11/20 Status: Ordered ibuprofen 600 mg oral tablet 600 mg, 1, tablet, By Mouth, Every 8 hours, Use very sparingly, # 20 tablet, Refills 0, Tot. Refills 0, Acute 04/18/21 12:03:00 EST, 04/18/20 12:03:00 EST, Route to Pharmacy Electronically, [facility] #[id number], Partial fill upon patient reques... Start Date: 04/18/20 Stop Date: 04/18/21 Status: Ordered Lantus Solostar Pen 100 units/mL subcutaneous solution = 35 units, Subcutaneous Injection, Daily at bedtime, # 12 mL, 2 Refills, Maintenance, 03/05/20 17:29:00 EST, Solution, [facility] #[id number], 155, cm, 02/13/20 9:01:00 EDT, Height, 43.9, kg, 02/11/20 10:34:00 EDT, Dry Weight Start Date: 03/05/20 Status: Ordered magnesium oxide 400 mg oral tablet 1 tablet = 400 mg, By Mouth, 3 times a day, # 100 tablet, 3 Refills, Acute 07/05/20 11:27:00 EST, 07/06/19 11:26:00 EST, Tablet, [facility] #[id number], 152, cm, 07/06/19 11:06:00 EST, Height, 43.1, kg, 07/06/19 11:06:00 EST, Dry Weight Start Date: 07/06/19 Stop Date: 07/05/20 Status: Ordered metoprolol 25 mg oral tablet, extended release 25 mg, 1, tablet, By Mouth, Daily, # 30 tablet, Refills 5, Tot. Refills 5, Maintenance, 04/10/20 14:03:00 EST, Route to Pharmacy Electronically, [facility] #[id number], 155, cm, 02/13/20 9:01:00EDT, Height, 43.9, kg, 02/11/20 10:34:00 EDT, Dry W... 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
--- OUTSIDE RECORDS SUMMARY | 2022-08-10 10:24 | XMS_ITS | Continuity of Care Document ---
Author Name Unknown Organization [facility] Address [address] [place] [address]- Care Team Providers Care Manager Diabetes Name Role Phone Bala Cortez MD Primary Care Physician [phone] [facility]): [facility] - 07/11/20 [facility] [address] [place], [place] [address] Allergies, Adverse Reactions, Alerts No Known [...] 1Early/Late Reason: Med Not Available 2Result Comment: [facility]#[id number] 3Admin Note: Influenza vaccine 4Admin Note: Influenza vaccine 5Admin Note: Influenza vaccine 6Admin Note: VIS GIVEN 7Result Comment: [facility]# [id number] 8Admin Note: Twinrix # 2 9Admin Note: Twinrix # 1 10Admin Note: VIS GIVEN 11Result Comment: Lot: [id number] Exp: Nov 08 Pt given vaccine info sheet before vaccine administered Medications Biktarvy oral tablet 1 tablet, By Mouth, Daily, # 30 tablet, 0 Refills, Maintenance, 06/15/19 12:30:00 EST, Tablet Start Date: 06/15/19 Status: Ordered gabapentin 300 mg oral capsule 300 mg, 1, capsule, By Mouth, Daily at bedtime, # 30 capsule, Refills 2, Tot. Refills 2, Maintenance, 03/05/20 17:29:00 EST, Route to Pharmacy Electronically, [facility] #[id number], 155, cm, 02/13/20 9:01:00 EDT, Height, 43.9, kg, 02/11/20 10:34... Start Date: 03/05/20 Status: Ordered Humalog Kwik Pen 100 units/mL subcutaneous injection See Instructions, 100-149 6 units 150 199 8 units 200 249 10 units 250 -299 12 units 300-349 14 units 350-399 16 units with meals as needed, # 10 mL, 2 Refills, Maintenance, 07/04/20 11:27:00 EST, Solution, [facility] #[id number], 152,... Start Date: 07/04/20 Status: Ordered LAB [...] 2 Refills, Maintenance, 07/04/20 11:26:00 EST, Solution, [facility] #[id number], 152, cm, 06/27/20 11:20:00 EST, Height, 47, kg, 06/21/20 13:49:00 EST, .. Start Date: 07/04/20 Status: Ordered metoprolol 25 mg oral tablet, extended release 25 mg, 1, tablet, By Mouth, Daily, # 30 tablet, Refills 5, Tot. Refills 5, Maintenance, 04/10/20 14:03:00 EST, Route to Pharmacy Electronically, [facility] #[id number], 155, cm, 02/13/20 9:01:00EDT, Height, 43.9, kg, 02/11/20 10:34:00 EDT, Dry W... 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
--- OUTSIDE RECORDS SUMMARY | 2022-08-10 10:24 | XMS_ITS | Continuity of Care Document ---
Author Name Unknown Organization [facility] Address [address] [place] [address]- Care Team Providers Care Office Coordinator Name Role Phone Bala Cortez MD Primary Care Physician Encounter 06/28/19 - 08/03/19 [facility] [address] [place] [address]- [facility] Discharge Disposition: GO[facility] Allergies, Adverse Reactions, Alerts No Known Medication [...] 06/25/19 Not Given Patient Refuses 1Result Comment: [facility]# [id number] 2Result Comment: [facility]#[id number] 3Admin Note: Influenza vaccine 4Admin Note: Influenza [...] 0 Refills, Maintenance, 07/06/19 11:28:00 EST, Tablet, [facility] #[id number], 152, cm, 07/06/19 11:06:00 EST, Height, 43.1, [...] 1 Refills, Maintenance, 06/26/19 13:52:00 EST, Solution, [facility] #[id number], 153,... Start Date: 06/26/19 Status: Ordered Humalog Kwik Pen 100 units/mL subcutaneous injection See Instructions, Sliding Scale Comments >>100 - 149 6 units Call if less than [address] - 199 8 units 200 - 249 [...] 249 10 units 250 - 299 12 urgee606 - 349 14 units 350 - 399 16 units Robel... Start Date: 07/01/19 Status: Ordered Lantus Solostar Pen 100 units/mL subcutaneous solution = 45 units, Subcutaneous Injection, Daily at bedtime, # 1 each, 0 Refills, Maintenance, 06/26/19 13:40:00 EST, Solution, [facility] #[id number], 153, cm, 06/26/19 7:18:00 EST, Height, 41.1, kg, 01/24/19 18:27:00 EDT, Dry Weight Start Date: 06/26/19 Status: Ordered Lantus Solostar Pen 100 units/mL subcutaneous solution = 55 units, Subcutaneous Injection, Daily at bedtime, # 10 mL, 2 Refills, Maintenance, 07/06/19 11:26:00 EST, Solution, [facility] #[id number], 152, cm, 07/06/19 11:06:00 EST, Height, 43.1, kg, 07/06/19 11:06:00 EST, Dry Weight Start Date: 07/06/19 Status: Ordered magnesium oxide 400 mg oral tablet 1 tablet = 400 mg, By Mouth, 3 times a day, # 100 tablet, 3 Refills, Acute 07/05/20 11:27:00 EST, 07/06/19 11:26:00 EST, Tablet, [facility] #[id number], 152, cm, 07/06/19 11:06:00 EST, Height, 43.1, kg, 07/06/19 11:06:00 EST, Dry Weight Start Date: 07/06/19 Stop Date: 07/05/20 Status: Ordered multivitamin Therapeutic Multiple Vitamins oral tablet 1 tablet, By Mouth, Daily, # 30 tablet, 0 Refills, Maintenance, 06/26/19 13:45:00 EST, Tablet, [facility] #[id number], 1 tablet By Mouth Daily,x30 days, 153, cm, 06/26/19 7:18:00 EST, Height, 41.1, kg, 01/24/19 18:27:00 EDT, Dry Weight Start Date: 06/26/19 Stop Date: 07/26/19 Status: Ordered Pen [place], 29 G x 12.7 mm BD Ultra Fine See Instructions, # 100 each, Refills 5, Tot. Refills 5, Maintenance, use as directed for Type 1 Diabetes Mellitus, 06/26/19 13:47:00 EST, Compound, 153, cm, 06/26/19 7:18:00 EST, Height, 41.1, kg, 01/24/19 18:27:00 EDT, Dry Weight Start Date: 06/26/19 Stop Date: 12/23/19 Status: Ordered Pen [place], 31 G x 5 mm BD Ultra Fine III See Instructions, # 100 each, Refills 5, Tot. 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
--- OUTSIDE RECORDS SUMMARY | 2022-08-10 10:24 | XMS_ITS | Continuity of Care Document ---
Author Name Unknown Organization [facility] Address [address] [place] [address]- Care Team Providers Care Fixed Income Analyst Name Role Phone Bala Cortez MD Primary Care Physician Encounter [facility] [place] Date(s): 10/10/19 - 11/15/19 [facility] [address] [place] [address]- [facility] Encounter Diagnosis Weakness(Discharge Diagnosis) - 10/16/19 Hypomagnesemia(Discharge Diagnosis) - 10/16/19 Sepsis(Discharge Diagnosis) - 10/16/19 Hep C w/o coma, chronic(Discharge Diagnosis) - 10/16/19 HIV (human immunodeficiency virus infection)(Discharge Diagnosis) - 10/16/19 Diabetes mellitus type 2(Discharge Diagnosis) - 10/16/19 DKA (diabetic ketoacidoses)(Discharge Diagnosis) - 10/16/19 Attending Physician: Bala Cortez MD Allergies, Adverse [...] 06/25/19 Not Given Patient Refuses 1Result Comment: [facility]# [id number] 2Result Comment: [facility]#[id number] 3Admin Note: Influenza vaccine 4Admin Note: Influenza [...] 0 Refills, Maintenance, 07/06/19 11:28:00 EST, Tablet, [facility] #[id number], 152, cm, 07/06/19 11:06:00 EST, Height, 43.1, [...] 10/19/19 15:33:00 EDT, Route to Pharmacy Electronically, [facility] #[id number], 152, cm, 07/06/19 11:06:00 EST, Height, 43.1, kg, 07/06/19 11:0... Start Date: 10/19/19 Status: Ordered Humalog Kwik Pen 100 units/mL subcutaneous injection See Instructions, 100-149 4 units 150 199 6 units 200 249 8 units 250 -299 10 units 300-349 12 units 350-399 14 units with meals as needed, # 1 each, 1 Refills, Maintenance, 06/26/19 13:52:00 EST, [facility] #[id number], 153,... Start Date: 06/26/19 Status: Ordered Lantus Solostar Pen 100 units/mL subcutaneous solution = 45 units, Subcutaneous Injection, Daily at bedtime, # 1 each, 0 Refills, Maintenance, 06/26/19 13:40:00 EST, Solution, [facility] #[id number], 153, cm, 06/26/19 7:18:00 EST, Height, 41.1, kg, 01/24/19 18:27:00 EDT, Dry Weight Start Date: 06/26/19 Status: Ordered magnesium oxide 400 mg oral tablet 1 tablet = 400 mg, By Mouth, 3 times a day, # 100 tablet, 3 Refills, Acute 07/05/20 11:27:00 EST, 07/06/19 11:26:00 EST, Tablet, [facility] #[id number], 152, cm, 07/06/19 11:06:00 EST, Height, 43.1, kg, 07/06/19 11:06:00 EST, Dry Weight Start Date: 07/06/19 Stop Date: 07/05/20 Status: Ordered multivitamin Therapeutic Multiple Vitamins oral tablet 1 tablet, By Mouth, Daily, # 30 tablet, 0 Refills, Maintenance, 06/26/19 13:45:00 EST, Tablet, [facility] #[id number], 1 tablet By Mouth Daily,x30 days, 153, cm, 06/26/19 7:18:00 EST, Height, 41.1, kg, 01/24/19 18:27:00 EDT, Dry Weight Start Date: 06/26/19 Stop Date: 07/26/19 Status: Ordered Pen [place], 29 G x 12.7 mm BD Ultra Fine See Instructions, # 100 each, Refills 5, Tot. Refills 5, Maintenance, use as directed for Type 1 Diabetes Mellitus, 06/26/19 13:47:00 EST, Compound, 153, cm, 06/26/19 7:18:00 EST, Height, 41.1, kg, 01/24/19 18:27:00 EDT, Dry Weight Start Date: 06/26/19 Stop Date: 12/23/19 Status: Ordered Pen [place], 31 G x 5 mm BD Ultra Fine III See Instructions, # 100 each, Refills 5, Tot. Refills 5, Maintenance, use as directed for Type 2 Diabetes Mellitus 4 times daily, 07/07/19 10:26:00 EST, Compound, 152, cm, 07/06/19 11:06:00 EST, Height, 43.1, kg, 07/06/19 11:06:00 EST, Dry Weight Start Date: 07/07/19 Stop Date: 01/03/20 Status: Ordered Pen [place], 31 G x 5 mm BD Ultra [...] Active DKA (diabetic ketoacidoses)(Confirmed) Active Diabetic retinopathy, [place], 03/23/19(Confirmed) Active 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 Diagnosis Diagnosis Type Effective Dates Health Status Clinical Service Informant Weakness Discharge Diagnosis 10/16/19 Hypomagnesemia Discharge Diagnosis 10/16/19 Sepsis Discharge Diagnosis 10/16/19 Hep C w/o coma, chronic Discharge Diagnosis 10/16/19 HIV (human immunodeficiency virus infection) Discharge Diagnosis 10/16/19 Diabetes mellitus type 2 Discharge Diagnosis 10/16/19 DKA (diabetic ketoacidoses) Discharge Diagnosis 10/16/19 Social History Social History Type Response Smoking Status Never smoker entered on: 01/26/14 Sex
--- OUTSIDE RECORDS SUMMARY | 2022-08-10 10:24 | XMS_ITS | Continuity of Care Document ---
Author Name Unknown Organization [facility] Address [address] [place] [address]- Care Team Providers Care Dissolver Operator Name Role Phone Bala Cortez MD Primary Care Physician [place] [facility] [place] 04/25/20 [facility] [address] [place] [address] Attending Physician: Julian Wheeler MD Admitting Physician: Julian Wheeler MD Referring Physician: Bala Cortez MD Allergies, Adverse Reactions, [...] 1Early/Late Reason: Med Not Available 2Result Comment: [facility]#[id number] 3Admin Note: Influenza vaccine 4Admin Note: Influenza vaccine 5Admin Note: Influenza vaccine 6Admin Note: VIS GIVEN 7Result Comment: [facility]# [id number] 8Admin Note: [facility]rix # 2 9Admin Note: [...] 03/05/20 17:29:00 EST, Route to Pharmacy Electronically, [facility] #[id number], 155, cm, 02/13/20 9:01:00 EDT, Height, 43.9, kg, 02/11/20 10:34... Start Date: 03/05/20 Status: Ordered Humalog Kwik Pen 100 units/mL subcutaneous injection See Instructions, 100-149 6 units 150 199 8 units 200 249 10 units 250 -299 12 units 300-349 14 units 350-399 16 units with meals as needed, # 10 mL, 2 Refills, Maintenance, 03/11/20 12:38:00 EST, Solution, [facility] #[id number], 155,... Start Date: 03/11/20 Status: Ordered ibuprofen 600 mg oral tablet 600 mg, 1, tablet, By Mouth, Every 8 hours, Use very sparingly, # 20 tablet, Refills 0, Tot. Refills 0, Acute 04/18/21 12:03:00 EST, 04/18/20 12:03:00 EST, Route to Pharmacy Electronically, [facility] #[id number], Partial fill upon patient reques... Start Date: 04/18/20 Stop Date: 04/18/21 Status: Ordered Lantus Solostar Pen 100 units/mL subcutaneous solution = 35 units, Subcutaneous Injection, Daily at bedtime, # 12 mL, 2 Refills, Maintenance, 03/05/20 17:29:00 EST, Solution, [facility] #[id number], 155, cm, 02/13/20 9:01:00 EDT, Height, 43.9, kg, 02/11/20 10:34:00 EDT, Dry Weight Start Date: 03/05/20 Status: Ordered magnesium oxide 400 mg oral tablet 1 tablet = 400 mg, By Mouth, 3 times a day, # 100 tablet, 3 Refills, Acute 07/05/20 11:27:00 EST, 07/06/19 11:26:00 EST, Tablet, [facility] #[id number], 152, cm, 07/06/19 11:06:00 EST, Height, 43.1, kg, 07/06/19 11:06:00 EST, Dry Weight Start Date: 07/06/19 Stop Date: 07/05/20 Status: Ordered metoprolol 25 mg oral tablet, extended release 25 mg, 1, tablet, By Mouth, Daily, # 30 tablet, Refills 5, Tot. Refills 5, Maintenance, 04/10/20 14:03:00 EST, Route to Pharmacy Electronically, [facility] #[id number], 155, cm, 02/13/20 9:01:00EDT, Height, 43.9, kg, 02/11/20 10:34:00 EDT, Dry W... Start Date: 04/10/20 Stop Date: 10/07/20 Status: Ordered multivitamin Therapeutic Multiple Vitamins oral tablet 1 tablet, By Mouth, Daily, # 30 tablet, 0 Refills, Maintenance, 06/26/19 13:45:00 EST, Tablet, [facility] #[id number], 1 tablet By Mouth Daily,x30 days, 153, cm, 06/26/19 7:18:00 EST, Height, 41.1, kg, 01/24/19 18:27:00 EDT, Dry Weight Start Date: 06/26/19 Stop Date: 07/26/19 Status: Ordered Pen [place], 31 G x 5 mm BD Ultra [...] Active DKA (diabetic ketoacidoses)(Confirmed) Active Diabetic retinopathy, [place], 03/23/19(Confirmed) Active 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
--- OUTSIDE RECORDS SUMMARY | 2022-08-10 10:24 | XMS_ITS | Continuity of Care Document ---
Author Name Unknown Organization [facility] Address [address] [place] [address]- Care Team Providers Care Treating Plant Supervisor Name Role Phone Toyin Dhaliwal MD Primary Care Physician En[place] [facility] [place](s): 06/20/21 - 06/27/21 [facility] [address] [place], [place] [address] Encounter Diagnosis CKD (chronic kidney disease)(Discharge Diagnosis) - 06/20/21 HIV (human immunodeficiency virus infection)(Discharge Diagnosis) - 06/20/21 Diabetes mellitus type 2(Discharge Diagnosis) - 06/20/21 Hypertension(Discharge Diagnosis) - 06/20/21 Generalized anxiety disorder(Discharge Diagnosis) - 06/20/21 Attending Physician: Toyin Dhaliwal MD Allergies, Adverse Reactions, [...] Available 2Result Comment: [facility]#[id number] 3Admin Note: Influenza vaccine 4Admin Note: Influenza vaccine 5Admin Note: Influenza vaccine 6Admin Note: VIS GIVEN 7Result Comment: SEE COVID TEAM PROGRESS NOTE 8Result Comment: [facility]# [id number] 9Admin Note: Twinrix # 2 10Admin Note: [facility]rix # 1 11Admin Note: VIS GIVEN 12Result Comment: Lot: [id number] Exp: Nov 08 Pt given vaccine info sheet before vaccine administered Medications aspirin 81 mg oral tablet, chewable 81 mg, 1, tablet, By Mouth, Daily, # 30 tablet, Refills 11, Tot. Refills 11, Maintenance, 06/13/21 15:29:00 EST, Route to Pharmacy Electronically, [facility] #[id number], Partial fill upon patient request if the prescription is for a schedule II... Start Date: 06/13/21 Status: Ordered Biktarvy oral tablet 1 tablet, By Mouth, Daily, # 30 tablet, 0 Refills, Maintenance, 11/26/20 16:19:00 EDT, Tablet, [facility], Partial fill upon patient [...] 11/29/20 12:03:00 EDT, Route to Pharmacy Electronically, [facility] #[id number], 153, cm, 11/26/20 13:06:00 EDT, Height, 46, kg, 11/24/20 3:02:00 EDT, [facility] Start Date: 11/29/20 Status: Ordered Glucose Gel, [...] 1 Refills, Maintenance, 06/09/21 10:48:00 EST, Injection, [facility] #[id number], Partial fill upon patient request if theprescription is for a schedule II opioid drug., 152... Start Date: 06/09/21 Stop Date: 08/08/21 Status: Ordered hydrOXYzine hydrochloride 10 mg oral tablet 2 tablet = 20 mg, By Mouth, 4 times a day, PRN for anxiety, # 80 tablet, 0 Refills, Maintenance, 06/20/21 11:13:00 EST, Tablet, [facility] #[id number], Partial fill upon patient request if the prescription is for a schedule II opioid drug., 152,... Start Date: 06/20/21 Status: Ordered insulin glargine 100 u/ml subcutaneous solution = 38 units, Subcutaneous Injection, Daily at bedtime, # 12 mL, 1 Refills, Maintenance, 06/09/21 10:48:00 EST, Injection, [facility] #[id number], Partial fill upon patient request if the prescription is for a schedule II opioid drug., 152, cm, 02/... Start Date: 06/09/21 Status: Ordered Magnesium Oxide By Mouth, 2 [...] 06/13/21 15:29:00 EST, Route to Pharmacy Electronically, [facility] #[id number], Partial fill upon patientrequest if the prescription is for a schedule II op... Start Date: 06/13/21 Status: Ordered Trulicity Pen 0.75 mg/0.5 mL subcutaneous solution 0.5 mL = 0.75 mg, Subcutaneous Injection, Every week, call office in one month so i can increase your dose. rotate injection sites, # 2 mL, 3 Refills, Maintenance, 06/13/21 15:25:00 EST, Solution, [facility] #[id number], Partial fill upon patient... Start Date: 06/13/21 Status: Ordered Vitamin D3 1000 intl units oral capsule 1 capsule = 25 mcg, By Mouth, Daily, # 100 capsule, 3 Refills, Maintenance, 06/20/21 11:15:00 EST, Capsule, [facility] #[id number], Partial fill upon patient request if the [...] Active DKA (diabetic ketoacidoses)(Confirmed) Active Diabetic retinopathy, [place], 03/23/19(Confirmed) Active Rash(Confirmed) Active Gitelman syndrome(Confirmed) Active [...] Effective Dates Health Status Clinical Service Informant CKD (chronic kidney disease) Discharge Diagnosis 06/20/21 HIV (human immunodeficiency virus infection) Discharge Diagnosis 06/20/21 Diabetes mellitus type 2 Discharge Diagnosis 06/20/21 Hypertension Discharge Diagnosis 06/20/21 Generalized anxiety disorder Discharge Diagnosis 06/20/21 Vital Signs Most recent to oldest [Reference Range]: 1 Height 152 cm (06/20/21 10:38 AM) Weight 44.0 kg (06/20/21 10:38 AM) Oxygen Saturation [94-100 %] 99 % (06/20/21 10:38 AM) Pulse Rate [55-90 bpm] 97 bpm *H* (06/20/21 10:38 AM) Body Mass Index [18.5-24.99] 19.04 (06/20/21 10:38 AM) Blood Pressure [90-138/55-84 mm Hg] 142/ 80mm Hg *H* (06/20/21 10:38 AM) Temperature [96.8-100.4 DegF] 97.3 DegF (06/20/21 10:38 AM) Mode of Delivery (Oxygen) Room air (06/20/21 10:38 AM) Blood pressure sites Arm, right (06/20/21 10:38 AM) Temperature Route Temporal (06/20/21 10:38 AM) Social History Social History Type Response Smoking Status Never (less than 100 in lifetime) entered on: 06/06/21 Sex
--- OUTSIDE RECORDS SUMMARY | 2022-08-10 10:24 | XMS_ITS | Continuity of Care Document ---
Author Name Unknown Organization [facility] Address [address] [place] [address]- Care Team Providers Care Associate Professor Of Church Music Name Role Phone Toyin Dhaliwal MD Primary Care Physician [phone] Encounter [facility] Date(s): 01/17/21 - 02/16/21 [facility] [address] [place], [place] [address] Allergies, Adverse Reactions, Alerts No Known Medication [...] 2Early/Late Reason: Med Not Available 3Result Comment: [facility]#[id number] 4Admin Note: Influenza vaccine 5Admin Note: Influenza vaccine 6Admin Note: Influenza vaccine 7Admin Note: VIS GIVEN 8Result Comment: [facility]# [id number] 9Admin Note: Twinrix # 2 10Admin Note: [facility]rix # 1 11Admin Note: VIS GIVEN 12Result Comment: Lot: [id number] Exp: Nov 08 Pt given vaccine info sheet before vaccine administered Medications Alcohol Wipes See Instructions, # 200 each, Refills 6, Tot. Refills 6, Maintenance, to use with insulin adminitration 4 times a day, 01/21/21 10:01:00 EDT, Supply, 153, cm, 11/26/20 13:06:00 EDT, Height, 46, kg, 11/24/20 3:02:00 EDT, Dry Weight Start Date: 01/21/21 Status: Ordered Biktarvy oral tablet 1 tablet, By Mouth, Daily, # 30 tablet, 0 Refills, Maintenance, 11/26/20 16:19:00 EDT, Tablet, [facility], Partial fill upon patient [...] 11/29/20 12:03:00 EDT, Route to Pharmacy Electronically, [facility] #[id number], 153, cm, 11/26/20 13:06:00 EDT, Height, 46, kg, 11/24/20 3:02:00 EDT, D... Start Date: 11/29/20 Status: Ordered Humalog Kwik Pen 100 units/mL subcutaneous injection 2 - 10 units, Subcutaneous Injection, 3 times a day before meals, # 15 mL, 0 Refills, Maintenance, 01/20/21 15:21:00 EDT, Injection, [facility] #[id number], Partial fill upon patient request if the prescription is for a schedule II opioid drug.,... Start Date: 01/20/21 Stop Date: 02/19/21 Status: Ordered Lantus Solostar Pen 100 units/mL subcutaneous solution = 35 units, Subcutaneous Injection, Daily in AM, for 30 days, # 10 mL, 3 Refills, Physician Stop 03/26/21 16:19:00 EST, 11/26/20 16:19:00 EDT, [facility], 153, cm, 11/26/20 13:06:00 EDT, Height, 46, kg, 11/24/20 3:02:00 EDT, Dry Weight Start Date: 11/26/20 Stop Date: 03/26/21 Status: Ordered Pen [place], 31 G x 8 mm BD Ultra Fine III See Instructions, # 200 each, Refills 6, Tot. Refills 6, Maintenance, to use with insulin administration 4 times a day, 01/21/21 10:02:00 EDT, Supply, 153, cm, 11/26/20 13:06:00 EDT, Height, 46, kg, 11/24/20 3:02:00 EDT, Dry Weight Start Date: 01/21/21 Stop Date: 08/19/21 Status: Ordered please dispense a BP monitor [...] 3 Refills, Maintenance, 11/14/20 10:44:00 EDT, Solution, [facility] #[id number], Partial fill upon patient... Start Date: 11/14/20 [...] Active DKA (diabetic ketoacidoses)(Confirmed) Active Diabetic retinopathy, [place], 03/23/19(Confirmed) Active 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
--- OUTSIDE RECORDS SUMMARY | 2022-08-10 10:24 | XMS_ITS | Continuity of Care Document ---
Author Name Unknown Organization [facility] Address [address] [place] [address]- Care Team Providers Care Client Finance Analyst Name Role Phone Toyin Dhaliwal MD Primary Care Physician [place] [facility] [place](s): 06/20/21 - 07/20/[address] [address] Allergies, Adverse Reactions, Alerts No Known [...] Med Not Available 2Result Comment: [facility]#[id number] 3Admin Note: Influenza vaccine 4Admin Note: Influenza vaccine 5Admin Note: Influenza vaccine 6Admin Note: VIS GIVEN 7Result Comment: SEE COVID TEAM PROGRESS NOTE 8Result Comment: [facility]# [id number] 9Admin Note: Twinrix # 2 10Admin Note: [facility]rix # 1 11Admin Note: VIS GIVEN 12Result Comment: Lot: [id number] Exp: Nov 08 Pt given vaccine info sheet before vaccine administered Medications aspirin 81 mg oral tablet, chewable 81 mg, 1, tablet, By Mouth, Daily, # 30 tablet, Refills 11, Tot. Refills 11, Maintenance, 06/13/21 15:29:00 EST, Route to Pharmacy Electronically, [facility] #[id number], Partial fill upon patient request if the prescription is for a schedule II... Start Date: 06/13/21 Status: Ordered Biktarvy oral tablet 1 tablet, By Mouth, Daily, # 30 tablet, 0 Refills, Maintenance, 11/26/20 16:19:00 EDT, Tablet, [facility], Partial fill upon patient request [...] 11/29/20 12:03:00 EDT, Route to Pharmacy Electronically, [facility] #[id number], 153, cm, 11/26/20 13:06:00 EDT, Height, 46, [...] 1 Refills, Maintenance, 06/09/21 10:48:00 EST, Injection, [facility] #[id number], Partial fill upon patient request if theprescription is for a schedule II opioid drug., 152... Start Date: 06/09/21 Stop Date: 08/08/21 Status: Ordered hydrOXYzine hydrochloride 10 mg oral tablet 2 tablet = 20 mg, By Mouth, 4 times a day, PRN for anxiety, # 80 tablet, 0 Refills, Maintenance, 06/20/21 11:13:00 EST, Tablet, [facility] #[id number], Partial fill upon patient request if the prescription is for a schedule II opioid drug., 152,... Start Date: 06/20/21 Status: Ordered insulin glargine 100 u/ml subcutaneous solution = 38 units, Subcutaneous Injection, Daily at bedtime, # 12 mL, 1 Refills, Maintenance, 06/09/21 10:48:00 EST, Injection, [facility] #[id number], Partial fill upon patient request if the [...] 06/13/21 15:29:00 EST, Route to Pharmacy Electronically, [facility] #[id number], Partial fill upon patientrequest if the prescription [...] 3 Refills, Maintenance, 06/13/21 15:25:00 EST, Solution, [facility] #[id number], Partial fill upon patient... Start Date: 06/13/21 Status: Ordered Vitamin D3 1000 intl units oral capsule 1 capsule = 25 mcg, By Mouth, Daily, # 100 capsule, 3 Refills, Maintenance, 06/20/21 11:15:00 EST, Capsule, [facility] #[id number], Partial fill upon patient request if the [...] Active DKA (diabetic ketoacidoses)(Confirmed) Active Diabetic retinopathy, [place], 03/23/19(Confirmed) Active Rash(Confirmed) Active Gitelman syndrome(Confirmed) Active [...]
--- OUTSIDE RECORDS SUMMARY | 2022-08-10 10:24 | XMS_ITS | Continuity of Care Document ---
Author Name Unknown Organization [facility] Address [address] [place] [address]- Care Team Providers Care Vehicle Service Agent Name Role Phone Bala Cortez MD Primary Care Physician Encounter [facility] [place] Date(s): 05/10/19 - 05/10/[address] [address] [facility] Encounter Diagnosis Mcdonald catheter problem(Final) - 05/10/19 Hyperglycemia(Final) - 05/10/19 Mcdonald catheter problem(Final) - 05/11/19 Hyperglycemia(Final) - 05/11/19 Discharge Disposition: A-D/C Home Attending Physician: Clarence Elliott MD Admitting Physician: Clarence Elliott MD Referring Physician: Not on Staff, Referring [...] Not Given Patient Refuses 1Result Comment: [facility]#[id number] 2Admin Note: Influenza vaccine 3Admin Note: Influenza vaccine 4Admin Note: Influenza vaccine 5Admin Note: VIS GIVEN 6Admin Note: Twinrix # 2 7Admin Note: [facility]rix # 1 8Admin Note: VIS GIVEN 9Result Comment: Lot: [id number] Exp: Nov 08 Pt given vaccine info sheet before vaccine administered Medications aMILoride 5 mg oral tablet 0 Refills, Maintenance, 03/23/19 9:54:45 EST Start Date: 03/23/19 Status: Ordered Bactrim DS 800 mg-160 mg oral tablet 1 tablet, By Mouth, 2 times a day, for 7 days, # 14 tablet, 0 Refills, Acute 05/17/19 22:02:00 EST,05/10/19 22:02:00 EST, Tablet, [facility] #[id number], 1 tablet By Mouth 2 times a day,x7 days, 153, cm, 04/19/19 12:30:00 EST, Height, 41, kg, 10... Start Date: 05/10/19 Stop Date: 05/17/19 Status: Ordered Biktarvy oral tablet 0 Refills, Maintenance, 09/04/18 6:52:28 EDT Start Date: 09/04/18 Status: Ordered ciclopirox 8% topical solution 1 application, Topically, Daily, Apply to affected nails daily, # 3.3 mL, 0 Refills, Acute 04/19/2013:09:00 EST, 04/19/19 13:09:00 EST, Solution, [facility] #[id number], 1 application TopicallyDaily,Instr:Apply to affected nails daily, 153, cm,... Start Date: 04/19/19 Stop Date: 04/19/20 Status: Ordered Humalog Kwik Pen 100 units/mL subcutaneous injection See Instructions, << Sliding Scale Comments >> 100 - 149 6 units Call if less than 100 150 - 199 8 units 200 - 249 10 units 250 - 299 12units 300 - 349 14 units 350 - 399 16 units Call ifgreater than 400 << Sliding Scale Commen... Start Date: 04/19/19 Status: Ordered insulin glargine 100 units/mL subcutaneous solution 0.4 mL = 40 units, Subcutaneous Injection, Daily at bedtime, 0 Refills, Maintenance, 02/23/19 12:06:52 EDT, Injection Start Date: 02/23/19 Status: Ordered Insulin Lispro 2-12 units, Subcutaneous Injection, 3 times a day before meals, << Sliding Scale Comments >> 100 - 149 2 units Call if less than 100 150 - 199 4 units 200 - 249 6 units 250 - 299 8 units 300 - 349 10 units 350 - 399 12 units Call... Start Date: 02/23/19 Status: Ordered magnesium oxide 400 mg oral tablet 1 tablet = 400 mg, By Mouth, 3 times a day, 0 Refills, Maintenance, 02/19/19 22:57:28 EDT Start Date: 02/19/19 Status: Ordered Pen [place], 31 G x 5 mm BD Ultra Fine III See Instructions, # 100 each, Refills 5, Tot. Refills 5, Maintenance, use as directed for Type 2 Diabetes Mellitus Administration of insulin 4 times daily., 04/19/19 13:08:00 EST, Compound, 153, cm, 04/19/19 12:30:00 EST, Height, 41, kg, 03/01/19 9:4... Start Date: 04/19/19 Stop Date: 10/16/19 Status: Ordered potassium chloride 10 mEq oral [...] Active DKA (diabetic ketoacidoses)(Confirmed) Active Diabetic retinopathy, [place], 03/23/19(Confirmed) Active 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 1 2 3 Oxygen Saturation [94-100 %] 100 % (05/10/19 9:43 PM) 100 % (05/10/19 7:24 PM) 100 % (05/10/19 4:22 PM) Pulse Rate [55-90 bpm] 102 bpm *H* (05/10/19 9:43 PM) 104 bpm *H* (05/10/19 7:24 PM) 101 bpm *H* (05/10/19 4:22 PM) Blood Pressure [90-138/55-84 mm Hg] 109/65mm Hg (05/10/19 9:43 PM) 128/74mm Hg (05/10/19 7:24 PM) 142/71mm Hg *H* (05/10/19 4:22 PM) Respiratory Rate [16-30 br/min] 16 br/min (05/10/19 10:25 PM) 18 br/min (05/10/19 9:43 PM) 16 br/min (05/10/19 7:24 PM) Temperature [96.8-100.4 DegF] 97.8 DegF (05/10/19 4:22 PM) Mode of Delivery (Oxygen) Room air (05/10/19 9:43 PM) Room air (05/10/19 4:22 PM) Temperature Route Oral (05/10/19 4:22 PM) Social History Social History Type Response Smoking Status Never smoker entered on: 01/26/14 Sex
--- OUTSIDE RECORDS SUMMARY | 2022-08-10 10:24 | XMS_ITS | Continuity of Care Document ---
Author Name Unknown Organization [facility] Address [address] [place] [address]- Care Team Providers Care Electric Gas Appliances Demonstrator Name Role Phone Toyin Dhaliwal MD Primary Care Physician En[place] [facility] Date(s): 04/07/21 - 05/07/21 [facility] [address] [place], [place] [address] Attending Physician: Loly Sow Admitting Physician: Loly Sow Referring Physician: AdmtrLoly Allergies, Adverse Reactions, Alerts [...] Reason: Med Not Available 2Result Comment: [facility] [place][id number] 3Admin Note: Influenza vaccine 4Admin Note: Influenza vaccine 5Admin Note: Influenza vaccine 6Admin Note: VIS GIVEN 7Result Comment: SEE COVID TEAM PROGRESS NOTE 8Result Comment: [facility] [place] [id number] 9Admin Note: Twinrix # 2 10Admin Note: Twinrix # 1 11Admin Note: VIS GIVEN 12Result Comment: Lot: [id number] Exp: Nov 08 Pt given vaccine info sheet before vaccine administered Medications Biktarvy oral tablet 1 tablet, By Mouth, Daily, # 30 tablet, 0 Refills, Maintenance, 11/26/20 16:19:00 EDT, Tablet, [facility], Partial fill upon patient request if [...] 11/29/20 12:03:00 EDT, [id number], 153, cm, 11/26/20 13:06:00 EDT, Height, 46, [...] 0 Refills, Maintenance, 01/20/21 15:21:00 EDT, Injection, [facility] #[id number], Partial fill upon patient request if the prescription is for a schedule II opioid drug.,... Start Date: 01/20/21 Stop Date: 02/19/21 Status: Ordered insulin glargine 100 u/ml subcutaneous solution = 32 units, Subcutaneous Injection, Daily at bedtime, # 12 mL, 0 Refills, Maintenance, 03/27/21 12:27:00 EST, Injection, [facility] #[id number], Partial fill upon patient request if the [...] 3 Refills, Maintenance, 11/14/20 10:44:00 EDT, Solution, [facility] #[id number], Partial fill upon patient... Start Date: 11/14/20 [...] Active DKA (diabetic ketoacidoses)(Confirmed) Active Diabetic retinopathy, [place], 03/23/19(Confirmed) Active Rash(Confirmed) Active Gitelman syndrome(Confirmed) Active [...]
--- OUTSIDE RECORDS SUMMARY | 2022-08-10 10:24 | XMS_ITS | Continuity of Care Document ---
Author Name Unknown Organization [facility] Address [address] [place] [address]- Care Team Providers Care Segmental Paving Supervisor Name Role Phone Isra ELIZABETH, Ap Primary Care Physician Encounter [facility] Date(s): 09/25/20 - 10/25/20 [facility] [address] [place], [place] [address] Allergies, Adverse Reactions, Alerts No [...] 1Early/Late Reason: Med Not Available 2Result Comment: [facility] [place]#[id number] 3Admin Note: Influenza vaccine 4Admin Note: Influenza vaccine 5Admin Note: Influenza vaccine 6Admin Note: VIS GIVEN 7Result Comment: [facility]# [id number] 8Admin Note: Twinrix # 2 9Admin Note: Twinrix # 1 10Admin Note: VIS GIVEN 11Result Comment: Lot: [id number] Exp: Nov 08 Pt given vaccine info sheet before vaccine administered Medications BD Single Use Swab 70% topical pad See Instructions, USE 7 TIMES DAILY DIRECTED FOR TYPE 2 DIABETES, # 200 Unknown, 0 Refills, Maintenance, [facility] #[id number], 28, USE 7 TIMES DAILY DIRECTED FOR TYPE 2 DIABETES, 152, cm, 06/27/20 11:20:00 EST, Height, 47, kg, 06/21/20 13... Start Date: 10/02/20 Status: Ordered Biktarvy oral tablet 1 tablet, By Mouth, Daily, # 30 tablet, 0 Refills, Maintenance, 06/15/19 12:30:00 EST, Tablet Start Date: 06/15/19 Status: Ordered Eliquis Starter Pack 5 mg oral tablet 2 tablet = 10 mg, By Mouth, 2 times a day, followed by 1 tablet by mouth twice daily for 23 days, #74 tablet, 0 Refills, Maintenance, 09/22/20 13:38:00 EDT, [facility], Partial fill upon patient request if the prescription is for a sche... Start Date: 09/22/20 Stop Date: 09/29/20 Status: Ordered FREESTYLE LANCETS 100 FREESTYLE LANCETS 100, See Instructions, # 200 each, 0 Refills, Maintenance, USE THREE TIMES DAILY BEFORE MEALS TO CHECK BLOOD SUGAR, 152, cm, 06/27/20 11:20:00 EST, Height, 47, kg, 06/21/20 13:49:00EST, Dry Weight Start Date: 09/26/20 Status: Ordered FREESTYLE LITE BLOOD GLUCOSE STRIPS FREESTYLE LITE BLOOD GLUCOSE STRIPS, See Instructions, # 200 Unknown, 0 Refills, Maintenance, USE TO TEST BLOOD SUGAR THREE TIMES DAILY BEFORE MEALS, 152, cm, 06/27/20 11:20:00 EST, Height, 47, kg, 06/21/20 13:49:00 EST, Dry Weight Start Date: 09/26/20 Status: Ordered gabapentin 300 mg oral capsule 1, capsule, By Mouth, Daily at bedtime, # 30 capsule, Refills 3, Tot. Refills 3, Maintenance, 08/22/20 14:01:00 EDT, Route to Pharmacy Electronically, [facility], 152, cm, 06/27/20 11:20:00 EST, Height, 47, kg, 06/21/20 13:49:00 EST, Dry... Start Date: 08/22/20 Status: Ordered Humalog Kwik Pen 100 units/mL subcutaneous injection See Instructions, 100-149 6 units 150 199 8 units 200 249 10 units 250 -299 12 units 300-349 14 units 350-399 16 units with meals as needed, # 10 mL, 2 Refills, Maintenance, 07/04/20 11:27:00 EST, Solution, [facility] #[id number], 152,... Start Date: 07/04/20 Status: Ordered Lantus Solostar Pen 100 units/mL subcutaneous solution See Instructions, INJECT 10 UNITS UNDER THE SKIN IN THE MORNING AND 25 UNITS UNDER THE SKIN AT BEDTIME., # 9 mL, 0 Refills, Maintenance, [facility] #[id number], 152, cm, 06/27/20 11:20:00 EST, Height, 47, kg, 06/21/20 13:49:00 EST, Dry Weight Start Date: 10/02/20 Status: Ordered metFORMIN 500 mg oral tablet 1 tablet = 500 mg, By Mouth, 2 times a day, please take tab twice a day, then increase to 2 tabs twice a day., # 180 tablet, 4 Refills, Maintenance, 07/19/20 10:07:00 EDT, Tablet, [facility] #[id number], Partial fill upon patient request if the p... Start Date: 07/19/20 Status: Ordered metoprolol 25 mg oral tablet, extended release 25 mg, 1, tablet, By Mouth, Daily, # 30 tablet, Refills 5, Tot. Refills 5, Maintenance, 04/10/20 14:03:00 EST, Route to Pharmacy Electronically, [facility] #[id number], 155, cm, 02/13/20 9:01:00EDT, Height, 43.9, kg, 02/11/20 10:34:00 EDT, Dry W... Start Date: 04/10/20 Stop Date: 10/07/20 Status: Ordered multivitamin Therapeutic Multiple Vitamins oral tablet 1 tablet, By Mouth, Daily, # 30 tablet, 0 Refills, Maintenance, 06/26/19 13:45:00 EST, Tablet, [facility] #[id number], 1 tablet By Mouth Daily,x30 days, 153, cm, 06/26/19 7:18:00 EST, Height, 41.1, kg, 01/24/19 18:27:00 EDT, Dry Weight Start Date: 06/26/19 Stop Date: 07/26/19 Status: Ordered Problem List Condition Effective Dates Status Health Status Inform ant Pyelonephritis, acute(Confirmed) Active Astigmatism, bilateral(Confirmed) Active MRSA bacteremia(Confirmed) Active Bladder outlet obstruction(Confirmed) Active Cholelithiasis(Confirmed) Active CKD (chronic kidney disease)(Confirmed) Active 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
--- OUTSIDE RECORDS SUMMARY | 2022-08-10 10:24 | XMS_ITS | Continuity of Care Document ---
Author Name Unknown Organization [facility] Address [address] [place] [address]- Care Team Providers Care Roadway Engineer Name Role Phone Bala Cortez MD Primary Care Physician [facility]counter [facility] Date(s): 08/22/20 - 09/21/20 [facility] [address] [place], [place] [address] Allergies, Adverse Reactions, Alerts No [...] 1Early/Late Reason: Med Not Available 2Result Comment: [facility]#[id number] 3Admin Note: Influenza vaccine 4Admin Note: Influenza vaccine 5Admin Note: Influenza vaccine 6Admin Note: VIS GIVEN 7Result Comment: [facility]# [id number] 8Admin Note: Twinrix # 2 9Admin Note: [...] 08/22/20 14:01:00 EDT, Route to Pharmacy Electronically, [facility], 152, cm, 06/27/20 11:20:00 [...] 2 Refills, Maintenance, 07/04/20 11:27:00 EST, Solution, [facility] #[id number], 152,... Start Date: 07/04/20 Status: Ordered Lantus 100 u/ml subcutaneous solution = 25 units, Subcutaneous Injection, Daily at bedtime, 5 Refills, Maintenance, 09/17/20 1:17:00 EDT,Partial fill upon patient request if the prescription is for a schedule II opioid drug. Start Date: 09/17/20 Stop Date: 10/17/20 Status: Ordered metFORMIN 500 mg oral tablet 1 tablet = 500 mg, By Mouth, 2 times a day, please take tab twice a day, then increase to 2 tabs twice a day., # 180 tablet, 4 Refills, Maintenance, 07/19/20 10:07:00 EDT, Tablet, [facility] #[id number], Partial fill upon patient request if the p... Start Date: 07/19/20 Status: Ordered metoprolol 25 mg oral tablet, extended release 25 mg, 1, tablet, By Mouth, Daily, # 30 tablet, Refills 5, Tot. Refills 5, Maintenance, 04/10/20 14:03:00 EST, Route to Pharmacy Electronically, [facility] #[id number], 155, cm, 02/13/20 9:01:00EDT, Height, 43.9, kg, 02/11/20 10:34:00 EDT, Dry W... Start Date: 04/10/20 Stop Date: 10/07/20 Status: Ordered multivitamin Therapeutic Multiple Vitamins oral tablet 1 tablet, By Mouth, Daily, # 30 tablet, 0 Refills, Maintenance, 06/26/19 13:45:00 EST, Tablet, [facility] #[id number], 1 tablet By Mouth Daily,x30 days, 153, [...] Active DKA (diabetic ketoacidoses)(Confirmed) Active Diabetic retinopathy, [place], 03/23/19(Confirmed) Active 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
--- OUTSIDE RECORDS SUMMARY | 2022-08-10 10:25 | XMS_ITS | Continuity of Care Document ---
Author Name Unknown Organization [facility] ter Address [address] [place] [address]- Care Team Providers Care College Coach Name Role Phone Diego ELIZABETH, Bala Primary Care Physician [phone] Encounter [facility] Date(s): 12/28/19 - 12/31/[address] [address]- [facility] Encounter Diagnosis Pyelonephritis(Final) - 12/27/19 Discharge Disposition: A-D/C Home Attending Physician: Jeannie Galvan MD, Viri Admitting Physician: Karla Colón MD Referring Physician: Not on Staff, Referring [...] 06/25/19 Not Given Patient Refuses 1Result Comment: [facility]# [id number] 2Result Comment: [facility]#[id number] 3Admin Note: Influenza vaccine 4Admin Note: Influenza [...] 10/19/19 15:33:00 EDT, Route to Pharmacy Electronically, [facility] #[id number], 152, cm, 07/06/19 11:06:00 EST, Height, 43.1, kg, 07/06/19 11:0... Start Date: 10/19/19 Status: Ordered Humalog Kwik Pen 100 units/mL subcutaneous injection See Instructions, 100-149 6 units 150 199 8 units 200 249 10 units 250 -299 12 units 300-349 14 units 350-399 16 units with meals as needed, # 1 each, 1 Refills, Maintenance, 11/29/19 8:00:00 EDT, Solution, [facility], 152, cm... Start Date: 11/29/19 Status: Ordered Insulin LISPRO Inj 0.04 mL = 4 units, Subcutaneous Injection, 2 times a day, PRN Other, GIVE WITH SNACKS UP TO TWICE DAILY, 0 Refills, Maintenance, 12/31/19 11:39:00 EDT, Injection Start Date: 12/31/19 Status: Ordered Lantus Solostar Pen 100 units/mL subcutaneous solution = 35 units, Subcutaneous Injection, Daily at bedtime, # 1 each, 0 Refills, Maintenance, 11/29/19 8:00:00 EDT, Solution, [facility], 152, cm, 11/26/19 23:30:00 EDT, Height, 45.5, kg, 10/29/19 6:43:00 EDT, Dry Weight Start Date: 11/29/19 Status: Ordered levoFLOXacin 500 mg oral tablet 1 tablet = 500 mg, By Mouth, Every 24 hours, for 3 days, # 3 tablet, 0 Refills, Acute 01/03/20 11:23:00 EDT, 12/31/19 11:23:00 EDT, Tablet, [facility] #[id number], 152, cm, 12/31/19 7:23:00 EDT,Height, 47.5, kg, 12/29/19 10:33:00 EDT, Dry Weight Start Date: 12/31/19 Stop Date: 01/03/20 Status: Ordered magnesium oxide 400 mg oral tablet 1 tablet = 400 mg, By Mouth, 3 times a day, # 100 tablet, 3 Refills, Acute 07/05/20 11:27:00 EST, 07/06/19 11:26:00 EST, Tablet, [facility] #[id number], 152, cm, 07/06/19 11:06:00 EST, Height, 43.1, kg, 07/06/19 11:06:00 EST, Dry Weight Start Date: 07/06/19 Stop Date: 07/05/20 Status: Ordered multivitamin Therapeutic Multiple Vitamins oral tablet 1 tablet, By Mouth, Daily, # 30 tablet, 0 Refills, Maintenance, 06/26/19 13:45:00 EST, Tablet, [facility] #[id number], 1 tablet By Mouth Daily,x30 days, 153, [...] Active DKA (diabetic ketoacidoses)(Confirmed) Active Diabetic retinopathy, [place], 03/23/19(Confirmed) Active 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 for Microbiology Reports Name Date Blood Culture 12/28/19 Blood Culture #2 12/28/19 Urine Culture (URINE CULTURE) 12/27/19 Microbiology Reports TEST:Blood Culture, Second Order STATUS:Unauthenticated BODY SITE: SOURCE:Blood COLLECTED DATE/TIME:12/28/19 12:00 PM Blood Culture, Second Order SPECIMEN DESCRIPTION : BLOOD LHAND SPECIAL REQUESTS : NONE CULTURE : NO GROWTH 3 DAYS REPORT STATUS : PRELIMINARY REPORT TEST:Blood Culture STATUS:Unauthenticated BODY SITE: SOURCE:Blood COLLECTED DATE/TIME:12/28/19 11:39 AM Blood Culture SPECIMEN DESCRIPTION : BLOOD RHAND SPECIAL REQUESTS : NONE CULTURE : NO GROWTH 3 DAYS REPORT STATUS : PRELIMINARY REPORT TEST:Urine Culture STATUS:Auth (Verified) BODY SITE: SOURCE:URINE COLLECTED DATE/TIME:12/27/19 9:32 PM Urine Culture SPECIMEN DESCRIPTION : URINE CLEAN CATCH/MIDSTREAM SPECIAL REQUESTS : NONE Reflexed from [id number] CULTURE : Mixed bacterial alma, indicative of urogenital contamination. Includes Group B beta strep. If this patient is , please refer to ACOG guidelines (2002) for appropriate screening and management of colonized women. REPORT STATUS : FINAL 12/28/2019 Radiology Reports * Exam Date Time Procedure Performing Provider Status 12/27/19 10:17 PM Chest 2 Views Frontal and Lat Nora Carias; Auth (Verified) Notes: (Chest 2 Views Frontal and Lat) Reason For Exam: Shortness of Breath, Fever;Other: RESULT: Chest 2 Views Frontal and Lat Chest 2 Views Frontal and Lat Hx of Present Illness: Intermittent midsternal chest pain x 1 week. Denies n v sob fevers.; Reason:Other:; Shortness of Breath, Fever; Clinical Question(s): Pneumonia COMPARISON: 10/28/2019 FINDINGS: LINES AND TUBES: None. LUNGS AND PLEURA: Clear lungs. Normal pulmonary vascularity. No pleural effusion. No pneumothorax. HEART, MEDIASTINUM AND ZBIGNIEW: Heart is normal in size. Normal mediastinal and hilar contour. BONES AND SOFT TISSUES: No acute abnormality. IMPRESSION: No acute abnormality. WSN: [id number] Ordering Physician: Deep Rosenthal Dictated By: Yosef Arriaza DO Dictated Date/Time: 12/27/19 10:22 p Reviewed By: Yosef Arriaza DO Signed By: Yosef Arriaza DO Signed Date/Time: 12/27/19 10:22 pm Transcribed By: TANYA Transcribed Date/Time: 12/27/19 10:22 pm Vital Signs Most recent to oldest [Reference Range]: 1 2 3 Height 152 cm (12/31/19 7:23 AM) 152 cm (12/31/19 12:17 AM) 152 cm (12/30/19 7:36 PM) Weight 47.5 kg (12/29/19 9:07 AM) Oxygen Saturation [94-100 %] 98 % (12/31/19 11:00 AM) 100 % (12/31/19 7:23 AM) 98 % (12/31/19 12:17 AM) Pulse Rate [55-90 bpm] 96 bpm *H* (12/31/19 11:00 AM) 93 bpm *H* (12/31/19 7:23 AM) 88 bpm (12/31/19 12:17 AM) Body Mass Index [18.5-24.99] 20.56 (12/29/19 9:07 AM) Blood Pressure [90-138/55-84 mm Hg] 91/53mm Hg (12/31/19 11:00 AM) 97/58mm Hg (12/31/19 7:23 AM) 100/58mm Hg (12/31/19 12:17 AM) Respiratory Rate [16-30 br/min] 16 br/min (12/31/19 11:00 AM) 18 br/min (12/31/19 7:23 AM) 20 br/min (12/31/19 12:17 AM) Temperature [96.8-100.4 DegF] 98.1 DegF (12/31/19 11:00 AM) 97.9 DegF (12/31/19:23 AM) 97.9 DegF (12/31/19: AM) Liters per Minute 0 L/min (12/27/19 8:46 PM) Mode of Delivery (Oxygen) Room air (12/31/19 11:00 AM) Room air (12/31/19 7:23 AM) Room air (12/31/19 12:17 AM) Blood pressure sites Arm, right (12/31/19 11:00 AM) Arm, right (12/31/19 7:23 AM) Arm, right (12/31/19 12:17 AM) Temperature Route Oral (12/31/19 11:00 AM) Oral (12/31/19 7:23 AM) Oral (12/31/19 12:17 AM) Dry Weight 47.5 kg (12/29/19 9:07 AM) Social History Social History Type Response Smoking Status Never smoker entered on: 01/26/14 Sex
--- OUTSIDE RECORDS SUMMARY | 2022-08-10 10:25 | XMS_ITS | Continuity of Care Document ---
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#[id number] 3Admin Note: Influenza vaccine 4Admin Note: Influenza vaccine 5Admin Note: Influenza vaccine 6Admin Note: VIS GIVEN 7Result Comment: SEE COVID TEAM PROGRESS NOTE 8Result Comment: [facility]# [id number] 9Admin Note: Twinrix # 2 10Admin Note: Twinrix # 1 11Admin Note: VIS GIVEN 12Result Comment: Lot: [id number] Exp: Nov 08 Pt given vaccine info sheet before vaccine administered Medications aspirin 81 mg oral tablet, chewable 81 mg, 1, tablet, By Mouth, Daily, # 30 tablet, Refills 11, Tot. Refills 11, Maintenance, 06/13/21 15:29:00 EST, Route to Pharmacy Electronically, [facility] #[id number], Partial fill upon patient request if the prescription is for a schedule II... Start Date: 06/13/21 Status: Ordered Biktarvy oral tablet 1 tablet, By Mouth, Daily, # 30 tablet, 0 Refills, Maintenance, 11/26/20 16:19:00 EDT, Tablet, [facility], Partial fill upon patient request [...] Dry Weight Start Date: 03/06/21 Status: Ordered famotidine 10 mg oral tablet 1 tablet = 10 mg, By Mouth, 2 times a day, # 60 tablet, 0 Refills, Maintenance, 06/10/22 17:02:00 EST, Tablet, [facility] #[id number], Partial fill upon patient request if the prescription is for a schedule II opioid drug., 153, cm, 06/10/22 16:0... Start Date: 06/10/22 Status: Ordered Freestyle Lite Lancets See Instructions, # 100 each, Maintenance, Use to check blood sugars BID Type 2 DM ICD 10: E11.9, 06/05/22 20:07:00 EST, Supply, 153, cm, 02/23/22 13:39:00 EDT, Height, 45, kg, 10/06/21 14:00:00 EDT,Dry Weight Start Date: 06/05/22 Status: Ordered Freestyle Lite Monitor See Instructions, [...] BID Type 2 DM ICD 10: E11.9, 06/05/22 20:07:00 EST, Supply, 153, cm, 02/23/22 13:39:00 EDT, Height, 45, kg, 10/06/21 14:00:00 EDT,Dry Weight Start Date: 06/05/22 Status: Ordered gabapentin 300 mg oral capsule 1, capsule, By Mouth, Daily at bedtime, # 90 capsule, Refills 3, Tot. Refills 3, Maintenance, 06/10/22 17:06:00 EST, Route to Pharmacy Electronically, [facility] #[id number], 153, cm, 06/10/22 16:01:00 EST, Height, 45, kg, 10/06/21 14:00:00 EDT,... Start Date: 06/10/22 Status: Ordered glucose 4 gm oral tablet, chewable 4 tablet = 16 Gm, Chew, Once, PRN as needed for low blood sugar, may repeat in 15 to 20 minutes if blood sugar still < 60 mg/dL, # 50 tablet, 0 Refills, Soft Stop, 07/08/22 10:53:00 EST, Chew Tablet, [facility] #[id number], Partial fill upon kamilla... Start Date: 07/08/22 Status: Ordered Glucose Gel, Insta Glucose 40% [...] 1 Refills, Maintenance, 06/09/21 10:48:00 EST, Injection, [facility] #[id number], Partial fill upon patient request if theprescription is for a schedule II opioid drug., 152... Start Date: 06/09/21 Stop Date: 08/08/21 Status: Ordered hydrOXYzine hydrochloride 10 mg oral tablet 2 tablet = 20 mg, By Mouth, 4 times a day, PRN for anxiety, # 80 tablet, 0 Refills, Maintenance, 06/05/22 20:07:00 EST, Tablet, [facility] #[id number], Partial fill upon patient request if the prescription is for a schedule II opioid drug., 153,... Start Date: 06/05/22 Status: Ordered Lantus Solostar Pen 100 units/mL subcutaneous solution = 40 units, Subcutaneous Injection, Daily at bedtime, # 15 mL, 2 Refills, Maintenance, 07/01/22 15:58:00 EST, Solution, [facility] #[id number], Partial fill upon patient request if the prescription is for a schedule II opioid drug., 153, cm, 03/0... Start Date: 07/01/22 Status: Ordered metoprolol 25 mg oral tablet 25 mg, 1, tablet, By Mouth, Daily, # 90 tablet, Refills 1, Tot. Refills 1, Maintenance, 06/04/22 13:12:00 EST, Route to Pharmacy Electronically, [facility] #[id number], Partial fill upon patientrequest if the prescription is for a schedule II op... Start Date: 06/04/22 Status: Ordered Pen Vienna, 31 G x 5 mm BD Ultra [...] sites, # 2 mL, 3 Refills, Maintenance, 06/05/22 20:07:00 EST, Solution, [facility] #[id number], Partial fill upon patient... Start Date: 06/05/22 Status: Ordered Vitamin D3 1000 intl units oral capsule 1 capsule = 25 mcg, By Mouth, Daily, # 100 capsule, 3 Refills, Maintenance, 06/20/21 11:15:00 EST, Capsule, [facility] #[id number], Partial fill upon patient request if the [...] DKA (diabetic ketoacidoses) Confirmed Active Diabetic retinopathy, [place], 03/23/19 Confirmed Active Rash Confirmed Active [place] [...] Sick euthyroidism Confirmed Active Tachycardia Confirmed Active Presence of indwelling Mcdonald catheter Confirmed Active UTI (urinary tract infection) Confirmed Active UTI (urinary tract infection) Confirmed Active HCV (hepatitis C virus) Confirmed Active 1primary tumor PT1b, regional nodes pN0 Vital Signs Most recent to oldest [Reference Range]: 1 2 Height 153 cm (07/01/22 2:58 PM) 153 cm (07/01/22 2:48 PM) Weight 48.8 kg (07/01/22 2:48 PM) Oxygen Saturation [94-100 %] 100 % (07/01/22 2:58 PM) 99 % (07/01/22 2:48 PM) Pulse Rate [55-90 bpm] 88 bpm (07/01/22 2:58 PM) 91 bpm *H* (07/01/22 2:48 PM) Body Mass Index [18.5-24.99 kg/m2] 20.85 kg/m2 (07/01/22 2:48 PM) Blood Pressure [90-138/55-84 mm Hg] 157/ 89mm Hg *H* (07/01/22 2:58 PM) 163/86mm Hg *H* (07/01/22 2:48 PM) Temperature [96.8-100.4 DegF] 99.1 DegF (07/01/22 2:48 PM) Mode of Delivery (Oxygen) Room air (07/01/22 2:58 PM) Room air (07/01/22 2:48 PM) Blood pressure sites Arm, right (07/01/22 2:48 PM) Temperature Route Temporal (07/01/22 2:48 PM) Dry Weight 48.8 kg (07/01/22 2:48 PM) Weight Obtained Via Standing scale (07/01/22 2:48 PM) Social History Social History Type Response Smoking Status Never (less than 100 in lifetime) entered on: 06/06/21 Sex Note * Jacinta Thomas: PERFORM, SIGN, VERIFY Event Display: Patient Education/Instruction Authored Date: [id number] [facility] Clinical Summary Name VINCENZO DUGAN Age 51 Years 1970 PCP Isra ELIZABETH, Toyin PCP Visit Date 07/01/2022 14:39:00 Patient Instructions blood work with fasting 8 hours new medication amlodipine 5mg Decrease salt intake follow up in 1 week Additional Instructions: Scheduled Appointments?? Future Appointments ?*[facility]Preop ?[address],??[place],??[address] ?Phone:??--?Fax:??-- ?Appt. Date:??07/08/2022?10:30 AM ?Scheduled Provider:??Vinnie GARNER, Rachel Jeffery Follow-Up Instructions ?? Diagnosis Medications: Please continue your medications until treatment is completed or stopped by your provider. Discuss any questions related to medications with your provider. Medications to Continue with No Changes These medications were not printed or sent to your pharmacy Aspirin (aspirin 81 mg oral tablet, chewable) 1 tab(s) Oral Daily. Refills: 11. Next Dose: bictegravir/emtricitabine/tenofovir (Biktarvy oral tablet) 1 tab(s) Oral Daily. Refills: 0. Next Dose: Cholecalciferol (Vitamin D3 1000 intl units oral capsule) 1 capsule Oral Daily. Refills: 3. Next Dose: dulaglutide (Trulicity Pen 0.75 mg/0.5 mL subcutaneous solution) 0.5 Milliliter Subcutaneous Injection every week. call office in one month so i can increase your dose. rotate injection sites. Refills: 3. Next Dose: Durable Medical Equipment (Blood Pressure Monitor) measure bp daily. Refills: 0. Next Dose: Durable Medical Equipment (Freestyle Lite Lancets) Use to check blood sugars BID Type 2 DM ICD 10: E11.9. Refills: 0. Next Dose: Durable Medical Equipment (Freestyle Lite Monitor) Use to check blood sugars BID Type 2 DM ICD 10: E11.9. Refills: 0. Next Dose: Durable Medical Equipment (Freestyle Lite Monitor) use as directed for Type 2 Diabetes Mellitus. Refills: 0. Next Dose: Durable Medical Equipment (Freestyle Lite Test Strips) Use to check blood sugars BID Type 2 DM ICD 10: E11.9. Refills: 0. Next Dose: Durable Medical Equipment (Glucose Gel, Insta Glucose 40%) use as directed for Type 1 Diabetes Mellitus. Refills: 5. Next Dose: Durable Medical Equipment (Pen Vienna, 31 G x 5 mm Firm58 Ultra Fine III) Use to administer trulicity and insulin. Refills: 0. Next Dose: Durable Medical Equipment (Rollator Walker) to be used while ambulating HT:152cm WT:44.0kg DX:R26.81. Refills: 0. Next Dose: Famotidine (famotidine 10 mg oral tablet) 1 tab(s) Oral twice a day. Refills: 0. Next Dose: Gabapentin (gabapentin 300 mg oral capsule) 1 capsule Oral Daily at Bedtime. Refills: 3. Next Dose: HydrOXYzine (hydrOXYzine hydrochloride 10 mg oral tablet) 2 tab(s) Oral 4 times a day as needed foranxiety. Refills: 0. Next Dose: Insulin Glargine (insulin glargine 100 u/ml subcutaneous solution) 40 Subcutaneous Injection Daily at Bedtime. Refills: 1. Next Dose: Insulin Lispro (Humalog Kwik Pen 100 units/mL subcutaneous injection) 5-15units Subcutaneous Injection 3 times a day before meals for 30 Days. Refills: 1. Next Dose: Magnesium Oxide Oral twice a day. Next Dose: Magnesium Oxide (magnesium oxide 400 mg oral tablet) 1 tab(s) Oral Daily. Refills: 0. Next Dose: Metoprolol (metoprolol 25 mg oral tablet) 1 tab(s) Oral Daily. Refills: 1. Next Dose: Allergy Info:?? No Known Medication Allergies; NKA Medications Given This Visit Future Orders ?No future orders Vital Signs Height 153 cm Weight 48.8 kg BMI 20.85 kg/m2 Blood Pressure 157 mm Hg/89 mm Hg Temperature 99.1 DegF Pulse Rate 88 bpm Respiratory Rate 02 Sat Mode of Delivery 100 %/Room air You can now view a summary of your hospital visit from the comfort of your home through a free online portal called [employer]. [employer] is a website that allows you to securely view your medical information including discharge summary, medications and follow-up visits. ??You can alsosend a secure electronic message to your doctor???s office to request appointments, renew medications or just ask a question. You can enroll at [email or web address] or register during your next office visit. Disclaimer:?? The information provided is of a general nature and is intended to be used in conjunction with the recommendations and advice of your health care practitioner. ??Every effort has been made to ensure that the information provided is accurate and complete at the time it is provided to you however, as your needs change, or, as new ??information becomes available, different or additional instructions may be required. If you have questions, please consult with your primary care provider or pharmacist, as appropriate. ??This information is not intended to serve as substitution for assessment and evaluation by a qualified health care provider. If you do not have a primary care provider, you may find a [facility] provider by calling [facility] [employer] Link at [phone]. For information about the plan of care including goals and instructions for your diagnosis, please see the patient education orders section of this document. Patient Education Materials?? The content of this educational material or handout may have been modified, supplemented, or adapted from its original content and format to support your individualized medical care. Patient Care team information Care Team Personnel Name: Elsi Dumont RN Position: S RN Member Role: Primary Care Nurse Name: Yusuf Bhardwaj RN Position: S RN Member Role: Primary Care Nurse Name: Nora Mercado RN Position: [facility] SN RN Member Role: Primary Care Nurse Name: Mitch Mena MD Position: [facility] Renal MD Member Role: Lifetime Consulting Physician Address: Address: [address] [place] [address], [address] [place] [address]- [place] Name: Lacho Chaves RN Position: [facility] ED RN W/OE and Tasks Member Role: Primary Care Nurse Name: Lily Tyler RN Position: [facility] RN Member Role: Primary Care Nurse Name: Ashley Sosa RN Position: [facility] PCO RN Member Role: Primary Care Nurse Name: Elba Enrique RN Position: [facility] AMB Nurse Member Role: Primary Care Nurse Name: Jacinta Huitron RN Position: [facility] RN Member Role: Primary Care Nurse Name: Linda Christianson NP Position: [facility] Associate Professional Member Role: Primary Care Nurse Address: Address: [address] [place] [address]- Name: Eleni Stewart Position: [facility] Outreach Member Role: Lifetime Consulting Physician Name: Nora Stewart RN Position: [facility] RN Member Role: Primary Care Nurse Name: Nesha Major RN Position: [facility] RN Member Role: Primary Care Nurse Name: Christiano Costa RN Position: [facility] RN Member Role: Primary Care Nurse Name: Sakina Ward RN Position: [facility] RN Member Role: Primary Care Nurse Name: Carsia Keyes RN Position: [facility] RN Member Role: Primary Care Nurse Name: Yanet Grimaldo RN Position: [facility] OB RN Member Role: Primary Care Nurse Name: Arielle Rhodes RN Position: [facility] RN Member Role: Primary Care Nurse Name: Iris Muniz RN Position: [facility] RN Member Role: Primary Care Nurse Name: nAna Yang RN Position: [facility] RN Member Role: Primary Care Nurse Name: Carlene Najera Position: [facility] RN Member Role: Primary Care Nurse Name: Yasemin Ordoñez NP Position: [facility] PCO Associate Professional Member Role: Primary Care Nurse Address: Address: [address] [place] [address]- Name: Cher Maxwell RN Position: [facility] HBO Wound Member Role: Primary Care Nurse Name: Noemi Corbett RN Position: [facility] RN Member Role: Primary Care Nurse Name: Nora Silva RN Position: [facility] RN Member Role: Primary Care Nurse Name: Tracy Sharp RN Position: [facility] RN Member Role: Primary Care Nurse Name: Anamaria Andrade RN Position: [facility] SN RN Member Role: Primary Care Nurse Name: cSottie Shook RN Position: [facility] ED RN W/OE and Tasks Member Role: Primary Care Nurse Name: Stew Calvillo RN Position: [facility] RN Member Role: Primary Care Nurse Name: Kehinde Kern DO Position: [facility] Renal MD Member Role: Lifetime Consulting Physician Address: Address: [address] [facility] [place] [address]- [place] Name: Jose Hunter RN Position: [facility] RN Member Role: Primary Care Nurse Name: Lily Leyva RN Position: [facility] RN Member Role: Primary Care Nurse Name: Carson New III, RN Position: [facility] RN Member Role: Primary Care Nurse Name: Carlie Arzate RN Position: [facility] Cosmetics Machine Operator Member Role: Primary Care Nurse Name: Margaret Snyder RN Position: [facility] Cosmetics Machine Operator Member Role: Primary Care Nurse Name: Noah Schuster RN Position: [facility] SN RN Member Role: Primary Care Nurse Name: Tracie Haney RN Position: [facility] RN Member Role: Primary Care Nurse Name: Mayra Covarrubias RN Position: [facility] RN Member Role: Primary Care Nurse Name: Steph Pagan RN Position: [facility] RN Member Role: Primary Care Nurse Name: Manohar Wallace RN Position: [facility] RN Member Role: Primary Care Nurse Name: Karen Dewey RN Position: [facility] RN Member Role: Primary Care Nurse Name: Lisset Díaz RN Position: [facility] RN Member Role: Primary Care Nurse Name: Phyllis Jones RN Position: [facility] PCO RN Member Role: Primary Care Nurse Name: Manuel Kirkpatrick MD Position: [facility] Renal MD Member Role: Lifetime Consulting Physician Address: Address: [address] [facility] [place] [address]- [place] Name: Vidhya Quan RN Position: [facility] RN Member Role: Primary Care Nurse Name: Jessi Giraldo RN Position: [facility] RN Member Role: Primary Care Nurse Name: Aaliyah Prakash RN Position: [facility] Hospital Cosmetics Machine Operator Member Role: Primary Care Nurse Name: Toyin Dhaliwal MD Position: [facility] Primary Care Physician Member Role: PCP Address: Address: [address] [place] [address] [facility] [place] [address]- [place] Name: Bonny Iniguez RN Position: [facility] RN Member Role: Primary Care Nurse Name: Mercedes Borjas RN Position: [facility] RN Member Role: Primary Care Nurse Name: Lamont Mantilla RN Position: [facility] RN Member Role: Primary Care Nurse Name: Aries Orozco MD Position: [facility] Renal MD Member Role: Lifetime Consulting Physician Address: Address: [address] [place] [address] [facility] [place] [place] [address]- Name: Dedrick Brown RN Position: [facility] ED RN W/OE and Tasks Member Role: Primary Care Nurse Name: Marzena Razo RN Position: [facility] RN Member Role: Primary Care Nurse Name: Fariba Mancilla RN Position: [facility] RN Member Role: Primary Care Nurse Name: Mia Jones RN Position: [facility] SN RN Member Role: Primary Care Nurse Name: David Jean RN Position: [facility] SN RN Member Role: Primary Care Nurse Care Team Related Persons Name: DAKOTAH BAKER Address: home [address] [place] [address] Name: EDWARDO DAKOTAH Address: home [address] [place] [address] Name: LANDEN TRAN Address: [address] [place] [address] Name: SHRUTI BHAGAT Address: [place] [address]
--- OUTSIDE RECORDS SUMMARY | 2022-08-10 10:25 | XMS_ITS | Continuity of Care Document ---
Author Name Unknown Organization [facility] Address [address] [place] [address]- Care Team Providers Care Cable Rigger Name Role Phone Isra ELIZABETH, Toyin Primary Care Physician [facility]): [facility] - 07/31/22 [facility] [address] [place], [place] [address] Attending Physician: Loly Sow Admitting Physician: AdmLoly du Referring Physician: AdmtrLoly Allergies, Adverse Reactions, Alerts No Known Allergies [...] Comment: [facility]#[id number] 3Admin Note: Influenza vaccine 4Admin Note: Influenza vaccine 5Admin Note: Influenza vaccine 6Admin Note: VIS GIVEN 7Result Comment: SEE COVID TEAM PROGRESS NOTE 8Result Comment: [facility]# [id number] 9Admin Note: Twinrix # 2 10Admin Note: Twinrix # 1 11Admin Note: VIS GIVEN 12Result Comment: Lot: [id number] Exp: Nov 08 Pt given vaccine info sheet before vaccine administered Medications aspirin 81 mg oral tablet, chewable 81 mg, 1, tablet, By Mouth, Daily, # 30 tablet, Refills 11, Tot. Refills 11, Maintenance, 06/13/21 15:29:00 EST, Route to Pharmacy Electronically, [facility] #[id number], Partial fill upon patient request if the prescription is for a schedule II... Start Date: 06/13/21 Status: Ordered Biktarvy oral tablet 1 tablet, By Mouth, Daily, # 30 tablet, 0 Refills, Maintenance, 11/26/20 16:19:00 EDT, Tablet, [facility], Partial fill upon patient request [...] 0 Refills, Maintenance, 06/10/22 17:02:00 EST, Tablet, [facility] #[id number], Partial fill upon patient request if the [...] 06/10/22 17:06:00 EST, Route to Pharmacy Electronically, [facility] #[id number], 153, cm, 06/10/22 16:01:00 EST, Height, 45, kg, 10/06/21 14:00:00 EDT,... Start Date: 06/10/22 Status: Ordered glucose 4 gm oral tablet, chewable 4 tablet = 16 Gm, Chew, Once, PRN as needed for low blood sugar, may repeat in 15 to 20 minutes if blood sugar still < 60 mg/dL, # 50 tablet, 0 Refills, Soft Stop, 07/08/22 10:53:00 EST, Chew Tablet, [facility] #[id number], Partial fill upon kamilla... Start Date: 07/08/22 Status: Ordered Glucose Gel, Insta Glucose 40% See Instructions, # 2 each, Refills 5, Tot. Refills 5, Maintenance, use as directed for Type 1 Diabetes Mellitus, 06/13/21 15:27:00 EST, Supply, 152, cm, 06/09/21 14:52:00 EST, Height, 42.8, kg, 06/07/21 16:40:00 EST, Dry Weight Start Date: 06/13/21 Stop Date: 12/10/21 Status: Ordered hydrOXYzine hydrochloride 10 mg oral tablet 2 tablet = 20 mg, By Mouth, 4 times a day, PRN for anxiety, # 80 tablet, 0 Refills, Maintenance, 06/05/22 20:07:00 EST, Tablet, [facility] #[id number], Partial fill upon patient request if the prescription is for a schedule II opioid drug., 153,... Start Date: 06/05/22 Status: Ordered Insulin Lispro KwikPen 100 units/mL injectable solution See Instructions, INJECT 5 TO 15 UNITS SUBCUTANEOUSLY DIRECTED THREE TIMES DAILY BEFORE MEALS, #15 mL, 0 Refills, Maintenance, 07/30/22 13:38:00 EDT, [facility] #[id number], 153, cm, 07/08/22 10:35:00 EST, Height, 48.8, kg, 07/01/22 14:48:00... Start Date: 07/30/22 Status: Ordered Lantus Solostar Pen 100 units/mL subcutaneous solution = 40 units, Subcutaneous Injection, Daily at bedtime, # 15 mL, 2 Refills, Maintenance, 07/01/22 15:58:00 EST, Solution, [facility] #[id number], Partial fill upon patient request if the prescription is for a schedule II opioid drug., 153, cm, 03/0... Start Date: 07/01/22 Status: Ordered metoprolol 25 mg oral tablet 25 mg, 1, tablet, By Mouth, Daily, # 90 tablet, Refills 1, Tot. Refills 1, Maintenance, 06/04/22 13:12:00 EST, Route to Pharmacy Electronically, [facility] #[id number], Partial fill upon patientrequest if the prescription is for a schedule II op... Start Date: 06/04/22 Status: Ordered Pen [place], 31 G x 5 mm BD Ultra [...] 3 Refills, Maintenance, 06/05/22 20:07:00 EST, Solution, [facility] #[id number], Partial fill upon patient... Start Date: 06/05/22 Status: Ordered Vitamin D3 1000 intl units oral capsule 1 capsule = 25 mcg, By Mouth, Daily, # 100 capsule, 3 Refills, Maintenance, 06/20/21 11:15:00 EST, Capsule, [facility] #[id number], Partial fill upon patient request if the [...] DKA (diabetic ketoacidoses) Confirmed Active Diabetic retinopathy, [place], 03/23/19 Confirmed Active Rash Confirmed Active Gitelman [...] Team Personnel Name: Elsi Dumont RN Position: [facility] RN Member Role: Primary Care Nurse Name: Yusuf Bhardwaj RN Position: [facility] RN Member Role: Primary Care Nurse Name: Nora Mercado RN Position: [facility] SN RN Member Role: Primary Care Nurse Name: Mitch Mena MD Position: [facility] Renal MD Member Role: Lifetime Consulting Physician Address: Address: [address] [place] [address], [address] [place] [address]- Name: Lacho Chaves RN Position: [facility] ED RN W/OE and Tasks Member Role: Primary Care Nurse Name: Lily Tyler RN Position: [facility] RN Member Role: Primary Care Nurse Name: Ashley Sosa RN Position: [facility] PCO RN Member Role: Primary Care Nurse Name: Elba Enrique RN Position: [facility] AMB Nurse Member Role: Primary Care Nurse Name: Jacinta Huitron RN Position: [facility] RN Member Role: Primary Care Nurse Name: Linda Christianson NP Position: [facility] Associate Professional Member Role: Primary Care Nurse Address: Address: [address] [place] [address]- [place] Name: Eleni Stewart Position: [facility] Outreach Member Role: Lifetime Consulting Physician Name: Nora Stewart RN Position: [facility] RN Member Role: Primary Care Nurse Name: Nesha Major RN Position: [facility] RN Member Role: Primary Care Nurse Name: Christiano Costa RN Position: [facility] RN Member Role: Primary Care Nurse Name: Sakina Ward RN Position: [facility] RN Member Role: Primary Care Nurse Name: Carisa Keyes RN Position: [facility] RN Member Role: Primary Care Nurse Name: Yanet Grimaldo RN Position: [facility] OB RN Member Role: Primary Care Nurse Name: Arielle Rhodes RN Position: [facility] RN Member Role: Primary Care Nurse Name: Iris Muniz RN Position: [facility] RN Member Role: Primary Care Nurse Name: Anna Yang RN Position: [facility] RN Member Role: Primary Care Nurse Name: Carlene Najera Position: [facility] RN Member Role: Primary Care Nurse Name: Yasemin Ordoñez NP Position: [facility] PCO Associate Professional Member Role: Primary Care Nurse Address: Address: [address] [place] [address]- [place] Name: Cher Maxwell RN Position: [facility] HBO Wound Member Role: Primary Care Nurse Name: Noemi Corbett RN Position: [facility] RN Member Role: Primary Care Nurse Name: Nora Silva RN Position: [facility] RN Member Role: Primary Care Nurse Name: Tracy Sharp RN Position: [facility] RN Member Role: Primary Care Nurse Name: Anamaria Andrade RN Position: [facility] SN RN Member Role: Primary Care Nurse Name: Scottie Shook RN Position: [facility] ADRYAN RN W/OE and Tasks Member Role: Primary Care Nurse Name: Stew Calvlilo RN Position: [facility] RN Member Role: Primary Care Nurse Name: Kehinde Kern DO Position: [facility] Renal MD Member Role: Lifetime Consulting Physician Address: Address: [address] [facility] [place] [place] [address]- [place] Name: Jose Hunter RN Position: [facility] RN Member Role: Primary Care Nurse Name: Lily Leyva RN Position: [facility] RN Member Role: Primary Care Nurse Name: Carson New III, RN Position: [facility] RN Member Role: Primary Care Nurse Name: Carlie Arzate RN Position: [facility] Child Welfare Caseworker Member Role: Primary Care Nurse Name: Margaret Snyder RN Position: [facility] Child Welfare Caseworker Member Role: Primary Care Nurse Name: Noah Schuster RN Position: [facility] SN RN Member Role: Primary Care Nurse Name: Tracie Haney RN Position: [facility] RN Member Role: Primary Care Nurse Name: Mayra Covarrubias RN Position: [facility] RN Member Role: Primary Care Nurse Name: Steph Pagan RN Position: [facility] RN Member Role: Primary Care Nurse Name: Manohar Wallace RN Position: [facility] RN Member Role: Primary Care Nurse Name: Karen Dewey RN Position: [facility] RN Member Role: Primary Care Nurse Name: Lisset Díaz RN Position: [facility] RN Member Role: Primary Care Nurse Name: Phyllis Jones RN Position: [facility] PCO RN Member Role: Primary Care Nurse Name: Manuel Kirkpatrick MD Position: [facility] Renal MD Member Role: Lifetime Consulting Physician Address: Address: [address] [place] [address] [address] [facility] [place] [address]- Name: Vidhya Quan RN Position: [facility] RN Member Role: Primary Care Nurse Name: Jessi Giraldo RN Position: [facility] RN Member Role: Primary Care Nurse Name: Aaliyah Prakash RN Position: [facility] Child Welfare Caseworker Member Role: Primary Care Nurse Name: Toyin Dhaliwal MD Position: [facility] Primary Care Physician Member Role: PCP Address: Address: [address] [place] [address] [facility] [place] [address]- [place] Name: Sushma Martinez RN Position: [facility] RN Member Role: Primary Care Nurse Name: Bonny Iniguez RN Position: [facility] RN Member Role: Primary Care Nurse Name: Mercedes Borjas RN Position: [facility] RN Member Role: Primary Care Nurse Name: Lamont Mantilla RN Position: [facility] RN Member Role: Primary Care Nurse Name: Aries Orozco MD Position: [facility] Renal MD Member Role: Lifetime Consulting Physician Address: Address: [address] [place] [address] [facility] [address] Name: Dedrick Brown RN Position: [facility] ED RN W/OE and Tasks Member Role: Primary Care Nurse Name: Marzena Razo RN Position: [facility] RN Member Role: Primary Care Nurse Name: Fariba Mancilla RN Position: [facility] RN Member Role: Primary Care Nurse Name: Mia Jones RN Position: [facility] SN RN Member Role: Primary Care Nurse Name: Ted RNDavid Position: [facility] SN RN Member Role: Primary Care Nurse Care Team Related Persons Name: DAKOTAH BAKER Address: home [address] [place] [address] Name: MARTINEZ DAKOTAH Address: home [address] [place] [address] Name: LANDEN TRAN Address: home [address] [place] [address] Name: SHRUTI BHAGAT Address: [place] [address]
--- OUTSIDE RECORDS SUMMARY | 2022-08-10 10:25 | XMS_ITS | Continuity of Care Document ---
Author Name Unknown Organization [facility] Address [address] [place] [address]- Care Team Providers Care Parakeet Raiser Name Role Phone Bala Cortez MD Primary Care Physician [facility] 04/19/19 - 06/30/19 [facility] [address] [place] [address]- [facility] Attending Physician: Bala Cortez MD Allergies, Adverse [...] Given Tet/Diphth/Acel, Pertussis (oldterm) 8 02/14/08 Gi damine Pneumococcal Vaccine (oldterm) 9 10/31/07 Given Not Given Vaccine Date Status Refusal Reason influenza virus vaccine, inactivated 04/09/17 Not Given Patient Refuses 1Result Comment: [facility]#[id number] 2Admin Note: Influenza vaccine 3Admin Note: Influenza [...] EST, Tablet Start Date: 06/15/19 Status: Ordered Humalog Kwik Pen 100 units/mL subcutaneous injection See Instructions, If BG <150 use 6u Increase by 2u per BG increase of 50, # 10 mL, 2 Refills, Maintenance, 06/17/19 10:52:00 EST, [facility], 152, cm, 06/17/19 7:41:00 EST, Height, 41.3, kg, 06/15/19 17:42:00 EST, Dry Weight Start Date: 06/17/19 Status: Ordered Lantus Solostar Pen 100 units/mL subcutaneous solution = 45 units, Subcutaneous Injection, Daily at bedtime, # 15 mL, 2 Refills, Maintenance, 06/17/19 10:53:00 EST, Solution, [facility], 152, cm, 06/17/19 7:41:00 EST, Height, 41.3, kg, 06/15/19 17:42:00 EST, Dry Weight Start Date: 06/17/19 Status: Ordered magnesium oxide 400 mg oral tablet 1 tablet = 400 mg, By Mouth, 3 times a day, 0 Refills, Maintenance, 02/19/19 22:57:28 EDT Start Date: 02/19/19 Status: Ordered Pen [place], 31 G x 5 mm BD Ultra [...] Active DKA (diabetic ketoacidoses)(Confirmed) Active Diabetic retinopathy, [place], 03/23/19(Confirmed) Active 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
--- OUTSIDE RECORDS SUMMARY | 2022-08-10 10:25 | XMS_ITS | Continuity of Care Document ---
Author Name Unknown Organization [facility] Address [address] [place] [address]- Care Team Providers Care Institutional Asset Manager Name Role Phone Diego ELIZABETH, Bala Primary Care Physician [phone] [facility] Date[facility]s): 06/20/20 - 06/27/[address] [address] Discharge Disposition: A-D/C Home Attending Physician: Chloé Mesa MD Admitting Physician: Joaquin Tse DO Referring Physician: Not on Staff, Referring [...] Reason: Med Not Available 2Result Comment: [facility]#[id number] 3Admin Note: Influenza vaccine 4Admin Note: Influenza vaccine 5Admin Note: Influenza vaccine 6Admin Note: VIS GIVEN 7Result Comment: [facility]# [id number] 8Admin Note: Twinrix # 2 9Admin Note: Twinrix # 1 10Admin Note: VIS GIVEN 11Result Comment: Lot: [id number] Exp: Nov 08 Pt given vaccine info sheet before vaccine administered Medications Biktarvy oral tablet 1 tablet, By Mouth, Daily, # 30 tablet, 0 Refills, Maintenance, 06/15/19 12:30:00 EST, Tablet Start Date: 06/15/19 Status: Ordered cefpodoxime 200 mg oral tablet 1 tablet = 200 mg, By Mouth, Every 12 hours, for 8 days, # 16 tablet, 0 Refills, Acute 07/05/20 9:35:00 EST, 06/27/20 9:35:00 EST, Tablet, [facility], Partial fill upon patient request if the prescription is for a schedule II opioid drug... Start Date: 06/27/20 Stop Date: 07/05/20 Status: Ordered gabapentin 300 mg oral capsule 300 mg, 1, capsule, By Mouth, Daily at bedtime, # 30 capsule, Refills 2, Tot. Refills 2, Maintenance, 03/05/20 17:29:00 EST, Route to Pharmacy Electronically, [facility] #[id number], 155, cm, 02/13/20 9:01:00 EDT, Height, 43.9, kg, 02/11/20 10:34... Start Date: 03/05/20 Status: Ordered Humalog Kwik Pen 100 units/mL subcutaneous injection See Instructions, 100-149 6 units 150 199 8 units 200 249 10 units 250 -299 12 units 300-349 14 units 350-399 16 units with meals as needed, # 10 mL, 2 Refills, Maintenance, 06/27/20 10:36:00 EST, Solution, [facility] #[id number], 152,... Start Date: 06/27/20 Status: Ordered LAB Draw LAB Draw, See Instructions, # 1 each, Refills 0, Tot. Refills 0, Maintenance, BASIC METABOLIC Panelto be checked before 07/08/[address] Bala Cortez, 06/27/20 9:36:00 EST, Supply Start Date: 06/27/20 Status: Ordered Lantus Solostar Pen 100 units/mL subcutaneous solution = 25 units, Subcutaneous Injection, Daily at bedtime, # 12 mL, 2 Refills, Maintenance, 03/05/20 17:29:00 EST, Solution, [facility] #[id number], 155, cm, 02/13/20 9:01:00 EDT, Height, 43.9, kg, 02/11/20 10:34:00 EDT, Dry Weight Start Date: 03/05/20 Status: Ordered magnesium oxide 400 mg oral tablet 1 tablet = 400 mg, By Mouth, 3 times a day, # 100 tablet, 3 Refills, Acute 07/05/20 11:27:00 EST, 07/06/19 11:26:00 EST, Tablet, [facility] #[id number], 152, cm, 07/06/19 11:06:00 EST, Height, 43.1, kg, 07/06/19 11:06:00 EST, Dry Weight Start Date: 07/06/19 Stop Date: 07/05/20 Status: Ordered metoprolol 25 mg oral tablet, extended release 25 mg, XL Tablet, By Mouth, 06/27/20 9:00:00 EST Start Date: 06/27/20 Stop Date: 06/27/20 Status: Completed metoprolol 25 mg oral tablet, extended release 25 mg, 1, tablet, By Mouth, Daily, # 30 tablet, Refills 5, Tot. Refills 5, Maintenance, 04/10/20 14:03:00 EST, Route to Pharmacy Electronically, [facility] #[id number], 155, cm, 02/13/20 9:01:00EDT, Height, 43.9, kg, 02/11/20 10:34:00 EDT, Dry W... 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 for Microbiology Reports Name Date Urine Culture 06/25/20 Urine Culture (URINE CULTURE) 06/20/20 Blood Culture 06/20/20 Blood Culture #2 06/20/20 Microbiology Reports TEST:Urine Culture STATUS:Auth (Verified) BODY SITE: SOURCE:URINE COLLECTED DATE/TIME:06/25/20 2:27 PM Urine Culture SPECIMEN DESCRIPTION : URINE CLEAN CATCH/MIDSTREAM SPECIAL REQUESTS : NONE CULTURE : <10,000 COL/ML REPORT STATUS : FINAL 06/26/2020 TEST:Urine Culture STATUS:Auth (Verified) BODY SITE: SOURCE:URINE COLLECTED DATE/TIME:06/20/20 7:55 PM Urine Culture SPECIMEN DESCRIPTION : URINE SPECIAL REQUESTS : NONE CULTURE : Mixed bacterial alma, indicative of urogenital contamination. Includes Group B beta strep. If this patient is , please refer to ACOG guidelines (2002) for appropriate screening and management of colonized women. REPORT STATUS : FINAL 06/22/2020 TEST:Blood Culture, Second Order STATUS:Auth (Verified) BODY SITE: SOURCE:Blood COLLECTED DATE/TIME:06/20/20 5:55 PM Blood Culture, Second Order SPECIMEN DESCRIPTION : BLOOD NONE SPECIAL REQUESTS : NONE CULTURE : NO GROWTH 5 DAYS. REPORT STATUS : FINAL 06/25/2020 TEST:Blood Culture STATUS:Auth (Verified) BODY SITE: SOURCE:Blood COLLECTED DATE/TIME:06/20/20 5:50 PM Blood Culture SPECIMEN DESCRIPTION : BLOOD NONE SPECIAL REQUESTS : NONE CULTURE : NO GROWTH 5 DAYS. REPORT STATUS : FINAL 06/25/2020 Vital Signs Most recent to oldest [Reference Range]: 1 2 3 Height 152 cm (06/27/20 11:20 AM) 152 cm (06/27/20 4:46 AM) 152 cm (06/26/20 11:17 PM) Weight 47 kg (06/21/20 1:49 PM) Oxygen Saturation [94-100 %] 100 % (06/27/20 11:20 AM) 100 % (06/27/20 4:46 AM) 98 % (06/26/20 11:17 PM) Pulse Rate [55-90 bpm] 76 bpm (06/27/20 11:20 AM) 88 bpm (06/27/20 9:29 AM) 75 bpm (06/27/20 4:46 AM) Body Mass Index [18.5-24.99] 20.34 (06/21/20 1:49 PM) Blood Pressure [90-138/55-84 mm Hg] 139/70mm Hg *H* (06/27/20 11:20 AM) 128/86mm Hg (06/27/20 9:29 AM) 123/76mm Hg (06/27/20 4:46 AM) Respiratory Rate [16-30 br/min] 17 br/min (06/27/20 11:20 AM) 19 br/min (06/27/20 4:46 AM) 19 br/min (06/26/20 11:17 PM) Temperature [96.8-100.4 DegF] 97.5 DegF (06/27/20 11:20 AM) 97.8 DegF (06/27/20 4:46 AM) 97.9 DegF (06/26/20 11:17 PM) Mode of Delivery (Oxygen) Room air (06/27/20 11:20 AM) Room air (06/27/20 4:46 AM) Room air (06/26/20 11:17 PM) Blood pressure sites Arm, right (06/27/20 11:20 AM) Arm, right (06/27/20 4:46 AM) Arm, right (06/26/20 11:17 PM) Temperature Route Oral (06/27/20 11:20 AM) Oral (06/27/20 4:46 AM) Oral (06/26/20 11:17 PM) Dry Weight 47 kg (06/21/20 1:49 PM) Social History Social History Type Response Smoking Status Never smoker entered on: 01/26/14 Sex
--- OUTSIDE RECORDS SUMMARY | 2022-08-10 10:25 | XMS_ITS | Continuity of Care Document ---
Author Name Unknown Organization [facility] Address [address] [place] [address]- Care Team Providers Care Marker Delivery Name Role Phone Isra ELIZABETH, Toyin Primary Care Physician [phone] Encounter [facility] Date(s): 03/17/21 - 03/24/21 [facility] [address] [place], [place] [address] Encounter Diagnosis Dizziness(Discharge Diagnosis) - 03/17/21 Headache(Discharge Diagnosis) - 03/17/21 Rash(Discharge Diagnosis) - 03/17/21 Dysuria(Discharge Diagnosis) - 03/17/21 Attending Physician: Sue 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, [place] Allergies, Adverse Reactions, Alerts No Known Medication [...] Reason: Med Not Available 2Result Comment: [facility]#[id number] 3Admin Note: Influenza vaccine 4Admin Note: Influenza vaccine 5Admin Note: Influenza vaccine 6Admin Note: VIS GIVEN 7Result Comment: SEE COVID TEAM PROGRESS NOTE 8Result Comment: [facility]# [id number] 9Admin Note: Twinrix # 2 10Admin Note: Twinrix # 1 11Admin Note: VIS GIVEN 12Result Comment: Lot: [id number] Exp: Nov 08 Pt given vaccine info sheet before vaccine administered Medications Biktarvy oral tablet 1 tablet, By Mouth, Daily, # 30 tablet, 0 Refills, Maintenance, 11/26/20 16:19:00 EDT, Tablet, [facility], Partial fill upon patient [...] 11/29/20 12:03:00 EDT, Route to Pharmacy Electronically, [facility] #[id number], 153, cm, 11/26/20 13:06:00 EDT, Height, 46, kg, 11/24/20 3:02:00 EDT, D... Start Date: 11/29/20 Status: Ordered Humalog Kwik Pen 100 units/mL subcutaneous injection 2 - 10 units, Subcutaneous Injection, 3 times a day before meals, # 15 mL, 0 Refills, Maintenance, 01/20/21 15:21:00 EDT, Injection, [facility] #[id number], Partial fill upon patient request if the prescription is for a schedule II opioid drug.,... Start Date: 01/20/21 Stop Date: 02/19/21 Status: Ordered Lantus Solostar Pen 100 units/mL subcutaneous solution = 35 units, Subcutaneous Injection, Daily in AM, for 30 days, # 10 mL, 3 Refills, Physician Stop 03/26/21 16:19:00 EST, 11/26/20 16:19:00 EDT, [facility], 153, cm, 11/26/20 13:06:00 [...] 3 Refills, Maintenance, 11/14/20 10:44:00 EDT, Solution, [facility] #[id number], Partial fill upon patient... Start Date: 11/14/20 [...] Active DKA (diabetic ketoacidoses)(Confirmed) Active Diabetic retinopathy, [place], 03/23/19(Confirmed) Active Rash(Confirmed) Active Gitelman syndrome(Confirmed) Active [...] Diagnosis Diagnosis Type Effective Dates Health Status Clini bertha Service Informant Dizziness Discharge Diagnosis 03/17/21 Headache Discharge Diagnosis 03/17/21 Rash Discharge Diagnosis 03/17/21 Dysuria Discharge Diagnosis 03/17/21 Vital Signs Most recent to oldest [Reference Range]: 1 2 Height 150 cm (03/17/21 1:31 PM) 150 cm (03/17/21 1:11 PM) Weight 42.1 kg (03/17/21 1:11 PM) Oxygen Saturation [94-100 %] 96 % (03/17/21 1:11 PM) Pulse Rate [55-90 bpm] 100 bpm *H* (03/17/21 1:11 PM) Body Mass Index [18.5-24.99] 18.71 (03/17/21 1:11 PM) Blood Pressure [90-138/55-84 mm Hg] 122/ 70mm Hg (03/17/21 1:31 PM) 148/85mm Hg *H* (03/17/21 1:11 PM) Temperature [96.8-100.4 DegF] 97.9 DegF (03/17/21 1:11 PM) Blood pressure sites Arm, left (03/17/21 1:31 PM) Arm, left (03/17/21 1:11 PM) Social History Social History Type Response Smoking Status Never smoker entered on: 01/26/14 Sex
--- OUTSIDE RECORDS SUMMARY | 2022-08-10 10:25 | XMS_ITS | Continuity of Care Document ---
Author Name Unknown Organization [facility] Address [address] [place] [address]- Care Team Providers Care Social Media Analyst Name Role Phone Bala Cortez MD Primary Care Physician [facility]counter [facility] Date(s): 11/27/19 - 12/27/19 [facility] [address] [place] [address]- [facility] Allergies, Adverse Reactions, Alerts No Known Medication [...] 06/25/19 Not Given Patient Refuses 1Result Comment: [facility]# [id number] 2Result Comment: [facility]#[id number] 3Admin Note: Influenza vaccine 4Admin Note: Influenza [...] 0 Refills, Maintenance, 07/06/19 11:28:00 EST, Tablet, [facility] #[id number], 152, cm, 07/06/19 11:06:00 EST, Height, 43.1, [...] 10/19/19 15:33:00 EDT, Route to Pharmacy Electronically, [facility] #[id number], 152, cm, 07/06/19 11:06:00 EST, Height, 43.1, kg, 07/06/19 11:0... Start Date: 10/19/19 Status: Ordered Humalog Kwik Pen 100 units/mL subcutaneous injection See Instructions, 100-149 4 units 150 199 6 units 200 249 8 units 250 -299 10 units 300-349 12 units 350-399 14 units with meals as needed, # 1 each, 1 Refills, Maintenance, 11/29/19 8:00:00 EDT, Solution, [facility], 152, cm,... Start Date: 11/29/19 Status: Ordered Lantus Solostar Pen 100 units/mL subcutaneous solution = 45 units, Subcutaneous Injection, Daily at bedtime, # 1 each, 0 Refills, Maintenance, 11/29/19 8:00:00 EDT, Solution, [facility], 152, cm, 11/26/19 23:30:00 EDT, Height, 45.5, kg, 10/29/19 6:43:00 EDT, Dry Weight Start Date: 11/29/19 Status: Ordered magnesium oxide 400 mg oral tablet 1 tablet = 400 mg, By Mouth, 3 times a day, # 100 tablet, 3 Refills, Acute 07/05/20 11:27:00 EST, 07/06/19 11:26:00 EST, Tablet, [facility] #[id number], 152, cm, 07/06/19 11:06:00 EST, Height, 43.1, kg, 07/06/19 11:06:00 EST, Dry Weight Start Date: 07/06/19 Stop Date: 07/05/20 Status: Ordered multivitamin Therapeutic Multiple Vitamins oral tablet 1 tablet, By Mouth, Daily, # 30 tablet, 0 Refills, Maintenance, 06/26/19 13:45:00 EST, Tablet, [facility] #[id number], 1 tablet By Mouth Daily,x30 days, 153, cm, 06/26/19 7:18:00 EST, Height, 41.1, kg, 01/24/19 18:27:00 EDT, Dry Weight Start Date: 06/26/19 Stop Date: 07/26/19 Status: Ordered Pen [place], 29 G x 12.7 mm BD Ultra Fine See Instructions, # 100 each, Refills 5, Tot. Refills 5, Maintenance, use as directed for Type 1 Diabetes Mellitus, 06/26/19 13:47:00 EST, Compound, 153, cm, 06/26/19 7:18:00 EST, Height, 41.1, kg, 01/24/19 18:27:00 EDT, Dry Weight Start Date: 06/26/19 Stop Date: 12/23/19 Status: Ordered Pen [place], 31 G x 5 mm BD Ultra Fine III See Instructions, # 100 each, Refills 5, Tot. 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
--- OUTSIDE RECORDS SUMMARY | 2022-08-10 10:25 | XMS_ITS | Continuity of Care Document ---
Author Name Unknown Organization [facility] ter Address [address] [place] [address]- Care Team Providers Care Alumina Refinery Operator Name Role Phone Bala Cortez MD Primary Care Physician Encounter [facility] Date(s): 09/16/20 - 09/22/[address] [address]- Encounter Diagnosis Sepsis(Final) - 09/16/20 Discharge Disposition: A-D/C Home Attending Physician: Chelsey Le MD Admitting Physician: Eldon ELIZABETH, Karla Murcia Referring Physician: Not on Staff, Referring MD [...] 1Early/Late Reason: Med Not Available 2Result Comment: [facility]#[id number] 3Admin Note: Influenza vaccine 4Admin Note: Influenza vaccine 5Admin Note: Influenza vaccine 6Admin Note: VIS GIVEN 7Result Comment: [facility]# [id number] 8Admin Note: Twinrix # 2 9Admin Note: [...] tablet, 0 Refills, Maintenance, 09/22/20 13:38:00 EDT, [facility], Partial fill upon patient request if the prescription is for a sche... Start Date: 09/22/20 Stop Date: 09/29/20 Status: Ordered gabapentin 300 mg oral capsule 1, capsule, By Mouth, Daily at bedtime, # 30 capsule, Refills 3, Tot. Refills 3, Maintenance, 08/22/20 14:01:00 EDT, Route to Pharmacy Electronically, [facility], 152, cm, 06/27/20 11:20:00 EST, Height, 47, kg, 06/21/20 13:49:00 EST, Dry... Start Date: 08/22/20 Status: Ordered gabapentin 300 mg oral capsule 300 mg, Capsule, By Mouth, 09/21/20 21:00:00 EDT Start Date: 09/21/20 Stop Date: 09/21/20 Status: Completed Humalog Kwik Pen 100 units/mL subcutaneous injection See Instructions, 100-149 6 units 150 199 8 units 200 249 10 units 250 -299 12 units 300-349 14 units 350-399 16 units with meals as needed, # 10 mL, 2 Refills, Maintenance, 07/04/20 11:27:00 EST, Solution, [facility] #[id number], 152,... Start Date: 07/04/20 Status: Ordered Lantus Inj 0.25 mL = 25 units, Subcutaneous Injection, Daily in AM, 0 Refills, Maintenance, 09/22/20 13:37:00 EDT, Injection, Partial fill upon patient request if the prescription is for a schedule II opioid drug. Start Date: 09/22/20 Status: Ordered levoFLOXacin 750 mg oral tablet 1 tablet = 750 mg, By Mouth, Every 24 hours, for 8 days, # 8 tablet, 0 Refills, Acute 09/30/20 13:38:00 EDT, 09/22/20 13:38:00 EDT, Tablet, [facility], Partial fill upon patient requestif the prescription is for a schedule II opioid johanny... Start Date: 09/22/20 Stop Date: 09/30/20 Status: Ordered metFORMIN 500 mg oral tablet 1 tablet = 500 mg, By Mouth, 2 times a day, please take tab twice a day, then increase to 2 tabs twice a day., # 180 tablet, 4 Refills, Maintenance, 07/19/20 10:07:00 EDT, Tablet, [facility] #[id number], Partial fill upon patient request if the p... Start Date: 07/19/20 Status: Ordered metoprolol 25 mg oral tablet, extended release 25 mg, 1, tablet, By Mouth, Daily, # 30 tablet, Refills 5, Tot. Refills 5, Maintenance, 04/10/20 14:03:00 EST, Route to Pharmacy Electronically, [facility] #[id number], 155, cm, 02/13/20 9:01:00EDT, Height, 43.9, kg, 02/11/20 10:34:00 EDT, Dry W... 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 for Microbiology Reports Name Date Blood Culture 09/16/20 Blood Culture #2 09/16/20 Microbiology Reports TEST:Blood Culture STATUS:Auth (Verified) BODY SITE: SOURCE:Blood COLLECTED DATE/TIME:09/16/20 2:20 PM Blood Culture SPECIMEN DESCRIPTION : BLOOD NO SITE SPECIAL REQUESTS : CRITICAL VALUE CALLED AND VERIFIED BY READBACK FOR: GRAM NEGATIVE RODS TO [id number], D6B, 09/17/20 0429, BY TECH [id number] CULTURE : ESCHERICHIA COLI FOR SUSCEPTIBILITY RESULT REFER TO BLOOD CULTURE Escherichia coli was identified by multi-plex PCR REPORT STATUS : FINAL 09/19/2020 TEST:Blood Culture, Second Order STATUS:Auth (Verified) BODY SITE: SOURCE:Blood COLLECTED DATE/TIME:09/16/20 1:25 PM Blood Culture, Second Order SPECIMEN DESCRIPTION : BLOOD RAC SPECIAL REQUESTS : CRITICAL VALUE CALLED AND VERIFIED BY READBACK FOR: POSITIVE BLOOD CULTURE W/[place] [id number], D6B, 09/17/20 AT 0709 BY [employer] 701. CULTURE : ESCHERICHIA COLI REPORT STATUS : FINAL 09/19/2020 ORGANISM ESCHERICHIA COLI METHOD MIN. INHIB. CONC. (MCG/ML) AMPICILLIN RESISTANT AMPICILLIN/SULBACTAM RESISTANT AMOXICILLIN/CLAVULAN SUSCEPTIBLE CEFAZOLIN SUSCEPTIBLE CEFEPIME SUSCEPTIBLE CEFTRIAXONE SUSCEPTIBLE CIPROFLOXACIN SUSCEPTIBLE ERTAPENEM SUSCEPTIBLE GENTAMICIN SUSCEPTIBLE LEVOFLOXACIN SUSCEPTIBLE MEROPENEM SUSCEPTIBLE PIPERACILLIN/TAZOBAC SUSCEPTIBLE TRIMETH/SULFAMETHOX RESISTANT TETRACYCLINE SUSCEPTIBLE Vital Signs Most recent to oldest [Reference Range]: 1 2 3 Oxygen Saturation [94-100 %] 96 % (09/22/20 7:41 AM) 97 % (09/22/20 12:36 AM) 95 % (09/21/20 9:13 PM) Pulse Rate [55-90 bpm] 86 bpm (09/22/20 8:22 AM) 86 bpm (09/22/20 7:41 AM) 94 bpm *H* (09/22/20 12:36 AM) Blood Pressure [90-138/55-84 mm Hg] 165/72mm Hg *H* (09/22/20 8:22 AM) 165/72mm Hg *H* (09/22/20 7:41 AM) 137/65mm Hg (09/22/20 12:36 AM) Respiratory Rate [16-30 br/min] 19 br/min (09/22/20 7:41 AM) 20 br/min (09/22/20 12:36 AM) 18 br/min (09/21/20 9:22 PM) Temperature [96.8-100.4 DegF] 98 DegF (09/22/20 7:41 AM) 99.6 DegF (09/22/20 12:36 AM) 99.8 DegF (09/21/20 9:13 PM) Mode of Delivery (Oxygen) Room air (09/22/20 7:41 AM) Room air (09/22/20 12:36 AM) Room air (09/21/20 9:13 PM) Blood pressure sites Arm, left (09/22/20 7:41 AM) Arm, left (09/21/20 4:37 PM) Arm, right (09/21/20 7:00 AM) Temperature Route Oral (09/22/20 7:41 AM) Oral (09/22/20 12:36 AM) Oral (09/21/20 9:13 PM) Social History Social History Type Response Smoking Status Never smoker entered on: 01/26/14 Sex
--- OUTSIDE RECORDS SUMMARY | 2022-08-10 10:25 | XMS_ITS | Continuity of Care Document ---
Author Name Unknown Organization [facility] ter Address [address] [place] [address]- Care Team Providers Care Supervisor Pumping Station Name Role Phone Isra ELIZABETH, Toyin Primary Care Physician Encounter [facility] Date(s): 06/06/21 - 06/09/[address] [address]- Encounter Diagnosis UTI (urinary tract infection)(Final) - 06/07/21 Discharge Disposition: A-Transfer VNA/Home Health Attending Physician: Cristóbal Moncada MD Admitting Physician: Chloé Izaguirre MD Referring Physician: Not on Staff, Referring [...] (oldterm) 10 10/17/15 Given pneumococcal 13-valent vaccine 12/5/13 Given Tet/Diphth/Acel, Pertussis (oldterm) 11 02/14/08 G iven Pneumococcal Vaccine (oldterm) 12 10/31/07 Given Not Given Vaccine Date Status Refusal Reason influenza virus vaccine, inactivated 06/25/19 Not Given Patient Refuses influenza virus vaccine, inactivated 04/09/17 Not Given Patient Refuses pneumococcal 23-valent vaccine 06/25/19 Not Given Patient Refuses 1Early/Late Reason: Med Not Available 2Result Comment: [facility]#[id number] 3Admin Note: Influenza vaccine 4Admin Note: Influenza vaccine 5Admin Note: Influenza vaccine 6Admin Note: VIS GIVEN 7Result Comment: SEE COVID TEAM PROGRESS NOTE 8Result Comment: [facility]# [id number] 9Admin Note: Twinrix # 2 10Admin Note: Twinrix # 1 11Admin Note: VIS GIVEN 12Result Comment: Lot: [id number] Exp: Nov 08 Pt given vaccine info sheet before vaccine administered Medications Acetaminophen/Butalbital/Caffeine Tablet 1 tablet, Tablet, By Mouth, Every 4 hours, PRN for Headache, Routine, 06/07/21 11:43:00 EST Notes: Butalbital 50mg, Not to exceed 4000mg of Acetaminophen per 24 hours. 325mg, Caffeine 40mg per tablet Start Date: 06/07/21 Stop Date: 07/07/21 Status: Ordered Biktarvy oral tablet 1 tablet, [...] 11/29/20 12:03:00 EDT, Route to Pharmacy Electronically, [facility] #[id number], 153, cm, 11/26/20 13:06:00 EDT, Height, 46, kg, 11/24/20 3:02:00 EDT, D... Start Date: 11/29/20 Status: Ordered gabapentin 300 mg oral capsule 300 mg, Capsule, By Mouth, 06/08/21 21:00:00 EST Start Date: 06/08/21 Stop Date: 06/08/21 Status: Completed Glucose Gel, Insta Glucose 40% [...] 1 Refills, Maintenance, 06/09/21 10:48:00 EST, Injection, [facility] #[id number], Partial fill upon patient request if theprescription is for a schedule II opioid drug., 152... Start Date: 06/09/21 Stop Date: 08/08/21 Status: Ordered insulin glargine 100 u/ml subcutaneous solution = 38 units, Subcutaneous Injection, Daily at bedtime, # 12 mL, 1 Refills, Maintenance, 06/09/21 10:48:00 EST, Injection, [facility] #[id number], Partial fill upon patient request if the prescription is for a schedule II opioid drug., 152, cm, ... Start Date: 06/09/21 Status: Ordered Magnesium Oxide [...] 3 Refills, Maintenance, 11/14/20 10:44:00 EDT, Solution, [facility] #[id number], Partial fill upon patient... Start Date: 11/14/20 [...] Active DKA (diabetic ketoacidoses)(Confirmed) Active Diabetic retinopathy, [place], 03/23/19(Confirmed) Active Rash(Confirmed) Active Gitelman syndrome(Confirmed) Active [...] Reports Name Date Urine Culture (URINE CULTURE) 06/06/21 Microbiology Reports TEST:Urine Culture STATUS:Auth (Verified) BODY SITE: SOURCE:URINE COLLECTED DATE/TIME:06/06/21 2:30 PM Urine Culture SPECIMEN DESCRIPTION : URINE SPECIAL REQUESTS : NONE CULTURE : Mixed bacterial alma, indicative of urogenital contamination. REPORT STATUS : FINAL 06/08/2021 Vital Signs Most recent to oldest [Reference Range]: 1 2 3 4 Height 152 cm (06/09/21 2:52 PM) 152 cm (06/09/21 6:52 AM) 152 cm (06/08/21 9:13 PM) Weight 42.8 kg (06/07/21 4:40 PM) Oxygen Saturation [94-100 %] 97 % (06/09/21 2:52 PM) 100 % (06/09/21 6:52 AM) 95 % (06/08/21 9:13 PM) Pulse Rate [55-90 bpm] 84 bpm (06/09/21 2:52 PM) 84 bpm (06/09/21 6:52 AM) 87 bpm (06/08/21 9:13 PM) Body Mass Index [18.5-24.99] 18.52 (06/07/21 4:40 PM) Blood Pressure [90-138/55-84 mm Hg] 119/73mm Hg (06/09/21 2:52 PM) 115/65mm Hg (06/09/21 6:52 AM) 133/73mm Hg (06/08/21 9:13 PM) Respiratory Rate [16-30 br/min] 18 br/min (06/09/21 2:52 PM) 18 br/min (06/09/21 6:52 AM) 18 br/min (06/08/21 9:34 PM) 18 br/min (06/08/21 9:34 PM) Temperature [96.8-100.4 DegF] 98.1 DegF (06/09/21 2:52 PM) 98.1 DegF (06/09/21 6:52 AM) 98.2 DegF (06/08/21 9:13 PM) Liters per Minute 0 L/min (06/06/21 5:26 PM) 0 L/min (06/06/21 3:35 PM) Mode of Delivery (Oxygen) Room air (06/09/21 2:52 PM) Room air (06/09/21 6:52 AM) Room air (06/08/21 9:13 PM) Blood pressure sites Arm, right (06/09/21 2:52 PM) Arm, right (06/09/21 6:52 AM) Arm, left (06/08/21 9:13 PM) Temperature Route Oral (06/09/21 2:52 PM) Oral (06/09/21 6:52 AM) Oral (06/08/21 9:13 PM) Dry Weight 42.8 kg (06/07/21 4:40 PM) Weight Obtained Via Bed scale (06/07/21 4:40 PM) Social History Social History Type Response Smoking Status Never (less than 100 in lifetime) entered on: 06/06/21 Sex
--- OUTSIDE RECORDS SUMMARY | 2022-08-10 10:25 | XMS_ITS | Continuity of Care Document ---
Author Name Unknown Organization [facility] Address [address] [place] [address]- Care Team Providers Care Sludge Control Attendant Name Role Phone Bala Cortez MD Primary Care Physician [facility] Date(s): 03/11/20 - 04/10/20 [facility] [address] [place], [place] [address] Allergies, Adverse Reactions, Alerts No Known [...] 1Early/Late Reason: Med Not Available 2Result Comment: [facility]#[id number] 3Admin Note: Influenza vaccine 4Admin Note: Influenza vaccine 5Admin Note: Influenza vaccine 6Admin Note: VIS GIVEN 7Result Comment: [facility]# [id number] 8Admin Note: Twinrix # 2 9Admin Note: [...] 03/05/20 17:29:00 EST, Route to Pharmacy Electronically, [facility] #[id number], 155, cm, 02/13/20 9:01:00 EDT, Height, 43.9, kg, 02/11/20 10:34... Start Date: 03/05/20 Status: Ordered Humalog Kwik Pen 100 units/mL subcutaneous injection See Instructions, 100-149 6 units 150 199 8 units 200 249 10 units 250 -299 12 units 300-349 14 units 350-399 16 units with meals as needed, # 10 mL, 2 Refills, Maintenance, 03/11/20 12:38:00 EST, [facility] #[id number], 155,... Start Date: 03/11/20 Status: Ordered Lantus Solostar Pen 100 units/mL subcutaneous solution = 35 units, Subcutaneous Injection, Daily at bedtime, # 12 mL, 2 Refills, Maintenance, 03/05/20 17:29:00 EST, Solution, [facility] #[id number], 155, cm, 02/13/20 9:01:00 EDT, Height, 43.9, kg, 02/11/20 10:34:00 EDT, Dry Weight Start Date: 03/05/20 Status: Ordered magnesium oxide 400 mg oral tablet 1 tablet = 400 mg, By Mouth, 3 times a day, # 100 tablet, 3 Refills, Acute 07/05/20 11:27:00 EST, 07/06/19 11:26:00 EST, Tablet, [facility] #[id number], 152, cm, 07/06/19 11:06:00 EST, Height, 43.1, kg, 07/06/19 11:06:00 EST, Dry Weight Start Date: 07/06/19 Stop Date: 07/05/20 Status: Ordered metoprolol 25 mg oral tablet, extended release 25 mg, 1, tablet, By Mouth, Daily, # 30 tablet, Refills 5, Tot. Refills 5, Maintenance, 04/10/20 14:03:00 EST, Route to Pharmacy Electronically, [facility] #[id number], 155, cm, 02/13/20 9:01:00EDT, Height, 43.9, kg, 02/11/20 10:34:00 EDT, Dry W... 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
--- OUTSIDE RECORDS SUMMARY | 2022-08-10 10:25 | XMS_ITS | Continuity of Care Document ---
Author Name Unknown Organization [facility] Address [address] [place] [address]- Care Team Providers Care Digital Archivist Name Role Phone Toyin Dhaliwal MD Primary Care Physician [phone] [place] [facility] [place]): [place]27/22 - 03/18/22 [facility] [address] [place], [place] [address] Attending Physician: Toyin Dhaliwal MD Referring Physician: Bartolome Bliss MD Allergies, Adverse Reactions, Alerts No Known [...] Reason: Med Not Available 2Result Comment: [facility]#[id number] 3Admin Note: Influenza vaccine 4Admin Note: Influenza vaccine 5Admin Note: Influenza vaccine 6Admin Note: VIS GIVEN 7Result Comment: SEE COVID TEAM PROGRESS NOTE 8Result Comment: [facility]# [id number] 9Admin Note: Twinrix # 2 10Admin Note: Twinrix # 1 11Admin Note: VIS GIVEN 12Result Comment: Lot: [id number] Exp: Nov 08 Pt given vaccine info sheet before vaccine administered Medications aspirin 81 mg oral tablet, chewable 81 mg, 1, tablet, By Mouth, Daily, # 30 tablet, Refills 11, Tot. Refills 11, Maintenance, 06/13/21 15:29:00 EST, Route to Pharmacy Electronically, [facility] #[id number], Partial fill upon patient request if the prescription is for a schedule II... Start Date: 06/13/21 Status: Ordered Biktarvy oral tablet 1 tablet, By Mouth, Daily, # 30 tablet, 0 Refills, Maintenance, 11/26/20 16:19:00 EDT, Tablet, [facility], Partial fill upon patient request [...] 11/29/20 12:03:00 EDT, Route to Pharmacy Electronically, [facility] #[id number], 153, cm, 11/26/20 13:06:00 EDT, Height, 46, kg, 11/24/20 3:02:00 EDT, DPriya.. Start Date: 11/29/20 Status: Ordered glipiZIDE 10 mg oral tablet, extended release 1 tablet = 10 mg, By Mouth, 2 times a day, # 30 tablet, 1 Refills, Acute 03/22/22 13:32:00 EST, 02/23/22 13:31:00 EDT, ER Tablet, [id number], Partial fill upon patient request if theprescription [...] 1 Refills, Maintenance, 06/09/21 10:48:00 EST, Injection, [facility] #[id number], Partial fill upon patient request if theprescription is for a schedule II opioid drug., 152... Start Date: 06/09/21 Stop Date: 08/08/21 Status: Ordered Humalog Kwik Pen 100 units/mL subcutaneous injection See Instructions, 5-15 units Subcutaneous Infusion 3 times a day before meals, # 15 mL, 1 Refills, Acute 03/22/22 13:31:00 EST, 02/23/22 13:27:00 EDT, [id number], Partial fill upon patient request if the prescription is for a schedule... Start Date: 02/23/22 Stop Date: 03/22/22 Status: Ordered hydrOXYzine hydrochloride 10 mg oral tablet 2 tablet = 20 mg, By Mouth, 4 times a day, PRN for anxiety, # 80 tablet, 0 Refills, Maintenance, 10/17/21 12:42:00 EDT, Tablet, [id number], Partial fill upon patient request if the prescription is for a schedule II opioid drug., 153,... Start Date: 10/17/21 Status: Ordered insulin glargine 100 u/ml subcutaneous solution 40, Subcutaneous Injection, Daily at bedtime, # 10 mL, 1 Refills, Maintenance, 08/07/21 13:44:00 EDT, Injection, [facility] #[id number], Partial fill upon patient request if the prescription is for a schedule II opioid drug., 152, cm, 06/20/21 10... Start Date: 08/07/21 Status: Ordered Lantus Solostar Pen 100 units/mL subcutaneous solution = 40 units, Subcutaneous Infusion, Daily at bedtime, # 15 mL, 1 Refills, Acute 03/22/22 13:29:00 EST, 02/23/22 13:26:00 EDT, [id number], Partial fill upon patient request if the [...] Acute 10/17/22 12:44:00 EDT, 10/17/21 12:44:00 EDT, [id number], Partial fill upon patient request if the prescription is for a schedule II opioid drug., 153, cm, 10/08/21 9:2... Start Date: 10/17/21 Stop Date: 10/17/22 Status: Ordered metoprolol 25 mg oral tablet 25 mg, 1, tablet, By Mouth, Daily, # 90 tablet, Refills 3, Tot. Refills 3, Maintenance, 06/13/21 15:29:00 EST, Route to Pharmacy Electronically, [id number], Partial fill upon patientrequest if the prescription is for a schedule II op... Start Date: 06/13/21 Status: Ordered Pen Marble, 31 G x 5 mm BD Ultra Fine III See Instructions, # 100 each, Refills 1, Tot. Refills 1, Acute 03/22/22 13:28:00 EST, Use with Lantus and Humalog pen, 02/23/22 13:27:00 EDT, Supply, 153, cm, 02/23/22 12:58:00 EDT, Height, 45, kg, 10/06/21 14:00:00 EDT, Dry Weight Start Date: 02/23/22 Stop Date: 03/22/22 Status: Ordered Pen Marble, 31 G x 5 mm BD Ultra [...] 03/22/22 13:30:00 EST, 02/23/22 13:27:00 EDT, Solution, [facility] #[id number], Partial fill upon patient request if the prescription is for a... Start Date: 02/23/22 Stop Date: 03/22/22 Status: Ordered Trulicity Pen 0.75 mg/0.5 mL subcutaneous solution 0.5 mL = 0.75 mg, Subcutaneous Injection, Every week, call office in one month so i can increase your dose. rotate injection sites, # 2 mL, 3 Refills, Maintenance, 10/17/21 12:48:00 EDT, Solution, [facility] #[id number], Partial fill upon patient... Start Date: 10/17/21 Status: Ordered Vitamin D3 1000 intl units oral capsule 1 capsule = 25 mcg, By Mouth, Daily, # 100 capsule, 3 Refills, Maintenance, 06/20/21 11:15:00 EST, Capsule, [facility] #[id number], Partial fill upon patient request if the [...] DKA (diabetic ketoacidoses) Confirmed Active Diabetic retinopathy, [place], 03/23/19 Confirmed Active Rash Confirmed Active Gitelman [...] Team Personnel Name: Elsi Lai RN Position: [facility] RN Member Role: Primary Care Nurse Name: Yusuf Bhardwaj RN Position: [facility] RN Member Role: Primary Care Nurse Name: Nora Mercado RN Position: [facility] SN RN Member Role: Primary Care Nurse Name: Mitch Mena MD Position: [facility] Renal MD Member Role: Lifetime Consulting Physician Address: Address: [address] [place] [address], [address] Name: Lacho Chaves RN Position: [facility] ED RN W/OE and Tasks Member Role: Primary Care Nurse Name: Lily Tyler RN Position: [facility] RN Member Role: Primary Care Nurse Name: Ashley Sosa RN Position: [facility] PCO RN Member Role: Primary Care Nurse Name: Elba Enrique RN Position: [facility] PCO RN Member Role: Primary Care Nurse Name: Jacinta Huitron RN Position: [facility] RN Member Role: Primary Care Nurse Name: Misty Esquivel RN Position: [facility] RN Member Role: Primary Care Nurse Name: Linda Christianson NP Position: [facility] Associate Professional Member Role: Primary Care Nurse Address: Address: [address] [place] [address]- Name: Eleni Stewart Position: [facility] Outreach Member Role: Lifetime Consulting Physician Name: Nesha Major RN Position: [facility] RN Member Role: Primary Care Nurse Name: Christiano Costa RN Position: [facility] RN Member Role: Primary Care Nurse Name: Sakina Ward RN Position: [facility] RN Member Role: Primary Care Nurse Name: Carisa Keyes RN Position: [facility] RN Member Role: Primary Care Nurse Name: Yanet Grimaldo RN Position: [facility] OB RN Member Role: Primary Care Nurse Name: Arielle Rhodes RN Position: [facility] RN Member Role: Primary Care Nurse Name: Iris Muniz RN Position: [facility] RN Member Role: Primary Care Nurse Name: Anna Yang RN Position: [facility] RN Member Role: Primary Care Nurse Name: Carlene Najera Position: [facility] RN Member Role: Primary Care Nurse Name: Nora Alcantar RN Position: [facility] RN Member Role: Primary Care Nurse Name: Yasemin Ordoñez NP Position: [facility] PCO Associate Professional Member Role: Primary Care Nurse Address: Address: [address] [place] [address]- [place] Name: Cher Maxwell RN Position: [facility] HBO Wound Member Role: Primary Care Nurse Name: Noemi Corbett RN Position: [facility] RN Member Role: Primary Care Nurse Name: Nora Silva RN Position: [facility] RN Member Role: Primary Care Nurse Name: Tracy Sharp RN Position: [facility] RN Member Role: Primary Care Nurse Name: Anamaria Andrade RN Position: [facility] SN RN Member Role: Primary Care Nurse Name: Scottie Shook RN Position: [facility] ADRYAN RN W/OE and Tasks Member Role: Primary Care Nurse Name: Stew Calvillo RN Position: [facility] RN Member Role: Primary Care Nurse Name: Uriel Kern DOel Ramirez Position: [facility] Renal MD Member Role: Lifetime Consulting Physician Address: Address: [address] [place] [address] [address] [facility] [place] [address]- Name: Lily Leyva RN Position: [facility] RN Member Role: Primary Care Nurse Name: Carson New III, RN Position: [facility] RN Member Role: Primary Care Nurse Name: Carlie Arzate RN Position: [facility] Knitting Inspector Member Role: Primary Care Nurse Name: Margaret Snyder RN Position: [facility] Knitting Inspector Member Role: Primary Care Nurse Name: Naoh Schuster RN Position: [facility] RN Member Role: Primary Care Nurse Name: Tracie Haney RN Position: [facility] RN Member Role: Primary Care Nurse Name: Mayra Covarrubias RN Position: [facility] RN Member Role: Primary Care Nurse Name: Steph Pagan RN Position: [facility] RN Member Role: Primary Care Nurse Name: Manohar Wallace RN Position: [facility] RN Member Role: Primary Care Nurse Name: Karen Dewey RN Position: [facility] RN Member Role: Primary Care Nurse Name: Lisset Díaz RN Position: [facility] RN Member Role: Primary Care Nurse Name: Phyllis Jones RN Position: [facility] RN Member Role: Primary Care Nurse Name: Manuel Kirkpatrick MD Position: [facility] Renal MD Member Role: Lifetime Consulting Physician Address: Address: [address] [place] [address] [address] [facility] [place] [address]- Name: Marlene Kirkpatrick RN Position: [facility] RN Member Role: Primary Care Nurse Name: Vidhya Quan RN Position: [facility] RN Member Role: Primary Care Nurse Name: Jessi Giraldo RN Position: [facility] RN Member Role: Primary Care Nurse Name: Aaliyah Prakash RN Position: [facility] Knitting Inspector Member Role: Primary Care Nurse Name: Toyin Dhaliwal MD Position: [facility] Primary Care Physician Member Role: PCP Address: Address: [address] [place] [address] [facility] [place] [address]- Name: Sushma Martinez RN Position: [facility] RN Member Role: Primary Care Nurse Name: Bonny Iniguez RN Position: [facility] RN Member Role: Primary Care Nurse Name: Mercedes Borjas RN Position: [facility] RN Member Role: Primary Care Nurse Name: Lamont Mantilla RN Position: [facility] RN Member Role: Primary Care Nurse Name: Aries Orozco MD Position: [facility] Renal MD Member Role: Lifetime Consulting Physician Address: Address: [address] [place] [address] [facility] [place] [address]- Name: Dedrick Brown RN Position: [facility] ED RN W/OE and Tasks Member Role: Primary Care Nurse Name: Marzena Razo RN Position: [facility] RN Member Role: Primary Care Nurse Name: Fariba Mancilla RN Position: [facility] RN Member Role: Primary Care Nurse Name: Mia Jones RN Position: [facility] SN RN Member Role: Primary Care Nurse Name: David Jean RN Position: [facility] SN RN Member Role: Primary Care Nurse Care Team Related Persons Name: DAKOTAH BAKER Address: home [address] [place] [id number] Name: EDWARDO DAKOTAH Address: home [address] [place] [address] Name: LANDEN TRAN Address: home [address] [place] [address] Name: SHRUTI BHAGAT Address: [place] [address]
--- OUTSIDE RECORDS SUMMARY | 2022-08-10 10:25 | XMS_ITS | Continuity of Care Document ---
Author Name Unknown Organization [facility] Address [address] [place] [address]- Care Team Providers Care Live Out Nanny Name Role Phone Bala Cortez MD Primary Care Physician [phone] Encounter [facility] Date(s): 11/27/19 - 12/27/19 [facility] [address] [place] [address]- [facility] Allergies, Adverse Reactions, Alerts No Known Medication [...] 06/25/19 Not Given Patient Refuses 1Result Comment: [facility]# [id number] 2Result Comment: [facility]#[id number] 3Admin Note: Influenza vaccine 4Admin Note: Influenza [...] 0 Refills, Maintenance, 07/06/19 11:28:00 EST, Tablet, [facility] #[id number], 152, cm, 07/06/19 11:06:00 EST, Height, 43.1, [...] 10/19/19 15:33:00 EDT, Route to Pharmacy Electronically, [facility] #[id number], 152, cm, 07/06/19 11:06:00 EST, Height, 43.1, kg, 07/06/19 11:0... Start Date: 10/19/19 Status: Ordered Humalog Kwik Pen 100 units/mL subcutaneous injection See Instructions, 100-149 4 units 150 199 6 units 200 249 8 units 250 -299 10 units 300-349 12 units 350-399 14 units with meals as needed, # 1 each, 1 Refills, Maintenance, 11/29/19 8:00:00 EDT, Solution, [facility], 152, cm,... Start Date: 11/29/19 Status: Ordered Lantus Solostar Pen 100 units/mL subcutaneous solution = 45 units, Subcutaneous Injection, Daily at bedtime, # 1 each, 0 Refills, Maintenance, 11/29/19 8:00:00 EDT, Solution, [facility], 152, cm, 11/26/19 23:30:00 EDT, Height, 45.5, kg, 10/29/19 6:43:00 EDT, Dry Weight Start Date: 11/29/19 Status: Ordered magnesium oxide 400 mg oral tablet 1 tablet = 400 mg, By Mouth, 3 times a day, # 100 tablet, 3 Refills, Acute 07/05/20 11:27:00 EST, 07/06/19 11:26:00 EST, Tablet, [facility] #[id number], 152, cm, 07/06/19 11:06:00 EST, Height, 43.1, kg, 07/06/19 11:06:00 EST, Dry Weight Start Date: 07/06/19 Stop Date: 07/05/20 Status: Ordered multivitamin Therapeutic Multiple Vitamins oral tablet 1 tablet, By Mouth, Daily, # 30 tablet, 0 Refills, Maintenance, 06/26/19 13:45:00 EST, Tablet, [facility] #[id number], 1 tablet By Mouth Daily,x30 days, 153, cm, 06/26/19 7:18:00 EST, Height, 41.1, kg, 01/24/19 18:27:00 EDT, Dry Weight Start Date: 06/26/19 Stop Date: 07/26/19 Status: Ordered Pen [place], 29 G x 12.7 mm BD Ultra Fine See Instructions, # 100 each, Refills 5, Tot. Refills 5, Maintenance, use as directed for Type 1 Diabetes Mellitus, 06/26/19 13:47:00 EST, Compound, 153, cm, 06/26/19 7:18:00 EST, Height, 41.1, kg, 01/24/19 18:27:00 EDT, Dry Weight Start Date: 06/26/19 Stop Date: 12/23/19 Status: Ordered Pen [place], 31 G x 5 mm BD Ultra Fine III See Instructions, # 100 each, Refills 5, Tot. Refills 5, Maintenance, use as directed for Type 2 Diabetes Mellitus 4 times daily, 07/07/19 10:26:00 EST, Compound, 152, cm, 07/06/19 11:06:00 EST, Height, 43.1, kg, 07/06/19 11:06:00 EST, Dry Weight Start Date: 07/07/19 Stop Date: 01/03/20 Status: Ordered Pen [place], 31 G x 5 mm BD Ultra [...] Active DKA (diabetic ketoacidoses)(Confirmed) Active Diabetic retinopathy, [place], 03/23/19(Confirmed) Active 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
--- OUTSIDE RECORDS SUMMARY | 2022-08-10 10:25 | XMS_ITS | Continuity of Care Document ---
Author Name Unknown Organization [facility] Address [address] [place] [address]- Care Team Providers Care Stone Dresser Name Role Phone Bala Cortez MD Primary Care Physician [phone] Encounter [facility] Date(s): 06/26/19 - 08/04/19 [facility] [address] [place] [address]- [facility] Attending Physician: Bala Cortez MD Allergies, [...] 06/25/19 Not Given Patient Refuses 1Result Comment: [facility]# [id number] 2Result Comment: [facility]#[id number] 3Admin Note: Influenza vaccine 4Admin Note: Influenza [...] 0 Refills, Maintenance, 07/06/19 11:28:00 EST, Tablet, [facility] #[id number], 152, cm, 07/06/19 11:06:00 EST, Height, 43.1, [...] 1 Refills, Maintenance, 06/26/19 13:52:00 EST, Solution, [facility] #[id number], 153,... Start Date: 06/26/19 Status: Ordered Humalog Kwik Pen 100 units/mL subcutaneous injection See Instructions, Sliding Scale Comments >>100 - 149 6 units Call if less than [address] - 199 8 units 200 - 249 [...] 249 10 units 250 - 299 12 ngciv784 - 349 14 units 350 - 399 16 units Robel... Start Date: 07/01/19 Status: Ordered Lantus Solostar Pen 100 units/mL subcutaneous solution = 45 units, Subcutaneous Injection, Daily at bedtime, # 1 each, 0 Refills, Maintenance, 06/26/19 13:40:00 EST, Solution, [facility] #[id number], 153, cm, 06/26/19 7:18:00 EST, Height, 41.1, kg, 01/24/19 18:27:00 EDT, Dry Weight Start Date: 06/26/19 Status: Ordered Lantus Solostar Pen 100 units/mL subcutaneous solution = 55 units, Subcutaneous Injection, Daily at bedtime, # 10 mL, 2 Refills, Maintenance, 07/06/19 11:26:00 EST, Solution, [facility] #[id number], 152, cm, 07/06/19 11:06:00 EST, Height, 43.1, kg, 07/06/19 11:06:00 EST, Dry Weight Start Date: 07/06/19 Status: Ordered magnesium oxide 400 mg oral tablet 1 tablet = 400 mg, By Mouth, 3 times a day, # 100 tablet, 3 Refills, Acute 07/05/20 11:27:00 EST, 07/06/19 11:26:00 EST, Tablet, [facility] #[id number], 152, cm, 07/06/19 11:06:00 EST, Height, 43.1, kg, 07/06/19 11:06:00 EST, Dry Weight Start Date: 07/06/19 Stop Date: 07/05/20 Status: Ordered multivitamin Therapeutic Multiple Vitamins oral tablet 1 tablet, By Mouth, Daily, # 30 tablet, 0 Refills, Maintenance, 06/26/19 13:45:00 EST, Tablet, [facility] #[id number], 1 tablet By Mouth Daily,x30 days, 153, cm, 06/26/19 7:18:00 EST, Height, 41.1, kg, 01/24/19 18:27:00 EDT, Dry Weight Start Date: 06/26/19 Stop Date: 07/26/19 Status: Ordered Pen [place], 29 G x 12.7 mm BD Ultra Fine See Instructions, # 100 each, Refills 5, Tot. Refills 5, Maintenance, use as directed for Type 1 Diabetes Mellitus, 06/26/19 13:47:00 EST, Compound, 153, cm, 06/26/19 7:18:00 EST, Height, 41.1, kg, 01/24/19 18:27:00 EDT, Dry Weight Start Date: 06/26/19 Stop Date: 12/23/19 Status: Ordered Pen [place], 31 G x 5 mm BD Ultra Fine III See Instructions, # 100 each, Refills 5, Tot. Refills 5, Maintenance, use as directed for Type 2 Diabetes Mellitus 4 times daily, 07/07/19 10:26:00 EST, Compound, 152, cm, 07/06/19 11:06:00 EST, Height, 43.1, kg, 07/06/19 11:06:00 EST, Dry Weight Start Date: 07/07/19 Stop Date: 01/03/20 Status: Ordered Pen [place], 31 G x 5 mm BD Ultra [...] Refills, Maintenance, 07/06/19 11:27:00 EST, ER Tablet, [facility] #[id number], 152, cm, 07/06/19 11:06:00 EST, Height, 43.1, [...] DKA (diabetic ketoacidoses)(Confirmed) Active Diabetic retinopathy, [place], 03/23/19(Confirmed) Active 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
--- OUTSIDE RECORDS SUMMARY | 2022-08-10 10:25 | XMS_ITS | Continuity of Care Document ---
Author Name Unknown Organization [facility] Address [address] [place] [address]- Care Team Providers Care Middleware Systems Architect Name Role Phone Toyin Dhaliwal MD Primary Care Physician Encounter [facility] Date(s): 11/28/21 - 12/05/21 [facility] [address] [place], [place] [address] Encounter Diagnosis Diabetes mellitus type 2(Discharge Diagnosis) - 11/28/21 Hyperglycemia(Discharge Diagnosis) - 11/28/21 Attending Physician: Toyin Dhaliwal MD Allergies, Adverse [...] Med Not Available 2Result Comment: [facility]#[id number] 3Admin Note: Influenza vaccine 4Admin Note: Influenza vaccine 5Admin Note: Influenza vaccine 6Admin Note: VIS GIVEN 7Result Comment: SEE COVID TEAM PROGRESS NOTE 8Result Comment: [facility]# [id number] 9Admin Note: Twinrix # 2 10Admin Note: Twinrix # 1 11Admin Note: VIS GIVEN 12Result Comment: Lot: [id number] Exp: Nov 08 Pt given vaccine info sheet before vaccine administered Medications aspirin 81 mg oral tablet, chewable 81 mg, 1, tablet, By Mouth, Daily, # 30 tablet, Refills 11, Tot. Refills 11, Maintenance, 06/13/21 15:29:00 EST, Route to Pharmacy Electronically, [facility] #[id number], Partial fill upon patient request if the prescription is for a schedule II... Start Date: 06/13/21 Status: Ordered Biktarvy oral tablet 1 tablet, By Mouth, Daily, # 30 tablet, 0 Refills, Maintenance, 11/26/20 16:19:00 EDT, Tablet, [facility], Partial fill upon patient request [...] 11/29/20 12:03:00 EDT, Route to Pharmacy Electronically, [facility] #[id number], 153, cm, 11/26/20 13:06:00 EDT, Height, 46, [...] 1 Refills, Maintenance, 06/09/21 10:48:00 EST, Injection, [facility] #[id number], Partial fill upon patient request if theprescription is for a schedule II opioid drug., 152... Start Date: 06/09/21 Stop Date: 08/08/21 Status: Ordered hydrOXYzine hydrochloride 10 mg oral tablet 2 tablet = 20 mg, By Mouth, 4 times a day, PRN for anxiety, # 80 tablet, 0 Refills, Maintenance, 10/17/21 12:42:00 EDT, Tablet, [facility] #[id number], Partial fill upon patient request if the prescription is for a schedule II opioid drug., 153,... Start Date: 10/17/21 Status: Ordered insulin glargine 100 u/ml subcutaneous solution 40, Subcutaneous Injection, Daily at bedtime, # 10 mL, 1 Refills, Maintenance, 08/07/21 13:44:00 EDT, Injection, [facility] #[id number], Partial fill upon patient request if the [...] Acute 10/17/22 12:44:00 EDT, 10/17/21 12:44:00 EDT, [facility] #[id number], Partial fill upon patient request if the prescription is for a schedule II opioid drug., 153, cm, 10/08/21 9:2... Start Date: 10/17/21 Stop Date: 10/17/22 Status: Ordered metoprolol 25 mg oral tablet 25 mg, 1, tablet, By Mouth, Daily, # 90 tablet, Refills 3, Tot. Refills 3, Maintenance, 06/13/21 15:29:00 EST, Route to Pharmacy Electronically, [facility] #[id number], Partial fill upon patientrequest if the prescription is for a schedule II op... Start Date: 06/13/21 Status: Ordered Pen Beccaria, 31 G x 5 mm BD Ultra [...] 3 Refills, Maintenance, 10/17/21 12:48:00 EDT, Solution, [facility] #[id number], Partial fill upon patient... Start Date: 10/17/21 Status: Ordered Vitamin D3 1000 intl units oral capsule 1 capsule = 25 mcg, By Mouth, Daily, # 100 capsule, 3 Refills, Maintenance, 06/20/21 11:15:00 EST, Capsule, [facility] #[id number], Partial fill upon patient request if the [...] Active DKA (diabetic ketoacidoses)(Confirmed) Active Diabetic retinopathy, [place], 03/23/19(Confirmed) Active Rash(Confirmed) Active 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 History of cervical cancer(Confirmed) Active HIV (human immunodeficiency virus infection)(Confirmed) Active Hypermetropia of both eyes(Confirmed) Active Hypertension(Confirmed) Active Hypomagnesemia(Confirmed) Active Hyponatremia(Confirmed) Active Hypophosphatemia(Confirmed) Active Hysterectomy(Confirmed) Active KEVIN (acute kidney injury)(Confirmed) Active Hypotension(Confirmed) Active Metabolic acidosis, increase d anion gap(Confirmed) Active Pinguecula of both eyes(Confirmed) Active Sepsis(Confirmed) Active Sepsis(Confirmed) Active Sick euthyroidism(Confirmed) Active Tachycardia(Confirmed) Active Underweight(Confirmed) Active Presence of indwelling Mcdonald catheter(Confirmed) Active UTI (urinary tract infection)(Confirmed) Active UTI (urinary tract infection)(Confirmed) Active HCV (hepatitis C virus)(Confirmed) Active 1primary tumor PT1b, regional nodes pN0 Diagnosis Diagnosis Type Effective Dates Health Status Clinical Service Informant Diabetes mellitus type 2 Discharge Diagnosis 11/28/21 Hyperglycemia Discharge Diagnosis 11/28/21 Vital Signs Most recent to oldest [Reference Range]: 1 Height 153 cm (11/28/21 1:22 PM) Weight 42.7 kg (11/28/21 1:22 PM) Oxygen Saturation [94-100 %] 99 % (11/28/21 1:22 PM) Pulse Rate [55-90 bpm] 108 bpm *H* (11/28/21 1:22 PM) Body Mass Index [18.5-24.99] 18.24 *L* (11/28/21 1:22 PM) Blood Pressure [90-138/55-84 mm Hg] 120/ 78mm Hg (11/28/21 1:22 PM) Blood pressure sites Arm, left (7/29/22 1:22 PM) Social History Social History Type Response Smoking Status Never (less than 100 in lifetime) entered on: 06/06/21 Sex
--- OUTSIDE RECORDS SUMMARY | 2022-08-10 10:25 | XMS_ITS | Continuity of Care Document ---
Author Name Unknown Organization [facility] Address [address] [place] [address]- Care Team Providers Care Vegetable Loader Name Role Phone Bala Cortez MD Primary Care Physician Encounter [facility] Date(s): 07/06/19 - 10/12/19 [facility] [address] [place] [address]- [facility] Attending Physician: Jenna Ba MD Admitting Physician: Jenna Ba MD Referring Physician: Bala Cortez MD Allergies, [...] 06/25/19 Not Given Patient Refuses 1Result Comment: [facility]# [id number] 2Result Comment: [facility]#[id number] 3Admin Note: Influenza vaccine 4Admin Note: Influenza [...] 0 Refills, Maintenance, 07/06/19 11:28:00 EST, Tablet, [facility] #[id number], 152, cm, 07/06/19 11:06:00 EST, Height, 43.1, [...] 1 Refills, Maintenance, 06/26/19 13:52:00 EST, Solution, [facility] #[id number], 153,... Start Date: 06/26/19 Status: Ordered Humalog Kwik Pen 100 units/mL subcutaneous injection See Instructions, Sliding Scale Comments >>100 - 149 6 units Call if less than [phone] - 199 8 units 200 - 249 10 units 250 - 299 12 units 300 - 349 14 units 350 - 399 16 units Call if greater than 400, # 10 mL, 2 Refills, Maintenance, 07/06... Start Date: 07/07/19 Status: Ordered ibuprofen 600 mg oral tablet 600 mg, 1, tablet, By Mouth, 3 times a day, PRN, for 10 days, with food or milk, # 30 tablet, Refills 0, Tot. Refills 0, Acute 10/20/19 12:38:00 EDT, severe headache, 10/10/19 12:38:00 EDT, Route to Pharmacy Electronically, [facility] #[id number]... Start Date: 10/10/19 Stop Date: 10/20/19 Status: Ordered Insulin Lispro 6-16 units, Subcutaneous Injection, 3 times a day before meals, << Sliding Scale Comments >> 100 - 149 6 units Call if less than 70 150 - 199 8 units 200 - 249 10 units 250 - 299 12 [id number] - 349 14 units 350 - 399 16 units Robel... Start Date: 07/01/19 Status: Ordered Lantus Solostar Pen 100 units/mL subcutaneous solution = 45 units, Subcutaneous Injection, Daily at bedtime, # 1 each, 0 Refills, Maintenance, 06/26/19 13:40:00 EST, Solution, [facility] #[id number], 153, cm, 06/26/19 7:18:00 EST, Height, 41.1, kg, 01/24/19 18:27:00 EDT, Dry Weight Start Date: 06/26/19 Status: Ordered Lantus Solostar Pen 100 units/mL subcutaneous solution = 55 units, Subcutaneous Injection, Daily at bedtime, # 10 mL, 2 Refills, Maintenance, 07/06/19 11:26:00 EST, Solution, [facility] #[id number], 152, cm, 07/06/19 11:06:00 EST, Height, 43.1, kg, 07/06/19 11:06:00 EST, Dry Weight Start Date: 07/06/19 Status: Ordered magnesium oxide 400 mg oral tablet 1 tablet = 400 mg, By Mouth, 3 times a day, # 100 tablet, 3 Refills, Acute 07/05/20 11:27:00 EST, 07/06/19 11:26:00 EST, Tablet, [facility] #[id number], 152, cm, 07/06/19 11:06:00 EST, Height, 43.1, kg, 07/06/19 11:06:00 EST, Dry Weight Start Date: 07/06/19 Stop Date: 07/05/20 Status: Ordered multivitamin Therapeutic Multiple Vitamins oral tablet 1 tablet, By Mouth, Daily, # 30 tablet, 0 Refills, Maintenance, 06/26/19 13:45:00 EST, Tablet, [facility] #[id number], 1 tablet By Mouth Daily,x30 days, 153, cm, 06/26/19 7:18:00 EST, Height, 41.1, kg, 01/24/19 18:27:00 EDT, Dry Weight Start Date: 06/26/19 Stop Date: 07/26/19 Status: Ordered Pen Coggon, 29 G x 12.7 mm BD Ultra Fine See Instructions, # 100 each, Refills 5, Tot. Refills 5, Maintenance, use as directed for Type 1 Diabetes Mellitus, 06/26/19 13:47:00 EST, Compound, 153, cm, 06/26/19 7:18:00 EST, Height, 41.1, kg, 01/24/19 18:27:00 EDT, Dry Weight Start Date: 06/26/19 Stop Date: 12/23/19 Status: Ordered Pen Coggon, 31 G x 5 mm BD Ultra Fine III See Instructions, # 100 each, Refills 5, Tot. 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
--- OUTSIDE RECORDS SUMMARY | 2022-08-10 10:26 | XMS_ITS | Continuity of Care Document ---
Author Name Unknown Organization [facility] ter Address [address] [place] [address]- Care Team Providers Care Supply Chain Design Manager Name Role Phone Bala Cortez MD Primary Care Physician Encounter [facility] Date(s): 02/10/20 - 02/13/[address] [address]- [facility] Encounter Diagnosis Dizziness(Final) - 02/11/20 Acute on chronic renal insufficiency(Final) - 02/11/20 Hypomagnesemia(Final) - 02/11/20 Palpitations(Final) - 02/11/20 Ectopic atrial rhythm(Final) - 02/11/20 Discharge Disposition: A-D/C Home Attending Physician: Mila Fuentes MD Admitting Physician: Massiel ELIZABETH, Amrik P Referring Physician: Not on Staff, Referring MD [...] influenza virus vaccine, inactivated 5 03/02/14 Gi daimen influenza virus vaccine, inactivated 03/15/13 Give n [...] Reason: Med Not Available 2Result Comment: [facility]#[id number] 3Admin Note: Influenza vaccine 4Admin Note: Influenza vaccine 5Admin Note: Influenza vaccine 6Admin Note: VIS GIVEN 7Result Comment: [facility]# [id number] 8Admin Note: Twinrix # 2 9Admin Note: [...] 10/19/19 15:33:00 EDT, Route to Pharmacy Electronically, [facility] #[id number], 152, cm, 07/06/19 11:06:00 EST, Height, 43.1, kg, 07/06/19 11:0... Start Date: 10/19/19 Status: Ordered Humalog Kwik Pen 100 units/mL subcutaneous injection See Instructions, 100-149 6 units 150 199 8 units 200 249 10 units 250 -299 12 units 300-349 14 units 350-399 16 units with meals as needed, # 1 each, 1 Refills, Maintenance, 11/29/19 8:00:00 EDT, Solution, [facility], 152, cm... Start Date: 11/29/19 Status: [...] 0 Refills, Maintenance, 11/29/19 8:00:00 EDT, Solution, [facility], 152, cm, 11/26/19 23:30:00 EDT, Height, 45.5, kg, 10/29/19 6:43:00 EDT, Dry Weight Start Date: 11/29/19 Status: Ordered magnesium oxide 400 mg oral tablet 1 tablet = 400 mg, By Mouth, 3 times a day, # 100 tablet, 3 Refills, Acute 07/05/20 11:27:00 EST, 07/06/19 11:26:00 EST, Tablet, [facility] #[id number], 152, cm, 07/06/19 11:06:00 EST, Height, 43.1, kg, 07/06/19 11:06:00 EST, Dry Weight Start Date: 07/06/19 Stop Date: 07/05/20 Status: Ordered metoprolol 25 mg oral tablet, extended release 25 mg, 1, tablet, By Mouth, Daily, # 30 tablet, Refills 0, Tot. Refills 0, Maintenance, 02/13/20 9:52:00 EDT, Route to Pharmacy Electronically, [facility] #[id number], 155, cm, 02/13/20 9:01:00 EDT, Height, 43.9, kg, 02/11/20 10:34:00 EDT, Dry We... 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 REPORT STATUS : FINAL 02/12/2020 Radiology Reports * Exam Date Time Procedure Performing Provider Status 02/11/20 4:36 AM Chest Portable Bouchra Bowie; Auth ( Verified) Notes: (Chest Portable) Reason For Exam: Shortness of Breath RESULT: Chest Portable Chest Portable Indication: Shortness of breath. Dizziness. COMPARISON: 12/27/2019 FINDINGS: LINES AND TUBES: None. LUNGS AND PLEURA: Clear lungs. Normal pulmonary vascularity. No pleural effusion. No pneumothorax. HEART, MEDIASTINUM AND ZBIGNIEW: Heart is normal in size. Normal mediastinal and hilar contour. BONES AND SOFT TISSUES: No acute abnormality. IMPRESSION: No acute abnormality. WSN: [id number] Ordering Physician: Bob Morgan Dictated By: Armin Warner MD Dictated Date/Time: 02/11/20 8:31 am Reviewed By: Armin Warner MD Signed By: Armin Warner MD Signed Date/Time: 02/11/20 8:31 am Transcribed By: TANYA Transcribed Date/Time: 02/11/20 8:31 am Vital Signs Most recent to oldest [Reference Range]: 1 2 3 Height 155 cm (02/13/20 9:01 AM) 155 cm (02/13/20 4:39 AM) 155 cm (02/12/20 11:03 PM) Weight 43.9 kg (02/11/20 10:34 AM) Oxygen Saturation [94-100 %] 100 % (02/13/20:01 AM) 100 % (02/13/20 4:39 AM) 100 % (02/12/20 11:03 PM) Pulse Rate [55-90 bpm] 87 bpm (02/13/20:01 AM) 85 bpm (02/13/20 4:39 AM) 88 bpm (02/12/20 11:03 PM) Body Mass Index [18.5-24.99] 18.27 *L* (02/11/20 10:34 AM) Blood Pressure [90-138/55-84 mm Hg] 139/78mm Hg *H* (02/13/20 9:01 AM) 144/79mm Hg *H* (02/13/20 4:39 AM) 128/68mm Hg (02/12/20 11:03 PM) Respiratory Rate [16-30 br/min] 18 br/min (02/13/20 9:01 AM) 18 br/min (02/13/20 9:00 AM) 18 br/min (02/13/20 4:39 AM) Temperature [96.8-100.4 DegF] 98.2 DegF (02/13/20 9:01 AM) 99.0 DegF (02/13/20 4:39 AM) 98.4 DegF (02/12/20 11:03 PM) Mode of Delivery (Oxygen) Room air (02/13/20 9:01 AM) Room air (02/13/20 4:39 AM) Room air (02/12/20 11:03 PM) Blood pressure sites Arm, left (02/13/20 9:01 AM) Arm, right (02/13/20 4:39 AM) Arm, right (02/12/20 11:03 PM) Temperature Route Oral (02/13/20 9:01 AM) Oral (02/13/20 4:39 AM) Oral (02/12/20 11:03 PM) Dry Weight 43.9 kg (02/11/20 10:34 AM) Weight Obtained Via Bed scale (02/11/20 10:34 AM) Dry Weight Obtained Via Bed scale (02/11/20 10:34 AM) Social History Social History Type Response Smoking Status Never smoker entered on: 01/26/14 Sex
--- OUTSIDE RECORDS SUMMARY | 2022-08-10 10:26 | XMS_ITS | Continuity of Care Document ---
Author Name Unknown Organization [facility] ter Address [address] [place] [address]- Care Team Providers Care Fitness And Wellness Instructor Name Role Phone Bala Cortez MD Primary Care Physician [phone] Encounter [facility] Date(s): 11/26/19 - 11/26/[address] [address]- [facility] Encounter Diagnosis Dehydration(Final) - 11/26/19 Discharge Disposition: A-D/C Home Attending Physician: Lamont Peter MD Admitting Physician: Lamont Peter MD Referring Physician: Not on Staff, Referring [...] Not Given Patient Refuses 1Result Comment: [facility]# [id number] 2Result Comment: [facility]#[id number] 3Admin Note: Influenza vaccine 4Admin Note: Influenza [...] 0 Refills, Maintenance, 07/06/19 11:28:00 EST, Tablet, [facility] #[id number], 152, cm, 07/06/19 11:06:00 EST, Height, 43.1, [...] 10/19/19 15:33:00 EDT, Route to Pharmacy Electronically, [facility] #[id number], 152, cm, 07/06/19 11:06:00 EST, Height, 43.1, kg, 07/06/19 11:0... Start Date: 10/19/19 Status: Ordered Humalog Kwik Pen 100 units/mL subcutaneous injection See Instructions, 100-149 4 units 150 199 6 units 200 249 8 units 250 -299 10 units 300-349 12 units 350-399 14 units with meals as needed, # 1 each, 1 Refills, Maintenance, 06/26/19 13:52:00 EST, Solution, [facility] #[id number], 153,... Start Date: 06/26/19 Status: Ordered Lantus Solostar Pen 100 units/mL subcutaneous solution = 45 units, Subcutaneous Injection, Daily at bedtime, # 1 each, 0 Refills, Maintenance, 06/26/19 13:40:00 EST, Solution, [facility] #[id number], 153, cm, 06/26/19 7:18:00 EST, Height, 41.1, kg, 01/24/19 18:27:00 EDT, Dry Weight Start Date: 06/26/19 Status: Ordered magnesium oxide 400 mg oral tablet 1 tablet = 400 mg, By Mouth, 3 times a day, # 100 tablet, 3 Refills, Acute 07/05/20 11:27:00 EST, 07/06/19 11:26:00 EST, Tablet, [facility] #[id number], 152, cm, 07/06/19 11:06:00 EST, Height, 43.1, kg, 07/06/19 11:06:00 EST, Dry Weight Start Date: 07/06/19 Stop Date: 07/05/20 Status: Ordered multivitamin Therapeutic Multiple Vitamins oral tablet 1 tablet, By Mouth, Daily, # 30 tablet, 0 Refills, Maintenance, 06/26/19 13:45:00 EST, Tablet, [facility] #[id number], 1 tablet By Mouth Daily,x30 days, 153, cm, 06/26/19 7:18:00 EST, Height, 41.1, kg, 01/24/19 18:27:00 EDT, Dry Weight Start Date: 06/26/19 Stop Date: 07/26/19 Status: Ordered Pen [place], 29 G x 12.7 mm BD Ultra Fine See Instructions, # 100 each, Refills 5, Tot. Refills 5, Maintenance, use as directed for Type 1 Diabetes Mellitus, 06/26/19 13:47:00 EST, Compound, 153, cm, 06/26/19 7:18:00 EST, Height, 41.1, kg, 01/24/19 18:27:00 EDT, Dry Weight Start Date: 06/26/19 Stop Date: 12/23/19 Status: Ordered Pen [place], 31 G x 5 mm BD Ultra Fine III See Instructions, # 100 each, Refills 5, Tot. 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 to oldest [Reference Range]: 1 2 Height 152 cm (11/26/19 11:30 PM) 152 cm (11/26/19 6:34 PM) Weight 47 kg (11/26/19 11:30 PM) 47 kg (11/26/19 6:34 PM) Oxygen Saturation [94-100 %] 99 % (11/26/19 11:30 PM) 100 % (11/26/19 7:30 PM) Pulse Rate [55-90 bpm] 106 bpm *H* (11/26/19 11:30 PM) 88 bpm (11/26/19 7:30 PM) Body Mass Index [18.5-24.99] 20.34 (11/26/19 11:30 PM) Blood Pressure [90-138/55-84 mm Hg] 106/ 65mm Hg (11/26/19 11:30 PM) 107/64mm Hg (11/26/19 7:30 PM) Respiratory Rate [16-30 br/min] 16 br/mi n (11/26/19 11:30 PM) 12 br/min *L* (11/26/19 7:30 PM) Temperature [96.8-100.4 DegF] 98.4 DegF (11/26/19 11:30 PM) 98 DegF (11/26/19 6:34 PM) Mode of Delivery (Oxygen) Room air (11/26/19 11:30 PM) Room air (11/26/19 7:30 PM) Blood pressure sites Arm, left (11/26/19 11:30 PM) Temperature Route Oral (11/26/19 11:30 PM) Weight Obtained Via Patient/family state d (11/26/19 6:34 PM) Social History Social History Type Response Smoking Status Never smoker entered on: 01/26/14 Sex
--- OUTSIDE RECORDS SUMMARY | 2022-08-10 10:26 | XMS_ITS | Continuity of Care Document ---
Author Name Unknown Organization [facility] Address [address] [place] [address]- Care Team Providers Care Market Research Coordinator Name Role Phone Toyin Dhaliwal MD Primary Care Physician [phone] Encounter [facility] Date(s): 02/23/22 - 05/31/22 [facility] [address] [place], [place] [address] Attending Physician: Toyin Dhaliwal MD Allergies, Adverse [...] Not Available 2Result Comment: [facility]#15508-675-07 3Admin Note: Influenza vaccine 4Admin Note: Influenza vaccine 5Admin Note: Influenza vaccine 6Admin Note: VIS GIVEN 7Result Comment: SEE COVID TEAM PROGRESS NOTE 8Result Comment: [facility]# [id number] 9Admin Note: Twinrix # 2 10Admin Note: Twinrix # 1 11Admin Note: VIS GIVEN 12Result Comment: Lot: [id number] Exp: Nov 08 Pt given vaccine info sheet before vaccine administered Medications aspirin 81 mg oral tablet, chewable 81 mg, 1, tablet, By Mouth, Daily, # 30 tablet, Refills 11, Tot. Refills 11, Maintenance, 06/13/21 15:29:00 EST, Route to Pharmacy Electronically, [facility] #[id number], Partial fill upon patient request if the prescription is for a schedule II... Start Date: 06/13/21 Status: Ordered Biktarvy oral tablet 1 tablet, By Mouth, Daily, # 30 tablet, 0 Refills, Maintenance, 11/26/20 16:19:00 EDT, Tablet, [facility], Partial fill upon patient request [...] 11/29/20 12:03:00 EDT, Route to Pharmacy Electronically, [facility] #[id number], 153, cm, 11/26/20 13:06:00 EDT, Height, 46, [...] 1 Refills, Maintenance, 06/09/21 10:48:00 EST, Injection, [facility] #[id number], Partial fill upon patient request if theprescription is for a schedule II opioid drug., 152... Start Date: 06/09/21 Stop Date: 08/08/21 Status: Ordered hydrOXYzine hydrochloride 10 mg oral tablet 2 tablet = 20 mg, By Mouth, 4 times a day, PRN for anxiety, # 80 tablet, 0 Refills, Maintenance, 10/17/21 12:42:00 EDT, Tablet, [facility] #[id number], Partial fill upon patient request if the prescription is for a schedule II opioid drug., 153,... Start Date: 10/17/21 Status: Ordered insulin glargine 100 u/ml subcutaneous solution 40, Subcutaneous Injection, Daily at bedtime, # 10 mL, 1 Refills, Maintenance, 08/07/21 13:44:00 EDT, Injection, [facility] #[id number], Partial fill upon patient request if the [...] Acute 10/17/22 12:44:00 EDT, 10/17/21 12:44:00 EDT, [facility] #[id number], Partial fill upon patient request if the prescription is for a schedule II opioid drug., 153, cm, 10/08/21 9:2... Start Date: 10/17/21 Stop Date: 10/17/22 Status: Ordered metoprolol 25 mg oral tablet 25 mg, 1, tablet, By Mouth, Daily, # 90 tablet, Refills 3, Tot. Refills 3, Maintenance, 06/13/21 15:29:00 EST, Route to Pharmacy Electronically, [facility] #[id number], Partial fill upon patientrequest if the prescription is for a schedule II op... Start Date: 06/13/21 Status: Ordered Pen [place], 31 G x 5 mm BD Ultra [...] 3 Refills, Maintenance, 10/17/21 12:48:00 EDT, Solution, [facility] #[id number], Partial fill upon patient... Start Date: 10/17/21 Status: Ordered Vitamin D3 1000 intl units oral capsule 1 capsule = 25 mcg, By Mouth, Daily, # 100 capsule, 3 Refills, Maintenance, 06/20/21 11:15:00 EST, Capsule, [facility] #[id number], Partial fill upon patient request if the [...] DKA (diabetic ketoacidoses) Confirmed Active Diabetic retinopathy, [place], 03/23/19 Confirmed Active Rash Confirmed Active [place] [...] Team Personnel Name: Elsi Dumont RN Position: [facility] RN Member Role: Primary Care Nurse Name: Yusuf Bhardwaj RN Position: [facility] RN Member Role: Primary Care Nurse Name: Nora Mercado RN Position: [facility] SN RN Member Role: Primary Care Nurse Name: Mitch Mena MD Position: [facility] Renal MD Member Role: Lifetime Consulting Physician Address: Address: [address] [place] [address], [address] [place] [address]- Name: Lacho Chaves RN Position: [facility] ED RN W/OE and Tasks Member Role: Primary Care Nurse Name: Lily Tyler RN Position: [facility] RN Member Role: Primary Care Nurse Name: Ashley Sosa RN Position: [facility] PCO RN Member Role: Primary Care Nurse Name: Elba Enrique RN Position: [facility] PCO RN Member Role: Primary Care Nurse Name: Jacinta Huitron RN Position: [facility] RN Member Role: Primary Care Nurse Name: Linda Christianson NP Position: [facility] Associate Professional Member Role: Primary Care Nurse Address: Address: [address] [place] [address]- Name: Eleni Stewart Position: [facility] Outreach Member Role: Lifetime Consulting Physician Name: Nesha Major RN Position: [facility] RN Member Role: Primary Care Nurse Name: Christiano Costa RN Position: [facility] RN Member Role: Primary Care Nurse Name: Sakina Ward RN Position: [facility] RN Member Role: Primary Care Nurse Name: Carisa Keyes RN Position: [facility] RN Member Role: Primary Care Nurse Name: Yanet Grimaldo RN Position: [facility] OB RN Member Role: Primary Care Nurse Name: Arielle Rhodes RN Position: [facility] RN Member Role: Primary Care Nurse Name: Iris Muniz RN Position: [facility] RN Member Role: Primary Care Nurse Name: Anna Yang RN Position: [facility] RN Member Role: Primary Care Nurse Name: Carlene Najera Position: [facility] RN Member Role: Primary Care Nurse Name: Nora Alcantar RN Position: [facility] RN Member Role: Primary Care Nurse Name: Yasemin Ordoñez NP Position: [facility] PCO Associate Professional Member Role: Primary Care Nurse Address: Address: [address] [place] [address]- [place] Name: Cher Maxwell RN Position: [facility] HBO Wound Member Role: Primary Care Nurse Name: Noemi Corbett RN Position: [facility] RN Member Role: Primary Care Nurse Name: Nora Silva RN Position: [facility] RN Member Role: Primary Care Nurse Name: Tracy Sharp RN Position: [facility] RN Member Role: Primary Care Nurse Name: Anamaria Andrade RN Position: [facility] SN RN Member Role: Primary Care Nurse Name: Scottie Shook RN Position: [facility] ED RN W/OE and Tasks Member Role: Primary Care Nurse Name: Stew Calvillo RN Position: [facility] RN Member Role: Primary Care Nurse Name: Kehinde Kern DO Position: [facility] Renal MD Member Role: Lifetime Consulting Physician Address: Address: [address] [place], [place] [address] [place] [address]- [place] Name: Lily Leyva RN Position: [facility] RN Member Role: Primary Care Nurse Name: Carson New III, RN Position: [facility] RN Member Role: Primary Care Nurse Name: Carlie Arzate RN Position: [facility] Continuity Reader Member Role: Primary Care Nurse Name: Margaret Snyder RN Position: [facility] Continuity Reader Member Role: Primary Care Nurse Name: Noah Schuster RN Position: [facility] SN RN Member Role: Primary Care Nurse Name: Tracie Haney RN Position: [facility] RN Member Role: Primary Care Nurse Name: Mayra Covarrubias RN Position: [facility] RN Member Role: Primary Care Nurse Name: Steph Pagan RN Position: [facility] RN Member Role: Primary Care Nurse Name: Manohar Wallace RN Position: [facility] RN Member Role: Primary Care Nurse Name: Karen Dewey RN Position: [facility] RN Member Role: Primary Care Nurse Name: Lisset Díaz RN Position: [facility] RN Member Role: Primary Care Nurse Name: Phyllis Jones RN Position: [facility] PCO RN Member Role: Primary Care Nurse Name: Manuel Kirkpatrick MD Position: [facility] Renal MD Member Role: Lifetime Consulting Physician Address: Address: [address] [place] [address] [facility] [address] Name: Vidhya Quan RN Position: [facility] RN Member Role: Primary Care Nurse Name: Jessi Giraldo RN Position: [facility] RN Member Role: Primary Care Nurse Name: Aaliyah Prakash RN Position: [facility] Continuity Reader Member Role: Primary Care Nurse Name: Toyin Dhaliwal MD Position: [facility] Primary Care Physician Member Role: PCP Address: Address: [address] [place] [address] [facility] [place] [address]- Name: Sushma Martinez RN Position: [facility] RN Member Role: Primary Care Nurse Name: Bonny Iniguez RN Position: [facility] RN Member Role: Primary Care Nurse Name: Mercedes Borjas RN Position: [facility] RN Member Role: Primary Care Nurse Name: Lamont Mantilla RN Position: [facility] RN Member Role: Primary Care Nurse Name: Aries Orozco MD Position: [facility] Renal MD Member Role: Lifetime Consulting Physician Address: Address: [address] [place] [address] [facility] [place] [address]- Name: Dedrick Brown RN Position: [facility] ED RN W/OE and Tasks Member Role: Primary Care Nurse Name: Marzena Razo RN Position: [facility] RN Member Role: Primary Care Nurse Name: Fariba Mancilla RN Position: [facility] RN Member Role: Primary Care Nurse Name: Mia Jones RN Position: [facility] SN RN Member Role: Primary Care Nurse Name: David Jean RN Position: [facility] SN RN Member Role: Primary Care Nurse Care Team Related Persons Name: DAKOTAH BAKER Address: [address] [address] Name: DAKOTAH MARTINEZ Address: [address] [address] Name: LANDEN TRAN Address: home [address] [place] [address] Name: SHRUTI BHAGAT Address: [place] [address]
--- OUTSIDE RECORDS SUMMARY | 2022-08-10 10:26 | XMS_ITS | Continuity of Care Document ---
Author Name Unknown Organization [facility] Address [address] [place] [address]- Care Team Providers Care Software Applications Architect Name Role Phone Isra ELIZABETH, Ap Primary Care Physician Encounter [facility] Date(s): 07/05/22 - 07/05/[address] [address]- Encounter Diagnosis Hypoglycemia(Final) - 07/05/22 Discharge Disposition: A-D/C Home Attending Physician: Rj Martin MD Admitting Physician: Rj Martin MD Referring Physician: Not on Staff, Referring [...] Not Available 2Result Comment: [facility]#[id number] 3Admin Note: Influenza vaccine 4Admin Note: Influenza vaccine 5Admin Note: Influenza vaccine 6Admin Note: VIS GIVEN 7Result Comment: SEE COVID TEAM PROGRESS NOTE 8Result Comment: [facility]# [id number] 9Admin Note: Twinrix # 2 10Admin Note: Twinrix # 1 11Admin Note: VIS GIVEN 12Result Comment: Lot: [id number] Exp: Nov 08 Pt given vaccine info sheet before vaccine administered Medications aspirin 81 mg oral tablet, chewable 81 mg, 1, tablet, By Mouth, Daily, # 30 tablet, Refills 11, Tot. Refills 11, Maintenance, 06/13/21 15:29:00 EST, Route to Pharmacy Electronically, [facility] #[id number], Partial fill upon patient request if the prescription is for a schedule II... Start Date: 06/13/21 Status: Ordered Biktarvy oral tablet 1 tablet, By Mouth, Daily, # 30 tablet, 0 Refills, Maintenance, 11/26/20 16:19:00 EDT, Tablet, [facility], Partial fill upon patient request if [...] 0 Refills, Maintenance, 06/10/22 17:02:00 EST, Tablet, [facility] #[id number], Partial fill upon patient request if the [...] 06/10/22 17:06:00 EST, Route to Pharmacy Electronically, [facility] #[id number], 153, cm, 06/10/22 16:01:00 EST, Height, 45, kg, 10/06/21 14:00:00 EDT,... Start Date: 06/10/22 Status: Ordered Glucose Gel, Insta Glucose 40% [...] 1 Refills, Maintenance, 06/09/21 10:48:00 EST, Injection, [facility] #[id number], Partial fill upon patient request if theprescription is for a schedule II opioid drug., 152... Start Date: 06/09/21 Stop Date: 08/08/21 Status: Ordered hydrOXYzine hydrochloride 10 mg oral tablet 2 tablet = 20 mg, By Mouth, 4 times a day, PRN for anxiety, # 80 tablet, 0 Refills, Maintenance, 06/05/22 20:07:00 EST, Tablet, [facility] #[id number], Partial fill upon patient request if the prescription is for a schedule II opioid drug., 153,... Start Date: 06/05/22 Status: Ordered insulin glargine 100 u/ml subcutaneous solution 40, Subcutaneous Injection, Daily at bedtime, # 10 mL, 1 Refills, Maintenance, 06/05/22 20:07:00 EST, Injection, [facility] #[id number], Partial fill upon patient request if the prescription is for a schedule II opioid drug., 153, cm, 02/23/22 13... Start Date: 06/05/22 Status: Ordered Lantus Solostar Pen 100 units/mL subcutaneous solution = 40 units, Subcutaneous Injection, Daily at bedtime, # 15 mL, 2 Refills, Maintenance, 07/01/22 15:58:00 EST, Solution, [facility] #[id number], Partial fill upon patient request if the prescription is for a schedule II opioid drug., 153, cm, 030... Start Date: 07/01/22 Status: Ordered Magnesium Oxide By Mouth, 2 times a day, 0 Refills, Maintenance, 03/04/21 19:51:00 EDT, Partial fill upon patient request if the prescription is for a schedule II opioid drug. Start Date: 03/04/21 Status: Ordered magnesium oxide 400 mg oral tablet 1 tablet = 400 mg, By Mouth, Daily, # 30 tablet, 0 Refills, Acute 10/17/22 12:44:00 EDT, 10/17/21 12:44:00 EDT, [facility] #[id number], Partial fill upon patient request if the prescription is for a schedule II opioid drug., 153, cm, 10/08/21 9:2... Start Date: 10/17/21 Stop Date: 10/17/22 Status: Ordered metoprolol 25 mg oral tablet 25 mg, 1, tablet, By Mouth, Daily, # 90 tablet, Refills 1, Tot. Refills 1, Maintenance, 06/04/22 13:12:00 EST, Route to Pharmacy Electronically, [facility] #[id number], Partial fill upon patientrequest if the prescription is for a schedule II op... Start Date: 06/04/22 Status: Ordered Pen [place], 31 G x 5 mm BD Ultra [...] 3 Refills, Maintenance, 06/05/22 20:07:00 EST, Solution, [facility] #[id number], Partial fill upon patient... Start Date: 06/05/22 Status: Ordered Vitamin D3 1000 intl units oral capsule 1 capsule = 25 mcg, By Mouth, Daily, # 100 capsule, 3 Refills, Maintenance, 06/20/21 11:15:00 EST, Capsule, [facility] #[id number], Partial fill upon patient request if the [...] DKA (diabetic ketoacidoses) Confirmed Active Diabetic retinopathy, [place], 03/23/19 Confirmed Active Rash Confirmed Active [place] [...] 1 2 3 Oxygen Saturation [94-100 %] 97 % (07/05/22 8:22 PM) 97 % (07/05/22 6:55 PM) 97 % (07/05/22 4:44 PM) Pulse Rate [55-90 bpm] 94 bpm *H* (07/05/22 8:22 PM) 81 bpm (07/05/22 6:55 PM) 84 bpm (07/05/22 4:44 PM) Blood Pressure [90-138/55-84 mm Hg] 179/97mm Hg *H* (07/05/22 8:22 PM) 178/90mm Hg *H* (07/05/22 6:55 PM) 166/90mm Hg *H* (07/05/22 4:44 PM) Respiratory Rate [16-30 br/min] 18 br/min (07/05/22 8:22 PM) 16 br/min (07/05/22 6:55 PM) 16 br/min (07/05/22 4:44 PM) Temperature [96.8-100.4 DegF] 97.1 DegF (07/05/22 6:55 PM) 97.5 DegF (07/05/22 4:44 PM) Mode of Delivery (Oxygen) Room air (07/05/22 8:22 PM) Room air (07/05/22 6:55 PM) Room air (07/05/22 4:44 PM) Blood pressure sites Arm, right (07/05/22 8:22 PM) Arm, right (07/05/22 6:55 PM) Arm, right (07/05/22 4:44 PM) Temperature Route Oral (07/05/22 4:44 PM) Social History Social History Type Response Smoking Status Never (less than 100 in lifetime) entered on: 06/06/21 Sex Patient Care team information Care Team Personnel Name: Elsi Dumont RN Position: [facility] RN Member Role: Primary Care Nurse Name: Yusuf Bhardwaj RN Position: [facility] RN Member Role: Primary Care Nurse Name: Nora Mercado RN Position: [facility] SN RN Member Role: Primary Care Nurse Name: Mitch Mena MD Position: [facility] Renal MD Member Role: Lifetime Consulting Physician Address: Address: [address] [place] [address], [address] Name: Lacho Chaves RN Position: [facility] ED RN W/OE and Tasks Member Role: Primary Care Nurse Name: Lily Tyler RN Position: [facility] RN Member Role: Primary Care Nurse Name: Ashley Sosa RN Position: [facility] PCO RN Member Role: Primary Care Nurse Name: Elba Enrique RN Position: [facility] AMB Nurse Member Role: Primary Care Nurse Name: Jacinta Huitron RN Position: [facility] RN Member Role: Primary Care Nurse Name: Linda Christianson NP Position: [facility] Associate Professional Member Role: Primary Care Nurse Address: Address: [address] [place] [address]- Name: Eleni Stewart Position: [facility] Outreach Member Role: Lifetime Consulting Physician Name: Nora Stewart RN Position: [facility] RN Member Role: Primary Care Nurse Name: Nesha Major RN Position: [facility] RN Member Role: Primary Care Nurse Name: Christiano Costa RN Position: [facility] RN Member Role: Primary Care Nurse Name: Sakina Ward RN Position: [facility] RN Member Role: Primary Care Nurse Name: Carisa Keyes RN Position: [facility] RN Member Role: Primary Care Nurse Name: Yanet Grimaldo RN Position: [facility] OB RN Member Role: Primary Care Nurse Name: Arielle Rhodes RN Position: [facility] RN Member Role: Primary Care Nurse Name: Iris Muniz RN Position: [facility] RN Member Role: Primary Care Nurse Name: Anna Yang RN Position: [facility] RN Member Role: Primary Care Nurse Name: Carlene Najera Position: [facility] RN Member Role: Primary Care Nurse Name: Yasemin Ordoñez NP Position: [facility] PCO Associate Professional Member Role: Primary Care Nurse Address: Address: [address] [place] [address]- Name: Cher Maxwell RN Position: [facility] HBO Wound Member Role: Primary Care Nurse Name: Noemi Corbett RN Position: [facility] RN Member Role: Primary Care Nurse Name: Nora Silva RN Position: [facility] RN Member Role: Primary Care Nurse Name: Tracy Sharp RN Position: [facility] RN Member Role: Primary Care Nurse Name: Anamaria Andrade RN Position: [facility] SN RN Member Role: Primary Care Nurse Name: Scottie Shook RN Position: [facility] ED RN W/OE and Tasks Member Role: Primary Care Nurse Name: Stew Calvillo RN Position: [facility] RN Member Role: Primary Care Nurse Name: Kehinde Kern DO Position: [facility] Renal MD Member Role: Lifetime Consulting Physician Address: Address: [address] [facility] [place] [address]- Name: Jose Hunter RN Position: [facility] RN Member Role: Primary Care Nurse Name: Lily Leyva RN Position: [facility] RN Member Role: Primary Care Nurse Name: Carson New III, RN Position: [facility] RN Member Role: Primary Care Nurse Name: Carlie Arzate RN Position: [facility] Sanding Machine Buffer Member Role: Primary Care Nurse Name: Margaret Snyder RN Position: [facility] [employer] Machine Buffer Member Role: Primary Care Nurse Name: Noah Schuster RN Position: [facility] RN Member Role: Primary Care Nurse Name: Tracie Haney RN Position: [facility] RN Member Role: Primary Care Nurse Name: Mayra Covarrubias RN Position: [facility] RN Member Role: Primary Care Nurse Name: Steph Pagan RN Position: [facility] RN Member Role: Primary Care Nurse Name: Manohar Wallace RN Position: [facility] RN Member Role: Primary Care Nurse Name: Karen Dewey RN Position: [facility] RN Member Role: Primary Care Nurse Name: Lisset Díaz RN Position: [facility] RN Member Role: Primary Care Nurse Name: Phyllis Jones RN Position: [facility] URSULAO RN Member Role: Primary Care Nurse Name: Manuel Kirkpatrick MD Position: [facility] Renal MD Member Role: Lifetime Consulting Physician Address: Address: [address] [facility] [place] [place] [address]- [place] Name: Vidhya Quan RN Position: [facility] RN Member Role: Primary Care Nurse Name: Jessi Giraldo RN Position: [facility] RN Member Role: Primary Care Nurse Name: Aaliyah Prakash RN Position: [facility] Sanding Machine Buffer Member Role: Primary Care Nurse Name: Toyin Dhaliwal MD Position: [facility] Primary Care Physician Member Role: PCP Address: Address: [address] [place] [address] [facility] [place] [address]- [place] Name: Bonny Iniguez RN Position: [facility] RN Member Role: Primary Care Nurse Name: Mercedes Borjas RN Position: [facility] RN Member Role: Primary Care Nurse Name: Lamont Mantilla RN Position: [facility] RN Member Role: Primary Care Nurse Name: Aries Orozco MD Position: [facility] Renal MD Member Role: Lifetime Consulting Physician Address: Address: [address] [place] [address] [facility] [place] [address]- Name: Dedrick Brown RN Position: [facility] ED RN W/OE and Tasks Member Role: Primary Care Nurse Name: Marzena Razo RN Position: [facility] RN Member Role: Primary Care Nurse Name: Fariba Mancilla RN Position: [facility] RN Member Role: Primary Care Nurse Name: Mia Jones RN Position: [facility] SN RN Member Role: Primary Care Nurse Name: Ted RNDavid Position: [facility] SN RN Member Role: Primary Care Nurse Name: Adriana Carrion RN Position: [facility] ED RN W/OE and Tasks Member Role: Patient Care Provider Name: Sakina Cloud DO Position: [facility] Resident Member Role: ED Resident Address: Address: [address] [place] [address]- [place] Name: Herminio Craig Position: [facility] ED TA [facility] Member Role: Data Center Project Manager Name: Rj Martin MD Position: [facility] ED Medicine MD Member Role: Admitting Physician Address: Address: [address] [place] [address]- Care Team Related Persons Name: DAKOTAH BAKER Address: home [address] [place] [address] Name: EDWARDO DAKOTAH Address: home [address] [place] [address] Name: LANDEN TRAN Address: [address] [place] [address] Name: SHRUTI BHAGAT Address: [place] [address]
--- OUTSIDE RECORDS SUMMARY | 2022-08-10 10:26 | XMS_ITS | Continuity of Care Document ---
Author Name Unknown Organization [facility] Address [address] [place] [address]- Care Team Providers Care Reeling Operator Name Role Phone Toyin Dhaliwal MD Primary Care Physician [phone] [place] [facility] [place](s): 03/17/21 - 05/07/21 [facility] [address] [place], [place] [address] Attending Physician: Toyin Dhaliwal MD Allergies, Adverse [...] 1Early/Late Reason: Med Not Available 2Result Comment: [facility]#66446-095-86 3Admin Note: Influenza vaccine 4Admin Note: Influenza vaccine 5Admin Note: Influenza vaccine 6Admin Note: VIS GIVEN 7Result Comment: SEE COVID TEAM PROGRESS NOTE 8Result Comment: [facility]# [id number] 9Admin Note: Twinrix # 2 10Admin Note: Twinrix # 1 11Admin Note: VIS GIVEN 12Result Comment: Lot: [id number] Exp: Nov 08 Pt given vaccine info sheet before vaccine administered Medications Biktarvy oral tablet 1 tablet, By Mouth, Daily, # 30 tablet, 0 Refills, Maintenance, 11/26/20 16:19:00 EDT, Tablet, [facility], Partial fill upon patient [...] 11/29/20 12:03:00 EDT, Route to Pharmacy Electronically, [facility] #[id number], 153, cm, 11/26/20 13:06:00 EDT, Height, 46, [...] 0 Refills, Maintenance, 01/20/21 15:21:00 EDT, Injection, [facility] #[id number], Partial fill upon patient request if the prescription is for a schedule II opioid drug.,... Start Date: 01/20/21 Stop Date: 02/19/21 Status: Ordered insulin glargine 100 u/ml subcutaneous solution = 32 units, Subcutaneous Injection, Daily at bedtime, # 12 mL, 0 Refills, Maintenance, 03/27/21 12:27:00 EST, Injection, [facility] #[id number], Partial fill upon patient request if the [...] 3 Refills, Maintenance, 11/14/20 10:44:00 EDT, Solution, [facility] #[id number], Partial fill upon patient... Start Date: 11/14/20 [...] Active DKA (diabetic ketoacidoses)(Confirmed) Active Diabetic retinopathy, [place], 03/23/19(Confirmed) Active Rash(Confirmed) Active Gitelman syndrome(Confirmed) Active [...]
--- OUTSIDE RECORDS SUMMARY | 2022-08-10 10:26 | XMS_ITS | Continuity of Care Document ---
Author Name Unknown Organization [facility] Address [address] [place] [address]- Care Team Providers Care Personnel Consultant Name Role Phone Bala Cortez MD Primary Care Physician [phone] Encounter [facility] Date(s): 06/14/20 - 06/21/20 [facility] [address] [place], [place] [address] Attending Physician: Bala Cortez MD Allergies, Adverse [...] 2Result Comment: [facility]#[id number] 3Admin Note: Influenza vaccine 4Admin Note: Influenza vaccine 5Admin Note: Influenza vaccine 6Admin Note: VIS GIVEN 7Result Comment: [facility]# [id number] 8Admin Note: Twinrix # 2 9Admin Note: [...] 03/05/20 17:29:00 EST, Route to Pharmacy Electronically, [facility] #[id number], 155, cm, 02/13/20 9:01:00 EDT, Height, 43.9, kg, 02/11/20 10:34... Start Date: 03/05/20 Status: Ordered Humalog Kwik Pen 100 units/mL subcutaneous injection See Instructions, 100-149 6 units 150 199 8 units 200 249 10 units 250 -299 12 units 300-349 14 units 350-399 16 units with meals as needed, # 10 mL, 2 Refills, Maintenance, 03/11/20 12:38:00 EST, Solution, [facility] #[id number], 155,... Start Date: 03/11/20 Status: Ordered ibuprofen 600 mg oral tablet 600 mg, 1, tablet, By Mouth, Every 8 hours, Use very sparingly, # 20 tablet, Refills 0, Tot. Refills 0, Acute 04/18/21 12:03:00 EST, 04/18/20 12:03:00 EST, Route to Pharmacy Electronically, [facility] #[id number], Partial fill upon patient reques... Start Date: 04/18/20 Stop Date: 04/18/21 Status: Ordered Lantus Solostar Pen 100 units/mL subcutaneous solution = 25 units, Subcutaneous Injection, Daily at bedtime, # 12 mL, 2 Refills, Maintenance, 03/05/20 17:29:00 EST, Solution, [facility] #[id number], 155, cm, 02/13/20 9:01:00 EDT, Height, 43.9, kg, 02/11/20 10:34:00 EDT, Dry Weight Start Date: 03/05/20 Status: Ordered magnesium oxide 400 mg oral tablet 1 tablet = 400 mg, By Mouth, 3 times a day, # 100 tablet, 3 Refills, Acute 07/05/20 11:27:00 EST, 07/06/19 11:26:00 EST, Tablet, [facility] #[id number], 152, cm, 07/06/19 11:06:00 EST, Height, 43.1, kg, 07/06/19 11:06:00 EST, Dry Weight Start Date: 07/06/19 Stop Date: 07/05/20 Status: Ordered metoprolol 25 mg oral tablet, extended release 25 mg, 1, tablet, By Mouth, Daily, # 30 tablet, Refills 5, Tot. Refills 5, Maintenance, 04/10/20 14:03:00 EST, Route to Pharmacy Electronically, [facility] #[id number], 155, cm, 02/13/20 9:01:00EDT, Height, 43.9, kg, 02/11/20 10:34:00 EDT, Dry W... 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
--- OUTSIDE RECORDS SUMMARY | 2022-08-10 10:26 | XMS_ITS | Continuity of Care Document ---
Author Name Unknown Organization [facility] Address [address] [place] [address]- Care Team Providers Care Dog Beautician Name Role Phone Bala Cortez MD Primary Care Physician [phone] Encounter [facility] [place] Date(s): 07/04/20 - 07/11/20 [facility] [address] [place], [place] 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 Hyperkalemia(Discharge Diagnosis) - 07/04/20 Diabetes mellitus type 2(Discharge Diagnosis) - 07/04/20 Attending Physician: Bala Cortez MD Allergies, Adverse [...] Reason: Med Not Available 2Result Comment: [facility]#[id number] 3Admin Note: Influenza vaccine 4Admin Note: Influenza vaccine 5Admin Note: Influenza vaccine 6Admin Note: VIS GIVEN 7Result Comment: [facility]# [id number] 8Admin Note: Twinrix # 2 9Admin Note: [...] 03/05/20 17:29:00 EST, Route to Pharmacy Electronically, [facility] #[id number], 155, cm, 02/13/20 9:01:00 EDT, Height, 43.9, kg, 02/11/20 10:34... Start Date: 03/05/20 Status: Ordered Humalog Kwik Pen 100 units/mL subcutaneous injection See Instructions, 100-149 6 units 150 199 8 units 200 249 10 units 250 -299 12 units 300-349 14 units 350-399 16 units with meals as needed, # 10 mL, 2 Refills, Maintenance, 07/04/20 11:27:00 EST, Solution, [facility] #[id number], 152,... Start Date: 07/04/20 Status: Ordered LAB [...] 2 Refills, Maintenance, 07/04/20 11:26:00 EST, Solution, [facility] #[id number], 152, cm, 06/27/20 11:20:00 EST, Height, 47, kg, 06/21/20 13:49:00 EST, DrPriya.. Start Date: 07/04/20 Status: Ordered metoprolol 25 mg oral tablet, extended release 25 mg, 1, tablet, By Mouth, Daily, # 30 tablet, Refills 5, Tot. Refills 5, Maintenance, 04/10/20 14:03:00 EST, Route to Pharmacy Electronically, [facility] #[id number], 155, cm, 02/13/20 9:01:00EDT, Height, 43.9, kg, 02/11/20 10:34:00 EDT, Dry W... 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
--- OUTSIDE RECORDS SUMMARY | 2022-08-10 10:26 | XMS_ITS | Continuity of Care Document ---
Author Name Unknown Organization [facility] Address [address] [place] [address]- Care Team Providers Care Can Filling And Closing Machine Tender Name Role Phone Bala Cortez MD Primary Care Physician Encounter [facility] Date(s): 07/04/20 - 08/03/20 [facility] [address] [place], [place] [address] Attending Physician: Loly Sow Admitting Physician: AdmtrLoly Referring Physician: AdmtrLoly Allergies, Adverse Reactions, Alerts [...] 1Early/Late Reason: Med Not Available 2Result Comment: [facility]#[id number] 3Admin Note: Influenza vaccine 4Admin Note: Influenza vaccine 5Admin Note: Influenza vaccine 6Admin Note: VIS GIVEN 7Result Comment: [facility]# [id number] 8Admin Note: Twinrix # 2 9Admin Note: [...] 07/25/20 11:26:00 EDT, Route to Pharmacy Electronically, [facility] #[id number], 152, cm, 06/27/20 11:20:00 EST, Height, 47, kg, 06/21/20 13:49:00 EST,... Start Date: 07/25/20 Status: Ordered Humalog Kwik Pen 100 units/mL subcutaneous injection See Instructions, 100-149 6 units 150 199 8 units 200 249 10 units 250 -299 12 units 300-349 14 units 350-399 16 units with meals as needed, # 10 mL, 2 Refills, Maintenance, 07/04/20 11:27:00 EST, Solution, [facility] #[id number], 152,... Start Date: 07/04/20 Status: Ordered LAB [...] 2 Refills, Maintenance, 07/04/20 11:26:00 EST, Solution, [facility] #[id number], 152, cm, 06/27/20 11:20:00 EST, Height, 47, kg, 06/21/20 13:49:00 EST, DrPriya.. Start Date: 07/04/20 Status: Ordered metFORMIN 500 mg oral tablet 1 tablet = 500 mg, By Mouth, 2 times a day, please take tab twice a day, then increase to 2 tabs twice a day., # 180 tablet, 4 Refills, Maintenance, 07/19/20 10:07:00 EDT, Tablet, [facility] #[id number], Partial fill upon patient request if the p... Start Date: 07/19/20 Status: Ordered metoprolol 25 mg oral tablet, extended release 25 mg, 1, tablet, By Mouth, Daily, # 30 tablet, Refills 5, Tot. Refills 5, Maintenance, 04/10/20 14:03:00 EST, Route to Pharmacy Electronically, [facility] #[id number], 155, cm, 02/13/20 9:01:00EDT, Height, 43.9, kg, 02/11/20 10:34:00 EDT, Dry W... 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
--- OUTSIDE RECORDS SUMMARY | 2022-08-10 10:26 | XMS_ITS | Continuity of Care Document ---
Author Name Unknown Organization [facility] Address [address] [place] [address]- Care Team Providers Care Inspector Government Property Name Role Phone Bala Cortez MD Primary Care Physician [place] [facility] [place] Date(s): 06/14/19 - 06/17/[address] [address]- [facility] Discharge Disposition: A-D/C Home Attending Physician: Jony ELIZABETH, [place] Admitting Physician: Chaparro Mendoza MD Referring Physician: Not on Staff, Referring [...] 04/09/17 Not Given Patient Refuses 1Result Comment: [facility]#[id number] 2Admin Note: Influenza vaccine 3Admin Note: Influenza [...] mL, 2 Refills, Maintenance, 06/17/19 10:52:00 EST, [facility], 152, cm, 06/17/19 7:41:00 EST, Height, 41.3, kg, 06/15/19 17:42:00 EST, Dry Weight Start Date: 06/17/19 Status: Ordered Lantus Solostar Pen 100 units/mL subcutaneous solution = 60 units, Subcutaneous Injection, Daily at bedtime, # 15 mL, 2 Refills, Maintenance, 06/17/19 10:53:00 EST, Solution, [facility], 152, cm, 06/17/19 7:41:00 EST, Height, 41.3, kg, 06/15/19 17:42:00 EST, Dry Weight Start Date: 06/17/19 Status: Ordered magnesium oxide 400 mg oral tablet 1 tablet = 400 mg, By Mouth, 3 times a day, 0 Refills, Maintenance, 02/19/19 22:57:28 EDT Start Date: 02/19/19 Status: Ordered Pen [place], 31 G x 5 mm BD Ultra [...] Active DKA (diabetic ketoacidoses)(Confirmed) Active Diabetic retinopathy, [place], 03/23/19(Confirmed) Active 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 Results Orders for Microbiology Reports Name Date Stool Culture 06/16/19 Urine Culture (URINE CULTURE) 06/15/19 Microbiology Reports TEST:Stool Culture STATUS:Unauthenticated BODY SITE: SOURCE:STOOL COLLECTED DATE/TIME:06/16/19 11:21 AM Stool Culture SPECIMEN DESCRIPTION : STOOL SPECIAL REQUESTS : NONE CULTURE : NORMAL SO FAR REPORT STATUS : PRELIMINARY REPORT TEST:Urine Culture STATUS:Auth (Verified) BODY SITE: SOURCE:URINE COLLECTED DATE/TIME:06/15/19 6:56 AM Urine Culture SPECIMEN DESCRIPTION : URINE SPECIAL REQUESTS : NONE CULTURE : Mixed bacterial alma, indicative of urogenital contamination. REPORT STATUS : FINAL 06/17/2019 Vital Signs Most recent to oldest [Reference Range]: 1 2 3 Height 152 cm (06/17/19 7:41 AM) 152 cm (06/17/19 12:40 AM) 152 cm (06/16/19 7:16 PM) Weight 41.3 kg (06/15/19 12:28 PM) 42 kg (06/15/19 3:03 AM) 42 kg (06/14/19 11:37 PM) Oxygen Saturation [94-100 %] 100 % (06/17/19 7:41 AM) 99 % (06/17/19 12:40 AM) 100 % (06/16/19 7:16 PM) Pulse Rate [55-90 bpm] 92 bpm *H* (06/17/19 7:41 AM) 93 bpm *H* (06/17/19 12:40 AM) 95 bpm *H* (06/16/19 7:16 PM) Body Mass Index [18.5-24.99] 17.88 *L* (06/15/19 12:28 PM) Blood Pressure [90-138/55-84 mm Hg] 112/96mm Hg (06/17/19 7:41 AM) 122/74mm Hg (06/17/19 12:40 AM) 127/81mm Hg (06/16/19 7:16 PM) Respiratory Rate [16-30 br/min] 18 br/min (06/17/19 12:04 PM) 18 br/min (06/17/19 7:41 AM) 16 br/min (06/17/19 12:40 AM) Temperature [96.8-100.4 DegF] 98.1 DegF (06/17/19 7:41 AM) 98.0 DegF (06/17/19 12:40 AM) 97.9 DegF (06/16/19 7:16 PM) Mode of Delivery (Oxygen) Room air (06/17/19 7:41 AM) Room air (06/17/19 12:40 AM) Room air (06/16/19 7:16 PM) Blood pressure sites Arm, left (06/17/19 7:41 AM) Arm, left (06/17/19 12:40 AM) Arm, left (06/16/19 7:16 PM) Temperature Route Oral (06/17/19 7:41 AM) Oral (06/17/19 12:40 AM) Oral (06/16/19 7:16 PM) Dry Weight 41.3 kg (06/15/19 12:28 PM) Weight Obtained Via Standing scale (06/15/19 12:28 PM) Standing scale (06/14/19 2:43 PM) Dry Weight Obtained Via Standing scale (06/15/19 12:28 PM) Sensory deficits None (06/15/19 12:28 PM) Mobility assistance Independent (06/15/19 12:28 PM) Social History Social History Type Response Smoking Status Never smoker entered on: 01/26/14 Sex
--- OUTSIDE RECORDS SUMMARY | 2022-08-10 10:26 | XMS_ITS | Continuity of Care Document ---
Author Name Unknown Organization [facility] Address [address] [place] [address]- Care Team Providers Care Golf Ball Trimmer Name Role Phone Isra ELIZABETH, Toyin Primary Care Physician Encounter [facility] Date(s): 05/01/22 - 05/31/22 [facility] [address] [place], [place] [address] Attending Physician: Loly Sow Admitting Physician: [...] Not Available 2Result Comment: [facility]#52740-726-04 3Admin Note: Influenza vaccine 4Admin Note: Influenza vaccine 5Admin Note: Influenza vaccine 6Admin Note: VIS GIVEN 7Result Comment: SEE COVID TEAM PROGRESS NOTE 8Result Comment: [facility]# [id number] 9Admin Note: Twinrix # 2 10Admin Note: Twinrix # 1 11Admin Note: VIS GIVEN 12Result Comment: Lot: [id number] Exp: Nov 08 Pt given vaccine info sheet before vaccine administered Medications aspirin 81 mg oral tablet, chewable 81 mg, 1, tablet, By Mouth, Daily, # 30 tablet, Refills 11, Tot. Refills 11, Maintenance, 06/13/21 15:29:00 EST, Route to Pharmacy Electronically, [facility] #[id number], Partial fill upon patient request if the prescription is for a schedule II... Start Date: 06/13/21 Status: Ordered Biktarvy oral tablet 1 tablet, By Mouth, Daily, # 30 tablet, 0 Refills, Maintenance, 11/26/20 16:19:00 EDT, Tablet, [facility], Partial fill upon patient request if [...] 11/29/20 12:03:00 EDT, Route to Pharmacy Electronically, [facility] #[id number], 153, cm, 11/26/20 13:06:00 EDT, Height, 46, [...] 1 Refills, Maintenance, 06/09/21 10:48:00 EST, Injection, [facility] #[id number], Partial fill upon patient request if theprescription is for a schedule II opioid drug., 152... Start Date: 06/09/21 Stop Date: 08/08/21 Status: Ordered hydrOXYzine hydrochloride 10 mg oral tablet 2 tablet = 20 mg, By Mouth, 4 times a day, PRN for anxiety, # 80 tablet, 0 Refills, Maintenance, 10/17/21 12:42:00 EDT, Tablet, [facility] #[id number], Partial fill upon patient request if the prescription is for a schedule II opioid drug., 153,... Start Date: 10/17/21 Status: Ordered insulin glargine 100 u/ml subcutaneous solution 40, Subcutaneous Injection, Daily at bedtime, # 10 mL, 1 Refills, Maintenance, 08/07/21 13:44:00 EDT, Injection, [facility] #[id number], Partial fill upon patient request if the [...] Acute 10/17/22 12:44:00 EDT, 10/17/21 12:44:00 EDT, [facility] #[id number], Partial fill upon patient request if the prescription is for a schedule II opioid drug., 153, cm, 10/08/21 9:2... Start Date: 10/17/21 Stop Date: 10/17/22 Status: Ordered metoprolol 25 mg oral tablet 25 mg, 1, tablet, By Mouth, Daily, # 90 tablet, Refills 3, Tot. Refills 3, Maintenance, 06/13/21 15:29:00 EST, Route to Pharmacy Electronically, [facility] #[id number], Partial fill upon patientrequest if the prescription is for a schedule II op... Start Date: 06/13/21 Status: Ordered Pen [place], 31 G x 5 mm BD Ultra [...] 3 Refills, Maintenance, 10/17/21 12:48:00 EDT, Solution, [facility] #[id number], Partial fill upon patient... Start Date: 10/17/21 Status: Ordered Vitamin D3 1000 intl units oral capsule 1 capsule = 25 mcg, By Mouth, Daily, # 100 capsule, 3 Refills, Maintenance, 06/20/21 11:15:00 EST, Capsule, [facility] #[id number], Partial fill upon patient request if the [...] DKA (diabetic ketoacidoses) Confirmed Active Diabetic retinopathy, [place], 03/23/19 Confirmed Active Rash Confirmed Active Gitelman [...] Team Personnel Name: Elsi Dumont RN Position: [facility] RN Member Role: Primary Care Nurse Name: Yusuf Bhardwaj RN Position: [facility] RN Member Role: Primary Care Nurse Name: Nora Mercado RN Position: [facility] SN RN Member Role: Primary Care Nurse Name: Mitch Mena MD Position: [facility] Renal MD Member Role: Lifetime Consulting Physician Address: Address: [address] [place] [address], [address] Name: Lacho Chaves RN Position: [facility] ED RN W/OE and Tasks Member Role: Primary Care Nurse Name: Lily Tyler RN Position: [facility] RN Member Role: Primary Care Nurse Name: Ashley Sosa RN Position: [facility] PCO RN Member Role: Primary Care Nurse Name: Elba Enrique RN Position: [facility] RN Member Role: Primary Care Nurse Name: Jacinta Huitron RN Position: [facility] RN Member Role: Primary Care Nurse Name: Linda Christianson NP Position: [facility] Associate Professional Member Role: Primary Care Nurse Address: Address: [address] [place] [address]- [place] Name: Eleni Stewart Position: [facility] Outreach Member Role: Lifetime Consulting Physician Name: Nesha Major RN Position: [facility] RN Member Role: Primary Care Nurse Name: Christiano Costa RN Position: [facility] RN Member Role: Primary Care Nurse Name: Sakina Ward RN Position: [facility] RN Member Role: Primary Care Nurse Name: Carisa Keyes RN Position: [facility] RN Member Role: Primary Care Nurse Name: Yanet Grimaldo RN Position: [facility] OB RN Member Role: Primary Care Nurse Name: Arielle Rhodes RN Position: [facility] RN Member Role: Primary Care Nurse Name: Iris Muniz RN Position: [facility] RN Member Role: Primary Care Nurse Name: Anna Yang RN Position: [facility] RN Member Role: Primary Care Nurse Name: Carlene Najera Position: [facility] RN Member Role: Primary Care Nurse Name: Nora Alcantar RN Position: [facility] RN Member Role: Primary Care Nurse Name: Smita REPAIR ELECTRIC MOTOR ASSEMBLERYasemin Position: [facility]O Associate Professional Member Role: Primary Care Nurse Address: Address: [address] [place] [address]- [place] Name: Cher Maxwell RN Position: [facility] HBO Wound Member Role: Primary Care Nurse Name: Noemi Corbett RN Position: [facility] RN Member Role: Primary Care Nurse Name: Nora Silva RN Position: [facility] RN Member Role: Primary Care Nurse Name: Tracy Sharp RN Position: [facility] RN Member Role: Primary Care Nurse Name: Anamaria Andrade RN Position: [facility] SN RN Member Role: Primary Care Nurse Name: Scottie Shook RN Position: [facility] ADRYAN RN W/OE and Tasks Member Role: Primary Care Nurse Name: Stew Calvillo RN Position: [facility] RN Member Role: Primary Care Nurse Name: Kehinde Kern DO Position: [facility] Renal MD Member Role: Lifetime Consulting Physician Address: Address: [address] [facility] [address] [facility] [place] [address]- [place] Name: Lily Leyva RN Position: [facility] RN Member Role: Primary Care Nurse Name: Carson New III, RN Position: [facility] RN Member Role: Primary Care Nurse Name: Carlie Arzate RN Position: [facility] Bread Wrapping Machine Feeder Member Role: Primary Care Nurse Name: Margaret Snyder RN Position: [facility] Bread Wrapping Machine Feeder Member Role: Primary Care Nurse Name: Noah Schuster RN Position: [facility] RN Member Role: Primary Care Nurse Name: Tracie Haney RN Position: [facility] RN Member Role: Primary Care Nurse Name: Mayra Covarrubias RN Position: [facility] RN Member Role: Primary Care Nurse Name: Steph Pagan RN Position: [facility] RN Member Role: Primary Care Nurse Name: Manohar Wallace RN Position: [facility] RN Member Role: Primary Care Nurse Name: Karen Dewey RN Position: [facility] RN Member Role: Primary Care Nurse Name: Lisset Díaz RN Position: [facility] RN Member Role: Primary Care Nurse Name: Phyllis Jones RN Position: [facility] RN Member Role: Primary Care Nurse Name: Manuel Kirkpatrick MD Position: [facility] Renal MD Member Role: Lifetime Consulting Physician Address: Address: [address] [place] [address] [facility] [place], [place] [address] Name: Vidhya Quan RN Position: [facility] RN Member Role: Primary Care Nurse Name: Jessi Giraldo RN Position: [facility] RN Member Role: Primary Care Nurse Name: Aaliyah Prakash RN Position: [facility] Bread Wrapping Machine Feeder Member Role: Primary Care Nurse Name: Toyin Dhaliwal MD Position: [facility] Primary Care Physician Member Role: PCP Address: Address: [address] [place] [address] [facility] [place] [address]- Name: Sushma Martinez RN Position: [facility] RN Member Role: Primary Care Nurse Name: Bonny Iniguez RN Position: [facility] RN Member Role: Primary Care Nurse Name: Mercedes Borjas RN Position: [facility] RN Member Role: Primary Care Nurse Name: Lamont Mantilla RN Position: [facility] RN Member Role: Primary Care Nurse Name: Aries Orozco MD Position: [facility] Renal MD Member Role: Lifetime Consulting Physician Address: Address: [address] [place] [address] [facility] [place] [address]- Name: Dedrick Brown RN Position: [facility] ED RN W/OE and Tasks Member Role: Primary Care Nurse Name: Marzena Razo RN Position: S RN Member Role: Primary Care Nurse Name: Fariba Mancilla RN Position: S RN Member Role: Primary Care Nurse Name: Mia Jones RN Position: [facility] SN RN Member Role: Primary Care Nurse Name: David Jean RN Position: [facility] SN RN Member Role: Primary Care Nurse Care Team Related Persons Name: DAKOTAH BAKER Address: home [address] [place] [id number] Name: DAKOTAH MARTINEZ Address: home [address] [place] [address] Name: LANDEN TRAN Address: home [address] [place] [address] Name: SHRUTI BHAGAT Address: [place] [address]
--- OUTSIDE RECORDS SUMMARY | 2022-08-10 10:26 | XMS_ITS | Continuity of Care Document ---
Author Name Unknown Organization [facility] ter Address [address] [place] [address]- Care Team Providers Care Guide Plant Name Role Phone Bala Cortez MD Primary Care Physician [phone] Encounter [facility] Date(s): 11/04/20 - 11/10/[address] [address]- Encounter Diagnosis UTI (urinary tract infection)(Final) - 11/03/20 Acute renal injury(Final) - 11/04/20 Discharge Disposition: A-D/C Home Attending Physician: Clarence Sims MD, Nehemiah Mueller Admitting Physician: Devante Strauss MD Referring Physician: Not on Staff, Referring [...] Not Available 3Result Comment: [facility]#[id number] 4Admin Note: Influenza vaccine 5Admin Note: Influenza vaccine 6Admin Note: Influenza vaccine 7Admin Note: VIS GIVEN 8Result Comment: [facility]# [id number] 9Admin Note: Twinrix # 2 10Admin Note: Twinrix # 1 11Admin Note: VIS GIVEN 12Result Comment: Lot: [id number] Exp: Nov 08 Pt given vaccine info sheet before vaccine administered Medications Biktarvy oral tablet 1 tablet, By Mouth, Daily, 0 Refills, Maintenance, 06/15/19 12:30:00 EST, Tablet Start Date: 06/15/19 Status: Ordered diphenhydrAMINE 25 mg oral tablet = 25 mg, By Mouth, Every 4 hours, PRN Itch, for 14 days, # 24 tablet, 0 Refills, Acute 11/24/20 12:06:00 EDT, 11/10/20 12:06:00 EDT, Tablet, [facility] #[id number], Partial fill upon patient request if the prescription is for a schedule II opioid... Start Date: 11/10/20 Stop Date: 11/24/20 Status: Ordered gabapentin 300 mg oral capsule 1, capsule, By Mouth, Daily at bedtime, # 30 capsule, Refills 3, Tot. Refills 3, Maintenance, 08/22/20 14:01:00 EDT, Route to Pharmacy Electronically, [facility], 152, cm, 06/27/20 11:20:00 EST, Height, 47, kg, 06/21/20 13:49:00 EST, Dry... Start Date: 08/22/20 Status: Ordered Humalog Kwik Pen 100 units/mL subcutaneous injection 2 - 10 units, Subcutaneous Injection, 3 times a day before meals, Maintenance, 11/04/20 13:56:00 EDT, ; Start Date: 11/04/20 Status: Ordered Lantus Solostar Pen 100 units/mL subcutaneous solution = 35 units, Subcutaneous Injection, Daily in AM, for 90 days, # 10 mL, 3 Refills, Physician Stop 02/04/22 8:59:00 EDT, 02/09/21 8:59:00 EDT, [facility] #[id number], 155, cm, 11/10/20 11:40:00 EDT, Height, 54.4, kg, 11/03/20 17:32:00 EDT, Dry Weight Start Date: 02/09/21 Stop Date: 02/04/22 Status: Ordered Lantus Solostar Pen 100 units/mL subcutaneous solution = 35 units, Subcutaneous Injection, Daily in AM, for 90 days, # 10 mL, 0 Refills, Physician Stop 02/09/21 8:59:00 EDT, [facility] #[id number], 152, cm, 06/27/20 11:20:00 EST, Height, 47, kg, 06/21/20 13:49:00 EST, Dry Weight Start Date: 10/02/20 Stop Date: 02/09/21 Status: Ordered levoFLOXacin 500 mg oral tablet 1 tablet = 500 mg, By Mouth, Every 24 hours, for 7 days, # 7 tablet, 0 Refills, Acute 11/17/20 12:14:00 EDT, 11/10/20 12:14:00 EDT, Tablet, [facility] #[id number], Partial fill upon patient request if the prescription is for a schedule II opioid... Start Date: 11/10/20 Stop Date: 11/17/20 Status: Ordered magnesium oxide 400 mg oral tablet 1 tablet = 400 mg, By Mouth, Daily, Maintenance, 11/04/20 13:58:00 EDT, Tablet, Partial fill upon patient request if the prescription is for a schedule II opioid drug. Start Date: 11/04/20 Status: Ordered metoprolol 25 mg oral tablet, extended release 25 mg, 1, tablet, By Mouth, Daily, # 30 tablet, Refills 5, Tot. Refills 5, Maintenance, 04/10/20 14:03:00 EST, Route to Pharmacy Electronically, [facility] #[id number], 155, cm, 02/13/20 9:01:00EDT, Height, 43.9, kg, 02/11/20 10:34:00 EDT, Dry W... 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 Active Depression(Confirmed) Active Diabetes mellitus type 2(Confirmed) Active DKA (diabetic ketoacidoses)(Confirmed) Active DKA (diabetic ketoacidoses)(Confirmed) Active Diabetic retinopathy, [place], 03/23/19(Confirmed) Active 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 Reports Name Date Urine Culture (URINE CULTURE) 11/03/20 Blood Culture 11/03/20 Blood Culture #2 11/03/20 Microbiology Reports TEST:Blood Culture, Second Order STATUS:Auth (Verified) BODY SITE: SOURCE:Blood COLLECTED DATE/TIME:11/03/20 8:16 PM Blood Culture, Second Order SPECIMEN DESCRIPTION : BLOOD NO SITE SPECIAL REQUESTS : NONE CULTURE : NO GROWTH 5 DAYS. REPORT STATUS : FINAL 11/08/2020 TEST:Blood Culture STATUS:Auth (Verified) BODY SITE: SOURCE:Blood COLLECTED DATE/TIME:11/03/20 6:53 PM Blood Culture SPECIMEN DESCRIPTION : BLOOD RT SPECIAL REQUESTS : NONE CULTURE : NO GROWTH 5 DAYS. REPORT STATUS : FINAL 11/08/2020 TEST:Urine Culture STATUS:Auth (Verified) BODY SITE: SOURCE:URINE COLLECTED DATE/TIME:11/03/20 6:50 PM Urine Culture SPECIMEN DESCRIPTION : URINE SPECIAL REQUESTS : NONE CULTURE : >100,000 COL/ML SERRATIA MARCESCENS REPORT STATUS : FINAL 11/06/2020 ORGANISM >100,000 COL/ML SERRATIA MARCESCENS METHOD MIN. INHIB. CONC. (MCG/ML) AMPICILLIN SUSCEPTIBLE AMPICILLIN/SULBACTAM SUSCEPTIBLE AMOXICILLIN/CLAVULAN SUSCEPTIBLE CEFAZOLIN RESISTANT CEFEPIME SUSCEPTIBLE CEFTRIAXONE RESISTANT CIPROFLOXACIN SUSCEPTIBLE ERTAPENEM SUSCEPTIBLE GENTAMICIN SUSCEPTIBLE LEVOFLOXACIN SUSCEPTIBLE MEROPENEM SUSCEPTIBLE NITROFURANTOIN RESISTANT PIPERACILLIN/TAZOBAC INTERMEDIATE TRIMETH/SULFAMETHOX SUSCEPTIBLE TETRACYCLINE INTERMEDIATE Vital Signs Most recent to oldest [Reference Range]: 1 2 3 Height 155 cm (11/10/20 11:40 AM) 155 cm (11/10/20 8:11 AM) 155 cm (11/10/20 4:56 AM) Weight 54 kg (11/05/20 4:35 AM) 54.5 kg (11/03/20 5:32 PM) 54.5 kg (11/03/20 5:31 PM) Oxygen Saturation [94-100 %] 98 % (11/10/20 11:40 AM) 100 % (11/10/20 8:11 AM) 97 % (11/10/20 4:56 AM) Pulse Rate [55-90 bpm] 114 bpm *H* (11/10/20 11:40 AM) 105 bpm *H* (11/10/20 8:11 AM) 84 bpm (11/10/20 4:56 AM) Blood Pressure [90-138/55-84 mm Hg] 126/81mm Hg (11/10/20 11:40 AM) 107/73mm Hg (11/10/20 8:11 AM) 118/73mm Hg (11/10/20 4:56 AM) Respiratory Rate [16-30 br/min] 18 br/min (11/10/20 11:40 AM) 18 br/min (11/10/20 8:11 AM) 18 br/min (11/10/20 7:51 AM) Temperature [96.8-100.4 DegF] 98.6 DegF (11/10/20 11:40 AM) 98.8 DegF (11/10/20 8:11 AM) 98.2 DegF (11/10/20 4:56 AM) Mode of Delivery (Oxygen) Room air (11/10/20 11:40 AM) Room air (11/10/20 8:11 AM) Room air (11/10/20 4:56 AM) Blood pressure sites Arm, right (11/10/20 11:40 AM) Arm, right (11/10/20 8:11 AM) Arm, left (11/09/20 7:30 PM) Temperature Route Oral (11/10/20 11:40 AM) Oral (11/10/20 8:11 AM) Oral (11/10/20 4:56 AM) Dry Weight 54.4 kg (11/03/20 5:32 PM) 54.4 kg (11/03/20 5:31 PM) Weight Obtained Via Bed scale (11/05/20 4:35 AM) Social History Social History Type Response Smoking Status Never smoker entered on: 01/26/14 Sex
--- OUTSIDE RECORDS SUMMARY | 2022-08-10 10:26 | XMS_ITS | Continuity of Care Document ---
Author Name Unknown Organization [facility] Address [address] [place] [address]- Care Team Providers Care Museum Assistant Name Role Phone Toyin Dhaliwal MD Primary Care Physician [place] [facility] [place] 06/10/22 - 06/17/22 [facility] [address] [place], [place] [address] Attending Physician: Malena Cedeño DO Allergies, Adverse Reactions, Alerts No Known Allergies [...] 1Early/Late Reason: Med Not Available 2Result Comment: [facility]#71068-628-12 3Admin Note: Influenza vaccine 4Admin Note: Influenza vaccine 5Admin Note: Influenza vaccine 6Admin Note: VIS GIVEN 7Result Comment: SEE COVID TEAM PROGRESS NOTE 8Result Comment: [facility]# [id number] 9Admin Note: Twinrix # 2 10Admin Note: Twinrix # 1 11Admin Note: VIS GIVEN 12Result Comment: Lot: [id number] Exp: Nov 08 Pt given vaccine info sheet before vaccine administered Medications aspirin 81 mg oral tablet, chewable 81 mg, 1, tablet, By Mouth, Daily, # 30 tablet, Refills 11, Tot. Refills 11, Maintenance, 06/13/21 15:29:00 EST, Route to Pharmacy Electronically, [facility] #[id number], Partial fill upon patient request if the prescription is for a schedule II... Start Date: 06/13/21 Status: Ordered Biktarvy oral tablet 1 tablet, By Mouth, Daily, # 30 tablet, 0 Refills, Maintenance, 11/26/20 16:19:00 EDT, Tablet, [facility] 3, Partial fill upon patient request [...] 0 Refills, Maintenance, 06/10/22 17:02:00 EST, Tablet, [facility] #[id number], Partial fill upon patient request if the [...] 06/10/22 17:06:00 EST, Route to Pharmacy Electronically, [facility] #[id number], 153, cm, 06/10/22 16:01:00 EST, Height, 45, [...] 1 Refills, Maintenance, 06/09/21 10:48:00 EST, Injection, [facility] #[id number], Partial fill upon patient request if theprescription is for a schedule II opioid drug., 152... Start Date: 06/09/21 Stop Date: 08/08/21 Status: Ordered hydrOXYzine hydrochloride 10 mg oral tablet 2 tablet = 20 mg, By Mouth, 4 times a day, PRN for anxiety, # 80 tablet, 0 Refills, Maintenance, 06/05/22 20:07:00 EST, Tablet, [facility] #[id number], Partial fill upon patient request if the prescription is for a schedule II opioid drug., 153,... Start Date: 06/05/22 Status: Ordered insulin glargine 100 u/ml subcutaneous solution 40, Subcutaneous Injection, Daily at bedtime, # 10 mL, 1 Refills, Maintenance, 06/05/22 20:07:00 EST, Injection, [facility] #[id number], Partial fill upon patient request if the prescription is for a schedule II opioid drug., 153, cm, 02/23/22 13... Start Date: 06/05/22 Status: Ordered Magnesium Oxide By Mouth, 2 times a day, 0 Refills, Maintenance, 03/04/21 19:51:00 EDT, Partial fill upon patient request if the prescription is for a schedule II opioid drug. Start Date: 03/04/21 Status: Ordered magnesium oxide 400 mg oral tablet 1 tablet = 400 mg, By Mouth, Daily, # 30 tablet, 0 Refills, Acute 10/17/22 12:44:00 EDT, 10/17/21 12:44:00 EDT, [facility] #[id number], Partial fill upon patient request if the prescription is for a schedule II opioid drug., 153, cm, 10/08/21 9:2... Start Date: 10/17/21 Stop Date: 10/17/22 Status: Ordered metoprolol 25 mg oral tablet 25 mg, 1, tablet, By Mouth, Daily, # 90 tablet, Refills 1, Tot. Refills 1, Maintenance, 06/04/22 13:12:00 EST, Route to Pharmacy Electronically, [facility] #[id number], Partial fill upon patientrequest if the prescription is for a schedule II op... Start Date: 06/04/22 Status: Ordered Pen [place], 31 G x 5 mm BD Ultra [...] 3 Refills, Maintenance, 06/05/22 20:07:00 EST, Solution, [facility] #[id number], Partial fill upon patient... Start Date: 06/05/22 Status: Ordered Vitamin D3 1000 intl units oral capsule 1 capsule = 25 mcg, By Mouth, Daily, # 100 capsule, 3 Refills, Maintenance, 06/20/21 11:15:00 EST, Capsule, [facility] #[id number], Partial fill upon patient request if the [...] DKA (diabetic ketoacidoses) Confirmed Active Diabetic retinopathy, [place], 03/23/19 Confirmed Active Rash Confirmed Active Gitelman [...] oldest [Reference Range]: 1 Height 153 cm (06/10/22 4:01 PM) Weight 39.2 kg (06/10/22 4:01 PM) Oxygen Saturation [94-100 %] 99 % (06/10/22 4:01 PM) Pulse Rate [55-90 bpm] 81 bpm (06/10/22 4:01 PM) Body Mass Index [18.5-24.99 kg/m2] 16.75 kg/m2 *L* (06/10/22 4:01 PM) Blood Pressure [90-138/55-84 mm Hg] 112/ 70mm Hg (06/10/22 4:01 PM) Mode of Delivery (Oxygen) Room air (06/10/22 4:01 PM) Blood pressure sites Arm, right (06/10/22 4:01 PM) Social History Social History Type Response Smoking Status Never (less than 100 in lifetime) entered on: 06/06/21 Sex Note * Nita Luque: PERFORM, SIGN, VERIFY Event Display: Patient Education/Instruction Authored Date: [id number] [facility] *No [facility] Adult [facility] Clinical Summary Name VINCENZO DUGAN Age 51 Years 1970 PCP Isra ELIZABETH, Toyin PCP Visit Date 06/10/2022 15:44:00 Additional Instructions: Scheduled Appointments?? Future Appointments ?*No??[facility]Adult[facility]Ped ?[address]??[place],??[place],??[address] ?Phone:??--?Fax:??-- ?Appt. Date:??07/01/2022?1:40 PM ?Scheduled Provider:??Malena Cedeño DO Follow-Up Instructions ?? Diagnosis Medications: Please continue [...] 5. Next Dose: Durable Medical Equipment (Pen [place], 31 G x 5 mm BD Ultra Fine III) Use to administer trulicity and insulin. Refills: 0. Next Dose: Durable Medical Equipment (Rollator Walker) to be used while ambulating HT:152cm WT:44.0kg DX:R26.81. Refills: 0. Next Dose: Gabapentin (gabapentin 300 [...] orders Vital Signs Height 153 cm Weight 39.2 kg BMI 16.75 kg/m2 Blood Pressure 112 mm Hg/70 mm Hg Temperature Pulse Rate 81 bpm Respiratory Rate 02 Sat Mode of Delivery 99 %/Room air You can now view a summary of your hospital visit from the comfort of your home through a free online portal called [employer] is a website that allows you to securely view your medical information including discharge summary, medications and follow-up visits. ??You can alsosend a secure electronic message to your doctor???s office to request appointments, renew medications or just ask a question. You can enroll at [email or web address] or register during your next office visit. [...] primary care provider, you may find a [facility] provider by calling [facility] at [phone]. For information about the plan of care [...] Member Role: Lifetime Consulting Physician Address: Address: [address] [place] [address], [address] Name: Lacho Chaves RN Position: [facility] [...] Role: Primary Care Nurse Address: Address: [address] [place] [address]- [place] Name: Eleni Stewart Position: [facility] Outreach Member Role: Lifetime Consulting Physician Name: Nora Stewart RN Position: [facility] RN Member Role: Primary Care Nurse Name: Nesha Major RN Position: [facility] [...] Member Role: Primary Care Nurse Address: Address: [address] [place] [address]- [place] Name: Cher Maxwell RN Position: [facility] [...] Role: Lifetime Consulting Physician Address: Address: [address] [facility] [address] [facility] [place] [address]- [place] Name: Jose Hunter RN Position: [facility] ED RN W/OE and Tasks Member Role: Primary Care Nurse Name: Lily Leyva RN Position: [facility] RN Member Role: Primary Care Nurse Name: Carson New III, RN Position: [facility] RN Member Role: Primary Care Nurse Name: Carlie Arzate RN Position: [facility] Fire Safety Manager Member Role: Primary Care Nurse Name: Margaret Snyder RN Position: [facility] Fire Safety Manager Member Role: Primary Care Nurse Name: Noah Schuster RN Position: [facility] RN Member Role: Primary Care Nurse [...] Role: Lifetime Consulting Physician Address: Address: [address] [place] [address] [address] [facility] [place] [address]- Name: Vidhya Quan RN Position: [facility] RN Member Role: Primary Care Nurse Name: Jessi Giraldo RN Position: [facility] RN Member Role: Primary Care Nurse Name: aAliyah Prakash RN Position: [facility] Fire Safety Manager Member Role: Primary Care Nurse Name: Toyin Dhaliwal MD Position: [facility] Primary Care Physician Member Role: PCP Address: Address: [address] [place] [address] [facility] [place] [address]- [place] Name: Sushma Martinez RN Position: [facility] RN Member Role: Primary Care Nurse Name: Bonny Iniguez RN Position: [facility] RN Member Role: Primary Care Nurse Name: Mercedes Borjas RN Position: [facility] RN Member Role: Primary Care Nurse Name: Lmaont Mantilla RN Position: [facility] RN Member Role: Primary Care Nurse Name: Aries Orozco MD Position: [facility] Renal MD Member Role: Lifetime Consulting Physician Address: Address: [address] [place] [address] [facility] [address] Name: Dedrick Brown RN Position: [facility] [...] Related Persons Name: DAKOTAH BAKER Address: home [address] [place] [address] Name: EDWARDO DAKOTAH Address: home [address] [place] [address] Name: LANDEN TRAN Address: home [address] [place] [address] Name: SHRUTI BHAGAT Address: [place] [address]
--- OUTSIDE RECORDS SUMMARY | 2022-08-10 10:26 | XMS_ITS | Continuity of Care Document ---
Author Name Unknown Organization [facility] Address [address] [place] [address]- Care Team Providers Care Tailman Name Role Phone Bala Cortez MD Primary Care Physician [facility]counter [facility] Date(s): 10/19/19 - 11/18/19 [facility] [address] [place] [address]- [facility] Attending Physician: Loly Sow Admitting Physician: Loly [...] Not Given Patient Refuses 1Result Comment: [facility]# [id number] 2Result Comment: [facility]#[id number] 3Admin Note: Influenza vaccine 4Admin Note: Influenza [...] 0 Refills, Maintenance, 07/06/19 11:28:00 EST, Tablet, [facility] #[id number], 152, cm, 07/06/19 11:06:00 EST, Height, 43.1, [...] 10/19/19 15:33:00 EDT, Route to Pharmacy Electronically, [facility] #[id number], 152, cm, 07/06/19 11:06:00 EST, Height, 43.1, kg, 07/06/19 11:0... Start Date: 10/19/19 Status: Ordered Humalog Kwik Pen 100 units/mL subcutaneous injection See Instructions, 100-149 4 units 150 199 6 units 200 249 8 units 250 -299 10 units 300-349 12 units 350-399 14 units with meals as needed, # 1 each, 1 Refills, Maintenance, 06/26/19 13:52:00 EST, Solution, [facility] #[id number], 153,... Start Date: 06/26/19 Status: Ordered Lantus Solostar Pen 100 units/mL subcutaneous solution = 45 units, Subcutaneous Injection, Daily at bedtime, # 1 each, 0 Refills, Maintenance, 06/26/19 13:40:00 EST, Solution, [facility] #[id number], 153, cm, 06/26/19 7:18:00 EST, Height, 41.1, kg, 01/24/19 18:27:00 EDT, Dry Weight Start Date: 06/26/19 Status: Ordered magnesium oxide 400 mg oral tablet 1 tablet = 400 mg, By Mouth, 3 times a day, # 100 tablet, 3 Refills, Acute 07/05/20 11:27:00 EST, 07/06/19 11:26:00 EST, Tablet, [facility] #[id number], 152, cm, 07/06/19 11:06:00 EST, Height, 43.1, kg, 07/06/19 11:06:00 EST, Dry Weight Start Date: 07/06/19 Stop Date: 07/05/20 Status: Ordered multivitamin Therapeutic Multiple Vitamins oral tablet 1 tablet, By Mouth, Daily, # 30 tablet, 0 Refills, Maintenance, 06/26/19 13:45:00 EST, Tablet, [facility] #[id number], 1 tablet By Mouth Daily,x30 days, 153, cm, 06/26/19 7:18:00 EST, Height, 41.1, kg, 01/24/19 18:27:00 EDT, Dry Weight Start Date: 06/26/19 Stop Date: 07/26/19 Status: Ordered Pen [place], 29 G x 12.7 mm BD Ultra Fine See Instructions, # 100 each, Refills 5, Tot. Refills 5, Maintenance, use as directed for Type 1 Diabetes Mellitus, 06/26/19 13:47:00 EST, Compound, 153, cm, 06/26/19 7:18:00 EST, Height, 41.1, kg, 01/24/19 18:27:00 EDT, Dry Weight Start Date: 06/26/19 Stop Date: 12/23/19 Status: Ordered Pen [place], 31 G x 5 mm BD Ultra Fine III See Instructions, # 100 each, Refills 5, Tot. 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
--- OUTSIDE RECORDS SUMMARY | 2022-08-10 10:26 | XMS_ITS | Continuity of Care Document ---
Author Name Unknown Organization [facility] Address [address] [place] [address]- Care Team Providers Care Business Management Manager Name Role Phone Bala Cortez MD Primary Care Physician [facility] Date(s): 07/26/19 - 08/05/19 [facility] [address] [place] [address]- [facility] Attending Physician: Loly Sow Admitting Physician: Loly [...] Not Given Patient Refuses 1Result Comment: [facility]# [id number] 2Result Comment: [facility]#[id number] 3Admin Note: Influenza vaccine 4Admin Note: Influenza [...] 0 Refills, Maintenance, 07/06/19 11:28:00 EST, Tablet, [facility] #[id number], 152, cm, 07/06/19 11:06:00 EST, Height, 43.1, [...] each, 1 Refills, Maintenance, 06/26/19 13:52:00 EST, [facility] #[id number], 153,... Start Date: 06/26/19 Status: Ordered Humalog Kwik Pen 100 units/mL subcutaneous injection See Instructions, Sliding Scale Comments >>100 - 149 6 units Call if less than [address] - 199 8 units 200 - 249 [...] each, 0 Refills, Maintenance, 06/26/19 13:40:00 EST, [facility] #[id number], 153, cm, 06/26/19 7:18:00 EST, Height, 41.1, kg, 01/24/19 18:27:00 EDT, Dry Weight Start Date: 06/26/19 Status: Ordered Lantus Solostar Pen 100 units/mL subcutaneous solution = 55 units, Subcutaneous Injection, Daily at bedtime, # 10 mL, 2 Refills, Maintenance, 07/06/19 11:26:00 EST, Solution, [facility] #[id number], 152, cm, 07/06/19 11:06:00 EST, Height, 43.1, kg, 07/06/19 11:06:00 EST, Dry Weight Start Date: 07/06/19 Status: Ordered magnesium oxide 400 mg oral tablet 1 tablet = 400 mg, By Mouth, 3 times a day, # 100 tablet, 3 Refills, Acute 07/05/20 11:27:00 EST, 07/06/19 11:26:00 EST, Tablet, [facility] #[id number], 152, cm, 07/06/19 11:06:00 EST, Height, 43.1, kg, 07/06/19 11:06:00 EST, Dry Weight Start Date: 07/06/19 Stop Date: 07/05/20 Status: Ordered multivitamin Therapeutic Multiple Vitamins oral tablet 1 tablet, By Mouth, Daily, # 30 tablet, 0 Refills, Maintenance, 06/26/19 13:45:00 EST, Tablet, [facility] #[id number], 1 tablet By Mouth Daily,x30 days, 153, cm, 06/26/19 7:18:00 EST, Height, 41.1, kg, 01/24/19 18:27:00 EDT, Dry Weight Start Date: 06/26/19 Stop Date: 07/26/19 Status: Ordered Pen [place], 29 G x 12.7 mm BD Ultra Fine See Instructions, # 100 each, Refills 5, Tot. Refills 5, Maintenance, use as directed for Type 1 Diabetes Mellitus, 06/26/19 13:47:00 EST, Compound, 153, cm, 06/26/19 7:18:00 EST, Height, 41.1, kg, 01/24/19 18:27:00 EDT, Dry Weight Start Date: 06/26/19 Stop Date: 12/23/19 Status: Ordered Pen [place], 31 G x 5 mm BD Ultra Fine III See Instructions, # 100 each, Refills 5, Tot. Refills 5, Maintenance, use as directed for Type 2 Diabetes Mellitus 4 times daily, 07/07/19 10:26:00 EST, Compound, 152, cm, 07/06/19 11:06:00 EST, Height, 43.1, kg, 07/06/19 11:06:00 EST, Dry Weight Start Date: 07/07/19 Stop Date: 01/03/20 Status: Ordered Pen [place], 31 G x 5 mm BD Ultra [...] Refills, Maintenance, 07/06/19 11:27:00 EST, ER Tablet, [facility] #[id number], 152, cm, 07/06/19 11:06:00 EST, Height, 43.1, [...] Active DKA (diabetic ketoacidoses)(Confirmed) Active Diabetic retinopathy, [place], 03/23/19(Confirmed) Active Gitelman syndrome(Confirmed) Active Hepatitis(Confirmed) [...]
--- OUTSIDE RECORDS SUMMARY | 2022-08-10 10:26 | XMS_ITS | Continuity of Care Document ---
Author Name Unknown Organization [facility] Address [address] [place] [address]- Care Team Providers Care Fast Food Crew Lead Name Role Phone Isra ELIZABETH, Toyin Primary Care Physician [phone] Encounter [facility] Date(s): 08/06/21 - 09/05/[address] [address] Allergies, Adverse Reactions, Alerts No Known Allergies [...] 1Early/Late Reason: Med Not Available 2Result Comment: [facility]#[id number] 3Admin Note: Influenza vaccine 4Admin Note: Influenza vaccine 5Admin Note: Influenza vaccine 6Admin Note: VIS GIVEN 7Result Comment: SEE COVID TEAM PROGRESS NOTE 8Result Comment: [facility]# [id number] 9Admin Note: Twinrix # 2 10Admin Note: Twinrix # 1 11Admin Note: VIS GIVEN 12Result Comment: Lot: [id number] Exp: Nov 08 Pt given vaccine info sheet before vaccine administered Medications aspirin 81 mg oral tablet, chewable 81 mg, 1, tablet, By Mouth, Daily, # 30 tablet, Refills 11, Tot. Refills 11, Maintenance, 06/13/21 15:29:00 EST, Route to Pharmacy Electronically, [facility] #[id number], Partial fill upon patient request if the prescription is for a schedule II... Start Date: 06/13/21 Status: Ordered Biktarvy oral tablet 1 tablet, By Mouth, Daily, # 30 tablet, 0 Refills, Maintenance, 11/26/20 16:19:00 EDT, Tablet, [facility] 3, Partial fill upon patient [...] 11/29/20 12:03:00 EDT, Route to Pharmacy Electronically, [facility] #[id number], 153, cm, 11/26/20 13:06:00 EDT, Height, 46, [...] 1 Refills, Maintenance, 06/09/21 10:48:00 EST, Injection, [facility] #[id number], Partial fill upon patient request if theprescription is for a schedule II opioid drug., 152... Start Date: 06/09/21 Stop Date: 08/08/21 Status: Ordered hydrOXYzine hydrochloride 10 mg oral tablet 2 tablet = 20 mg, By Mouth, 4 times a day, PRN for anxiety, # 80 tablet, 0 Refills, Maintenance, 06/20/21 11:13:00 EST, Tablet, [facility] #[id number], Partial fill upon patient request if the prescription is for a schedule II opioid drug., 152,... Start Date: 06/20/21 Status: Ordered insulin glargine 100 u/ml subcutaneous solution = 44 units, Subcutaneous Injection, Daily at bedtime, # 15 mL, 1 Refills, Maintenance, 08/07/21 13:44:00 EDT, Injection, [facility] #[id number], Partial fill upon patient request if the [...] 06/13/21 15:29:00 EST, Route to Pharmacy Electronically, [facility] #[id number], Partial fill upon patientrequest if the prescription [...] 3 Refills, Maintenance, 06/13/21 15:25:00 EST, Solution, [facility] #[id number], Partial fill upon patient... Start Date: 06/13/21 Status: Ordered Vitamin D3 1000 intl units oral capsule 1 capsule = 25 mcg, By Mouth, Daily, # 100 capsule, 3 Refills, Maintenance, 06/20/21 11:15:00 EST, Capsule, [facility] #[id number], Partial fill upon patient request if the [...] Active DKA (diabetic ketoacidoses)(Confirmed) Active Diabetic retinopathy, [place], 03/23/19(Confirmed) Active Rash(Confirmed) Active Gitelman syndrome(Confirmed) Active [...]
--- OUTSIDE RECORDS SUMMARY | 2022-08-10 10:27 | XMS_ITS | Continuity of Care Document ---
Author Name Unknown Organization [facility] Address [address] [place] [address]- Care Team Providers Care Engineering Librarian Name Role Phone Bala Cortez MD Primary Care Physician [phone] Encounter [facility] Date(s): 07/26/20 - 08/25/20 [facility] [address] [place], [place] [address] Allergies, Adverse Reactions, Alerts No [...] 1Early/Late Reason: Med Not Available 2Result Comment: [facility]#[id number] 3Admin Note: Influenza vaccine 4Admin Note: Influenza vaccine 5Admin Note: Influenza vaccine 6Admin Note: VIS GIVEN 7Result Comment: [facility]# [id number] 8Admin Note: Twinrix # 2 9Admin Note: [...] 08/22/20 14:01:00 EDT, Route to Pharmacy Electronically, [facility], 152, cm, 06/27/20 11:20:00 EST, Height, 47, kg, 06/21/20 13:49:00 EST, Dry... Start Date: 08/22/20 Status: Ordered Humalog Kwik Pen 100 units/mL subcutaneous injection See Instructions, 100-149 6 units 150 199 8 units 200 249 10 units 250 -299 12 units 300-349 14 units 350-399 16 units with meals as needed, # 10 mL, 2 Refills, Maintenance, 07/04/20 11:27:00 EST, CoTweet, [facility] #[id number], 152,... Start Date: 07/04/20 Status: Ordered LAB [...] 2 Refills, Maintenance, 07/04/20 11:26:00 EST, Solution, [facility] #[id number], 152, cm, 06/27/20 11:20:00 EST, Height, 47, kg, 06/21/20 13:49:00 EST, .. Start Date: 07/04/20 Status: Ordered metFORMIN 500 mg oral tablet 1 tablet = 500 mg, By Mouth, 2 times a day, please take tab twice a day, then increase to 2 tabs twice a day., # 180 tablet, 4 Refills, Maintenance, 07/19/20 10:07:00 EDT, Tablet, [facility] #[id number], Partial fill upon patient request if the p... Start Date: 07/19/20 Status: Ordered metoprolol 25 mg oral tablet, extended release 25 mg, 1, tablet, By Mouth, Daily, # 30 tablet, Refills 5, Tot. Refills 5, Maintenance, 04/10/20 14:03:00 EST, Route to Pharmacy Electronically, [facility] #[id number], 155, cm, 02/13/20 9:01:00EDT, Height, 43.9, kg, 02/11/20 10:34:00 EDT, Dry W... 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
--- OUTSIDE RECORDS SUMMARY | 2022-08-10 10:27 | XMS_ITS | Continuity of Care Document ---
Author Name Unknown Organization [facility] Address [address] [place] [address]- Care Team Providers Care Ornamental Ironworker Name Role Phone Bala Cortez MD Primary Care Physician [facility]/19 - 12/27/19 [facility] [address] [place] [address]- [facility] Allergies, Adverse Reactions, Alerts No Known [...] 06/25/19 Not Given Patient Refuses 1Result Comment: [facility]# [id number] 2Result Comment: [facility]#[id number] 3Admin Note: Influenza vaccine 4Admin Note: Influenza [...] 0 Refills, Maintenance, 07/06/19 11:28:00 EST, Tablet, [facility] #[id number], 152, cm, 07/06/19 11:06:00 EST, Height, 43.1, [...] 10/19/19 15:33:00 EDT, Route to Pharmacy Electronically, [facility] #[id number], 152, cm, 07/06/19 11:06:00 EST, Height, 43.1, kg, 07/06/19 11:0... Start Date: 10/19/19 Status: Ordered Humalog Kwik Pen 100 units/mL subcutaneous injection See Instructions, 100-149 4 units 150 199 6 units 200 249 8 units 250 -299 10 units 300-349 12 units 350-399 14 units with meals as needed, # 1 each, 1 Refills, Maintenance, 11/29/19 8:00:00 EDT, Solution, [facility], 152, cm,... Start Date: 11/29/19 Status: Ordered Lantus Solostar Pen 100 units/mL subcutaneous solution = 45 units, Subcutaneous Injection, Daily at bedtime, # 1 each, 0 Refills, Maintenance, 11/29/19 8:00:00 EDT, Solution, [facility], 152, cm, 11/26/19 23:30:00 EDT, Height, 45.5, kg, 10/29/19 6:43:00 EDT, Dry Weight Start Date: 11/29/19 Status: Ordered magnesium oxide 400 mg oral tablet 1 tablet = 400 mg, By Mouth, 3 times a day, # 100 tablet, 3 Refills, Acute 07/05/20 11:27:00 EST, 07/06/19 11:26:00 EST, Tablet, [facility] #[id number], 152, cm, 07/06/19 11:06:00 EST, Height, 43.1, kg, 07/06/19 11:06:00 EST, Dry Weight Start Date: 07/06/19 Stop Date: 07/05/20 Status: Ordered multivitamin Therapeutic Multiple Vitamins oral tablet 1 tablet, By Mouth, Daily, # 30 tablet, 0 Refills, Maintenance, 06/26/19 13:45:00 EST, Tablet, [facility] #[id number], 1 tablet By Mouth Daily,x30 days, 153, cm, 06/26/19 7:18:00 EST, Height, 41.1, kg, 01/24/19 18:27:00 EDT, Dry Weight Start Date: 06/26/19 Stop Date: 07/26/19 Status: Ordered Pen Juncos, 29 G x 12.7 mm BD Ultra Fine See Instructions, # 100 each, Refills 5, Tot. Refills 5, Maintenance, use as directed for Type 1 Diabetes Mellitus, 06/26/19 13:47:00 EST, Compound, 153, cm, 06/26/19 7:18:00 EST, Height, 41.1, kg, 01/24/19 18:27:00 EDT, Dry Weight Start Date: 06/26/19 Stop Date: 12/23/19 Status: Ordered Pen Juncos, 31 G x 5 mm BD Ultra Fine III See Instructions, # 100 each, Refills 5, Tot. 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
--- OUTSIDE RECORDS SUMMARY | 2022-08-10 10:27 | XMS_ITS | Continuity of Care Document ---
Author Name Unknown Organization [facility] Address [address] [place] [address]- Care Team Providers Care Manager International Name Role Phone Bala Cortez MD Primary Care Physician [facility]): [facility] - 12/30/19 [facility] [address] [place] [address]- [facility] Attending Physician: Loly Sow Admitting Physician: AdmtrLoly Referring Physician: Admtr, Loly Allergies, Adverse Reactions, Alerts No Known Medication [...] Given Patient Refuses 1Result Comment: [facility]# [id number] 2Result Comment: [facility]#[id number] 3Admin Note: Influenza vaccine 4Admin Note: Influenza [...] 0 Refills, Maintenance, 07/06/19 11:28:00 EST, Tablet, [facility][id number], 152, cm, 07/06/19 11:06:00 EST, Height, 43.1, [...] 10/19/19 15:33:00 EDT, Route to Pharmacy Electronically, [facility] #[id number], 152, cm, 07/06/19 11:06:00 EST, Height, 43.1, kg, 07/06/19 11:0... Start Date: 10/19/19 Status: Ordered Humalog Kwik Pen 100 units/mL subcutaneous injection See Instructions, 100-149 4 units 150 199 6 units 200 249 8 units 250 -299 10 units 300-349 12 units 350-399 14 units with meals as needed, # 1 each, 1 Refills, Maintenance, 11/29/19 8:00:00 EDT, Solution, [facility], 152, cm,... Start Date: 11/29/19 Status: Ordered Lantus Solostar Pen 100 units/mL subcutaneous solution = 45 units, Subcutaneous Injection, Daily at bedtime, # 1 each, 0 Refills, Maintenance, 11/29/19 8:00:00 EDT, Solution, [facility], 152, cm, 11/26/19 23:30:00 EDT, Height, 45.5, kg, 10/29/19 6:43:00 EDT, Dry Weight Start Date: 11/29/19 Status: Ordered magnesium oxide 400 mg oral tablet 1 tablet = 400 mg, By Mouth, 3 times a day, # 100 tablet, 3 Refills, Acute 07/05/20 11:27:00 EST, 07/06/19 11:26:00 EST, Tablet, [facility] #[id number], 152, cm, 07/06/19 11:06:00 EST, Height, 43.1, kg, 07/06/19 11:06:00 EST, Dry Weight Start Date: 07/06/19 Stop Date: 07/05/20 Status: Ordered multivitamin Therapeutic Multiple Vitamins oral tablet 1 tablet, By Mouth, Daily, # 30 tablet, 0 Refills, Maintenance, 06/26/19 13:45:00 EST, Tablet, [facility] #[id number], 1 tablet By Mouth Daily,x30 days, 153, [...] Active DKA (diabetic ketoacidoses)(Confirmed) Active Diabetic retinopathy, [place], 03/23/19(Confirmed) Active 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
--- OUTSIDE RECORDS SUMMARY | 2022-08-10 10:27 | XMS_ITS | Continuity of Care Document ---
Author Name Unknown Organization [facility] Address [address] [place] [address]- Care Team Providers Care Log Manager Name Role Phone Isra ELIZABETH, Toyin Primary Care Physician [phone] [facility]): 06/16/22 - 07/16/22 [facility] [address] [place], [place] [address] Allergies, Adverse Reactions, Alerts No Known [...] Med Not Available 2Result Comment: [facility]#[id number] 3Admin Note: Influenza vaccine 4Admin Note: Influenza vaccine 5Admin Note: Influenza vaccine 6Admin Note: VIS GIVEN 7Result Comment: SEE COVID TEAM PROGRESS NOTE 8Result Comment: [facility]# [id number] 9Admin Note: Twinrix # 2 10Admin Note: Twinrix # 1 11Admin Note: VIS GIVEN 12Result Comment: Lot: [id number] Exp: Nov 08 Pt given vaccine info sheet before vaccine administered Medications aspirin 81 mg oral tablet, chewable 81 mg, 1, tablet, By Mouth, Daily, # 30 tablet, Refills 11, Tot. Refills 11, Maintenance, 06/13/21 15:29:00 EST, Route to Pharmacy Electronically, [facility] #[id number], Partial fill upon patient request if the prescription is for a schedule II... Start Date: 06/13/21 Status: Ordered Biktarvy oral tablet 1 tablet, By Mouth, Daily, # 30 tablet, 0 Refills, Maintenance, 11/26/20 16:19:00 EDT, Tablet, [facility], Partial fill upon patient request [...] 0 Refills, Maintenance, 06/10/22 17:02:00 EST, Tablet, [facility] #[id number], Partial fill upon patient request if the [...] 06/10/22 17:06:00 EST, Route to Pharmacy Electronically, [facility] #[id number], 153, cm, 06/10/22 16:01:00 EST, Height, 45, kg, 10/06/21 14:00:00 EDT,... Start Date: 06/10/22 Status: Ordered glucose 4 gm oral tablet, chewable 4 tablet = 16 Gm, Chew, Once, PRN as needed for low blood sugar, may repeat in 15 to 20 minutes if blood sugar still < 60 mg/dL, # 50 tablet, 0 Refills, Soft Stop, 07/08/22 10:53:00 EST, Chew Tablet, [facility] #[id number], Partial fill upon kamilla... Start Date: 07/08/22 [...] 1 Refills, Maintenance, 06/09/21 10:48:00 EST, Injection, [facility] #[id number], Partial fill upon patient request if theprescription is for a schedule II opioid drug., 152... Start Date: 06/09/21 Stop Date: 08/08/21 Status: Ordered hydrOXYzine hydrochloride 10 mg oral tablet 2 tablet = 20 mg, By Mouth, 4 times a day, PRN for anxiety, # 80 tablet, 0 Refills, Maintenance, 06/05/22 20:07:00 EST, Tablet, [facility] #[id number], Partial fill upon patient request if the prescription is for a schedule II opioid drug., 153,... Start Date: 06/05/22 Status: Ordered Lantus Solostar Pen 100 units/mL subcutaneous solution = 40 units, Subcutaneous Injection, Daily at bedtime, # 15 mL, 2 Refills, Maintenance, 07/01/22 15:58:00 EST, Solution, [facility] #[id number], Partial fill upon patient request if the prescription is for a schedule II opioid drug., 153, cm, 03/0... Start Date: 07/01/22 Status: Ordered metoprolol 25 mg oral tablet 25 mg, 1, tablet, By Mouth, Daily, # 90 tablet, Refills 1, Tot. Refills 1, Maintenance, 06/04/22 13:12:00 EST, Route to Pharmacy Electronically, [email or web address] #[id number], Partial fill upon patientrequest if the prescription is for a schedule II op... Start Date: 06/04/22 Status: Ordered Pen Dowell, 31 G x 5 mm BD Ultra [...] 3 Refills, Maintenance, 06/05/22 20:07:00 EST, Solution, [facility] #[id number], Partial fill upon patient... Start Date: 06/05/22 Status: Ordered Vitamin D3 1000 intl units oral capsule 1 capsule = 25 mcg, By Mouth, Daily, # 100 capsule, 3 Refills, Maintenance, 06/20/21 11:15:00 EST, Capsule, [facility] #[id number], Partial fill upon patient request if the [...] DKA (diabetic ketoacidoses) Confirmed Active Diabetic retinopathy, [place], 03/23/19 Confirmed Active Rash Confirmed Active Gitelman [...] Team Personnel Name: Elsi Dumont RN Position: [facility] RN Member Role: Primary Care Nurse Name: Yusuf Bhardwaj RN Position: [facility] RN Member Role: Primary Care Nurse Name: Nora Mercado RN Position: [facility] SN RN Member Role: Primary Care Nurse Name: Trina ELIZABETH, Mitch Orellana Position: [facility] Renal MD Member Role: Lifetime Consulting Physician Address: Address: [address] [place] [address], [address] [place] [address] Name: Lacho Chaves RN Position: [facility] ED RN W/OE and Tasks Member Role: Primary Care Nurse Name: Lily Tyler RN Position: [facility] RN Member Role: Primary Care Nurse Name: Ashley Sosa RN Position: [facility] PCO RN Member Role: Primary Care Nurse Name: Elba Enrique RN Position: [facility] AMB Nurse Member Role: Primary Care Nurse Name: Jacinta Huitron RN Position: [facility] RN Member Role: Primary Care Nurse Name: Linda Christianson NP Position: [facility] Associate Professional Member Role: Primary Care Nurse Address: Address: [address] [place] [address]- [place] Name: TerryEleni gu Position: [facility] Outreach Member Role: Lifetime Consulting Physician Name: Nora Stewart RN Position: [facility] RN Member Role: Primary Care Nurse Name: Nesha Major RN Position: [facility] RN Member Role: Primary Care Nurse Name: Christiano Costa RN Position: [facility] RN Member Role: Primary Care Nurse Name: Sakina Ward RN Position: [facility] RN Member Role: Primary Care Nurse Name: Carisa Keyes RN Position: [facility] RN Member Role: Primary Care Nurse Name: Yanet Grimaldo RN Position: [facility] OB RN Member Role: Primary Care Nurse Name: Arielle Rhodes RN Position: [facility] RN Member Role: Primary Care Nurse Name: Iris Muniz RN Position: [facility] RN Member Role: Primary Care Nurse Name: Anna Yang RN Position: [facility] RN Member Role: Primary Care Nurse Name: Carlene Najera Position: [facility] RN Member Role: Primary Care Nurse Name: Yasemin Ordoñez NP Position: [facility] PCO Associate Professional Member Role: Primary Care Nurse Address: Address: [address] [place] [address]- [place] Name: Cher Maxwell RN Position: [facility] HBO Wound Member Role: Primary Care Nurse Name: Noemi Corbett RN Position: [facility] RN Member Role: Primary Care Nurse Name: Nora Silva RN Position: [facility] RN Member Role: Primary Care Nurse Name: Tracy Sharp RN Position: [facility] RN Member Role: Primary Care Nurse Name: Anamaria Andrade RN Position: [facility] SN RN Member Role: Primary Care Nurse Name: Scottie Shook RN Position: [facility] ED RN W/OE and Tasks Member Role: Primary Care Nurse Name: Stew Calvillo RN Position: [facility] RN Member Role: Primary Care Nurse Name: Kehinde Kern DO Position: [facility] Renal MD Member Role: Lifetime Consulting Physician Address: Address: [address] [place], [place] [address] [place] [address]- [place] Name: Jose Hunter RN Position: [facility] RN Member Role: Primary Care Nurse Name: Lily Leyva RN Position: [facility] RN Member Role: Primary Care Nurse Name: Carson New III, RN Position: [facility] RN Member Role: Primary Care Nurse Name: Carlie Arzate RN Position: [facility] Cap Blocker Member Role: Primary Care Nurse Name: Margaret Snyder RN Position: [facility] Cap Blocker Member Role: Primary Care Nurse Name: Noah Schuster RN Position: [facility] SN RN Member Role: Primary Care Nurse Name: Tracie Haney RN Position: [facility] RN Member Role: Primary Care Nurse Name: Mayra Covarrubias RN Position: [facility] RN Member Role: Primary Care Nurse Name: Steph Pagan RN Position: [facility] RN Member Role: Primary Care Nurse Name: Manohar Wallace RN Position: [facility] RN Member Role: Primary Care Nurse Name: Karen Dewey RN Position: [facility] RN Member Role: Primary Care Nurse Name: Lisset Díaz RN Position: [facility] RN Member Role: Primary Care Nurse Name: Phyllis Jones RN Position: [facility] PCO RN Member Role: Primary Care Nurse Name: Manuel Kirkpatrick MD Position: [facility] Renal MD Member Role: Lifetime Consulting Physician Address: Address: [address] [place] [address] [facility] [address] Name: Vidhya Quan RN Position: [facility] RN Member Role: Primary Care Nurse Name: Jessi Giraldo RN Position: [facility] RN Member Role: Primary Care Nurse Name: Aaliyah Prakash RN Position: [facility] Cap Blocker Member Role: Primary Care Nurse Name: Toyin Dhaliwal MD Position: [facility] Primary Care Physician Member Role: PCP Address: Address: [address] [place] [address] [facility] [place] [address]- Name: Bonny Iniguez RN Position: [facility] RN Member Role: Primary Care Nurse Name: Mrecedes Borjas RN Position: [facility] RN Member Role: Primary Care Nurse Name: Lamont Mantilla RN Position: [facility] RN Member Role: Primary Care Nurse Name: Aries Orozco MD Position: [facility] Renal MD Member Role: Lifetime Consulting Physician Address: Address: [address] [place] [address] [facility] [address] Name: Dedrick Brown RN Position: [facility] ED RN W/OE and Tasks Member Role: Primary Care Nurse Name: Marzena Razo RN Position: [facility] RN Member Role: Primary Care Nurse Name: Fariba Mancilla RN Position: [facility] RN Member Role: Primary Care Nurse Name: Mia Jones RN Position: [facility] SN RN Member Role: Primary Care Nurse Name: David Jean RN Position: [facility] SN RN Member Role: Primary Care Nurse Care Team Related Persons Name: DAKOTAH BAKER Address: home [address] [place] [address] Name: DAKOTAH BROOKE Address: home [address] [place] [address] Name: LANDEN TRAN Address: home [address] [place] [address] Name: SHRUTI BHAGAT Address: [place] [address]
--- OUTSIDE RECORDS SUMMARY | 2022-08-10 10:27 | XMS_ITS | Continuity of Care Document ---
Author Name Unknown Organization [facility] Address [address] [place] [address]- Care Team Providers Care Car Wiper Name Role Phone Isra ELIZABETH, Toyin Primary Care Physician [facility]): [facility] - 12/28/21 [facility] [address] [place], [place] [address] Attending Physician: Loly Sow Admitting Physician: Loly [...] 1Early/Late Reason: Med Not Available 2Result Comment: [facility]#[id number] 3Admin Note: Influenza vaccine 4Admin Note: Influenza vaccine 5Admin Note: Influenza vaccine 6Admin Note: VIS GIVEN 7Result Comment: SEE COVID TEAM PROGRESS NOTE 8Result Comment: [facility]# [id number] 9Admin Note: Twinrix # 2 10Admin Note: Twinrix # 1 11Admin Note: VIS GIVEN 12Result Comment: Lot: [id number] Exp: Nov 08 Pt given vaccine info sheet before vaccine administered Medications aspirin 81 mg oral tablet, chewable 81 mg, 1, tablet, By Mouth, Daily, # 30 tablet, Refills 11, Tot. Refills 11, Maintenance, 06/13/21 15:29:00 EST, Route to Pharmacy Electronically, [facility] #[id number], Partial fill upon patient request if the prescription is for a schedule II... Start Date: 06/13/21 Status: Ordered Biktarvy oral tablet 1 tablet, By Mouth, Daily, # 30 tablet, 0 Refills, Maintenance, 11/26/20 16:19:00 EDT, Tablet, [facility], Partial fill upon patient request [...] 11/29/20 12:03:00 EDT, Route to Pharmacy Electronically, [facility] #[id number], 153, cm, 11/26/20 13:06:00 EDT, Height, 46, [...] 1 Refills, Maintenance, 06/09/21 10:48:00 EST, Injection, [facility] #[id number], Partial fill upon patient request if theprescription is for a schedule II opioid drug., 152... Start Date: 06/09/21 Stop Date: 08/08/21 Status: Ordered hydrOXYzine hydrochloride 10 mg oral tablet 2 tablet = 20 mg, By Mouth, 4 times a day, PRN for anxiety, # 80 tablet, 0 Refills, Maintenance, 10/17/21 12:42:00 EDT, Tablet, [facility] #[id number], Partial fill upon patient request if the prescription is for a schedule II opioid drug., 153,... Start Date: 10/17/21 Status: Ordered insulin glargine 100 u/ml subcutaneous solution 40, Subcutaneous Injection, Daily at bedtime, # 10 mL, 1 Refills, Maintenance, 08/07/21 13:44:00 EDT, Injection, [facility] #[id number], Partial fill upon patient request if the [...] Acute 10/17/22 12:44:00 EDT, 10/17/21 12:44:00 EDT, [facility] #[id number], Partial fill upon patient request if the prescription is for a schedule II opioid drug., 153, cm, 10/08/21 9:2... Start Date: 10/17/21 Stop Date: 10/17/22 Status: Ordered metoprolol 25 mg oral tablet 25 mg, 1, tablet, By Mouth, Daily, # 90 tablet, Refills 3, Tot. Refills 3, Maintenance, 06/13/21 15:29:00 EST, Route to Pharmacy Electronically, [facility] #[id number], Partial fill upon patientrequest if the prescription is for a schedule II op... Start Date: 06/13/21 Status: Ordered Pen Alvin, 31 G x 5 mm BD Ultra [...] 3 Refills, Maintenance, 10/17/21 12:48:00 EDT, Solution, [facility] #[id number], Partial fill upon patient... Start Date: 10/17/21 Status: Ordered Vitamin D3 1000 intl units oral capsule 1 capsule = 25 mcg, By Mouth, Daily, # 100 capsule, 3 Refills, Maintenance, 06/20/21 11:15:00 EST, Capsule, [facility] #[id number], Partial fill upon patient request if the [...] Active DKA (diabetic ketoacidoses)(Confirmed) Active Diabetic retinopathy, [place], 03/23/19(Confirmed) Active Rash(Confirmed) Active Gitelman syndrome(Confirmed) Active [...] 100 in lifetime) entered on: 06/06/21 Sex Care Team Personnel Name: Toyin Dhaliwal MD Address: [address] [place] [address] [facility] [address]
--- OUTSIDE RECORDS SUMMARY | 2022-08-10 10:27 | XMS_ITS | Continuity of Care Document ---
Author Name Unknown Organization [facility] Address [address] [place] [id number]- Care Team Providers Care Museum Security Chief Name Role Phone Bala Cortez MD Primary Care Physician [facility]): [facility] - 10/12/19 [facility] [address] [place] [address]- [facility] Attending Physician: Loly Sow Admitting [...] Not Given Patient Refuses 1Result Comment: [facility]# [id number] 2Result Comment: [facility]#[id number] 3Admin Note: Influenza vaccine 4Admin Note: Influenza [...] 0 Refills, Maintenance, 07/06/19 11:28:00 EST, Tablet, [facility] #[id number], 152, cm, 07/06/19 11:06:00 EST, Height, 43.1, [...] 1 Refills, Maintenance, 06/26/19 13:52:00 EST, Solution, [facility] #[id number], 153,... Start Date: 06/26/19 Status: Ordered Humalog Kwik Pen 100 units/mL subcutaneous injection See Instructions, Sliding Scale Comments >>100 - 149 6 units Call if less than [phone] - 199 8 units 200 - 249 [...] 10/10/19 12:38:00 EDT, Route to Pharmacy Electronically, [facility] #[id number]... Start Date: 10/10/19 Stop Date: 10/20/19 Status: Ordered Insulin Lispro 6-16 units, Subcutaneous Injection, 3 times a day before meals, << Sliding Scale Comments >> 100 - 149 6 units Call if less than 70 150 - 199 8 units 200 - 249 10 units 250 - 299 12 [id number] - 349 14 units 350 - 399 16 units Robel... Start Date: 07/01/19 Status: Ordered Lantus Solostar Pen 100 units/mL subcutaneous solution = 45 units, Subcutaneous Injection, Daily at bedtime, # 1 each, 0 Refills, Maintenance, 06/26/19 13:40:00 EST, Solution, [facility] #[id number], 153, cm, 06/26/19 7:18:00 EST, Height, 41.1, kg, 01/24/19 18:27:00 EDT, Dry Weight Start Date: 06/26/19 Status: Ordered Lantus Solostar Pen 100 units/mL subcutaneous solution = 55 units, Subcutaneous Injection, Daily at bedtime, # 10 mL, 2 Refills, Maintenance, 07/06/19 11:26:00 EST, Solution, [facility] #[id number], 152, cm, 07/06/19 11:06:00 EST, Height, 43.1, kg, 07/06/19 11:06:00 EST, Dry Weight Start Date: 07/06/19 Status: Ordered magnesium oxide 400 mg oral tablet 1 tablet = 400 mg, By Mouth, 3 times a day, # 100 tablet, 3 Refills, Acute 07/05/20 11:27:00 EST, 07/06/19 11:26:00 EST, Tablet, [facility] #[id number], 152, cm, 07/06/19 11:06:00 EST, Height, 43.1, kg, 07/06/19 11:06:00 EST, Dry Weight Start Date: 07/06/19 Stop Date: 07/05/20 Status: Ordered multivitamin Therapeutic Multiple Vitamins oral tablet 1 tablet, By Mouth, Daily, # 30 tablet, 0 Refills, Maintenance, 06/26/19 13:45:00 EST, Tablet, [facility] #[id number], 1 tablet By Mouth Daily,x30 days, 153, cm, 06/26/19 7:18:00 EST, Height, 41.1, kg, 01/24/19 18:27:00 EDT, Dry Weight Start Date: 06/26/19 Stop Date: 07/26/19 Status: Ordered Pen [place], 29 G x 12.7 mm BD Ultra Fine See Instructions, # 100 each, Refills 5, Tot. Refills 5, Maintenance, use as directed for Type 1 Diabetes Mellitus, 06/26/19 13:47:00 EST, Compound, 153, cm, 06/26/19 7:18:00 EST, Height, 41.1, kg, 01/24/19 18:27:00 EDT, Dry Weight Start Date: 06/26/19 Stop Date: 12/23/19 Status: Ordered Pen [place], 31 G x 5 mm BD Ultra Fine III See Instructions, # 100 each, Refills 5, Tot. 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
--- OUTSIDE RECORDS SUMMARY | 2022-08-10 10:27 | XMS_ITS | Continuity of Care Document ---
Author Name Unknown Organization [facility] Address [address] [place] [address]- Care Team Providers Care Assistant Branch Manager Name Role Phone Bala Cortez MD Primary Care Physician [facility]): 04/17/20 - 05/17/20 [facility] [address] [place], [place] [address] Allergies, Adverse Reactions, Alerts No Known [...] Reason: Med Not Available 2Result Comment: [facility]#[id number] 3Admin Note: Influenza vaccine 4Admin Note: Influenza vaccine 5Admin Note: Influenza vaccine 6Admin Note: VIS GIVEN 7Result Comment: [facility]# [id number] 8Admin Note: Twinrix # 2 9Admin Note: [...] 03/05/20 17:29:00 EST, Route to Pharmacy Electronically, [facility] #[id number], 155, cm, 02/13/20 9:01:00 EDT, Height, 43.9, kg, 02/11/20 10:34... Start Date: 03/05/20 Status: Ordered Humalog Kwik Pen 100 units/mL subcutaneous injection See Instructions, 100-149 6 units 150 199 8 units 200 249 10 units 250 -299 12 units 300-349 14 units 350-399 16 units with meals as needed, # 10 mL, 2 Refills, Maintenance, 03/11/20 12:38:00 EST, Solution, [facility] #[id number], 155,... Start Date: 03/11/20 Status: Ordered ibuprofen 600 mg oral tablet 600 mg, 1, tablet, By Mouth, Every 8 hours, Use very sparingly, # 20 tablet, Refills 0, Tot. Refills 0, Acute 04/18/21 12:03:00 EST, 04/18/20 12:03:00 EST, Route to Pharmacy Electronically, [facility] #[id number], Partial fill upon patient reques... Start Date: 04/18/20 Stop Date: 04/18/21 Status: Ordered Lantus Solostar Pen 100 units/mL subcutaneous solution = 35 units, Subcutaneous Injection, Daily at bedtime, # 12 mL, 2 Refills, Maintenance, 03/05/20 17:29:00 EST, Solution, [facility] #[id number], 155, cm, 02/13/20 9:01:00 EDT, Height, 43.9, kg, 02/11/20 10:34:00 EDT, Dry Weight Start Date: 03/05/20 Status: Ordered magnesium oxide 400 mg oral tablet 1 tablet = 400 mg, By Mouth, 3 times a day, # 100 tablet, 3 Refills, Acute 07/05/20 11:27:00 EST, 07/06/19 11:26:00 EST, Tablet, [facility] #[id number], 152, cm, 07/06/19 11:06:00 EST, Height, 43.1, kg, 07/06/19 11:06:00 EST, Dry Weight Start Date: 07/06/19 Stop Date: 07/05/20 Status: Ordered metoprolol 25 mg oral tablet, extended release 25 mg, 1, tablet, By Mouth, Daily, # 30 tablet, Refills 5, Tot. Refills 5, Maintenance, 04/10/20 14:03:00 EST, Route to Pharmacy Electronically, [facility] #[id number], 155, cm, 02/13/20 9:01:00EDT, Height, 43.9, kg, 02/11/20 10:34:00 EDT, Dry W... 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
--- OUTSIDE RECORDS SUMMARY | 2022-08-10 10:27 | XMS_ITS | Continuity of Care Document ---
Author Name Unknown Organization [facility] Address [address] [place] [address]- Care Team Providers Care Carton Inspector Name Role Phone Bala Cortez MD Primary Care Physician [phone] [facility]counter [facility] Date[facility]s): 10/19/19 - 10/26/19 [facility] [address] [place] [address]- [facility] Attending Physician: Bala Cortez MD Allergies, [...] 06/25/19 Not Given Patient Refuses 1Result Comment: [facility]# [id number] 2Result Comment: [facility]#[id number] 3Admin Note: Influenza vaccine 4Admin Note: Influenza [...] 0 Refills, Maintenance, 07/06/19 11:28:00 EST, Tablet, [facility] #[id number], 152, cm, 07/06/19 11:06:00 EST, Height, 43.1, [...] 10/19/19 15:33:00 EDT, Route to Pharmacy Electronically, [facility] #[id number], 152, cm, 07/06/19 11:06:00 EST, Height, 43.1, kg, 07/06/19 11:0... Start Date: 10/19/19 Status: Ordered Humalog Kwik Pen 100 units/mL subcutaneous injection See Instructions, 100-149 4 units 150 199 6 units 200 249 8 units 250 -299 10 units 300-349 12 units 350-399 14 units with meals as needed, # 1 each, 1 Refills, Maintenance, 06/26/19 13:52:00 EST, Solution, [facility] #15253, 153,... Start Date: 06/26/19 Status: Ordered Humalog Kwik Pen 100 units/mL subcutaneous injection See Instructions, Sliding Scale Comments >>100 - 149 6 units Call if less than 68627 - 199 8 units 200 - 249 [...] 249 10 units 250 - 299 12 [id number] - 349 14 units 350 - 399 16 units Robel... Start Date: 07/01/19 Status: Ordered Lantus Solostar Pen 100 units/mL subcutaneous solution = 45 units, Subcutaneous Injection, Daily at bedtime, # 1 each, 0 Refills, Maintenance, 06/26/19 13:40:00 EST, Solution, [facility] #[id number], 153, cm, 06/26/19 7:18:00 EST, Height, 41.1, kg, 01/24/19 18:27:00 EDT, Dry Weight Start Date: 06/26/19 Status: Ordered Lantus Solostar Pen 100 units/mL subcutaneous solution = 55 units, Subcutaneous Injection, Daily at bedtime, # 10 mL, 2 Refills, Maintenance, 07/06/19 11:26:00 EST, Solution, [facility] #[id number], 152, cm, 07/06/19 11:06:00 EST, Height, 43.1, kg, 07/06/19 11:06:00 EST, Dry Weight Start Date: 07/06/19 Status: Ordered magnesium oxide 400 mg oral tablet 1 tablet = 400 mg, By Mouth, 3 times a day, # 100 tablet, 3 Refills, Acute 07/05/20 11:27:00 EST, 07/06/19 11:26:00 EST, Tablet, [facility] #[id number], 152, cm, 07/06/19 11:06:00 EST, Height, 43.1, kg, 07/06/19 11:06:00 EST, Dry Weight Start Date: 07/06/19 Stop Date: 07/05/20 Status: Ordered multivitamin Therapeutic Multiple Vitamins oral tablet 1 tablet, By Mouth, Daily, # 30 tablet, 0 Refills, Maintenance, 06/26/19 13:45:00 EST, Tablet, [facility] #46134, 1 tablet By Mouth Daily,x30 days, 153, cm, 06/26/19 7:18:00 EST, Height, 41.1, kg, 01/24/19 18:27:00 EDT, Dry Weight Start Date: 06/26/19 Stop Date: 07/26/19 Status: Ordered Pen [place], 29 G x 12.7 mm BD Ultra Fine See Instructions, # 100 each, Refills 5, Tot. Refills 5, Maintenance, use as directed for Type 1 Diabetes Mellitus, 06/26/19 13:47:00 EST, Compound, 153, cm, 06/26/19 7:18:00 EST, Height, 41.1, kg, 01/24/19 18:27:00 EDT, Dry Weight Start Date: 06/26/19 Stop Date: 12/23/19 Status: Ordered Pen [place], 31 G x 5 mm BD Ultra Fine III See Instructions, # 100 each, Refills 5, Tot. Refills 5, Maintenance, use as directed for Type 2 Diabetes Mellitus 4 times daily, 07/07/19 10:26:00 EST, Compound, 152, cm, 07/06/19 11:06:00 EST, Height, 43.1, kg, 07/06/19 11:06:00 EST, Dry Weight Start Date: 07/07/19 Stop Date: 01/03/20 Status: Ordered Pen [place], 31 G x 5 mm BD Ultra [...] Refills, Maintenance, 07/06/19 11:27:00 EST, ER Tablet, [facility] #[id number], 152, cm, 07/06/19 11:06:00 EST, Height, 43.1, [...]
--- OUTSIDE RECORDS SUMMARY | 2022-08-10 10:27 | XMS_ITS | Continuity of Care Document ---
Author Name Unknown Organization [facility] Address [address] [place] [address]- Care Team Providers Care Clinical Documentation Manager Name Role Phone Bala Cortez MD Primary Care Physician [facility]s): 07/05/19 - 08/23/19 [facility] [address] [place] [address]- [facility] [...] 06/25/19 Not Given Patient Refuses 1Result Comment: [facility]# [id number] 2Result Comment: [facility]#[id number] 3Admin Note: Influenza vaccine 4Admin Note: Influenza [...] 0 Refills, Maintenance, 07/06/19 11:28:00 EST, Tablet, [facility] #[id number], 152, cm, 07/06/19 11:06:00 EST, Height, 43.1, [...] 1 Refills, Maintenance, 06/26/19 13:52:00 EST, Solution, [facility] #[id number], 153,... Start Date: 06/26/19 Status: Ordered Humalog Kwik Pen 100 units/mL subcutaneous injection See Instructions, Sliding Scale Comments >>100 - 149 6 units Call if less than [address] - 199 8 units 200 - 249 [...] 0 Refills, Maintenance, 06/26/19 13:40:00 EST, Solution, [facility] #[id number], 153, cm, 06/26/19 7:18:00 EST, Height, 41.1, kg, 01/24/19 18:27:00 EDT, Dry Weight Start Date: 06/26/19 Status: Ordered Lantus Solostar Pen 100 units/mL subcutaneous solution = 55 units, Subcutaneous Injection, Daily at bedtime, # 10 mL, 2 Refills, Maintenance, 07/06/19 11:26:00 EST, Solution, [facility] #[id number], 152, cm, 07/06/19 11:06:00 EST, Height, 43.1, kg, 07/06/19 11:06:00 EST, Dry Weight Start Date: 07/06/19 Status: Ordered magnesium oxide 400 mg oral tablet 1 tablet = 400 mg, By Mouth, 3 times a day, # 100 tablet, 3 Refills, Acute 07/05/20 11:27:00 EST, 07/06/19 11:26:00 EST, Tablet, [facility] #[id number], 152, cm, 07/06/19 11:06:00 EST, Height, 43.1, kg, 07/06/19 11:06:00 EST, Dry Weight Start Date: 07/06/19 Stop Date: 07/05/20 Status: Ordered multivitamin Therapeutic Multiple Vitamins oral tablet 1 tablet, By Mouth, Daily, # 30 tablet, 0 Refills, Maintenance, 06/26/19 13:45:00 EST, Tablet, [facility] #[id number], 1 tablet By Mouth Daily,x30 days, 153, cm, 06/26/19 7:18:00 EST, Height, 41.1, kg, 01/24/19 18:27:00 EDT, Dry Weight Start Date: 06/26/19 Stop Date: 07/26/19 Status: Ordered Pen [place], 29 G x 12.7 mm BD Ultra Fine See Instructions, # 100 each, Refills 5, Tot. Refills 5, Maintenance, use as directed for Type 1 Diabetes Mellitus, 06/26/19 13:47:00 EST, Compound, 153, cm, 06/26/19 7:18:00 EST, Height, 41.1, kg, 01/24/19 18:27:00 EDT, Dry Weight Start Date: 06/26/19 Stop Date: 12/23/19 Status: Ordered Pen [place], 31 G x 5 mm BD Ultra Fine III See Instructions, # 100 each, Refills 5, Tot. 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
--- OUTSIDE RECORDS SUMMARY | 2022-08-10 10:27 | XMS_ITS | Continuity of Care Document ---
Author Name Unknown Organization [facility] Address [address] [place] [address]- Care Team Providers Care Soldering Machine Operator Automatic Name Role Phone Isra ELIZABETH, Toyin Primary Care Physician [place] [facility] Date(s): 02/23/22 - 03/02/22 [facility] [address] [place], [place] [address] Encounter Diagnosis Preop examination(Discharge Diagnosis) - 02/23/22 Attending Physician: Sue GARNER, [place] Referring Physician: Bartolome Bliss MD Allergies, Adverse [...] 2Result Comment: [facility]#[id number] 3Admin Note: Influenza vaccine 4Admin Note: Influenza vaccine 5Admin Note: Influenza vaccine 6Admin Note: VIS GIVEN 7Result Comment: SEE COVID TEAM PROGRESS NOTE 8Result Comment: [facility]# [id number] 9Admin Note: Twinrix # 2 10Admin Note: Twinrix # 1 11Admin Note: VIS GIVEN 12Result Comment: Lot: [id number] Exp: Nov 08 Pt given vaccine info sheet before vaccine administered Medications aspirin 81 mg oral tablet, chewable 81 mg, 1, tablet, By Mouth, Daily, # 30 tablet, Refills 11, Tot. Refills 11, Maintenance, 06/13/21 15:29:00 EST, [id number], Partial fill upon patient request if the prescription is for a schedule II... Start Date: 06/13/21 Status: Ordered Biktarvy oral tablet 1 tablet, By Mouth, Daily, # 30 tablet, 0 Refills, Maintenance, 11/26/20 16:19:00 EDT, Tablet, [facility], Partial fill upon patient request [...] 11/29/20 12:03:00 EDT, Route to Pharmacy Electronically, [email or web address] #[id number], 153, cm, 11/26/20 13:06:00 EDT, Height, 46, kg, 11/24/20 3:02:00 EDT, D... Start Date: 11/29/20 Status: Ordered glipiZIDE 10 mg oral tablet, extended release 1 tablet = 10 mg, By Mouth, 2 times a day, # 30 tablet, 1 Refills, Acute 03/22/22 13:32:00 EST, 02/23/22 13:31:00 EDT, ER Tablet, [facility] #[id number], Partial fill upon patient request if theprescription [...] 1 Refills, Maintenance, 06/09/21 10:48:00 EST, Injection, [facility] #[id number], Partial fill upon patient request if theprescription is for a schedule II opioid drug., 152... Start Date: 06/09/21 Stop Date: 08/08/21 Status: Ordered Humalog Kwik Pen 100 units/mL subcutaneous injection See Instructions, 5-15 units Subcutaneous Infusion 3 times a day before meals, # 15 mL, 1 Refills, Acute 03/22/22 13:31:00 EST, 02/23/22 13:27:00 EDT, [facility] #[id number], Partial fill upon patient request if the prescription is for a schedule... Start Date: 02/23/22 Stop Date: 03/22/22 Status: Ordered hydrOXYzine hydrochloride 10 mg oral tablet 2 tablet = 20 mg, By Mouth, 4 times a day, PRN for anxiety, # 80 tablet, 0 Refills, Maintenance, 10/17/21 12:42:00 EDT, Tablet, [email or web address] #[id number], Partial fill upon patient request if the prescription is for a schedule II opioid drug., 153,... Start Date: 10/17/21 Status: Ordered insulin glargine 100 u/ml subcutaneous solution 40, Subcutaneous Injection, Daily at bedtime, # 10 mL, 1 Refills, Maintenance, 08/07/21 13:44:00 EDT, Injection, [email or web address] #[id number], Partial fill upon patient request if the prescription is for a schedule II opioid drug., 152, cm, 06/20/21 10... Start Date: 08/07/21 Status: Ordered Lantus Solostar Pen 100 units/mL subcutaneous solution = 40 units, Subcutaneous Infusion, Daily at bedtime, # 15 mL, 1 Refills, Acute 03/22/22 13:29:00 EST, 02/23/22 13:26:00 EDT, [email or web address] #[id number], Partial fill upon patient request if the [...] Acute 10/17/22 12:44:00 EDT, 10/17/21 12:44:00 EDT, [facility] #[id number], Partial fill upon patient request if the prescription is for a schedule II opioid drug., 153, cm, 10/08/21 9:2... Start Date: 10/17/21 Stop Date: 10/17/22 Status: Ordered metoprolol 25 mg oral tablet 25 mg, 1, tablet, By Mouth, Daily, # 90 tablet, Refills 3, Tot. Refills 3, Maintenance, 06/13/21 15:29:00 EST, Route to Pharmacy Electronically, [facility] #[id number], Partial fill upon patientrequest if the prescription is for a schedule II op... Start Date: 06/13/21 Status: Ordered Pen [place], 31 G x 5 mm BD Ultra Fine III See Instructions, # 100 each, Refills 1, Tot. Refills 1, Acute 03/22/22 13:28:00 EST, Use with Lantus and Humalog pen, 02/23/22 13:27:00 EDT, Supply, 153, cm, 02/23/22 12:58:00 EDT, Height, 45, kg, 10/06/21 14:00:00 EDT, Dry Weight Start Date: 02/23/22 Stop Date: 03/22/22 Status: Ordered Pen [place], 31 G x 5 mm BD Ultra [...] 03/22/22 13:30:00 EST, 02/23/22 13:27:00 EDT, Solution, [email or web address] #[id number], Partial fill upon patient request if the prescription is for a... Start Date: 02/23/22 Stop Date: 03/22/22 Status: Ordered Trulicity Pen 0.75 mg/0.5 mL subcutaneous solution 0.5 mL = 0.75 mg, Subcutaneous Injection, Every week, call office in one month so i can increase your dose. rotate injection sites, # 2 mL, 3 Refills, Maintenance, 10/17/21 12:48:00 EDT, Solution, [email or web address] #[id number], Partial fill upon patient... Start Date: 10/17/21 Status: Ordered Vitamin D3 1000 intl units oral capsule 1 capsule = 25 mcg, By Mouth, Daily, # 100 capsule, 3 Refills, Maintenance, 06/20/21 11:15:00 EST, Capsule, [facility][id number], Partial fill upon patient request if the [...] DKA (diabetic ketoacidoses) Confirmed Active Diabetic retinopathy, [place], 03/23/19 Confirmed Active Rash Confirmed Active Gitelman [...] Effective Dates Health Status Clinical Service Informant Preop examination Discharge Diagnosis 02/23/22 Vital Signs Most recent to oldest [Reference Range]: 1 2 3 Height 153 cm (02/23/22 1:39 PM) 153 cm (02/23/22 12:58 PM) 153 cm (02/23/22 12:53 PM) Weight 42.1 kg (02/23/22 12:58 PM) 42.1 kg (02/23/22 12:53 PM) Oxygen Saturation [94-100 %] 100 % (02/23/22 12:58 PM) 100 % (02/23/22 12:53 PM) Pulse Rate [55-90 bpm] 89 bpm (02/23/22 12:58 PM) 90 bpm (02/23/22 12:53 PM) Body Mass Index [18.5-24.99 kg/m2] 17.98 kg/m2 *L* (02/23/22 12:58 PM) 17.98 kg/m2 *L* (02/23/22 12:53 PM) Blood Pressure [90-138/55-84 mm Hg] 136/88mm Hg (02/23/22 1:39 PM) 152/89mm Hg *H* (02/23/22 12:58 PM) 148/88mm Hg *H* (02/23/22 12:53 PM) Mode of Delivery (Oxygen) Room air (02/23/22 12:58 PM) Room air (02/23/22 12:53 PM) Blood pressure sites Arm, left (02/23/22 1:39 PM) Arm, left (02/23/22 12:58 PM) Arm, left (02/23/22 12:53 PM) Weight Obtained Via Standing scale (02/23/22 12:58 PM) Standing scale (02/23/22 12:53 PM) Social History Social History Type Response Smoking Status Never (less than 100 in lifetime) entered on: 06/06/21 Sex Patient Care team information Personnel Name: Toyin Dhaliwal MD Address: Address: [address] [place] [address] [facility] [address]
--- OUTSIDE RECORDS SUMMARY | 2022-08-10 10:27 | XMS_ITS | Continuity of Care Document ---
Author Name Unknown Organization [facility] Address [address] [place] [address]- Care Team Providers Care Cupola Liner Name Role Phone Bala Cortez MD Primary Care Physician [facility]): [facility]19 - 04/26/19 [facility] [address] [place] [address]- [facility] Attending Physician: Bala Cortez MD Allergies, [...] 04/09/17 Not Given Patient Refuses 1Result Comment: [facility]#[id number] 2Admin Note: Influenza vaccine 3Admin Note: Influenza [...] Date: 03/23/19 Status: Ordered Biktarvy oral tablet 0 Refills, Maintenance, 09/04/18 6:52:28 EDT Start Date: 09/04/18 Status: Ordered ciclopirox 8% topical solution 1 application, Topically, Daily, Apply to affected nails daily, # 3.3 mL, 0 Refills, Acute 04/19/2013:09:00 EST, 04/19/19 13:09:00 EST, Solution, [facility] #[id number], 1 application TopicallyDaily,Instr:Apply to affected nails daily, [...] EDT Start Date: 02/19/19 Status: Ordered Pen [place], 31 G x 5 mm BD Ultra [...] Active DKA (diabetic ketoacidoses)(Confirmed) Active Diabetic retinopathy, [place], 03/23/19(Confirmed) Active 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 oldest [Reference Range]: 1 Height 153 cm (04/19/19 12:30 PM) Weight 42.1 kg (04/19/19 12:30 PM) Oxygen Saturation [94-100 %] 98 % (04/19/19 12:30 PM) Pulse Rate [55-90 bpm] 72 bpm (04/19/19 12:30 PM) Body Mass Index [18.5-24.99] 17.98 *L* (04/19/19 12:30 PM) Blood Pressure [90-138/55-84 mm Hg] 90/6 2mm Hg (04/19/19 12:30 PM) Respiratory Rate [16-30 br/min] 16 br/mi n (04/19/19 12:30 PM) Temperature [96.8-100.4 DegF] 97.4 DegF (04/19/19 12:30 PM) Mode of Delivery (Oxygen) Room air (04/19/19 12:30 PM) Blood pressure sites Arm, left (04/19/19 12:30 PM) Temperature Route Oral (04/19/19 12:30 PM) Weight Obtained Via Standing scale (04/19/19 12:30 PM) Social History Social History Type Response Smoking Status Never smoker entered on: 01/26/14 Sex
--- OUTSIDE RECORDS SUMMARY | 2022-08-10 10:27 | XMS_ITS | Continuity of Care Document ---
Author Name Unknown Organization [facility] Address [address] [place] [address]- Care Team Providers Care Remelt Operator Name Role Phone Isra ELIZABETH, Toyin Primary Care Physician [facility]): [facility] - 06/07/21 [facility] [address] [place] [address] Attending Physician: Loly Sow Admitting Physician: Admtr, Ar8 Referring Physician: Admtr, Ar8 Allergies, Adverse Reactions, Alerts No Known Allergies [...] Status Refusal Reason influenza virus vaccine, inactivated 2/23/20 Not Given Patient Refuses influenza virus vaccine, inactivated 04/09/17 Not Given Patient Refuses pneumococcal 23-valent vaccine 06/25/19 Not Given Patient Refuses 1Early/Late Reason: Med Not Available 2Result Comment: [facility]#[id number] 3Admin Note: Influenza vaccine 4Admin Note: Influenza vaccine 5Admin Note: Influenza vaccine 6Admin Note: VIS GIVEN 7Result Comment: SEE COVID TEAM PROGRESS NOTE 8Result Comment: [facility]# [id number] 9Admin Note: Twinrix # 2 10Admin Note: Twinrix # 1 11Admin Note: VIS GIVEN 12Result Comment: Lot: [id number] Exp: Nov 08 Pt given vaccine info sheet before vaccine administered Medications Biktarvy oral tablet 1 tablet, By Mouth, Daily, # 30 tablet, 0 Refills, Maintenance, 11/26/20 16:19:00 EDT, Tablet, [facility], Partial fill upon patient [...] 11/29/20 12:03:00 EDT, Route to Pharmacy Electronically, [facility] #[id number], 153, cm, 11/26/20 13:06:00 EDT, Height, 46, [...] mL, 11 Refills, Maintenance,05/26/21 12:48:00 EST, Injection, [facility] #[id number], Partial fill upon patient request ifthe prescription is for a schedule II opioid drug.,... Start Date: 05/26/21 Stop Date: 05/21/22 Status: Ordered insulin glargine 100 u/ml subcutaneous solution = 32 units, Subcutaneous Injection, Daily at bedtime, # 12 mL, 0 Refills, Maintenance, 03/27/21 12:27:00 EST, Injection, [facility] #[id number], Partial fill upon patient request if the [...] 3 Refills, Maintenance, 11/14/20 10:44:00 EDT, Solution, [facility] #[id number], Partial fill upon patient... Start Date: 11/14/20 [...] Active DKA (diabetic ketoacidoses)(Confirmed) Active Diabetic retinopathy, [place], 03/23/19(Confirmed) Active Rash(Confirmed) Active Gitelman syndrome(Confirmed) Active [...]
--- OUTSIDE RECORDS SUMMARY | 2022-08-10 10:27 | XMS_ITS | Continuity of Care Document ---
Author Name Unknown Organization [facility] ter Address [address] [place] [id number]- Care Team Providers Care De Icer Name Role Phone [facility]ra ELIZABETH[facility]): 01[facility] - 01/05/[address] [address]- Discharge Disposition: A-D/C Walkout Attending Physician: Not on Staff, Attending MD Admitting Physician: Not on Staff, Admitting MD Referring Physician: Not on Staff, Referring [...] NAMED [facility]#[id number] 3Admin Note: Influenza vaccine 4Admin Note: Influenza vaccine 5Admin Note: Influenza vaccine 6Admin Note: VIS GIVEN 7Result Comment: SEE COVID TEAM PROGRESS NOTE 8Result Comment: [facility] NAMED [facility]# [id number] 9Admin Note: Twinrix # 2 10Admin Note: Twinrix # 1 11Admin Note: VIS GIVEN 12Result Comment: Lot: [id number] Exp: Nov 08 Pt given vaccine info sheet before vaccine administered Medications aspirin 81 mg oral tablet, chewable 81 mg, 1, tablet, By Mouth, Daily, # 30 tablet, Refills 11, Tot. Refills 11, Maintenance, 06/13/21 15:29:00 EST, Route to Pharmacy Electronically, [facility] #[id number], Partial fill upon patient request if the prescription is for a schedule II... Start Date: 06/13/21 Status: Ordered Biktarvy oral tablet 1 tablet, By Mouth, Daily, # 30 tablet, 0 Refills, Maintenance, 11/26/20 16:19:00 EDT, Tablet, [facility], Partial fill upon patient [...] 11/29/20 12:03:00 EDT, Route to Pharmacy Electronically, [facility] #[id number], 153, cm, 11/26/20 13:06:00 EDT, Height, 46, [...] 1 Refills, Maintenance, 06/09/21 10:48:00 EST, Injection, [facility] #[id number], Partial fill upon patient request if theprescription is for a schedule II opioid drug., 152... Start Date: 06/09/21 Stop Date: 08/08/21 Status: Ordered hydrOXYzine hydrochloride 10 mg oral tablet 2 tablet = 20 mg, By Mouth, 4 times a day, PRN for anxiety, # 80 tablet, 0 Refills, Maintenance, 10/17/21 12:42:00 EDT, Tablet, [facility] #[id number], Partial fill upon patient request if the prescription is for a schedule II opioid drug., 153,... Start Date: 10/17/21 Status: Ordered insulin glargine 100 u/ml subcutaneous solution 40, Subcutaneous Injection, Daily at bedtime, # 10 mL, 1 Refills, Maintenance, 08/07/21 13:44:00 EDT, Injection, [facility] #[id number], Partial fill upon patient request if the [...] Acute 10/17/22 12:44:00 EDT, 10/17/21 12:44:00 EDT, [facility] #[id number], Partial fill upon patient request if the prescription is for a schedule II opioid drug., 153, cm, 10/08/21 9:2... Start Date: 10/17/21 Stop Date: 10/17/22 Status: Ordered metoprolol 25 mg oral tablet 25 mg, 1, tablet, By Mouth, Daily, # 90 tablet, Refills 3, Tot. Refills 3, Maintenance, 06/13/21 15:29:00 EST, Route to Pharmacy Electronically, [facility] #[id number], Partial fill upon patientrequest if the prescription is for a schedule II op... Start Date: 06/13/21 Status: Ordered OxyCODONE IR Tablet 5 mg, Tablet, By Mouth, Once, STAT, 01/04/22 20:28:00 EDT, Stop date 01/04/22 20:28:00 EDT Start Date: 01/04/22 Stop Date: 01/05/22 Status: Completed Pen [place], 31 G x 5 mm BD Ultra [...] 3 Refills, Maintenance, 10/17/21 12:48:00 EDT, Solution, [facility] #[id number], Partial fill upon patient... Start Date: 10/17/21 Status: Ordered Vitamin D3 1000 intl units oral capsule 1 capsule = 25 mcg, By Mouth, Daily, # 100 capsule, 3 Refills, Maintenance, 06/20/21 11:15:00 EST, Capsule, [facility] #[id number], Partial fill upon patient request if the [...] Active DKA (diabetic ketoacidoses)(Confirmed) Active Diabetic retinopathy, [place], 03/23/19(Confirmed) Active Rash(Confirmed) Active Gitelman syndrome(Confirmed) Active [...] 3 Oxygen Saturation [94-100 %] 100 % (01/05/22 1:50 AM) 99 % (01/04/22 11:44 PM) 100 % (01/04/22 9:28 PM) Pulse Rate [55-90 bpm] 108 bpm *H* (01/05/22 1:50 AM) 109 bpm *H* (01/04/22 11:44 PM) 108 bpm *H* (01/04/22 9:28 PM) Blood Pressure [90-138/55-84 mm Hg] 104/69mm Hg (01/05/22 1:50 AM) 114/74mm Hg (01/04/22 11:44 PM) 99/67mm Hg (01/04/22 9:28 PM) Respiratory Rate [16-30 br/min] 16 br/min (01/05/22 1:56 AM) 18 br/min (01/04/22 4:53 PM) 18 br/min (01/04/22 2:14 PM) Temperature [96.8-100.4 DegF] 98.8 DegF (01/04/22 11:44 PM) 99.3 DegF (01/04/22 7:00 PM) 98.7 DegF (01/04/22 4:53 PM) Mode of Delivery (Oxygen) Room air (01/05/22 1:50 AM) Room air (01/04/22 11:44 PM) Room air (01/04/22 7:00 PM) Blood pressure sites Arm, right (01/05/22 1:50 AM) Arm, left (01/04/22 11:44 PM) Arm, right (01/04/22 9:28 PM) Temperature Route Oral (01/04/22 11:44 PM) Oral (01/04/22 7:00 PM) Oral (01/04/22 4:53 PM) Social History Social History Type Response Smoking Status Never (less than 100 in lifetime) entered on: 06/06/21 Sex Care Team Personnel Name: Toyin Dhaliwal MD Address: [address] [place] [address] [facility] [address]
--- OUTSIDE RECORDS SUMMARY | 2022-08-10 10:27 | XMS_ITS | Continuity of Care Document ---
Author Name Unknown Organization [facility] ter Address [address] [place] [id number]- Care Team Providers Care Hotel Services Supervisor Name Role Phone Bala Cortez MD Primary Care Physician [facility]): 10[facility]19 - 10/09/[address] [address] Discharge Disposition: A-D/C Home Attending Physician: Adolfo Villafuerte MD Admitting Physician: Adolfo Villafuerte MD Referring Physician: Not on Staff, Referring [...] 06/25/19 Not Given Patient Refuses 1Result Comment: [facility]# [id number] 2Result Comment: [facility]#[id number] 3Admin Note: Influenza vaccine 4Admin Note: Influenza [...] 0 Refills, Maintenance, 07/06/19 11:28:00 EST, Tablet, [facility] #[id number], 152, cm, 07/06/19 11:06:00 EST, Height, 43.1, [...] each, 1 Refills, Maintenance, 06/26/19 13:52:00 EST, [facility] #[id number], 153,... Start Date: 06/26/19 Status: Ordered Humalog Kwik Pen 100 units/mL subcutaneous injection See Instructions, Sliding Scale Comments >>100 - 149 6 units Call if less than [address] - 199 8 units 200 - 249 [...] each, 0 Refills, Maintenance, 06/26/19 13:40:00 EST, [facility] #[id number], 153, cm, 06/26/19 7:18:00 EST, Height, 41.1, kg, 01/24/19 18:27:00 EDT, Dry Weight Start Date: 06/26/19 Status: Ordered Lantus Solostar Pen 100 units/mL subcutaneous solution = 55 units, Subcutaneous Injection, Daily at bedtime, # 10 mL, 2 Refills, Maintenance, 07/06/19 11:26:00 EST, Solution, [facility] #[id number], 152, cm, 07/06/19 11:06:00 EST, Height, 43.1, kg, 07/06/19 11:06:00 EST, Dry Weight Start Date: 07/06/19 Status: Ordered magnesium oxide 400 mg oral tablet 1 tablet = 400 mg, By Mouth, 3 times a day, # 100 tablet, 3 Refills, Acute 07/05/20 11:27:00 EST, 07/06/19 11:26:00 EST, Tablet, [facility] #[id number], 152, cm, 07/06/19 11:06:00 EST, Height, 43.1, kg, 07/06/19 11:06:00 EST, Dry Weight Start Date: 07/06/19 Stop Date: 07/05/20 Status: Ordered multivitamin Therapeutic Multiple Vitamins oral tablet 1 tablet, By Mouth, Daily, # 30 tablet, 0 Refills, Maintenance, 06/26/19 13:45:00 EST, Tablet, [facility] #[id number], 1 tablet By Mouth Daily,x30 days, 153, cm, 06/26/19 7:18:00 EST, Height, 41.1, kg, 01/24/19 18:27:00 EDT, Dry Weight Start Date: 06/26/19 Stop Date: 07/26/19 Status: Ordered Pen [place], 29 G x 12.7 mm BD Ultra Fine See Instructions, # 100 each, Refills 5, Tot. Refills 5, Maintenance, use as directed for Type 1 Diabetes Mellitus, 06/26/19 13:47:00 EST, Compound, 153, cm, 06/26/19 7:18:00 EST, Height, 41.1, kg, 01/24/19 18:27:00 EDT, Dry Weight Start Date: 06/26/19 Stop Date: 12/23/19 Status: Ordered Pen [place], 31 G x 5 mm BD Ultra Fine III See Instructions, # 100 each, Refills 5, Tot. 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 3 Oxygen Saturation [94-100 %] 100 % (10/09/19 7:50 PM) 100 % (10/09/19 5:12 PM) 100 % (10/09/19 2:14 PM) Pulse Rate [55-90 bpm] 89 bpm (10/09/19 7:50 PM) 88 bpm (10/09/19 5:12 PM) 95 bpm *H* (10/09/19 2:14 PM) Blood Pressure [90-138/55-84 mm Hg] 113/71mm Hg (10/09/19 7:50 PM) 103/71mm Hg (10/09/19 5:12 PM) 128/75mm Hg (10/09/19 2:14 PM) Respiratory Rate [16-30 br/min] 18 br/min (10/09/19 7:50 PM) 16 br/min (10/09/19 5:12 PM) 16 br/min (10/09/19 2:14 PM) Temperature [96.8-100.4 DegF] 98.4 DegF (10/09/19 7:50 PM) 98 DegF (10/09/19 5:12 PM) 98.2 DegF (10/09/19 12:12 PM) Mode of Delivery (Oxygen) Room air (10/09/19 7:50 PM) Room air (10/09/19 5:12 PM) Room air (10/09/19 2:14 PM) Blood pressure sites Arm, left (10/09/19 5:12 PM) Arm, left (10/09/19 2:14 PM) Temperature Route Oral (10/09/19 7:50 PM) Oral (10/09/19 5:12 PM) Oral (10/09/19 12:12 PM) Social History Social History Type Response Smoking Status Never smoker entered on: 01/26/14 Sex
--- OUTSIDE RECORDS SUMMARY | 2022-08-10 10:27 | XMS_ITS | Continuity of Care Document ---
Author Name Unknown Organization [facility] Address [address] [place] [address]- Care Team Providers Care Family Consumer Science Fcs Teacher Name Role Phone Bala Cortez MD Primary Care Physician [facility]): [facility]20 - 04/20/20 [facility] [address] [place], [place] [address] Allergies, Adverse Reactions, Alerts No [...] Reason: Med Not Available 2Result Comment: [facility]#[id number] 3Admin Note: Influenza vaccine 4Admin Note: Influenza vaccine 5Admin Note: Influenza vaccine 6Admin Note: VIS GIVEN 7Result Comment: [facility]# [id number] 8Admin Note: Twinrix # 2 9Admin Note: [...] 03/05/20 17:29:00 EST, Route to Pharmacy Electronically, [facility] #[id number], 155, cm, 02/13/20 9:01:00 EDT, Height, 43.9, kg, 02/11/20 10:34... Start Date: 03/05/20 Status: Ordered Humalog Kwik Pen 100 units/mL subcutaneous injection See Instructions, 100-149 6 units 150 199 8 units 200 249 10 units 250 -299 12 units 300-349 14 units 350-399 16 units with meals as needed, # 10 mL, 2 Refills, Maintenance, 03/11/20 12:38:00 EST, Solution, [facility] #[id number], 155,... Start Date: 03/11/20 Status: Ordered ibuprofen 600 mg oral tablet 600 mg, 1, tablet, By Mouth, Every 8 hours, Use very sparingly, # 20 tablet, Refills 0, Tot. Refills 0, Acute 04/18/21 12:03:00 EST, 04/18/20 12:03:00 EST, Route to Pharmacy Electronically, [facility] #[id number], Partial fill upon patient reques... Start Date: 04/18/20 Stop Date: 04/18/21 Status: Ordered Lantus Solostar Pen 100 units/mL subcutaneous solution = 35 units, Subcutaneous Injection, Daily at bedtime, # 12 mL, 2 Refills, Maintenance, 03/05/20 17:29:00 EST, Solution, [facility] #[id number], 155, cm, 02/13/20 9:01:00 EDT, Height, 43.9, kg, 02/11/20 10:34:00 EDT, Dry Weight Start Date: 03/05/20 Status: Ordered magnesium oxide 400 mg oral tablet 1 tablet = 400 mg, By Mouth, 3 times a day, # 100 tablet, 3 Refills, Acute 07/05/20 11:27:00 EST, 07/06/19 11:26:00 EST, Tablet, [facility] #[id number], 152, cm, 07/06/19 11:06:00 EST, Height, 43.1, kg, 07/06/19 11:06:00 EST, Dry Weight Start Date: 07/06/19 Stop Date: 07/05/20 Status: Ordered metoprolol 25 mg oral tablet, extended release 25 mg, 1, tablet, By Mouth, Daily, # 30 tablet, Refills 5, Tot. Refills 5, Maintenance, 04/10/20 14:03:00 EST, Route to Pharmacy Electronically, [facility] #[id number], 155, cm, 02/13/20 9:01:00EDT, Height, 43.9, kg, 02/11/20 10:34:00 EDT, Dry W... 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
[2022-08-10 10:40] VITALS: BP 146/89; PULSE 86; RESP 20; TEMP 36.8; O2SAT 97
[2022-08-10] MEDS: Cyclopentolate 1 % Ophth Sol 2 ML DRPBTL 1 DROP EYE-RIGHT ×3 (10:54→10:55)
[2022-08-10] MEDS: Tropicamide 1 % Ophth Sol 3 ML BTL 1 DROP EYE-RIGHT ×3 (10:54→10:55)
[2022-08-10] MEDS: Ketorolac Tromethamine 0.5% Op 5 ML DROPS 1 DROP EYE-RIGHT ×3 (10:54→10:55)
[2022-08-10] MEDS: Tetracaine HCl/PF 0.5% Oph Sol 4 ML DROPS 1 DROP EYE-RIGHT (10:54)
[2022-08-10] MEDS: Phenylephrine HCL 2.5% Oph SoL 2 ML BOTTLE 1 DROP EYE-RIGHT ×3 (10:54→10:55)
[2022-08-10 11:02] LABS: Glucose, Whole Blood 107 mg/dL (60-115)
--- NOTE | 2022-08-10 11:57 | HO.PNOPHT ---
Ophthalmology Procedure Procedure Date of Service: 08/10/22 Ophthalmology Viscoelastic: Gabrielle Chowdhury Dual Pack Pro Ophthalmology Lenses: TECKATHY [id number] (24) Procedure Notes: PREOPERATIVE DIAGNOSIS: Decreased visual acuity right eye secondary to cataract POSTOPERATIVE DIAGNOSIS: Same PROCEDURE: Right cataract extraction with intraocular lens insertion Capsule stained with Visionblue SURGEON: Bartolome Bliss M.D. ANESTHESIA: Topical/MAC ESTIMATED BLOOD LOSS: None COMPLICATIONS: None After obtaining informed consent, the patient was brought to the operating room suite and placed in the supine position. After adequate sedation per anesthesia, topical drops of Tetracaine were given to the right eye. The eye was then prepped and draped in the usual sterile fashion. The operating room microscope was then positioned over the operative eye and a lid speculum placed. A paracentesis was created. Dewnse Cataracr required an air bubble followed by Visionblue to stain the anterior chamber.Viscoelastic was then instilled into the anterior chamber. A three plane incision was then created temporally, utilizing a 2.85 mm keratome. Capsulotomy forceps were then utilized to create a circular tear capsulotomy. Hydrodissection and hydrodelineation were carried out until adequate mobilization of the nucleus occurred. Phacoemulsification was then utilized to remove the dense central nucleus followed by removal of the cortical material utilizing the automated aspiration irrigation unit. Viscoelastic was instilled into the posterior capsular bag followed by placement of a posterior chamber intraocular lens without difficulty. The residual Viscoelastic was then removed utilizing the automated IA machine. The wound was checked and found to be watertight. The patient tolerated the procedure well and the lid speculum was removed. Intracameral injection of Vigamox 0.1 mL followed by a subtenon injection of Kenalog-40 0.2 mL were administered. The patient will be seen in the a.m.
[2022-08-10 12:21] VITALS: BP 137/78; PULSE 85; RESP 16; TEMP 36.2; O2SAT 98
== END 2022-08-10 12:35 | disposition home or self-care (01) ==
PROVIDERS: PCP Internal Medicine; Visit Provider Ophthalmology
PROC: (CPT 66985; principal; 2022-08-10 12:30)
DX: H25.11 Age-related nuclear cataract, right eye (principal); E11.9 Type 2 diabetes mellitus without complications
CPT/HCPCS: 66984; 82947; J2250; J3010; J3301; V2632